=== PATIENT | female | born 1945 | race Caucasian/White ===

== ENCOUNTER → 2016-12-18 | Outpatient (CLI) | payer MEDICARE, BC ==
[2016-12-18 11:46] LABS: HEMATOCRIT 40.5 % (36.0-47.0); HEMOGLOBIN 13.6 g/dL (12.0-15.5); HGB HCT DIFFERENCE 0.3; MEAN CORPUSCULAR HEMOGLOBIN 30.1 pg (27.0-33.4); MEAN CORPUSCULAR HGB CONC 33.7 g/dL (32.0-36.0); MEAN CORPUSCULAR VOLUME 89 fl (80-97); RED BLOOD COUNT 4.53 10^6/uL (3.72-5.28); RED CELL DISTRIBUTION WIDTH 13.7 % (11.5-14.0); WHITE BLOOD COUNT 10.2 10^3/uL (4.0-10.5)
[2016-12-18 11:57] LABS: APPEARANCE,URINE CLEAR; BILIRUBIN,URINE NEGATIVE (NEGATIVE); GLUCOSE, URINE NEGATIVE (NEGATIVE); KETONES,URINE NEGATIVE (NEGATIVE); LEUKOCYTE ESTERASE,URINE TRACE (NEGATIVE); NITRITE,URINE NEGATIVE (NEGATIVE); PROTEIN,URINE NEGATIVE (NEGATIVE); UROBILINOGEN,URINE NEGATIVE mg/dL (<2.0)
[2016-12-18 12:20] LABS: ANION GAP 14 (5-19); BLOOD UREA NITROGEN 23 mg/dL (7-20); CALCIUM 10.2 mg/dL (8.4-10.2); CARBON DIOXIDE 27 mmol/L (22-30); CHLORIDE 98 mmol/L (98-107); GLUCOSE 91 mg/dL (75-110); POTASSIUM 4.4 mmol/L (3.6-5.0); SODIUM 139.2 mmol/L (137-145)
== END ==
LOC: OD 10:28
PROVIDERS: ATTEND Internal Medicine Nephrology
DX: I12.9 Hypertensive chronic kidney disease with stage 1 through stage 4 chronic kidney disease, or unspecified chronic kidney disease (principal); N18.3 Chronic kidney disease, stage 3 (moderate); R31.9 Hematuria, unspecified
CPT/HCPCS: 36415; 80048; 81001; 85027

== ENCOUNTER 2017-12-12 10:40 | Emergency (ER) | payer MEDICARE, BC ==
[2017-12-12] MEDS ORDERED: FENTANYL CITRATE INJ/PF 100 MCG/2 ML AMPUL IV ONE (11:15)
[2017-12-12] MEDS ORDERED: NORMAL SALINE 1000 ML 1,000 ML IV ONE (11:15)
[2017-12-12 12:15] LABS: ABSOLUTE BASOPHILS # (AUTO) 0.2 10^3/uL (0.0-0.2); ABSOLUTE EOSINOPHILS # (AUTO) 0.1 10^3/uL (0.0-0.6); ABSOLUTE LYMPHOCYTES (AUTO) 2.1 10^3/uL (0.5-4.7); ABSOLUTE MONOCYTES (AUTO) 0.5 10^3/uL (0.1-1.4); ABSOLUTE NEUT (AUTO) 7.5 10^3/uL (1.7-8.2); BASOPHILS % (AUTO) 1.9 % (0-2); EOSINOPHILS % (AUTO) 1.4 % (0-6); HEMATOCRIT 38.4 % (36.0-47.0); LYMPHOCYTES % (AUTO) 20.2 % (13-45); MEAN CORPUSCULAR HEMOGLOBIN 29.5 pg (27.0-33.4); MEAN CORPUSCULAR HGB CONC 33.8 g/dL (32.0-36.0); MEAN CORPUSCULAR VOLUME 87 fl (80-97); MONOCYTES % (AUTO) 5.2 % (3-13); PLATELET COUNT 304 10^3/uL (150-450); RED BLOOD COUNT 4.41 10^6/uL (3.72-5.28); RED CELL DISTRIBUTION WIDTH 13.9 % (11.5-14.0); SEGMENTED NEUTROPHILS % (AUTO) 71.3 % (42-78); TOTAL CELLS COUNTED % (AUTO) 100 %; WHITE BLOOD COUNT 10.5 10^3/uL (4.0-10.5)
[2017-12-12 12:25] LABS: ALANINE AMINOTRANSFERASE 16 U/L (9-52); ALKALINE PHOSPHATASE 63 U/L (38-126); ANION GAP 14 (5-19); ASPARTATE AMINO TRANSFERASE 12 U/L (14-36); BILIRUBIN,DIRECT 0.1 mg/dL (0.0-0.4); BILIRUBIN,TOTAL 0.4 mg/dL (0.2-1.3); BLOOD UREA NITROGEN 18 mg/dL (7-20); CALCIUM 10.4 mg/dL (8.4-10.2); CARBON DIOXIDE 25 mmol/L (22-30); CHLORIDE 99 mmol/L (98-107); GLUCOSE 110 mg/dL (75-110); LIPASE 87.7 U/L (23-300); POTASSIUM 3.7 mmol/L (3.6-5.0); TOTAL PROTEIN 6.6 g/dL (6.3-8.2)
[2017-12-12 12:57] LABS: APPEARANCE,URINE CLEAR; BILIRUBIN,URINE NEGATIVE (NEGATIVE); COLOR,URINE YELLOW; GLUCOSE, URINE NEGATIVE (NEGATIVE); KETONES,URINE NEGATIVE (NEGATIVE); LEUKOCYTE ESTERASE,URINE TRACE (NEGATIVE); NITRITE,URINE NEGATIVE (NEGATIVE); PROTEIN,URINE NEGATIVE (NEGATIVE); UROBILINOGEN,URINE NEGATIVE mg/dL (<2.0)
--- NOTE | 2017-12-12 15:05 | RADIOLOGY REPORT (SQ) ---
EXAM DESCRIPTION: CT ABD/PELVIS ORAL ONLY COMPLETED DATE/TIME: 12/12/2017 2:26 pm REASON FOR STUDY: abd pain, ocncern of obstruction COMPARISON: None. TECHNIQUE: CT scan of the abdomen and pelvis performed without intravenous or oral contrast. Images reviewed with lung, soft tissue, and bone windows. Reconstructed coronal and sagittal MPR images revi ewed. All images stored on PACS. All CT scanners at this facility use dose modulation, iterative reconstruction, and/or weight based d osing when appropriate to reduce radiation dose to as low as reasonably achievable (ALARA). [facility]: Dose Right [facility]: CareDose [facility]: Dose Right [facility]: Teradose 4D [facility]: [employer] RADIATION DOSE: CT Rad equipment meets quality standard of care and radiation dose reduction techniq ues were employed. CTDIvol: 26.8 mGy. DLP: 1468 mGy-cm.mGy. LIMITATIONS: None. FINDINGS: LOWER CHEST: Streaky atelectatic markings left base. Small hiatus hernia. NON-CONTRASTED LIVER, SPLEEN, ADRENALS: Nothing acute noncontrast liver or spleen. Slight low-densit y increased size left adrenal concerning for adenoma. PANCREAS: No masses. No peripancreatic inflammatory changes. GALLBLADDER: Surgical clips, post cholecystectomy RIGHT KIDNEY AND URETER: Likely small cyst. No significant calcifications. No hydronephrosis or h ydroureter. LEFT KIDNEY AND URETER: No suspicious masses. Assessment limited by lack of IV contrast. 3 mm nonob structing stone of the kidney. No hydronephrosis or hydroureter. AORTA AND RETROPERITONEUM: No aneurysm. No retroperitoneal masses or adenopathy. BOWEL AND PERITONEAL CAVITY: Fecal material distends the colon the cecum 12 cm in diameter. No dilat ation of the small bowel. APPENDIX: Normal. PELVIS, BLADDER, AND ABDOMINAL WALL:2.9 cm thickening of the wall upper lateral aspect of the urinary bladder concerning for mass. BONES: Right hip arthroplasty. OTHER: No other significant finding. IMPRESSION: Constipation. No small bowel dilatation. Focal wall thickening upper lateral aspect the urinary bladder concerning for mass. 3 mm nonobstructing stone left kidney. Post cholecystectomy. Hysterectomy, and right hip arthroplasty. COMMENT: Quality ID # [id number]: Final reports with documentation of one or more dose reduction techniques (e.g., Automated exposure control, adjustment of the mA and/or kV according to patient size, use of iterative reconstruction technique) TECHNICAL DOCUMENTATION: JOB ID: [id number] [employer]- All Rights Reserved Reading location - IP/workstation name: [email or web address]
--- NOTE | 2017-12-12 15:24 | ER Document Report ---
ED GI/ - General Chief Complaint: Abdominal Pain Stated Complaint: STOMACH PAIN Time Seen by Provider: 12/12/17 11:11 Mode of Arrival: Ambulatory Information source: Patient Notes: Patient is a 72-year-old female who presents to the ER today for abdominal pain "all over" that worsened today. Patient states that she has history of constipation over the past month that she has been taking different laxatives for but nothing has been helping. She states her last bowel movement was at least 5 days ago. She admits to some nausea but no vomiting. She denies any fever, chills. She does have a history of a perforated bowel due to hysterectomy. TRAVEL OUTSIDE OF THE [place] IN LAST 30 DAYS: No - Related Data Allergies/Adverse Reactions: No Known Allergies Allergy (Verified 12/12/17 10:58) Past Medical History - General Information source: Patient - Social History Smoking Status: Former Smoker Chew tobacco use (# tins/day): No Frequency of alcohol use: Rare Drug Abuse: None Family History: Reviewed & Not Pertinent Patient has suicidal ideation: No Patient has homicidal ideation: No Renal/ Medical History: Denies: Hx Peritoneal Dialysis Review of Systems - Review of Systems Constitutional: No symptoms reported EENT: No symptoms reported Cardiovascular: No symptoms reported Respiratory: No symptoms reported Gastrointestinal: See HPI Genitourinary: No symptoms reported Female Genitourinary: No symptoms reported Musculoskeletal: No symptoms reported Skin: No symptoms reported Hematologic/Lymphatic: No symptoms reported Neurological/Psychological: No symptoms reported Physical Exam - Vital signs Vitals: Temp Pulse Resp BP Pulse Ox 98.3 F 98 14 136/79 H 91 L 12/12/17 10:47 12/12/17 10:47 12/12/17 10:47 12/12/17 10:47 12/12/17 10:47 - Notes Notes: PHYSICAL EXAMINATION: GENERAL: Well-appearing and in no acute distress. HEAD: Atraumatic, normocephalic. EYES: Pupils equal round and reactive to light, extraocular movements intact, sclera anicteric, conjunctiva are normal. NECK: Normal range of motion, supple without lymphadenopathy LUNGS: CTAB and equal. No wheezes rales or rhonchi. HEART: Regular rate and rhythm without murmurs ABDOMEN: Distended, mild diffuse tenderness. No guarding, no rebound BACK: no vertebral tenderness, normal ROM GI/: no CVA tenderness EXTREMITIES: Normal range of motion, no pitting edema. No cyanosis. NEUROLOGICAL: Cranial nerves grossly intact. Normal sensory/motor exams. PSYCH: Normal mood, normal affect. SKIN: Warm, Dry, normal turgor, no rashes or lesions noted Course - Re-evaluation Re-evalutation: 12/12/17 15:19 Lab work is unremarkable today including a normal white blood cell count, normal urinalysis. CAT scan that was ordered in triage reports constipation throughout including distending the colon at the cecum to 12 cm in diameter. No evidence for bowel obstruction. I will place patient on bowel prep regimen for acute constipation - Vital Signs Vital signs: Temp Pulse Resp BP Pulse Ox 98.3 F 98 13 122/77 91 L 12/12/17 10:47 12/12/17 10:47 12/12/17 16:01 12/12/17 16:01 12/12/17 16:01 - Laboratory Result Diagrams: 12/12/17 11:36 12/12/17 11:36 Laboratory results interpreted by me: 12/12/17 12/12/17 11:36 11:36 Est GFR ( Amer) 56 L Est GFR (Non-Af Amer) 47 L Calcium 10.4 H AST 12 L Urine Blood MODERATE H Ur Leukocyte Esterase TRACE H Discharge - Discharge Clinical Impression: Abdominal pain Qualifiers: Abdominal location: generalized Qualified Code(s): R10.84 - Generalized abdominal pain Constipation Qualifiers: Constipation type: unspecified constipation type Qualified Code(s): K59.00 - Constipation, unspecified Condition: Stable Disposition: HOME, SELF-CARE Additional Instructions: Return immediately for any new or worsening symptoms. Follow up with primary care provider, call tomorrow to make followup appointment. Please take 1 bottle of bowel prep day 1, second bottle of bowel prep day 2, please continue stool softeners. Prescriptions: [id number]/Sod Sulf,Bicarb,Cl/KCl [[id number] And Electrolytes Soln] 4,000 ml PO DAILY #2 [email or web address] Referrals: ILYA FULLER MD [Primary Care Provider] - Follow up as needed
[2017-12-12 16:05] VITALS: BP 122/77
== END 2017-12-12 16:21 | disposition home or self-care (01) ==
LOC: ER 10:40
DX: R10.84 Generalized abdominal pain (principal); K59.00 Constipation, unspecified; F17.200 Nicotine dependence, unspecified, uncomplicated
CPT/HCPCS: 99284; 96361; 96374; 36415; 83690; 85025; 80053; 81001; 74176; J3010; J7030

== ENCOUNTER 2017-12-14 15:04 | Inpatient (IN) | payer MEDICARE, BC ==
[2017-12-14] MEDS ORDERED: NORMAL SALINE 1000 ML 1,000 ML IV ONE ×3 (15:38→16:53)
[2017-12-14 15:55] LABS: ABSOLUTE LYMPHOCYTES (AUTO) 1.1 10^3/uL (0.5-4.7); ABSOLUTE MONOCYTES (AUTO) 1.6 10^3/uL (0.1-1.4); ABSOLUTE NEUT (AUTO) 13.3 10^3/uL (1.7-8.2); BASOPHILS % (AUTO) 0.1 % (0-2); HEMATOCRIT 43.2 % (36.0-47.0); HEMOGLOBIN 14.5 g/dL (12.0-15.5); LYMPHOCYTES % (AUTO) 7.1 % (13-45); MEAN CORPUSCULAR HEMOGLOBIN 29.3 pg (27.0-33.4); MEAN CORPUSCULAR HGB CONC 33.5 g/dL (32.0-36.0); MEAN CORPUSCULAR VOLUME 88 fl (80-97); MONOCYTES % (AUTO) 10.1 % (3-13); PLATELET COUNT 479 10^3/uL (150-450); RED BLOOD COUNT 4.93 10^6/uL (3.72-5.28); RED CELL DISTRIBUTION WIDTH 13.7 % (11.5-14.0); SEGMENTED NEUTROPHILS % (AUTO) 82.7 % (42-78); TOTAL CELLS COUNTED % (AUTO) 100 %; WHITE BLOOD COUNT 16.1 10^3/uL (4.0-10.5)
[2017-12-14 16:11] LABS: VENOUS BLOOD BASE EXCESS 1.3 mmol/L; VENOUS BLOOD HCO3 25.7 mmol/L (20-32); VENOUS BLOOD PCO2 39.9 mmHg (35-63); VENOUS BLOOD PH 7.43 (7.30-7.42)
[2017-12-14 16:18] LABS: ALANINE AMINOTRANSFERASE 25 U/L (9-52); ALBUMIN 4.4 g/dL (3.5-5.0); ALKALINE PHOSPHATASE 64 U/L (38-126); ANION GAP 19 (5-19); ASPARTATE AMINO TRANSFERASE 41 U/L (14-36); BILIRUBIN,DIRECT 0.6 mg/dL (0.0-0.4); BILIRUBIN,TOTAL 0.7 mg/dL (0.2-1.3); BLOOD UREA NITROGEN 58 mg/dL (7-20); CALCIUM 11.6 mg/dL (8.4-10.2); CARBON DIOXIDE 27 mmol/L (22-30); CHLORIDE 91 mmol/L (98-107); GLUCOSE 153 mg/dL (75-110); LIPASE 50.6 U/L (23-300); POTASSIUM 3.4 mmol/L (3.6-5.0); SODIUM 137.2 mmol/L (137-145); TOTAL PROTEIN 7.8 g/dL (6.3-8.2)
[2017-12-14] MEDS ORDERED: VANCOMYCIN HCL INJ 1000 MG VIAL IV ONE (16:20)
[2017-12-14] MEDS ORDERED: PIPERACILLIN/TAZOBACTAM 3.375 GM VIAL IV ONE (16:21)
--- NOTE | 2017-12-14 16:28 | ER Document Report ---
ED GI/ - General Chief Complaint: Nausea/Vomiting/Diarrhea Stated Complaint: VOMITING Time Seen by Provider: 12/14/17 15:36 Information source: Patient Notes: 72-year-old female is today with the onset 2 days ago of some nausea with constipation. Patient was seen here with a CT scan of the abdomen and pelvis which showed some colonic dilation with no obvious obstructions or infections. Patient that evening started to have some persistent vomiting with diarrhea starting yesterday. Patient states some still persistent epigastric discomfort. She denies any fevers, aggravating or relieving factors, or radiation of the pain. Patient denies a history of bowel obstructions. Patient denies any chest pain, shortness of breath, or coughing. Initial blood pressure as recorded. Patient does not have a gallbladder. TRAVEL OUTSIDE OF THE [place] IN LAST 30 DAYS: No - HPI Patient complains to provider of: Abdominal pain, Diarrhea, Vomiting Onset: Other - See above Timing/Duration: Gradual Quality of pain: Achy Severity at maximum: Moderate Severity in ED: Moderate Pain Level: 1 Location: Other - See above Sexual history: Inactive Associated symptoms: Other - See above Exacerbated by: Denies Relieved by: Denies Similar symptoms previously: Yes Recently seen / treated by doctor: Yes - Related Data Allergies/Adverse Reactions: No Known Allergies Allergy (Verified 12/14/17 15:08) Past Medical History - General Information source: Patient - Social History Smoking Status: Unknown if Ever Smoked Cigarette use (# per day): No Chew tobacco use (# tins/day): No Smoking Education Provided: No Frequency of alcohol use: None Drug Abuse: None Lives with: Alone Family History: Reviewed & Not Pertinent Renal/ Medical History: Denies: Hx Peritoneal Dialysis Review of Systems - Review of Systems Constitutional: denies: Fever EENT: denies: Eye discharge, Nose discharge Cardiovascular: denies: Chest pain, Palpitations Respiratory: denies: Short of breath Gastrointestinal: Diarrhea, Vomiting Genitourinary: denies: Dysuria Musculoskeletal: denies: Leg swelling Skin: Other - no hives. denies: Rash Neurological/Psychological: Other - no slurred speech -: Yes All other systems reviewed and negative Physical Exam - Vital signs Vitals: BP Pulse Ox 74/51 L 88 L 12/14/17 15:27 12/14/17 15:27 Notes: Reviewed vital signs and nursing note as charted by RN. CONSTITUTIONAL: Alert and oriented and responds appropriately to questions. Well -appearing; well-nourished HEAD: Normocephalic; atraumatic EYES: Sclerae non-icteric ENT: Normal nose; no rhinorrhea; moist mucous membranes; pharynx without lesions noted NECK: Supple without meningismus; non-tender; no cervical lymphadenopathy, no masses CARD: Tachycardic and regular; no murmurs, no clicks, no rubs, no gallops; symmetric distal pulses RESP: Normal chest excursion without splinting or tachypnea; breath sounds clear and equal bilaterally; no wheezing or rhonchi present ABD/GI: Normal bowel sounds; mildly distended. Soft. Patient currently has no subjective or objective tenderness to palpation of all 4 quadrants of the abdomen. No abdominal bruits present BACK: The back appears normal and is non-tender to palpation, there is no CVA tenderness EXT: Normal ROM in all joints; non-tender to palpation; no cyanosis, no effusions, no edema SKIN: Normal color for age and race; warm; dry; good turgor; no acute lesions noted NEURO: Moves all extremities equally; Motor and sensory function intact PSYCH: The patient's mood and manner are appropriate. Grooming and personal hygiene are appropriate. Course - Re-evaluation Re-evalutation: Given the history, vital signs, and examination, we placed the patient immediately on the monitor and ordered a liter of fluid. Blood and lactic acid were ordered. I called personally to radiology to expedite a portable x-ray of the chest and abdomen. 12/14/17 16:25 Labs as recorded. I have ordered thank and Zosyn. No change in exam. Blood pressure improved. 12/14/17 16:27 X-ray of the chest shows no acute abnormality. X-ray of the abdomen show some dilated loops of large intestine. I have paged the surgeon. I have also ordered a CT scan of the abdomen and pelvis without contrast given the patient' s creatinine. I have ordered broad-spectrum antibiotics and have ordered another liter of fluid. 12/14/17 16:33 Second liter of fluid has been ordered. I have called and spoken directly to the surgeon about the patient. He states he will be down to see the patient. 12/14/17 16:42 EKG heart rate 101, sinus tachycardia, normal axis, no obvious ST elevation or depression. Flattening T waves in leads I, aVL, 3, aVF 12/14/17 17:35 CT scan as recorded. Vital signs are stable. Patient's pain is improved. I have already provided broad-spectrum antibiotics given the patient's lactic acid. Patient's potassium is actually low, not high. The surgeon has been consulted and was here in the emergency department. Patient has been admitted to the hospitalist service for further evaluation and fluid hydration. Patient' s oxygen saturation is 92-93%. X-ray is recorded. Patient does have a history of recently diagnosed COPD. She denies any chest pain or shortness of breath. - Vital Signs Vital signs: Temp Pulse Resp BP Pulse Ox 98.3 F 20 94/38 L 94 12/14/17 16:17 12/14/17 16:11 12/14/17 16:11 12/14/17 16:11 - Laboratory Result Diagrams: 12/14/17 15:39 12/14/17 15:39 Laboratory results interpreted by me: 12/14/17 12/14/17 12/14/17 15:39 15:39 15:39 WBC 16.1 H Plt Count 479 H Seg Neutrophils % 82.7 H Lymphocytes % 7.1 L Absolute Neutrophils 13.3 H Absolute Monocytes 1.6 H VBG pH Potassium 3.4 L Chloride 91 L BUN 58 H Creatinine 4.73 H Est GFR ( Amer) 11 L Est GFR (Non-Af Amer) 9 L Glucose 153 H Lactic Acid 5.9 H Calcium 11.6 H Direct Bilirubin 0.6 H AST 41 H 12/14/17 15:39 WBC Plt Count Seg Neutrophils % Lymphocytes % Absolute Neutrophils Absolute Monocytes VBG pH 7.43 H Potassium Chloride BUN Creatinine Est GFR ( Amer) Est GFR (Non-Af Amer) Glucose Lactic Acid Calcium Direct Bilirubin AST Critical Care Note - Critical Care Note Total time excluding time spent on procedures (mins): 45 Discharge - Discharge Clinical Impression: Vomiting and diarrhea, Lactic acidosis Acute renal failure Qualifiers: Acute renal failure type: unspecified Qualified Code(s): N17.9 - Acute kidney failure, unspecified Condition: Serious Disposition: ADMITTED INPATIENT Admitting Provider: Hospitalist Unit Admitted: IMCU Referrals: ILYA FULLER MD [Primary Care Provider] - Follow up as needed
--- NOTE | 2017-12-14 16:39 | RADIOLOGY REPORT (SQ) ---
EXAM DESCRIPTION: CHEST SINGLE VIEW COMPLETED DATE/TIME: 12/14/2017 4:27 pm REASON FOR STUDY: 1, sob COMPARISON: None. EXAM PARAMETERS: NUMBER OF VIEWS: One view. TECHNIQUE: Single frontal radiographic view of the chest acquired. RADIATION DOSE: NA LIMITATIONS: None. FINDINGS: LUNGS AND PLEURA: No opacities, masses or pneumothorax. Small left-sided pleural effusion . MEDIASTINUM AND HILAR STRUCTURES: No masses. Contour normal. HEART AND VASCULAR STRUCTURES: Heart normal in size. Normal vasculature. BONES: No acute findings. HARDWARE: None in the chest. OTHER: No other significant finding. IMPRESSION: Small left-sided pleural effusion. No focal consolidation. TECHNICAL DOCUMENTATION: JOB ID: [id number] [employer]- All Rights Reserved Reading location - IP/workstation name: [email or web address]
--- NOTE | 2017-12-14 16:41 | RADIOLOGY REPORT (SQ) ---
EXAM DESCRIPTION: KUB/ABDOMEN (SINGLE VIEW) COMPLETED DATE/TIME: 12/14/2017 4:27 pm REASON FOR STUDY: 1, portable COMPARISON: CT of the abdomen and pelvis 12/12/2017 NUMBER OF VIEWS: One view. TECHNIQUE: Supine radiographic image of the abdomen acquired. LIMITATIONS: None. FINDINGS: BOWEL GAS PATTERN: Gas is seen within multiple prominent loops of colon which were previou sly filled with stool. CALCIFICATIONS: No suspicious calcifications. SOFT TISSUES: No gross mass or suggestion of organomegaly. HARDWARE: Status post right total hip arthroplasty. Cholecystectomy clips. BONES: No acute fracture. No worrisome bone lesions. OTHER: No other significant finding. IMPRESSION: Previously stool filled loops of colon appear gas-filled on today's examination. TECHNICAL DOCUMENTATION: JOB ID: [id number]- All Rights Reserved Reading location - IP/workstation name: [email or web address]
[2017-12-14] MEDS ORDERED: ONDANSETRON HCL INJ/PF 4 MG/2 ML SDV IV ONE (16:48)
--- NOTE | 2017-12-14 17:30 | RADIOLOGY REPORT (SQ) ---
EXAM DESCRIPTION: CT ABD/PELVIS NO ORAL OR IV COMPLETED DATE/TIME: 12/14/2017 4:50 pm REASON FOR STUDY: 6, vomiting, diarrhea, lactic as recorded COMPARISON: 12/12/2017 TECHNIQUE: CT scan of the abdomen and pelvis performed without intravenous or oral contrast. Images reviewed with lung, soft tissue, and bone windows. Reconstructed coronal and sagittal MPR images revi ewed. All images stored on PACS. All CT scanners at this facility use dose modulation, iterative reconstruction, and/or weight based d osing when appropriate to reduce radiation dose to as low as reasonably achievable (ALARA). [facility]: Dose Right [facility]: CareDose [facility]: Dose Right [facility]: Teradose 4D [facility]: Smart [employer] RADIATION DOSE: CT Rad equipment meets quality standard of care and radiation dose reduction techniq ues were employed. CTDIvol: 27.5 mGy. DLP: 1630 mGy-cm.mGy. LIMITATIONS: None. FINDINGS: LOWER CHEST: Bibasilar scarring versus atelectasis. No acute findings. NON-CONTRASTED LIVER, SPLEEN, ADRENALS: Evaluation limited by lack of IV contrast. No acute findings . PANCREAS: No masses. No peripancreatic inflammatory changes. GALLBLADDER: Surgically absent. RIGHT KIDNEY AND URETER: No suspicious masses. Assessment limited by lack of IV contrast. No signif icant calcifications. No hydronephrosis or hydroureter. LEFT KIDNEY AND URETER: No suspicious masses. Assessment limited by lack of IV contrast. Re- demons tration of a nonobstructing nephrolith. No hydronephrosis or hydroureter. AORTA AND RETROPERITONEUM: No aneurysm. No retroperitoneal masses or adenopathy. BOWEL AND PERITONEAL CAVITY: Gas and fluid are seen throughout prominent loops of large and small bow el scattered sigmoid diverticula are present noting some subtle inflammatory changes in the region of the proximal sigmoid (axial images 78 through 81); by and large, the colon appears to be largely fea tureless. Additionally, on axial image 67, there appears to be a small bowel adhesion without obstru ction. Multiple air-fluid levels are seen throughout the bowel. APPENDIX: Normal. PELVIS, BLADDER, AND ABDOMINAL WALL:No abnormal masses. No free fluid. Bladder normal. BONES: No significant findings. OTHER: No other significant finding. IMPRESSION: Relative to CT imaging performed 12/29/2017 which demonstrated constipation, today's imag ing demonstrates fluid throughout prominent loops of large and small bowel. Some subtle pericolic me senteric fat stranding involving the proximal sigmoid colon may indicate an early uncomplicated diver ticulitis. Additionally, there appears to be a small bowel to small bowel adhesion without evidence of obstruction. 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 COMMENT: Quality ID # [id number]: Final reports with documentation of one or more dose reduction techniques (e.g., Automated exposure control, adjustment of the mA and/or kV according to patient size, use of iterative reconstruction technique) TECHNICAL DOCUMENTATION: JOB ID: [id number] [employer]- All Rights Reserved Reading location - IP/workstation name: [email or web address]
--- NOTE | 2017-12-14 18:00 | PDOC CONSULTATION ---
History of Present Illness Admission Date/PCP: ILYA FULLER MD Patient complains of: RUQ abdominal pains with Nausea History of Present Illness: MICHAEL IVEY is a 72 year old female with history of hypertension.Hysterectomy with post op obstruction who underwent lysis of adhesions. Also had lap luther. Has been c/o constipation and consulted PMD mid November who gave her some laxatives. 2 days ago was seen in the ED for N/V and mild abdominal pains. Ct scan then was normal and pt sent home. She has been nauseated with vomiting and now with abdominal pains and back to ED. Subsequent CT scan showed disteded small and large bowel with possibly starting sigmoid diverticulitis and evidence of chronic laxative use. Past Medical History Cardiac Medical History: Reports: Hypertension Past Surgical History Past Surgical History: Reports: Cholecystectomy, Hysterectomy, Other - Lysis of adhesions post hysterectomy Social History Lives with: Alone Smoking Status: Unknown if Ever Smoked Family History Family History: Reviewed & Not Pertinent Parental Family History Reviewed: No Children Family History Reviewed: No Sibling(s) Family History Reviewed.: No Medication/Allergy Home Medications: Allopurinol [Zyloprim 100 mg Tablet] 100 mg PO DAILY 12/12/17 Calcium Carbonate [Calcium] 600 mg PO BID 12/12/17 Hydrochlorothiazide 12.5 mg PO DAILY 12/12/17 Levothyroxine Sodium [Levoxyl] 150 mcg PO DAILY 12/12/17 Lisinopril [Lisinopril] 40 mg PO DAILY 12/12/17 Multivitamin [One-A-Day Essential] 1 tab PO DAILY 12/12/17 [id number]/Sod Sulf,Bicarb,Cl/KCl [[id number] And Electrolytes Soln] 4,000 ml PO DAILY #2 soln.recon 12/12/17 Umeclidinium Brm/Vilanterol Tr [Anoro Ellipta 62.5-25 Mcg INH] 1 inh IH DAILY Ondansetron [Zofran Odt 4 mg Tablet] 1 - 2 tab PO Q4H PRN #30 tab.rapdis Ondansetron [Zofran Odt 4 mg Tablet] 1 - 2 tab PO Q4H PRN #30 tab.rapdis Allergies/Adverse Reactions: No Known Allergies Allergy (Verified 12/14/17 15:08) Review of Systems Constitutional: PRESENT: weakness Eyes: PRESENT: other - no visual/hearing changes Cardiovascular: PRESENT: other - no chest pain/cough Gastrointestinal: PRESENT: nausea, vomiting, other - Had BM after CT scan Genitourinary: PRESENT: other - no dysuria Neurological: PRESENT: other - no seizures Psychiatric: PRESENT: anxiety Endocrine: PRESENT: other - no polyuria Hematologic/Lymphatic: PRESENT: other - no easy bruising Physical Exam Vital Signs: Temp Pulse Resp BP Pulse Ox 98.3 F 20 94/38 L 94 12/14/17 16:17 12/14/17 16:11 12/14/17 16:11 12/14/17 16:11 Intake & Output 12/13/17 12/14/17 12/15/17 06:59 06:59 06:59 Weight 115 kg General appearance: PRESENT: mild distress Head exam: PRESENT: atraumatic, normocephalic Eye exam: PRESENT: conjunctiva pink Mouth exam: PRESENT: dry mucosa Neck exam: PRESENT: full ROM Respiratory exam: PRESENT: clear to auscultation choco Cardiovascular exam: PRESENT: tachycardia Pulses: PRESENT: normal radial pulses Vascular exam: PRESENT: normal capillary refill GI/Abdominal exam: PRESENT: distended, firm, tenderness - mild tenderness RUQ Rectal exam: PRESENT: deferred Extremities exam: PRESENT: full ROM Musculoskeletal exam: PRESENT: ambulatory Neurological exam: PRESENT: alert, oriented to person, oriented to place, oriented to time, oriented to situation Psychiatric exam: PRESENT: anxious Skin exam: PRESENT: normal color, warm Results Laboratory Results: 12/14/17 15:39 12/14/17 15:39 12/14/17 12/14/17 12/14/17 15:39 15:39 15:39 WBC 16.1 H RBC 4.93 Hgb 14.5 Hct 43.2 MCV 88 MCH 29.3 MCHC 33.5 RDW 13.7 Plt Count 479 H Seg Neutrophils % 82.7 H Lymphocytes % 7.1 L Monocytes % 10.1 Eosinophils % 0.0 Basophils % 0.1 Absolute Neutrophils 13.3 H Absolute Lymphocytes 1.1 Absolute Monocytes 1.6 H Absolute Eosinophils 0.0 Absolute Basophils 0.0 VBG pH VBG pCO2 VBG HCO3 VBG Base Excess Sodium 137.2 Potassium 3.4 L Chloride 91 L Carbon Dioxide 27 Anion Gap 19 BUN 58 H Creatinine 4.73 H Est GFR ( Amer) 11 L Est GFR (Non-Af Amer) 9 L Glucose 153 H Lactic Acid 5.9 H Calcium 11.6 H Total Bilirubin 0.7 AST 41 H ALT 25 Alkaline Phosphatase 64 Total Protein 7.8 Albumin 4.4 Lipase 50.6 Stool Occult Blood 12/14/17 12/14/17 15:39 16:13 WBC RBC Hgb Hct MCV MCH MCHC RDW Plt Count Seg Neutrophils % Lymphocytes % Monocytes % Eosinophils % Basophils % Absolute Neutrophils Absolute Lymphocytes Absolute Monocytes Absolute Eosinophils Absolute Basophils VBG pH 7.43 H VBG pCO2 39.9 VBG HCO3 25.7 VBG Base Excess 1.3 Sodium Potassium Chloride Carbon Dioxide Anion Gap BUN Creatinine Est GFR ( Amer) Est GFR (Non-Af Amer) Glucose Lactic Acid Calcium Total Bilirubin AST ALT Alkaline Phosphatase Total Protein Albumin Lipase Stool Occult Blood NEGATIVE 12/14/17 15:39 Troponin I 0.062 Impressions: KUB X-Ray 12/14/17 15:36 IMPRESSION: Previously stool filled loops of colon appear gas-filled on today' s examination. Chest X-Ray 12/14/17 15:37 IMPRESSION: Small left-sided pleural effusion. No focal consolidation. Abdomen/Pelvis CT 12/14/17 16:27 IMPRESSION: Relative to CT imaging performed 12/29/2017 which demonstrated constipation, today's imaging demonstrates fluid throughout prominent loops of large and small bowel. Some subtle pericolic mesenteric fat stranding involving the proximal sigmoid colon may indicate an early uncomplicated diverticulitis. Additionally, there appears to be a small bowel to small bowel adhesion without evidence of obstruction. Given the rather featureless appearance of the colon, recommend correlation for chronic laxative use. Assessment & Plan - Diagnosis (1) Acute renal failure Qualifiers: Acute renal failure type: unspecified Qualified Code(s): N17.9 - Acute kidney failure, unspecified Is this a current diagnosis for this admission?: Yes (2) Lactic acidosis Is this a current diagnosis for this admission?: Yes (3) Vomiting and diarrhea Is this a current diagnosis for this admission?: Yes (4) Abdominal pain Qualifiers: Abdominal location: generalized Qualified Code(s): R10.84 - Generalized abdominal pain Is this a current diagnosis for this admission?: Yes (5) Constipation Qualifiers: Constipation type: unspecified constipation type Qualified Code(s): K59.00 - Constipation, unspecified Is this a current diagnosis for this admission?: Yes - Time Time Spent: 30 to 50 Minutes - Inpatient Certification Medical Necessity: Significant Comorbidiites Make Outpatient Treatment Too Risky , Need For IV Fluids, Risk of Complication if Not Cared For in Hospital - Plan Summary Plan Summary: At this time no surgical abdomen Can be admitted to medicine for severe dehydration with elevated bun,creatinine and lactic acid Will follow as needed
--- NOTE | 2017-12-14 18:01 | EKG REPORT ---
SEVERITY:- ABNORMAL ECG - SINUS TACHYCARDIA ATRIAL PREMATURE COMPLEX NONSPECIFIC T ABNORMALITIES, ANT-LAT LEADS : Confirmed by: Jesus Hassan MD 14-Dec-2017 18:00:56
[2017-12-14] MEDS ORDERED: RINGERS SOLUTION,LACTATED 1,000 ML IV PRN (19:10)
[2017-12-14] MEDS ORDERED: POTASSI CL 20 MEQ/NS 1L 1,000 ML IV PRN (19:11)
[2017-12-14] MEDS ORDERED: ONDANSETRON HCL INJ/PF 4 MG/2 ML SDV IV PRN (19:14)
[2017-12-14 20:11] LABS: ANION GAP 15 (5-19); BLOOD UREA NITROGEN 61 mg/dL (7-20); CALCIUM 11.1 mg/dL (8.4-10.2); CARBON DIOXIDE 28 mmol/L (22-30); CHLORIDE 94 mmol/L (98-107); GLUCOSE 128 mg/dL (75-110); POTASSIUM 3.6 mmol/L (3.6-5.0); SODIUM 137.4 mmol/L (137-145)
--- NOTE | 2017-12-14 21:24 | PDOC H&P ---
History of Present Illness Admission Date/PCP: 12/14/17 17:49 ILYA FULLER MD Patient complains of: Nausea vomiting diarrhea History of Present Illness: This is a 72-year-old woman who lives locally with her family. She does not have too many significant medical problems. She did however variance is severe constipation last week. Her PCP initially treated her as an outpatient with MiraLAX stool softener and milk of magnesia. She developed lower abdominal pain this past and went to the ER for that reason. In the ER she was still obstipated. She ended up being discharged on [place]. He worked on her [employer] for several days. And then 2 nights ago she started having a good amount of stool output. Discontinued until it became diarrhea. She did not notice any blood. Also 2 nights ago she began having nausea and vomiting. Her son-in-law went to see her today to see how she was doing and found that she was weak diaphoretic dizzy and unable to eat or drink anything. She was brought to the ER at that time. In the ER she has received some fluid hydration. She is being admitted to the hospitalist service with acute kidney injury, severe dehydration, lactic acidosis. Past Medical History Medical History: Other - Gout Cardiac Medical History: Reports: Hypertension Pulmonary Medical History: Reports: None Pulmonary History Note: Recent diagnosis of COPD. EENT Medical History: Reports: None Neurological Medical History: Reports: None Endocrine Medical History: Reports: Obesity Malignancy Medical History: Reports: None GI Medical History: Reports: Other - Per HPI Musculoskeltal Medical History: Reports: Gout Skin Medical History: Reports: None Psychiatric Medical History: Reports: None Traumatic Medical History: Reports: None Hematology: Reports: None Infectious Medical History: Reports: None Past Surgical History Past Surgical History: Reports: Cholecystectomy, Hysterectomy, Other - Lysis of adhesions post hysterectomy Social History Information Source: Patient Lives with: Alone Smoking Status: Former Smoker Number of Years Smokin Last Time Smoked: 1 year ago Frequency of Alcohol Use: None Hx Recreational Drug Use: No Drugs: None Past Social History Note: 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 She moved to this area from [place] to be closer to her family. Family History Family History: Other - Mother had a stroke, she does not know her father's medical history, sister had cancer of unknown type, 1 of her daughters has hypothyroidism and one of her sons has gout Parental Family History Reviewed: Yes Children Family History Reviewed: Yes Sibling(s) Family History Reviewed.: Yes Medication/Allergy Home Medications: Allopurinol [Zyloprim 100 mg Tablet] 100 mg PO DAILY 12/12/17 Calcium Carbonate [Calcium] 600 mg PO BID 12/12/17 Hydrochlorothiazide 12.5 mg PO DAILY 12/12/17 Levothyroxine Sodium [Levoxyl] 150 mcg PO DAILY 12/12/17 Lisinopril [Lisinopril] 40 mg PO DAILY 12/12/17 Multivitamin [One-A-Day Essential] 1 tab PO DAILY 12/12/17 [id number]/Sod Sulf,Bicarb,Cl/KCl [Peg-3350 And Electrolytes Soln] 4,000 ml PO DAILY #2 soln.recon 12/12/17 Umeclidinium Brm/Vilanterol Tr [Anoro Ellipta 62.5-25 Mcg INH] 1 inh IH DAILY Ondansetron [Zofran Odt 4 mg Tablet] 1 - 2 tab PO Q4H PRN #30 tab.rapdis Ondansetron [Zofran Odt 4 mg Tablet] 1 - 2 tab PO Q4H PRN #30 tab.rapdis Allergies/Adverse Reactions: No Known Allergies Allergy (Verified 12/14/17 15:08) Review of Systems Constitutional: PRESENT: weakness Eyes: ABSENT: visual disturbances Ears: ABSENT: hearing changes Nose, Mouth, and Throat: ABSENT: headache(s), mouth pain, sore throat Cardiovascular: ABSENT: chest pain, dyspnea on exertion, edema Gastrointestinal: PRESENT: abdominal pain, bloating, constipation, diarrhea, nausea, vomiting. ABSENT: coffee ground emesis, dysphagia, heartburn, hematemesis, hematochezia, melena Genitourinary: ABSENT: difficulty urinating, hematuria Musculoskeletal: ABSENT: joint swelling Integumentary: PRESENT: diaphoresis. ABSENT: erythema, wounds Neurological: PRESENT: dizziness, frequent falls, other - In general patient does not have falls but she has had a hard time standing up for the last day due to weakness. ABSENT: confusion, numbness, tingling Psychiatric: ABSENT: anxiety, depression Endocrine: ABSENT: cold intolerance, heat intolerance, polydipsia, polyphagia, polyuria Hematologic/Lymphatic: ABSENT: easy bleeding, easy bruising Allergic/Immunologic: ABSENT: seasonal rhinorrhea Physical Exam Vital Signs: Temp Pulse Resp BP Pulse Ox 98.3 F 25 H 101/62 90 L 12/14/17 16:17 12/14/17 20:01 12/14/17 20:01 12/14/17 20:01 General appearance: PRESENT: cooperative, mild distress, obese Head exam: PRESENT: atraumatic, normocephalic Eye exam: PRESENT: conjunctiva pink, EOMI. ABSENT: scleral icterus Ear exam: PRESENT: normal external ear exam. ABSENT: drainage Mouth exam: PRESENT: neck supple, tongue midline. ABSENT: dry mucosa Neck exam: ABSENT: lymphadenopathy Respiratory exam: PRESENT: clear to auscultation choco. ABSENT: rales, rhonchi, wheezes Cardiovascular exam: PRESENT: RRR, tachycardia. ABSENT: systolic murmur Pulses: PRESENT: normal radial pulses, normal dorsalis pedis pul GI/Abdominal exam: PRESENT: distended, hypoactive bowel sounds, soft, tenderness. ABSENT: rebound Rectal exam: PRESENT: deferred Musculoskeletal exam: PRESENT: normal inspection Neurological exam: PRESENT: awake, oriented to person, oriented to place, oriented to situation, CN II-XII grossly intact. ABSENT: alert Psychiatric exam: PRESENT: appropriate affect. ABSENT: anxious, depressed Skin exam: PRESENT: dry, intact, warm. ABSENT: erythema, jaundice Results Laboratory Results: 12/14/17 19:40 12/14/17 12/14/17 19:40 19:40 Sodium 137.4 Potassium 3.6 Chloride 94 L Carbon Dioxide 28 Anion Gap 15 BUN 61 H Creatinine 4.76 H Est GFR ( Amer) 11 L Est GFR (Non-Af Amer) 9 L Glucose 128 H Lactic Acid 1.8 Calcium 11.1 H Impressions: KUB X-Ray 12/14/17 15:36 IMPRESSION: Previously stool filled loops of colon appear gas-filled on today' s examination. Chest X-Ray 12/14/17 15:37 IMPRESSION: Small left-sided pleural effusion. No focal consolidation. Abdomen/Pelvis CT 12/14/17 16:27 IMPRESSION: Relative to CT imaging performed 12/29/2017 which demonstrated constipation, today's imaging demonstrates fluid throughout prominent loops of large and small bowel. Some subtle pericolic mesenteric fat stranding involving the proximal sigmoid colon may indicate an early uncomplicated diverticulitis. Additionally, there appears to be a small bowel to small bowel adhesion without evidence of obstruction. Given the rather featureless appearance of the colon, recommend correlation for chronic laxative use. Assessment & Plan - Diagnosis (1) Vomiting and diarrhea Is this a current diagnosis for this admission?: Yes Plan: Not entirely clear etiology at this point. If patient had recently been treated for constipation aggressively I would be thinking that she has a viral gastroenteritis but it is hard to separate these events from her recent treatment for constipation. Right now we have cultures pending of the stool. Her nausea and vomiting are improved with Phenergan. For the stool we will look for C. difficile and also bacterial culture along with fecal white blood cells and occult blood. (2) Acute renal failure Qualifiers: Acute renal failure type: unspecified Qualified Code(s): N17.9 - Acute kidney failure, unspecified Is this a current diagnosis for this admission?: Yes Plan: Patient has elevated BUN and creatinine which is abnormal for her. I believe she is very dehydrated and this is a prerenal picture. Nonetheless a renal ultrasound will be ordered. Grier catheter will be placed. Good hydration will continue. Will avoid nephrotoxins as we are able. (3) Hypertension Plan: Patient is on lisinopril and hydrochlorothiazide at baseline. These are on hold for now. Will monitor her blood pressure and treat with other agents if needed. In the ER she has mostly been a little bit hypotensive given her dehydration nausea and vomiting. (5) Lactic acidosis Is this a current diagnosis for this admission?: Yes Plan: After fluid hydration I recheck the lactic acid and it is now normal. (6) Abdominal pain Is this a current diagnosis for this admission?: Yes Plan: In the bilateral lower quadrants. Aching, not sharp. Surgeon has evaluated the patient and she does not have an acute abdomen. CT scan is not concerning for acute abdomen however she does have dilated loops of large and small bowel and also some mesenteric fat stranding possibly indicating diverticulitis. (7) Constipation Qualifiers: Constipation type: unspecified constipation type Qualified Code(s): K59.00 - Constipation, unspecified Is this a current diagnosis for this admission?: Yes Plan: Please see HPI for details related to recent constipation. Patient is not currently constipated. (8) Diverticulitis Is this a current diagnosis for this admission?: Yes Plan: Given the acuity of her illness and the mesenteric fat stranding in the diarrhea I am starting the patient on Zosyn. Will further discuss with surgeon. Evidence of bowel perforation. No bleeding per rectum at this time. - Time Time Spent: Greater than 70 Minutes - Inpatient Certification Medical Necessity: Failure to Improve With Outpatient Therapy, Significant Comorbidiites Make Outpatient Treatment Too Risky, Need Close Monitoring Due to Risk of Patient Decompensation, Need For IV Fluids, Risk of Complication if Not Cared For in Hospital
[2017-12-14] MEDS ORDERED: PIPERACILLIN/TAZOBACTAM 3.375 GM VIAL IV SCH (21:30)
[2017-12-14] MEDS ORDERED: PIPERACILLIN/TAZOBACTAM 3.375 GM VIAL IV PRN (21:36)
[2017-12-14] MEDS ORDERED: DILTIAZEM HCL/D5W 125 MG/125 ML RTUINJ IV PRN (22:13)
[2017-12-14] MEDS: NORMAL SALINE 1000 ML 1,000 ML IV PRN ×2 (22:30→23:57)
[2017-12-14 22:56] LABS: CREATINE KINASE MB 48.4 ng/mL (<4.55)
[2017-12-14 22:58] LABS: TROPONIN I 0.088 ng/mL
[2017-12-14] MEDS: PANTOPRAZOLE SODIUM 40 MG VIAL IV SCH (23:16)
[2017-12-14] MEDS: HEPARIN SOD (PORCINE) 5,000 UNIT/ML 1 ML SYRINGE SUBCUT SCH (23:17)
[2017-12-15] MEDS ORDERED: NORMAL SALINE 1000 ML 1,000 ML IV ONE ×2 (00:02→04:15)
[2017-12-15 00:41] LABS: AMORPHOUS SEDIMENT,URINE TRACE /HPF; APPEARANCE,URINE TURBID; BILIRUBIN,URINE SMALL (NEGATIVE); GLUCOSE, URINE NEGATIVE (NEGATIVE); KETONES,URINE NEGATIVE (NEGATIVE); LEUKOCYTE ESTERASE,URINE TRACE (NEGATIVE); NITRITE,URINE NEGATIVE (NEGATIVE); PROTEIN,URINE 100 mg/dL (NEGATIVE); URINE SPECIFIC GRAVITY 1.028
[2017-12-15 00:42] LABS: COLOR,URINE DARK YELLOW
[2017-12-15] MEDS ORDERED: PIPERACILLIN/TAZOBACTAM 3.375 GM VIAL IV ONE (04:04)
[2017-12-15] MEDS: PIPERACILLIN SODIUM/TAZOBACTAM 3.375 GM in NORMAL SALINE 100 ML IV SCH ×2 (04:24→10:30)
[2017-12-15 04:26] LABS: PHOSPHORUS 4.3 mg/dL (2.5-4.5)
[2017-12-15 04:27] LABS: ALANINE AMINOTRANSFERASE 41 U/L (9-52); ALKALINE PHOSPHATASE 44 U/L (38-126); ANION GAP 14 (5-19); ASPARTATE AMINO TRANSFERASE 65 U/L (14-36); BILIRUBIN,DIRECT 0.2 mg/dL (0.0-0.4); BILIRUBIN,TOTAL 0.3 mg/dL (0.2-1.3); BLOOD UREA NITROGEN 59 mg/dL (7-20); CALCIUM 9.7 mg/dL (8.4-10.2); CARBON DIOXIDE 24 mmol/L (22-30); CHLORIDE 101 mmol/L (98-107); CREATINE KINASE 781 U/L (30-135); GLUCOSE 122 mg/dL (75-110); POTASSIUM 3.4 mmol/L (3.6-5.0); SODIUM 138.9 mmol/L (137-145)
[2017-12-15 04:34] LABS: BASOPHILS % (AUTO) 0.1 % (0-2); HEMATOCRIT 36.5 % (36.0-47.0); LYMPHOCYTES % (AUTO) 10.1 % (13-45); MEAN CORPUSCULAR HEMOGLOBIN 29.3 pg (27.0-33.4); MEAN CORPUSCULAR HGB CONC 33.1 g/dL (32.0-36.0); MEAN CORPUSCULAR VOLUME 88 fl (80-97); MONOCYTES % (AUTO) 10.2 % (3-13); PLATELET COUNT 321 10^3/uL (150-450); RED BLOOD COUNT 4.12 10^6/uL (3.72-5.28); SEGMENTED NEUTROPHILS % (AUTO) 79.6 % (42-78); TOTAL CELLS COUNTED % (AUTO) 100 %; WHITE BLOOD COUNT 10.1 10^3/uL (4.0-10.5)
[2017-12-15 04:40] LABS: CREATINE KINASE MB 53.1 ng/mL (<4.55)
[2017-12-15 04:47] LABS: TROPONIN I 0.068 ng/mL
[2017-12-15 04:57] LABS: HEMOGLOBIN 12.1 g/dL (12.0-15.5)
[2017-12-15] MEDS ORDERED: NORMAL SALINE 1000 ML 1,000 ML IV PRN ×3 (05:01→14:56)
[2017-12-15] MEDS: HEPARIN SOD (PORCINE) 5,000 UNIT/ML 1 ML SYRINGE SUBCUT SCH ×2 (05:12→15:00)
--- NOTE | 2017-12-15 05:34 | RADIOLOGY REPORT (SQ) ---
EXAM DESCRIPTION: U/S RETROPERITON LTD CLINICAL HISTORY: 72 years, Female, acute kidney injury COMPARISON: None. TECHNIQUE: Transabdominal. LIMITATIONS: Severe bowel related artifact. FINDINGS: Kidneys are not seen due to bowel related obscuration artifact as correlated with CT from the same day. Both kidneys are present on CT from the same day. Bilateral ureteral jets flow present, nondistended urinary bladder. IMPRESSION: Nondiagnostic exam.
[2017-12-15] MEDS ORDERED: MIDODRINE HCL 5 MG TABLET PO ONE (06:00)
--- NOTE | 2017-12-15 07:51 | EKG REPORT ---
SEVERITY:- ABNORMAL ECG - ATRIAL FIBRILLATION, V-RATE 109-163 REPOLARIZATION ABNORMALITY, PROB RATE RELATED BORDERLINE PROLONGED QT INTERVAL : Confirmed by: Jesus Hassan MD 15-Dec-2017 07:50:51
--- NOTE | 2017-12-15 07:51 | EKG REPORT ---
SEVERITY:- ABNORMAL ECG - SINUS TACHYCARDIA NONSPECIFIC T ABNORMALITIES, LATERAL LEADS : Confirmed by: Jesus Hassan MD 15-Dec-2017 07:50:36
[2017-12-15] MEDS: IPRATROPIUM/ALBUTEROL 0.5-2.5 MG/3 ML AMPUL NEB PRN (10:32)
[2017-12-15] MEDS: LEVOTHYROXINE SODIUM 0.1 MG TABLET PO SCH (10:39)
[2017-12-15] MEDS: PANTOPRAZOLE SODIUM 40 MG VIAL IV SCH ×2 (10:39→22:03)
[2017-12-15 11:20] LABS: CREATINE KINASE MB 52.2 ng/mL (<4.55); TROPONIN I 0.06 ng/mL
[2017-12-15] MEDS: PIPERACILLIN SODIUM/TAZOBACTAM 2.25 GM in NORMAL SALINE 100 ML IV SCH ×2 (12:37→22:00)
[2017-12-15 13:20] LABS: VENOUS BLOOD BASE EXCESS -2.4 mmol/L; VENOUS BLOOD HCO3 23.3 mmol/L (20-32); VENOUS BLOOD PH 7.34 (7.30-7.42)
--- NOTE | 2017-12-15 14:12 | PDOC PROGRESS REPORT ---
Subjective Reason For Visit: ROSA,DEHYDRATION,INTRACTABLE NAUSEA,VOMITING Physical Exam Vital Signs: Temp Pulse Resp BP Pulse Ox 97.9 F 105 H 18 87/53 L 86 L 12/15/17 12:25 12/15/17 12:25 12/15/17 12:25 12/15/17 08:32 12/15/17 12:25 Intake & Output 12/14/17 12/15/17 12/16/17 00:59 00:59 00:59 Intake Total 1600 Output Total 150 Balance 1450 Weight 120 kg General appearance: PRESENT: cooperative, mild distress, obese Head exam: PRESENT: atraumatic, normocephalic Eye exam: PRESENT: conjunctiva pink, EOMI. ABSENT: scleral icterus Ear exam: PRESENT: normal external ear exam. ABSENT: drainage Mouth exam: PRESENT: neck supple, tongue midline. ABSENT: dry mucosa Neck exam: ABSENT: lymphadenopathy Respiratory exam: PRESENT: clear to auscultation choco. ABSENT: rales, rhonchi, wheezes Cardiovascular exam: PRESENT: RRR, tachycardia. ABSENT: systolic murmur Pulses: PRESENT: normal radial pulses, normal dorsalis pedis pul GI/Abdominal exam: PRESENT: distended, hypoactive bowel sounds, soft, tenderness. ABSENT: rebound Rectal exam: PRESENT: deferred Musculoskeletal exam: PRESENT: normal inspection Neurological exam: PRESENT: awake, oriented to person, oriented to place, oriented to situation, CN II-XII grossly intact. ABSENT: alert Psychiatric exam: PRESENT: appropriate affect. ABSENT: anxious, depressed Skin exam: PRESENT: dry, intact, warm. ABSENT: erythema, jaundice Results Laboratory Results: 12/15/17 03:48 12/15/17 03:48 12/14/17 12/14/17 12/14/17 19:40 19:40 23:47 WBC RBC Hgb Hct MCV MCH MCHC RDW Plt Count Seg Neutrophils % Lymphocytes % Monocytes % Eosinophils % Basophils % Absolute Neutrophils Absolute Lymphocytes Absolute Monocytes Absolute Eosinophils Absolute Basophils VBG pH VBG pCO2 VBG HCO3 VBG Base Excess Sodium 137.4 Potassium 3.6 Chloride 94 L Carbon Dioxide 28 Anion Gap 15 BUN 61 H Creatinine 4.76 H Est GFR ( Amer) 11 L Est GFR (Non-Af Amer) 9 L Glucose 128 H Lactic Acid 1.8 Calcium 11.1 H Phosphorus Magnesium Total Bilirubin AST ALT Alkaline Phosphatase Total Protein Albumin TSH Urine Color DARK YELLOW Urine Appearance TURBID Urine pH 5.0 Ur Specific Dequincy 1.028 Urine Protein 100 H Urine Glucose (UA) NEGATIVE Urine Ketones NEGATIVE Urine Blood SMALL H Urine Nitrite NEGATIVE Ur Leukocyte Esterase TRACE H Urine WBC (Auto) 40 Urine RBC (Auto) 25 12/15/17 12/15/17 12/15/17 03:48 03:48 03:48 WBC 10.1 RBC 4.12 Hgb 12.1 D Hct 36.5 MCV 88 MCH 29.3 MCHC 33.1 RDW 14.0 Plt Count 321 Seg Neutrophils % 79.6 H Lymphocytes % 10.1 L Monocytes % 10.2 Eosinophils % 0.0 Basophils % 0.1 Absolute Neutrophils 8.0 Absolute Lymphocytes 1.0 Absolute Monocytes 1.0 Absolute Eosinophils 0.0 Absolute Basophils 0.0 VBG pH VBG pCO2 VBG HCO3 VBG Base Excess Sodium 138.9 Potassium 3.4 L Chloride 101 Carbon Dioxide 24 Anion Gap 14 BUN 59 H Creatinine 4.21 H Est GFR ( Amer) 12 L Est GFR (Non-Af Amer) 10 L Glucose 122 H Lactic Acid Calcium 9.7 Phosphorus Magnesium Total Bilirubin 0.3 AST 65 H ALT 41 Alkaline Phosphatase 44 Total Protein 5.0 L Albumin 3.0 L TSH 0.36 L Urine Color Urine Appearance Urine pH Ur Specific Dequincy Urine Protein Urine Glucose (UA) Urine Ketones Urine Blood Urine Nitrite Ur Leukocyte Esterase Urine WBC (Auto) Urine RBC (Auto) 12/15/17 12/15/17 03:48 13:09 WBC RBC Hgb Hct MCV MCH MCHC RDW Plt Count Seg Neutrophils % Lymphocytes % Monocytes % Eosinophils % Basophils % Absolute Neutrophils Absolute Lymphocytes Absolute Monocytes Absolute Eosinophils Absolute Basophils VBG pH 7.34 VBG pCO2 44.0 VBG HCO3 23.3 VBG Base Excess -2.4 Sodium Cancelled Potassium Cancelled Chloride Cancelled Carbon Dioxide Cancelled Anion Gap Cancelled BUN Cancelled Creatinine Cancelled Est GFR ( Amer) Cancelled Est GFR (Non-Af Amer) Cancelled Glucose Cancelled Lactic Acid Calcium Cancelled Phosphorus 4.3 Magnesium 2.0 Total Bilirubin AST ALT Alkaline Phosphatase Total Protein Albumin TSH Urine Color Urine Appearance Urine pH Ur Specific Dequincy Urine Protein Urine Glucose (UA) Urine Ketones Urine Blood Urine Nitrite Ur Leukocyte Esterase Urine WBC (Auto) Urine RBC (Auto) 12/14/17 12/14/17 12/15/17 22:00 22:00 03:48 Creatine Kinase 709 H 781 H CK-MB (CK-2) 48.40 H Troponin I 0.088 12/15/17 12/15/17 12/15/17 03:48 10:11 10:11 Creatine Kinase 582 H CK-MB (CK-2) 53.10 H 52.20 H Troponin I 0.068 0.060 Impressions: Renal Ultrasound 12/14/17 00:00 IMPRESSION: Nondiagnostic exam. KUB X-Ray 12/14/17 15:36 IMPRESSION: Previously stool filled loops of colon appear gas-filled on today' s examination. Chest X-Ray 12/14/17 15:37 IMPRESSION: Small left-sided pleural effusion. No focal consolidation. Abdomen/Pelvis CT 12/14/17 16:27 IMPRESSION: Relative to CT imaging performed 12/29/2017 which demonstrated constipation, today's imaging demonstrates fluid throughout prominent loops of large and small bowel. Some subtle pericolic mesenteric fat stranding involving the proximal sigmoid colon may indicate an early uncomplicated diverticulitis. Additionally, there appears to be a small bowel to small bowel adhesion without evidence of obstruction. Given the rather featureless appearance of the colon, recommend correlation for chronic laxative use. Assessment & Plan - Time Time Spent with patient: (1) Vomiting and diarrhea Is this a current diagnosis for this admission?: Yes Plan: Not entirely clear etiology at this point. If patient had recently been treated for constipation aggressively I would be thinking that she has a viral gastroenteritis but it is hard to separate these events from her recent treatment for constipation. Right now we have cultures pending of the stool. Her nausea and vomiting are improved with Phenergan. For the stool we will look for C. difficile and also bacterial culture along with fecal white blood cells and occult blood. 3/4 Vomiting resolved improved Patient is tolerating liquid diet (2) Acute renal failure Qualifiers: Acute renal failure type: unspecified Qualified Code(s): N17.9 - Acute kidney failure, unspecified Is this a current diagnosis for this admission?: Yes Plan: Patient has elevated BUN and creatinine which is abnormal for her. I believe she is very dehydrated and this is a prerenal picture. Nonetheless a renal ultrasound will be ordered. Grier catheter will be placed. Good hydration will continue. Will avoid nephrotoxins as we are able. 3/4 creatinine is improving; baseline creatinine was 1 Continue hydration with normal saline (3) Hypertension Plan: Patient is on lisinopril and hydrochlorothiazide at baseline. These are on hold for now. Will monitor her blood pressure and treat with other agents if needed. In the ER she has mostly been a little bit hypotensive given her dehydration nausea and vomiting. Continue hydration with normal saline 3/4 Antihypertensive medications on hold (5) Lactic acidosis Is this a current diagnosis for this admission?: Yes Plan: After fluid hydration I recheck the lactic acid and it is now normal. (6) Abdominal pain Is this a current diagnosis for this admission?: Yes Plan: Likely secondary to acute diverticulitis continue Zosyn as initiated there is no evidence of an acute abdomen (7) Constipation Qualifiers: Constipation type: unspecified constipation type Qualified Code(s): K59.00 - Constipation, unspecified Is this a current diagnosis for this admission?: Yes Plan: Please see HPI for details related to recent constipation. Patient is not currently constipated. (8) Diverticulitis Is this a current diagnosis for this admission?: Yes Plan: Given the acuity of her illness and the mesenteric fat stranding in the diarrhea I am starting the patient on Zosyn. Will further discuss with surgeon. Evidence of bowel perforation. No bleeding per rectum at this time. (9) paroxysmal atrial fibrillation intermittent 100-120 Patient's fast vascular chads score is at least 3 ; we will order an echocardiogram Patient to be evaluated for chronic anticoagulation Patient is now in normal sinus rhythm We will just order Ecotrin at this time
[2017-12-15] MEDS ORDERED: ASPIRIN 325 MG TABLET, ENT COATED PO ONE (15:00)
[2017-12-15] MEDS ORDERED: HEPARIN SODIUM,PORCINE/D5W 25,000 UNIT/250 ML RTUINJ IV PRN (15:00)
[2017-12-15 15:53] LABS: ABSOLUTE LYMPHOCYTES (AUTO) 0.8 10^3/uL (0.5-4.7); ABSOLUTE MONOCYTES (AUTO) 0.6 10^3/uL (0.1-1.4); BASOPHILS % (AUTO) 0.2 % (0-2); HEMATOCRIT 31.9 % (36.0-47.0); HEMOGLOBIN 10.6 g/dL (12.0-15.5); LYMPHOCYTES % (AUTO) 9.3 % (13-45); MEAN CORPUSCULAR HEMOGLOBIN 29.5 pg (27.0-33.4); MEAN CORPUSCULAR HGB CONC 33.3 g/dL (32.0-36.0); MEAN CORPUSCULAR VOLUME 89 fl (80-97); MONOCYTES % (AUTO) 7.2 % (3-13); PLATELET COUNT 255 10^3/uL (150-450); RED CELL DISTRIBUTION WIDTH 13.7 % (11.5-14.0); SEGMENTED NEUTROPHILS % (AUTO) 83.3 % (42-78); TOTAL CELLS COUNTED % (AUTO) 100 %; WHITE BLOOD COUNT 8.5 10^3/uL (4.0-10.5)
[2017-12-15 15:57] LABS: PARTIAL THROMBOPLASTIN TIME 32.1 SEC (23.5-35.8)
[2017-12-15] MEDS ORDERED: FUROSEMIDE INJ/PF 20 MG/2 ML SDV IV ONE (16:00)
--- NOTE | 2017-12-15 16:14 | Progress Note ---
Provider Note Provider Note: Patient has guaiac positive stools At this time we will hold heparin hold aspirin
[2017-12-15 16:21] LABS: CREATINE KINASE MB 33.5 ng/mL (<4.55)
[2017-12-15 16:26] LABS: TROPONIN I 0.046 ng/mL
[2017-12-16] MEDS ORDERED: LORAZEPAM INJ 2 MG/1 ML VIAL IV ONE (02:00)
[2017-12-16] MEDS ORDERED: METOPROLOL TARTRATE PF/INJ 5 MG/5 ML SDV IV ONE (02:00)
[2017-12-16 05:14] LABS: MEAN CORPUSCULAR HEMOGLOBIN 29.6 pg (27.0-33.4); MEAN CORPUSCULAR HGB CONC 33.3 g/dL (32.0-36.0); MEAN CORPUSCULAR VOLUME 89 fl (80-97); PLATELET COUNT 245 10^3/uL (150-450); RED BLOOD COUNT 3.71 10^6/uL (3.72-5.28); WHITE BLOOD COUNT 6.8 10^3/uL (4.0-10.5)
[2017-12-16] MEDS: PIPERACILLIN SODIUM/TAZOBACTAM 2.25 GM in NORMAL SALINE 100 ML IV SCH ×3 (05:17→22:46)
[2017-12-16 05:45] LABS: APPEARANCE,URINE SLIGHTLY-CLOUDY; BILIRUBIN,URINE NEGATIVE (NEGATIVE); COLOR,URINE YELLOW; GLUCOSE, URINE NEGATIVE (NEGATIVE); KETONES,URINE NEGATIVE (NEGATIVE); LEUKOCYTE ESTERASE,URINE NEGATIVE (NEGATIVE); NITRITE,URINE NEGATIVE (NEGATIVE); PROTEIN,URINE 30 mg/dL (NEGATIVE); URINE SPECIFIC GRAVITY 1.025
--- NOTE | 2017-12-16 09:16 | EKG REPORT ---
SEVERITY:- ABNORMAL ECG - SINUS TACHYCARDIA WITH APCs NONSPECIFIC T ABNORMALITIES, LATERAL LEADS : Confirmed by: Juliano De Luna 16-Dec-2017 09:15:40
--- NOTE | 2017-12-16 09:16 | EKG REPORT ---
SEVERITY:- ABNORMAL ECG - SINUS RHYTHM SUPRAVENTRICULAR BIGEMINY BORDERLINE T WAVE ABNORMALITIES : Confirmed by: Juliano De Luna 16-Dec-2017 09:15:19
[2017-12-16 09:31] LABS: ANION GAP 9 (5-19); BLOOD UREA NITROGEN 53 mg/dL (7-20); CALCIUM 8.6 mg/dL (8.4-10.2); CARBON DIOXIDE 23 mmol/L (22-30); CHLORIDE 108 mmol/L (98-107); GLUCOSE 97 mg/dL (75-110); POTASSIUM 3.3 mmol/L (3.6-5.0); SODIUM 139.5 mmol/L (137-145)
[2017-12-16] MEDS: PANTOPRAZOLE SODIUM 40 MG VIAL IV SCH ×2 (10:25→22:46)
[2017-12-16] MEDS: ASPIRIN 325 MG TABLET, ENT COATED PO SCH (10:25)
[2017-12-16] MEDS: LEVOTHYROXINE SODIUM 0.1 MG TABLET PO SCH (10:26)
[2017-12-16] MEDS ORDERED: POTASSIUM CHLORIDE 20 MEQ/15 ML UDCUP PO ONE (12:08)
[2017-12-16 13:14] LABS: APPEARANCE,URINE SLIGHTLY-CLOUDY; BILIRUBIN,URINE NEGATIVE (NEGATIVE); CALCIUM OXALATE CRYSTALS,URINE RARE /HPF; COLOR,URINE YELLOW; GLUCOSE, URINE NEGATIVE (NEGATIVE); KETONES,URINE NEGATIVE (NEGATIVE); LEUKOCYTE ESTERASE,URINE NEGATIVE (NEGATIVE); NITRITE,URINE NEGATIVE (NEGATIVE); PROTEIN,URINE 30 mg/dL (NEGATIVE); URINE SPECIFIC GRAVITY 1.026; UROBILINOGEN,URINE NEGATIVE mg/dL (<2.0)
--- NOTE | 2017-12-16 13:38 | RADIOLOGY REPORT (SQ) ---
EXAM DESCRIPTION: CHEST SINGLE VIEW COMPLETED DATE/TIME: 12/16/2017 1:17 pm REASON FOR STUDY: SOB COMPARISON: 12/14/2017 EXAM PARAMETERS: NUMBER OF VIEWS: One view. TECHNIQUE: Single frontal radiographic view of the chest acquired. RADIATION DOSE: NA LIMITATIONS: None. FINDINGS: LUNGS AND PLEURA: The previously described small left pleural effusion appears improved wi th less blunting of the left costophrenic angle. There are some minimal linear densities in the left lung base most consistent with subsegmental atelectasis although I cannot exclude a minimal infiltra te. Remaining lung cintron are clear. MEDIASTINUM AND HILAR STRUCTURES: No masses. Contour normal. HEART AND VASCULAR STRUCTURES: The configuration of the heart and mediastinal structures is unchanged . BONES: No acute findings. HARDWARE: None in the chest. OTHER: No other significant finding. IMPRESSION: Minimal left basilar densities as noted above. Other findings as noted above TECHNICAL DOCUMENTATION: JOB ID: [id number] [employer]- All Rights Reserved Reading location - IP/workstation name: [email or web address]
[2017-12-16] MEDS ORDERED: MAG HYDROX/AL HYDROX/SIMETH SUSP 30 ML UDCUP PO ONE (14:45)
[2017-12-16] MEDS ORDERED: ONDANSETRON HCL INJ/PF 4 MG/2 ML SDV IV PRN (15:00)
[2017-12-16] MEDS: POTASSIUM CHLORIDE 20 MEQ/50 ML RTU IV SCH ×2 (16:35→18:31)
--- NOTE | 2017-12-16 18:29 | XCELERA REPORT ---
[address] [address] Transthoracic Echocardiogram Report Name: MICHAEL IVEY Age: 72 yrs Gender: Female : 1945 Patient Status: Inpatient Patient Location: [address] [place] [address] Study Date: 12/16/2017 01:36 PM Height: 70 in Weight: 264 lb BSA: 2.3 m2 Procedure: A complete two-dimensional transthoracic echocardiogram was performed (2D, M-mode, spectral and color flow Doppler). The study was technically difficult with many images being suboptimal in quality. Reason For Study: a fib Ordering Physician: RAEANN EDGE Performed By: Kori Larry Interpretation Summary The left ventricular ejection fraction is normal. There is mild concentric left ventricular hypertrophy. The left ventricle is grossly normal size. Doppler measurements suggest pseudonormalized left ventricular relaxation, which is associated with grade II/IV or mild to moderate diastolic dysfunction Wall motion cannot be accurately commented on, but no definite regional wall motion abnormalities noted. The right ventricular systolic function is normal. The left atrial size is normal. The right atrium is normal in size There is a trace amount of mitral regurgitation There is no mitral valve stenosis. No aortic regurgitation is present. There is no aortic valve stenosis There is no tricuspid stenosis. No tricuspid regurgitation. The aortic root is not well visualized but is probably normal size. The inferior vena cava appeared normal and decreased > 50% with respiration (RAP 5-10 mmHg) There is no pericardial effusion. MMode/2D Measurements & Calculations RVDd: 3.1 cm LVIDd: 4.0 cm FS: 37.8 % Ao root diam: 3.0 cm IVSd: 1.1 cm LVIDs: 2.5 cm EDV(Teich): 68.4 ml LVPWd: 1.1 cm ESV(Teich): 21.5 ml Ao root area: 7.1 cm2 EF(Teich): 68.6 % LA dimension: 3.4 cm Doppler Measurements & Calculations MV E max dana: MV P1/2t max dana: Ao V2 max: LV V1 max P.5 cm/sec 74.5 cm/sec 169.7 cm/sec 11.5 mmHg MV A max dana: MV P1/2t: 61.9 msec Ao max PG: LV V1 max: 121.9 cm/sec 11.5 mmHg 169.7 cm/sec MV E/A: 0.61 MVA(P1/2t): 3.6 cm2 MV dec slope: 352.9 cm/sec2 MV dec time: 0.20 sec PA V2 max: 120.9 cm/sec PA max P.8 mmHg Left Ventricle The left ventricle is grossly normal size. There is mild concentric left ventricular hypertrophy. The left ventricular ejection fraction is normal. Doppler measurements suggest pseudonormalized left ventricular relaxation, which is associated with grade II/IV or mild to moderate diastolic dysfunction. Wall motion cannot be accurately commented on, but no definite regional wall motion abnormalities noted. Right Ventricle The right ventricle is grossly normal size. There is normal right ventricular wall thickness. The right ventricular systolic function is normal. Atria The right atrium is normal in size. The left atrial size is normal. Interarterial septum not well visualized and not well dopplered. Cannot comment on ASD/PFO presence. Mitral Valve The mitral valve is grossly normal. There is no mitral valve stenosis. There is a trace amount of mitral regurgitation. Aortic Valve The aortic valve is not well visualized secondary to technical limitations. There is no aortic valve stenosis. No aortic regurgitation is present. Tricuspid Valve The tricuspid valve is not well visualized, but is grossly normal. There is no tricuspid stenosis. No tricuspid regurgitation. Pulmonic Valve The pulmonic valve is not well visualized. Great Vessels The aortic root is not well visualized but is probably normal size. The inferior vena cava appeared normal and decreased > 50% with respiration (RAP 5-10 mmHg). Effusions There is no pericardial effusion. : RAEANN EDGE > Juliano De Luna
--- NOTE | 2017-12-16 18:53 | PDOC PROGRESS REPORT ---
Subjective Subjective:: 72-year-old woman admitted with intractable nausea vomiting, hydration and acute kidney injury. This morning she reports feeling a bit better since admitted. No vomiting but feeling nauseous. Reason For Visit: ROSA,DEHYDRATION,INTRACTABLE NAUSEA,VOMITING Physical Exam Vital Signs: Temp Pulse Resp BP Pulse Ox 97.8 F 91 20 100/51 L 97 12/16/17 15:00 12/16/17 15:00 12/16/17 15:00 12/16/17 15:00 12/16/17 15:00 Intake & Output 12/15/17 12/16/17 12/17/17 06:59 06:59 06:59 Intake Total 1600 2900 250 Output Total 150 900 550 Balance 1450 2000 -300 Weight 120 kg 127.4 kg General appearance: PRESENT: mild distress, morbidly obese Head exam: PRESENT: atraumatic, normocephalic Mouth exam: PRESENT: moist, neck supple Neck exam: PRESENT: full ROM Respiratory exam: ABSENT: accessory muscle use, unlabored Cardiovascular exam: PRESENT: RRR GI/Abdominal exam: PRESENT: normal bowel sounds, soft Rectal exam: PRESENT: deferred Extremities exam: PRESENT: full ROM Neurological exam: PRESENT: alert, awake, oriented to person, oriented to time, oriented to situation Psychiatric exam: PRESENT: appropriate affect Skin exam: PRESENT: dry, warm Results Laboratory Results: 12/16/17 04:31 12/16/17 04:31 12/16/17 12/16/17 12/16/17 04:31 04:31 04:50 WBC 6.8 RBC 3.71 L Hgb 11.0 L Hct 33.0 L MCV 89 MCH 29.6 MCHC 33.3 RDW 14.0 Plt Count 245 Sodium 139.5 Potassium 3.3 L Chloride 108 H Carbon Dioxide 23 Anion Gap 9 BUN 53 H Creatinine 2.77 H Est GFR ( Amer) 20 L Est GFR (Non-Af Amer) 17 L Glucose 97 Calcium 8.6 Urine Color YELLOW Urine Appearance SLIGHTLY-CLOUDY Urine pH 5.0 Ur Specific Henley 1.025 Urine Protein 30 H Urine Glucose (UA) NEGATIVE Urine Ketones NEGATIVE Urine Blood MODERATE H Urine Nitrite NEGATIVE Ur Leukocyte Esterase NEGATIVE Urine WBC (Auto) 6 Urine RBC (Auto) 139 Stool Occult Blood 12/16/17 12/16/17 10:30 10:30 WBC RBC Hgb Hct MCV MCH MCHC RDW Plt Count Sodium Potassium Chloride Carbon Dioxide Anion Gap BUN Creatinine Est GFR ( Amer) Est GFR (Non-Af Amer) Glucose Calcium Urine Color YELLOW Urine Appearance SLIGHTLY-CLOUDY Urine pH 5.0 Ur Specific Henley 1.026 Urine Protein 30 H Urine Glucose (UA) NEGATIVE Urine Ketones NEGATIVE Urine Blood MODERATE H Urine Nitrite NEGATIVE Ur Leukocyte Esterase NEGATIVE Urine WBC (Auto) 6 Urine RBC (Auto) 43 Stool Occult Blood NEGATIVE 12/14/17 12/14/17 12/15/17 22:00 22:00 03:48 Creatine Kinase 709 H 781 H CK-MB (CK-2) 48.40 H Troponin I 0.088 12/15/17 12/15/17 12/15/17 03:48 10:11 10:11 Creatine Kinase 582 H CK-MB (CK-2) 53.10 H 52.20 H Troponin I 0.068 0.060 12/15/17 12/15/17 15:35 15:35 Creatine Kinase 431 H CK-MB (CK-2) 33.50 H Troponin I 0.046 Impressions: Renal Ultrasound 12/14/17 00:00 IMPRESSION: Nondiagnostic exam. KUB X-Ray 12/14/17 15:36 IMPRESSION: Previously stool filled loops of colon appear gas-filled on today' s examination. Abdomen/Pelvis CT 12/14/17 16:27 IMPRESSION: Relative to CT imaging performed 12/29/2017 which demonstrated constipation, today's imaging demonstrates fluid throughout prominent loops of large and small bowel. Some subtle pericolic mesenteric fat stranding involving the proximal sigmoid colon may indicate an early uncomplicated diverticulitis. Additionally, there appears to be a small bowel to small bowel adhesion without evidence of obstruction. Given the rather featureless appearance of the colon, recommend correlation for chronic laxative use. Chest X-Ray 12/16/17 00:00 IMPRESSION: Minimal left basilar densities as noted above. Other findings as noted above Assessment & Plan - Diagnosis (1) Acute kidney injury Is this a current diagnosis for this admission?: Yes Plan: Likely in the setting of dehydration. Renal functions continue to improve with fluid hydration. Strict intake and output. Renally dosed all medications. BMP in am. (2) Vomiting and diarrhea Is this a current diagnosis for this admission?: Yes Plan: Likely due to a viral gastroenteritis. Stools culture unrevealing thus far. Gentle IV fluid hydration and clear liquid diet as tolerated. Antiemetics as needed (3) Hypokalemia Plan: Supplementing and follow-up lab. Check mag level (5) Hypertension Is this a current diagnosis for this admission?: Yes Plan: Current management (6) LARRY (obstructive sleep apnea) Is this a current diagnosis for this admission?: Yes Plan: Nightly CPAP (7) DVT prophylaxis Is this a current diagnosis for this admission?: Yes
[2017-12-16] MEDS ORDERED: NORMAL SALINE 1000 ML 1,000 ML with POTASSIUM CHLORIDE 20 MEQ IV PRN ×2 (19:04)
[2017-12-16 21:38] LABS: ABSOLUTE LYMPHOCYTES (AUTO) 1.1 10^3/uL (0.5-4.7); ABSOLUTE MONOCYTES (AUTO) 0.6 10^3/uL (0.1-1.4); ABSOLUTE NEUT (AUTO) 4.2 10^3/uL (1.7-8.2); BASOPHILS % (AUTO) 0.1 % (0-2); EOSINOPHILS % (AUTO) 0.7 % (0-6); HEMATOCRIT 34.3 % (36.0-47.0); HEMOGLOBIN 11.3 g/dL (12.0-15.5); LYMPHOCYTES % (AUTO) 18.1 % (13-45); MEAN CORPUSCULAR HEMOGLOBIN 29.6 pg (27.0-33.4); MEAN CORPUSCULAR VOLUME 90 fl (80-97); MONOCYTES % (AUTO) 10.7 % (3-13); PLATELET COUNT 221 10^3/uL (150-450); RED BLOOD COUNT 3.82 10^6/uL (3.72-5.28); RED CELL DISTRIBUTION WIDTH 14.1 % (11.5-14.0); SEGMENTED NEUTROPHILS % (AUTO) 70.4 % (42-78); TOTAL CELLS COUNTED % (AUTO) 100 %
[2017-12-17] MEDS ORDERED: POTASSI CL 20 MEQ/NS 1L 0 ML IV ONE (02:45)
[2017-12-17] MEDS: POTASSI CL 20 MEQ/NS 1L 1000 ML IV PRN ×2 (04:02→23:53)
[2017-12-17 05:31] LABS: ANION GAP 8 (5-19); BLOOD UREA NITROGEN 42 mg/dL (7-20); CALCIUM 8.9 mg/dL (8.4-10.2); CARBON DIOXIDE 24 mmol/L (22-30); CHLORIDE 113 mmol/L (98-107); GLUCOSE 80 mg/dL (75-110); POTASSIUM 3.6 mmol/L (3.6-5.0); SODIUM 144.6 mmol/L (137-145)
[2017-12-17] MEDS: LEVOTHYROXINE SODIUM 0.15 MG TABLET PO SCH (06:10)
[2017-12-17] MEDS: PIPERACILLIN SODIUM/TAZOBACTAM 2.25 GM in NORMAL SALINE 100 ML IV SCH (06:11)
[2017-12-17] MEDS: IPRATROPIUM/ALBUTEROL 0.5-2.5 MG/3 ML AMPUL NEB PRN (09:01)
[2017-12-17] MEDS ORDERED: POTASSI CL 20 MEQ/50 ML RIDER 20 MEQ/50 ML RTUPB IV ONE (10:00)
[2017-12-17] MEDS: ASPIRIN 325 MG TABLET, ENT COATED PO SCH (10:02)
[2017-12-17] MEDS: PANTOPRAZOLE SODIUM 40 MG VIAL IV SCH ×2 (10:02→21:09)
[2017-12-17] MEDS: LACTOBACILLUS ACIDOPHILUS 250 MG TAB PO SCH ×2 (10:02→17:07)
[2017-12-17] MEDS ORDERED: DEXTROSE 40% GEL 15 GM TUBE PO PRN ×2 (11:50)
[2017-12-17] MEDS ORDERED: DEXTROSE 50%-WATER 25 GM/50 ML DISP.SYRIN IV PRN ×2 (11:50)
[2017-12-17] MEDS ORDERED: GLUCAGON,HUMAN RECOMB 1 MG INJ SUBCUT PRN (11:50)
--- NOTE | 2017-12-17 14:24 | PDOC CONSULTATION ---
Consultation Consult Date: 12/17/17 Attending physician:: BRIAN RODRIGES Consult reason:: Dysphagia History of Present Illness Admission Date/PCP: 12/14/17 17:49 ILYA FULLER MD History of Present Illness: patient admitted by the Hospitalist service she likely had gastroenteritis and admitted for both nausea/ vomiting and diarrhea the latter has been improving however since she has been here, she has been having dysphagia patient states prior to coming in, no problems noted patient states has some odynophagia ? possible pill induced esophagitis patient states no nausea and vomiting patient states no weight loss denies any abdominal pain GI consulted for possible EGD ? possible stricture, Past Medical History Cardiac Medical History: Reports: Hypertension Pulmonary Medical History: Reports: None EENT Medical History: Reports: None Neurological Medical History: Reports: None Endocrine Medical History: Reports: Obesity Malignancy Medical History: Reports: None GI Medical History: Reports: Other - Per HPI Musculoskeltal Medical History: Reports: Gout Skin Medical History: Reports: None Psychiatric Medical History: Reports: None Traumatic Medical History: Reports: None Hematology: Reports: None Infectious Medical History: Reports: None Past Surgical History Past Surgical History: Reports: Cholecystectomy, Hysterectomy, Other - Lysis of adhesions post hysterectomy Social History Lives with: Alone Smoking Status: Former Smoker Cigarettes Packs Per Day: 1 Number of Years Smokin Last Time Smoked: 1 year ago Frequency of Alcohol Use: None Hx Recreational Drug Use: No Drugs: None Family History Family History: Other - Mother had a stroke, she does not know her father's medical history, sister had cancer of unknown type, 1 of her daughters has hypothyroidism and one of her sons has gout Parental Family History Reviewed: Yes Children Family History Reviewed: Unknown Sibling(s) Family History Reviewed.: Unknown Medication/Allergy Home Medications: Allopurinol [Zyloprim 100 mg Tablet] 100 mg PO DAILY 12/15/17 Calcium Carbonate/Vitamin D3 [Calcium 600 + Vit D Tablet] 1 tab PO BID 12/15/17 Hydrochlorothiazide [Hydrodiuril 12.5 mg Capsule] 12.5 mg PO QAM 12/15/17 Levothyroxine Sodium 150 mcg PO QAM 12/15/17 Lisinopril [Zestril] 40 mg PO DAILY 12/15/17 Multivitamin [Multiple Vitamins] 1 ea PO DAILY 12/15/17 [place]-3 Acid Ethyl Esters [Lovaza 1 gm Capsule] 4 gm PO DAILY 12/15/17 Umeclidinium Brm/Vilanterol Tr [Anoro Ellipta 62.5-25 Mcg INH] 1 puff IH DAILY 12/15/17 Allergies/Adverse Reactions: No Known Allergies Allergy (Verified 12/14/17 15:08) Review of Systems Constitutional: ABSENT: fever(s), headache(s), night sweats, weakness Eyes: ABSENT: visual disturbances Nose, Mouth, and Throat: ABSENT: mouth pain, sore throat Cardiovascular: ABSENT: edema, orthropnea Respiratory: ABSENT: dyspnea, hemoptysis Gastrointestinal: PRESENT: dysphagia. ABSENT: hematemesis, hematochezia, melena Genitourinary: ABSENT: dysuria, hematuria Integumentary: ABSENT: lesions, pruritus Neurological: ABSENT: syncope, tingling, tremor(s), vertigo Endocrine: ABSENT: polydipsia, polyphagia, polyuria Hematologic/Lymphatic: ABSENT: easy bruising Physical Exam Vital Signs: Temp Pulse Resp BP Pulse Ox 97.9 F 99 16 105/84 97 12/17/17 11:45 12/17/17 11:45 12/17/17 11:45 12/17/17 11:45 12/17/17 11:45 Intake & Output 12/16/17 12/17/17 12/18/17 06:59 06:59 06:59 Intake Total 2900 2530 100 Output Total 900 1100 275 Balance 1999 1430 -175 Weight 127.4 kg 125.4 kg General appearance: PRESENT: mild distress, well-developed, well-nourished Head exam: PRESENT: atraumatic, normocephalic Eye exam: PRESENT: EOMI, PERRLA. ABSENT: nystagmus, periorbital swelling, scleral icterus Mouth exam: PRESENT: moist, neck supple Throat exam: ABSENT: tonsillar exudate, tonsillogmegaly Neck exam: ABSENT: meningismus, tenderness, thyromegaly Respiratory exam: PRESENT: symmetrical, unlabored. ABSENT: tachypnea, wheezes Cardiovascular exam: PRESENT: RRR, +S1, +S2 Pulses: PRESENT: normal carotid pulses GI/Abdominal exam: PRESENT: soft. ABSENT: rebound, rigid, tenderness Extremities exam: ABSENT: joint swelling Musculoskeletal exam: PRESENT: full ROM Neurological exam: PRESENT: oriented to time, oriented to situation, CN II-XII grossly intact Psychiatric exam: PRESENT: appropriate affect Focused psych exam: ABSENT: restlessness Skin exam: PRESENT: normal color. ABSENT: mottled, pallor, petechiae, urticaria , vesicles Results Laboratory Results: 12/16/17 21:08 12/17/17 04:41 12/16/17 12/16/17 12/17/17 21:08 21:08 04:41 WBC 6.0 RBC 3.82 Hgb 11.3 L Hct 34.3 L MCV 90 MCH 29.6 MCHC 33.0 RDW 14.1 H Plt Count 221 Seg Neutrophils % 70.4 Lymphocytes % 18.1 Monocytes % 10.7 Eosinophils % 0.7 Basophils % 0.1 Absolute Neutrophils 4.2 Absolute Lymphocytes 1.1 Absolute Monocytes 0.6 Absolute Eosinophils 0.0 Absolute Basophils 0.0 Sodium 144.6 Potassium 3.6 Chloride 113 H Carbon Dioxide 24 Anion Gap 8 BUN 42 H Creatinine 1.63 H Est GFR ( Amer) 37 L Est GFR (Non-Af Amer) 31 L Glucose 80 Calcium 8.9 Magnesium 1.9 12/15/17 14:03 Stool - Stool - Final 12/15/17 14:03 Stool - Stool Stool Culture - Final NO SALMONELLA, SHIGELLA, CAMPYLOBACTER, OR E.COLI 0157 RECOVERED. NEGATIVE FOR SHIGA TOXINS 1&2. 12/14/17 23:47 Catheterized Urine Urine Culture - Final NO GROWTH 2 DAYS 12/14/17 12/14/17 12/15/17 22:00 22:00 03:48 Creatine Kinase 709 H 781 H CK-MB (CK-2) 48.40 H Troponin I 0.088 12/15/17 12/15/17 12/15/17 03:48 10:11 10:11 Creatine Kinase 582 H CK-MB (CK-2) 53.10 H 52.20 H Troponin I 0.068 0.060 12/15/17 12/15/17 15:35 15:35 Creatine Kinase 431 H CK-MB (CK-2) 33.50 H Troponin I 0.046 Impressions: Renal Ultrasound 12/14/17 00:00 IMPRESSION: Nondiagnostic exam. KUB X-Ray 12/14/17 15:36 IMPRESSION: Previously stool filled loops of colon appear gas-filled on today' s examination. Abdomen/Pelvis CT 12/14/17 16:27 IMPRESSION: Relative to CT imaging performed 12/29/2017 which demonstrated constipation, today's imaging demonstrates fluid throughout prominent loops of large and small bowel. Some subtle pericolic mesenteric fat stranding involving the proximal sigmoid colon may indicate an early uncomplicated diverticulitis. Additionally, there appears to be a small bowel to small bowel adhesion without evidence of obstruction. Given the rather featureless appearance of the colon, recommend correlation for chronic laxative use. Chest X-Ray 12/16/17 00:00 IMPRESSION: Minimal left basilar densities as noted above. Other findings as noted above Assessment & Plan - Diagnosis (1) Dysphagia Plan: will need to have EGD done Risks, benefits and alternatives are discussed with the patient in detail further recommendations to follow Could have stricture, vs pill induced esophagitis will make further recommendations (2) Diverticulitis Is this a current diagnosis for this admission?: Yes Plan: noted on CT scan, does not appear to be complicated with abscess or perforation seems to have chronic laxative use currently cannot have colonoscopy done due to the finding of possible diverticulitis will need to schedule in 6 weeks following discharge - Time Time Spent: 50 to 70 Minutes
--- NOTE | 2017-12-17 17:40 | PDOC PROGRESS REPORT ---
Subjective Progress Note for:: 12/17/17 Subjective:: 72-year-old woman admitted on 12/14/2017 with intractable nausea vomiting, hydration and acute kidney injury. This morning she continues to report difficulty swallowing and nauseated at times. No vomiting. Diarrhea seems to be improving. Family at bedside. Reason For Visit: ROSA,DEHYDRATION,INTRACTABLE NAUSEA,VOMITING Physical Exam Vital Signs: Temp Pulse Resp BP Pulse Ox 97.9 F 98 18 131/70 H 93 12/17/17 15:13 12/17/17 15:13 12/17/17 15:13 12/17/17 15:13 12/17/17 15:13 Intake & Output 12/16/17 12/17/17 12/18/17 06:59 06:59 06:59 Intake Total 2900 2530 100 Output Total 900 1100 275 Balance 1999 1430 -175 Weight 127.4 kg 125.4 kg General appearance: PRESENT: morbidly obese, other - ill looking Head exam: PRESENT: atraumatic, normocephalic Eye exam: PRESENT: EOMI Neck exam: PRESENT: full ROM Respiratory exam: PRESENT: clear to auscultation choco, unlabored. ABSENT: accessory muscle use Cardiovascular exam: PRESENT: RRR GI/Abdominal exam: PRESENT: normal bowel sounds, soft, tenderness - epigastric Rectal exam: PRESENT: deferred Extremities exam: PRESENT: full ROM Musculoskeletal exam: PRESENT: full ROM Neurological exam: PRESENT: alert, oriented to person, oriented to time, oriented to situation Psychiatric exam: PRESENT: appropriate affect Skin exam: PRESENT: dry, warm Results Laboratory Results: 12/16/17 21:08 12/17/17 04:41 12/16/17 12/16/17 12/17/17 21:08 21:08 04:41 WBC 6.0 RBC 3.82 Hgb 11.3 L Hct 34.3 L MCV 90 MCH 29.6 MCHC 33.0 RDW 14.1 H Plt Count 221 Seg Neutrophils % 70.4 Lymphocytes % 18.1 Monocytes % 10.7 Eosinophils % 0.7 Basophils % 0.1 Absolute Neutrophils 4.2 Absolute Lymphocytes 1.1 Absolute Monocytes 0.6 Absolute Eosinophils 0.0 Absolute Basophils 0.0 Sodium 144.6 Potassium 3.6 Chloride 113 H Carbon Dioxide 24 Anion Gap 8 BUN 42 H Creatinine 1.63 H Est GFR ( Amer) 37 L Est GFR (Non-Af Amer) 31 L Glucose 80 Calcium 8.9 Magnesium 1.9 12/15/17 14:03 Stool - Stool - Final 12/15/17 14:03 Stool - Stool Stool Culture - Final NO SALMONELLA, SHIGELLA, CAMPYLOBACTER, OR E.COLI 0157 RECOVERED. NEGATIVE FOR SHIGA TOXINS 1&2. 12/14/17 23:47 Catheterized Urine Urine Culture - Final NO GROWTH 2 DAYS 12/14/17 12/14/17 12/15/17 22:00 22:00 03:48 Creatine Kinase 709 H 781 H CK-MB (CK-2) 48.40 H Troponin I 0.088 12/15/17 12/15/17 12/15/17 03:48 10:11 10:11 Creatine Kinase 582 H CK-MB (CK-2) 53.10 H 52.20 H Troponin I 0.068 0.060 12/15/17 12/15/17 15:35 15:35 Creatine Kinase 431 H CK-MB (CK-2) 33.50 H Troponin I 0.046 Impressions: Renal Ultrasound 12/14/17 00:00 IMPRESSION: Nondiagnostic exam. KUB X-Ray 12/14/17 15:36 IMPRESSION: Previously stool filled loops of colon appear gas-filled on today' s examination. Abdomen/Pelvis CT 12/14/17 16:27 IMPRESSION: Relative to CT imaging performed 12/29/2017 which demonstrated constipation, today's imaging demonstrates fluid throughout prominent loops of large and small bowel. Some subtle pericolic mesenteric fat stranding involving the proximal sigmoid colon may indicate an early uncomplicated diverticulitis. Additionally, there appears to be a small bowel to small bowel adhesion without evidence of obstruction. Given the rather featureless appearance of the colon, recommend correlation for chronic laxative use. Chest X-Ray 12/16/17 00:00 IMPRESSION: Minimal left basilar densities as noted above. Other findings as noted above Assessment & Plan - Diagnosis (1) Acute kidney injury Is this a current diagnosis for this admission?: Yes Plan: Likely in the setting of dehydration. Renal functions continues to improve with fluid hydration. Creatinine down to 1.6 and from 4.7 on admission Strict intake and output. Renally dosed all medications. (2) Vomiting and diarrhea Is this a current diagnosis for this admission?: Yes Plan: Likely due to a viral gastroenteritis.C.difficile negative. Gentle IV fluid hydration and clear liquid diet as tolerated. Anti-emetics as needed GI consulted for evaluation of dysphagia (3) Hypokalemia Plan: Supplemented and Mg level within range (4) Diverticulitis large intestine Is this a current diagnosis for this admission?: Yes Plan: CT with uncomplicated early diverticulitis Resolving leukocytosis and observe off antibiotics (5) Hypertension Is this a current diagnosis for this admission?: Yes Plan: Current management (6) LARRY (obstructive sleep apnea) Is this a current diagnosis for this admission?: Yes Plan: Nightly CPAP (7) DVT prophylaxis Plan: SCD's
[2017-12-18] MEDS: LEVOTHYROXINE SODIUM 0.15 MG TABLET PO SCH (05:34)
[2017-12-18 05:35] LABS: HEMATOCRIT 34.1 % (36.0-47.0); HEMOGLOBIN 11.4 g/dL (12.0-15.5); MEAN CORPUSCULAR HEMOGLOBIN 29.9 pg (27.0-33.4); MEAN CORPUSCULAR HGB CONC 33.5 g/dL (32.0-36.0); MEAN CORPUSCULAR VOLUME 89 fl (80-97); PLATELET COUNT 199 10^3/uL (150-450); RED BLOOD COUNT 3.82 10^6/uL (3.72-5.28); RED CELL DISTRIBUTION WIDTH 13.9 % (11.5-14.0); WHITE BLOOD COUNT 7.3 10^3/uL (4.0-10.5)
[2017-12-18 05:51] LABS: ANION GAP 8 (5-19); BLOOD UREA NITROGEN 28 mg/dL (7-20); CALCIUM 8.8 mg/dL (8.4-10.2); CARBON DIOXIDE 25 mmol/L (22-30); CHLORIDE 113 mmol/L (98-107); GLUCOSE 74 mg/dL (75-110); POTASSIUM 3.9 mmol/L (3.6-5.0); SODIUM 145.7 mmol/L (137-145)
[2017-12-18 05:59] LABS: ABSOLUTE LYMPHOCYTES# (MANUAL) 2.1 10^3/uL (0.5-4.7); ABSOLUTE MONOCYTES # (MANUAL) 0.4 10^3/uL (0.1-1.4); ABSOLUTE NEUTROPHILS# (MANUAL) 4.8 10^3/uL (1.7-8.2); BAND NEUTROPHILS % (MANUAL) 3 % (3-5); BASOPHILS % (MANUAL) 0 % (0-2); EOSINOPHILS % (MANUAL) 0 % (0-6); LYMPHOCYTES % (MANUAL) 28 % (13-45); MONOCYTES % (MANUAL) 5 % (3-13); OVALOCYTES SLIGHT; PLATELET COMMENT ADEQUATE; POIKILOCYTOSIS SLIGHT; SCHISTOCYTES SLIGHT; SEGMENTED NEUTROPHILS % (MAN) 63 % (42-78); TEAR DROP CELLS SLIGHT; TOTAL CELLS COUNTED 100; TOXIC GRANULATION 1+
[2017-12-18] MEDS: 1/2 NORMAL SALINE 1,000 ML IV PRN (08:00)
[2017-12-18] MEDS: PANTOPRAZOLE SODIUM 40 MG VIAL IV SCH ×2 (09:23→21:10)
[2017-12-18] MEDS: IPRATROPIUM/ALBUTEROL 0.5-2.5 MG/3 ML AMPUL NEB PRN (09:45)
[2017-12-18] MEDS ORDERED: MIDAZOLAM 2 MG/2 ML INJ ONE (11:41)
[2017-12-18] MEDS ORDERED: NALOXONE HCL INJ/PF 0.4 MG/1 ML SDV ONE (11:41)
[2017-12-18] MEDS ORDERED: DIPHENHYDRAMINE HCL 50 MG/ML VIAL ONE (11:41)
[2017-12-18] MEDS ORDERED: ONDANSETRON HCL INJ/PF 4 MG/2 ML SDV ONE (11:41)
[2017-12-18] MEDS ORDERED: FENTANYL CITRATE INJ/PF 100 MCG/2 ML AMPUL ONE (11:42)
[2017-12-18] MEDS ORDERED: GLUCAGON,HUMAN RECOMB 1 MG INJ ONE (11:42)
[2017-12-18] MEDS ORDERED: EPINEPHRINE INJ 1 MG/10 ML DISP.SYRIN ONE (11:42)
[2017-12-18] MEDS ORDERED: FLUMAZENIL INJ 0.5 MG/5 ML VIAL ONE (11:42)
--- NOTE | 2017-12-18 12:09 | Operative Report ---
Operative Report DATE OF SURGERY: 12/18/17 Operative Report: The risks benefits and alternatives of the procedure explained to the patient in detail and informed consent is obtained.A GIF Olympus video scope was inserted into the patient's mouth and hypopharynx, the esophagus is identified intubated and insufflated, the scope was then advanced through the esophagus stomach and duodenum ,retroflexion maneuver is done. the esophagus stomach and first and second portions of the duodenum examined PREOPERATIVE DIAGNOSIS: Dysphagia POSTOPERATIVE DIAGNOSIS: Esophageal ulcer with stricture formation status post dilation. Hiatal hernia. Gastritis status post biopsy rule out Helicobacter pylori. Bile reflux. Question possible pill induced esophagitis. Other etiology includes stricture formation due to significant GERD prior to admission. Possible nausea vomiting leading to stricture formation OPERATION: EGD with dilation. EGD with biopsy SURGEON: BRIAN RODRIGES ANESTHESIA: Other - No medications administered. TISSUE REMOVED OR ALTERED: Tissue specimen obtained in the gastric antrum rule out Helicobacter pylori COMPLICATIONS: None. ESTIMATED BLOOD LOSS: None. INTRAOPERATIVE FINDINGS: As noted above. PROCEDURE: Patient tolerated procedure well. No immediate postprocedure complications are noted. Patient patient was sent back to her room in good condition. I spoke with the daughter about the findings She will need to be on PPI Clear liquids if any do not advance Repeat upper endoscopy to document healing in 6-8 weeks We will need cardiology consult
[2017-12-18] MEDS ORDERED: DILTIAZEM HCL INJ 25 MG/5 ML VIAL IV ONE ×2 (12:43→14:45)
[2017-12-18] MEDS: LACTOBACILLUS ACIDOPHILUS 250 MG TAB PO SCH ×2 (12:44→17:05)
[2017-12-18] MEDS: ASPIRIN 325 MG TABLET, ENT COATED PO SCH (12:44)
[2017-12-18] MEDS ORDERED: DILTIAZEM HCL INJ 25 MG/5 ML VIAL ONE (13:25)
[2017-12-18 14:32] LABS: CREATINE KINASE MB 2.88 ng/mL (<4.55)
[2017-12-18 14:33] LABS: TROPONIN I < 0.012 ng/mL
[2017-12-18] MEDS ORDERED: DILTIAZEM HCL 30 MG TABLET PO ONE (16:45)
[2017-12-18] MEDS: DILTIAZEM HCL 30 MG TABLET PO SCH ×2 (17:05→23:08)
[2017-12-18] MEDS ORDERED: DILTIAZEM HCL 30 MG TABLET PO SCH (18:00)
--- NOTE | 2017-12-18 18:06 | PDOC PROGRESS REPORT ---
Subjective Progress Note for:: 12/18/17 Subjective:: 72-year-old woman admitted on 12/14/2017 with intractable nausea vomiting, hydration and acute kidney injury. She has been reporting difficulty swallowing and not able to tolerate her pills. GI was consulted for further evaluation and she had EGD with biopsy revealing- Esophageal ulcer with stricture formation status post dilation. Hiatal hernia. Gastritis status post biopsy rule out Helicobacter pylori. Bile reflux. Question possible pill induced esophagitis. Other etiology includes stricture formation due to significant GERD prior to admission. Possible nausea vomiting leading to stricture formation. EGD with dilation. After having the EGD upon return to the room she was noted to be tachycardic with heart rate in the 160's. 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 EKG was sinus tachycardia. She denies having any chest pain and no report of shortness of breath during my evaluation. Reason For Visit: ROSA,DEHYDRATION,INTRACTABLE NAUSEA,VOMITING Physical Exam Vital Signs: Temp Pulse Resp BP Pulse Ox 98.4 F 164 H 20 118/62 100 12/18/17 08:48 12/18/17 12:15 12/18/17 12:15 12/18/17 14:46 12/18/17 15:00 Intake & Output 12/17/17 12/18/17 12/19/17 06:59 06:59 06:59 Intake Total 2530 1897 250 Output Total 1100 275 Balance 1430 1622 250 Weight 125.4 kg 124.5 kg General appearance: PRESENT: cooperative, mild distress, obese Head exam: PRESENT: atraumatic, normocephalic Eye exam: PRESENT: EOMI Mouth exam: PRESENT: moist, neck supple Neck exam: PRESENT: full ROM Respiratory exam: PRESENT: clear to auscultation choco, unlabored. ABSENT: accessory muscle use GI/Abdominal exam: PRESENT: normal bowel sounds, soft, tenderness - epigastric Rectal exam: PRESENT: deferred, tenderness Extremities exam: PRESENT: full ROM Neurological exam: PRESENT: alert, oriented to person, oriented to time, oriented to situation Psychiatric exam: PRESENT: appropriate affect Skin exam: PRESENT: dry, warm Results Laboratory Results: 12/18/17 04:44 12/18/17 04:44 12/18/17 12/18/17 04:44 04:44 WBC 7.3 RBC 3.82 Hgb 11.4 L Hct 34.1 L MCV 89 MCH 29.9 MCHC 33.5 RDW 13.9 Plt Count 199 Seg Neutrophils % Not Reportable Lymphocytes % Not Reportable Monocytes % Not Reportable Eosinophils % Not Reportable Basophils % Not Reportable Absolute Neutrophils Not Reportable Absolute Lymphocytes Not Reportable Absolute Monocytes Not Reportable Absolute Eosinophils Not Reportable Absolute Basophils Not Reportable Sodium 145.7 H Potassium 3.9 Chloride 113 H Carbon Dioxide 25 Anion Gap 8 BUN 28 H Creatinine 1.02 Est GFR ( Amer) > 60 Est GFR (Non-Af Amer) 53 L Glucose 74 L Calcium 8.8 12/14/17 12/14/17 12/15/17 22:00 22:00 03:48 Creatine Kinase 709 H 781 H CK-MB (CK-2) 48.40 H Troponin I 0.088 12/15/17 12/15/17 12/15/17 03:48 10:11 10:11 Creatine Kinase 582 H CK-MB (CK-2) 53.10 H 52.20 H Troponin I 0.068 0.060 12/15/17 12/15/17 12/18/17 15:35 15:35 13:46 Creatine Kinase 431 H 37 CK-MB (CK-2) 33.50 H Troponin I 0.046 12/18/17 13:46 Creatine Kinase CK-MB (CK-2) 2.88 Troponin I < 0.012 Impressions: Renal Ultrasound 12/14/17 00:00 IMPRESSION: Nondiagnostic exam. KUB X-Ray 12/14/17 15:36 IMPRESSION: Previously stool filled loops of colon appear gas-filled on today' s examination. Abdomen/Pelvis CT 12/14/17 16:27 IMPRESSION: Relative to CT imaging performed 12/29/2017 which demonstrated constipation, today's imaging demonstrates fluid throughout prominent loops of large and small bowel. Some subtle pericolic mesenteric fat stranding involving the proximal sigmoid colon may indicate an early uncomplicated diverticulitis. Additionally, there appears to be a small bowel to small bowel adhesion without evidence of obstruction. Given the rather featureless appearance of the colon, recommend correlation for chronic laxative use. Chest X-Ray 12/16/17 00:00 IMPRESSION: Minimal left basilar densities as noted above. Other findings as noted above Assessment & Plan - Diagnosis (1) Acute kidney injury Is this a current diagnosis for this admission?: Yes Plan: Resolved (2) Vomiting and diarrhea Is this a current diagnosis for this admission?: Yes Plan: Anti-emetics as needed GI consulted for evaluation of dysphagia and had EGD as mentioned above Continue PPI (3) Hypokalemia Plan: Resolved (4) Diverticulitis large intestine Is this a current diagnosis for this admission?: Yes Plan: CT with uncomplicated early diverticulitis She will need colonoscopy in 6 weeks per GI (5) Hypertension Is this a current diagnosis for this admission?: Yes Plan: Current management (6) LARRY (obstructive sleep apnea) Is this a current diagnosis for this admission?: Yes Plan: Nightly CPAP (7) Esophageal ulcer Is this a current diagnosis for this admission?: Yes Plan: with stricture status post dilation Continue PPI (8) Tachycardia Is this a current diagnosis for this admission?: Yes Plan: Given IV Cardizem with response Start PO Cardizem and trend CE- first set of troponin negative Check echo (9) DVT prophylaxis Is this a current diagnosis for this admission?: Yes Plan: SCD's - Time Time Spent with patient: 35 or more minutes Within: within 48 hours
[2017-12-18] MEDS ORDERED: NORMAL SALINE 1000 ML 1,000 ML IV PRN (20:12)
[2017-12-18 20:54] LABS: FREE T3 1.38 pg/mL (2.77-5.27); FREE T4 (FREE THYROXINE) 1.65 ng/dL (0.78-2.19)
--- NOTE | 2017-12-18 22:15 | EKG REPORT ---
SEVERITY:- ABNORMAL ECG - SINUS TACHYCARDIA MULTIPLE ATRIAL PREMATURE COMPLEXES CONSIDER ANTERIOR INFARCT : Confirmed by: Juliano De Luna 18-Dec-2017 22:14:31
[2017-12-19] MEDS: 1/2 NORMAL SALINE 1,000 ML IV PRN (01:39)
[2017-12-19] MEDS: LEVOTHYROXINE SODIUM 0.15 MG TABLET PO SCH (05:22)
[2017-12-19] MEDS: DILTIAZEM HCL 30 MG TABLET PO SCH (05:23)
[2017-12-19] MEDS: IPRATROPIUM/ALBUTEROL 0.5-2.5 MG/3 ML AMPUL NEB PRN (08:06)
--- NOTE | 2017-12-19 08:33 | PDOC PROGRESS REPORT ---
Subjective Reason For Visit: ROSA,DEHYDRATION,INTRACTABLE NAUSEA,VOMITING Physical Exam Vital Signs: Temp Pulse Resp BP Pulse Ox 98.1 F 103 H 18 153/72 H 99 12/19/17 07:24 12/19/17 07:24 12/19/17 07:24 12/19/17 07:24 12/19/17 07:24 Intake & Output 12/18/17 12/19/17 12/20/17 06:59 06:59 06:59 Intake Total 1897 3660 Output Total 275 Balance 1622 3660 Weight 124.5 kg 125 kg Results Laboratory Results: 12/18/17 18:24 Free T4 1.65 Free T3 pg/mL 1.38 L 12/14/17 12/14/17 12/15/17 22:00 22:00 03:48 Creatine Kinase 709 H 781 H CK-MB (CK-2) 48.40 H Troponin I 0.088 NT-Pro-B Natriuret Pep 12/15/17 12/15/17 12/15/17 03:48 10:11 10:11 Creatine Kinase 582 H CK-MB (CK-2) 53.10 H 52.20 H Troponin I 0.068 0.060 NT-Pro-B Natriuret Pep 12/15/17 12/15/17 12/18/17 15:35 15:35 13:46 Creatine Kinase 431 H 37 CK-MB (CK-2) 33.50 H Troponin I 0.046 NT-Pro-B Natriuret Pep 12/18/17 12/18/17 12/18/17 13:46 18:24 18:26 Creatine Kinase CK-MB (CK-2) 2.88 Troponin I < 0.012 0.015 NT-Pro-B Natriuret Pep 2370 H Impressions: Renal Ultrasound 12/14/17 00:00 IMPRESSION: Nondiagnostic exam. KUB X-Ray 12/14/17 15:36 IMPRESSION: Previously stool filled loops of colon appear gas-filled on today' s examination. Abdomen/Pelvis CT 12/14/17 16:27 IMPRESSION: Relative to CT imaging performed 12/29/2017 which demonstrated constipation, today's imaging demonstrates fluid throughout prominent loops of large and small bowel. Some subtle pericolic mesenteric fat stranding involving the proximal sigmoid colon may indicate an early uncomplicated diverticulitis. Additionally, there appears to be a small bowel to small bowel adhesion without evidence of obstruction. Given the rather featureless appearance of the colon, recommend correlation for chronic laxative use. Chest X-Ray 12/16/17 00:00 IMPRESSION: Minimal left basilar densities as noted above. Other findings as noted above Assessment & Plan - Diagnosis (1) Acute kidney injury Is this a current diagnosis for this admission?: Yes (2) Vomiting and diarrhea Is this a current diagnosis for this admission?: Yes (4) Diverticulitis large intestine Is this a current diagnosis for this admission?: Yes (5) Hypertension Qualifiers: Hypertension type: essential hypertension Qualified Code(s): I10 - Essential (primary) hypertension Is this a current diagnosis for this admission?: Yes (6) LARRY (obstructive sleep apnea) Is this a current diagnosis for this admission?: Yes (7) Esophageal ulcer Is this a current diagnosis for this admission?: Yes (8) Tachycardia Is this a current diagnosis for this admission?: Yes (10) DVT prophylaxis Is this a current diagnosis for this admission?: Yes
[2017-12-19 08:34] LABS: HEMOGLOBIN 12.3 g/dL (12.0-15.5); MEAN CORPUSCULAR HEMOGLOBIN 29.6 pg (27.0-33.4); MEAN CORPUSCULAR HGB CONC 33.2 g/dL (32.0-36.0); MEAN CORPUSCULAR VOLUME 89 fl (80-97); PLATELET COUNT 204 10^3/uL (150-450); RED BLOOD COUNT 4.15 10^6/uL (3.72-5.28); RED CELL DISTRIBUTION WIDTH 14.4 % (11.5-14.0); WHITE BLOOD COUNT 10.4 10^3/uL (4.0-10.5)
[2017-12-19 08:56] LABS: ANION GAP 9 (5-19); BLOOD UREA NITROGEN 19 mg/dL (7-20); CALCIUM 8.7 mg/dL (8.4-10.2); CARBON DIOXIDE 25 mmol/L (22-30); CHLORIDE 112 mmol/L (98-107); GLUCOSE 75 mg/dL (75-110); POTASSIUM 3.8 mmol/L (3.6-5.0); SODIUM 146.2 mmol/L (137-145)
[2017-12-19] MEDS: LACTOBACILLUS ACIDOPHILUS 250 MG TAB PO SCH ×2 (09:40→17:51)
[2017-12-19] MEDS: PANTOPRAZOLE SODIUM 40 MG VIAL IV SCH (09:40)
[2017-12-19] MEDS: ASPIRIN 325 MG TABLET, ENT COATED PO SCH (09:41)
--- NOTE | 2017-12-19 10:34 | EKG REPORT ---
SEVERITY:- NORMAL ECG - SINUS RHYTHM : Confirmed by: Juliano De Luna 19-Dec-2017 10:33:51
[2017-12-19] MEDS ORDERED: FUROSEMIDE 40 MG TABLET PO SCH (11:00)
[2017-12-19] MEDS ORDERED: POTASSI CL 20 MEQ/D5-1/2NS 1L 1000 ML IV PRN (13:22)
[2017-12-19] MEDS: SUCRALFATE SUSP 1 GM/10 ML UDCUP PO SCH ×2 (13:28→17:50)
[2017-12-19] MEDS: DILTIAZEM HCL INJ 25 MG/5 ML VIAL IV SCH ×3 (13:29→21:06)
[2017-12-19] MEDS: PROMETHAZINE HCL INJ 25 MG/1 ML VIAL IV PRN (13:30)
--- NOTE | 2017-12-19 14:39 | PDOC PROGRESS REPORT ---
Subjective Progress Note for:: 12/19/17 Subjective:: Patient underwent upper endoscopy yesterday and she was noted to have an esophageal ulcer with stricture formation. Patient does not continue to feel well and still has nausea vomiting. I went ahead to order an esophagram to see if there is any other information that could be obtained. We will change her Zofran and Phenergan to schedule medications She will need to be n.p.o. Liquids if possible We will start a Protonix drip on her. Biopsies are still pending. Patient continues to have nausea and vomiting. Reason For Visit: ROSA,DEHYDRATION,INTRACTABLE NAUSEA,VOMITING Physical Exam Vital Signs: Temp Pulse Resp BP Pulse Ox 98.6 F 102 H 14 152/76 H 94 12/19/17 11:41 12/19/17 11:41 12/19/17 11:41 12/19/17 11:41 12/19/17 11:41 Intake & Output 12/18/17 12/19/17 12/20/17 06:59 06:59 06:59 Intake Total 1897 3660 0 Output Total 275 Balance 1622 3660 0 Weight 124.5 kg 125 kg General appearance: PRESENT: mild distress, well-developed, well-nourished Head exam: PRESENT: atraumatic, normocephalic Eye exam: PRESENT: EOMI, PERRLA. ABSENT: nystagmus, periorbital swelling, scleral icterus Mouth exam: PRESENT: moist, neck supple Throat exam: ABSENT: tonsillar exudate, tonsillogmegaly Neck exam: ABSENT: meningismus, tenderness, thyromegaly Respiratory exam: PRESENT: symmetrical, tachypnea. ABSENT: unlabored, wheezes Cardiovascular exam: PRESENT: irregular rhythm, +S1, +S2. ABSENT: RRR GI/Abdominal exam: PRESENT: soft. ABSENT: rebound, rigid, tenderness Neurological exam: PRESENT: oriented to time, oriented to situation, CN II-XII grossly intact Psychiatric exam: PRESENT: anxious Focused psych exam: ABSENT: restlessness Skin exam: PRESENT: normal color. ABSENT: mottled, pallor, urticaria, vesicles Results Laboratory Results: 12/19/17 08:26 12/19/17 08:26 12/18/17 12/19/17 12/19/17 18:24 08:26 08:26 WBC 10.4 RBC 4.15 Hgb 12.3 Hct 37.0 MCV 89 MCH 29.6 MCHC 33.2 RDW 14.4 H Plt Count 204 Sodium 146.2 H Potassium 3.8 Chloride 112 H Carbon Dioxide 25 Anion Gap 9 BUN 19 Creatinine 0.87 Est GFR ( Amer) > 60 Est GFR (Non-Af Amer) > 60 Glucose 75 Calcium 8.7 Magnesium 1.7 Free T4 1.65 Free T3 pg/mL 1.38 L 12/14/17 12/14/17 12/15/17 22:00 22:00 03:48 Creatine Kinase 709 H 781 H CK-MB (CK-2) 48.40 H Troponin I 0.088 NT-Pro-B Natriuret Pep 12/15/17 12/15/17 12/15/17 03:48 10:11 10:11 Creatine Kinase 582 H CK-MB (CK-2) 53.10 H 52.20 H Troponin I 0.068 0.060 NT-Pro-B Natriuret Pep 12/15/17 12/15/17 12/18/17 15:35 15:35 13:46 Creatine Kinase 431 H 37 CK-MB (CK-2) 33.50 H Troponin I 0.046 NT-Pro-B Natriuret Pep 12/18/17 12/18/17 12/18/17 13:46 18:24 18:26 Creatine Kinase CK-MB (CK-2) 2.88 Troponin I < 0.012 0.015 NT-Pro-B Natriuret Pep 2370 H Impressions: Renal Ultrasound 12/14/17 00:00 IMPRESSION: Nondiagnostic exam. KUB X-Ray 12/14/17 15:36 IMPRESSION: Previously stool filled loops of colon appear gas-filled on today' s examination. Abdomen/Pelvis CT 12/14/17 16:27 IMPRESSION: Relative to CT imaging performed 12/29/2017 which demonstrated constipation, today's imaging demonstrates fluid throughout prominent loops of large and small bowel. Some subtle pericolic mesenteric fat stranding involving the proximal sigmoid colon may indicate an early uncomplicated diverticulitis. Additionally, there appears to be a small bowel to small bowel adhesion without evidence of obstruction. Given the rather featureless appearance of the colon, recommend correlation for chronic laxative use. Chest X-Ray 12/16/17 00:00 IMPRESSION: Minimal left basilar densities as noted above. Other findings as noted above Assessment & Plan - Diagnosis (1) Dysphagia Plan: Esophageal ulcer with stricture formation. Given the fact that patient provides a history that it started while she was here it does appear to be pill induced esophagitis. I do suspect however that the problem may have been ongoing for a while before she did present. Awaiting biopsies to make sure is not a malignancy. PPI drip at this point in time, antinausea medication. We will get an esophagram. If she is still here next week we will repeat scope to see if she needs further dilatation. We will continue to follow (2) Diverticulitis Is this a current diagnosis for this admission?: Yes - Time Time Spent with patient: 25-34 minutes
[2017-12-19] MEDS: NORMAL SALINE 100 ML with PANTOPRAZOLE SODIUM 80 MG IV PRN ×2 (14:43)
[2017-12-19] MEDS ORDERED: DILTIAZEM HCL INJ 25 MG/5 ML VIAL IV ONE (15:05)
[2017-12-19] MEDS: ONDANSETRON HCL INJ/PF 4 MG/2 ML SDV IV SCH ×3 (15:25→21:06)
--- NOTE | 2017-12-19 19:45 | PDOC PROGRESS REPORT ---
Subjective Progress Note for:: 12/19/17 Subjective:: 72-year-old woman admitted on 12/14/2017 with intractable nausea vomiting, hydration and acute kidney injury. She has been reporting difficulty swallowing and not able to tolerate her pills. GI was consulted for further evaluation and she had EGD on 12/18/2017 with biopsy revealing- Esophageal ulcer with stricture formation status post dilation. Hiatal hernia. Gastritis status post biopsy rule out Helicobacter pylori. Bile reflux. Question possible pill induced esophagitis. Other etiology includes stricture formation due to significant GERD prior to admission. Possible nausea vomiting leading to stricture formation. EGD with dilation. Seen this am, she continues to be nauseated and vomited this am after having laith neel. Having difficulty swallowing. Daughter present at bedside. Reason For Visit: ROSA,DEHYDRATION,INTRACTABLE NAUSEA,VOMITING Physical Exam Vital Signs: Temp Pulse Resp BP Pulse Ox 98.8 F 96 16 149/81 H 92 12/19/17 15:44 12/19/17 15:46 12/19/17 15:46 12/19/17 15:44 12/19/17 15:46 Intake & Output 12/18/17 12/19/17 12/20/17 06:59 06:59 06:59 Intake Total 1897 3660 0 Output Total 275 0 Balance 1622 3660 0 Weight 124.5 kg 125 kg General appearance: PRESENT: mild distress, obese, other Head exam: PRESENT: atraumatic, normocephalic Eye exam: PRESENT: EOMI Mouth exam: PRESENT: moist, neck supple Neck exam: PRESENT: full ROM Respiratory exam: PRESENT: clear to auscultation choco Cardiovascular exam: PRESENT: tachycardia GI/Abdominal exam: PRESENT: normal bowel sounds, soft, tenderness - epigastric Rectal exam: PRESENT: deferred Extremities exam: PRESENT: full ROM, +1 edema Neurological exam: PRESENT: alert, awake, oriented to person, oriented to time Psychiatric exam: PRESENT: anxious Skin exam: PRESENT: dry, warm Results Laboratory Results: 12/19/17 08:26 12/19/17 08:26 12/18/17 12/19/17 12/19/17 18:24 08:26 08:26 WBC 10.4 RBC 4.15 Hgb 12.3 Hct 37.0 MCV 89 MCH 29.6 MCHC 33.2 RDW 14.4 H Plt Count 204 Sodium 146.2 H Potassium 3.8 Chloride 112 H Carbon Dioxide 25 Anion Gap 9 BUN 19 Creatinine 0.87 Est GFR ( Amer) > 60 Est GFR (Non-Af Amer) > 60 Glucose 75 Calcium 8.7 Magnesium 1.7 Free T4 1.65 Free T3 pg/mL 1.38 L 12/14/17 12/14/17 12/15/17 22:00 22:00 03:48 Creatine Kinase 709 H 781 H CK-MB (CK-2) 48.40 H Troponin I 0.088 NT-Pro-B Natriuret Pep 12/15/17 12/15/17 12/15/17 03:48 10:11 10:11 Creatine Kinase 582 H CK-MB (CK-2) 53.10 H 52.20 H Troponin I 0.068 0.060 NT-Pro-B Natriuret Pep 12/15/17 12/15/17 12/18/17 15:35 15:35 13:46 Creatine Kinase 431 H 37 CK-MB (CK-2) 33.50 H Troponin I 0.046 NT-Pro-B Natriuret Pep 12/18/17 12/18/17 12/18/17 13:46 18:24 18:26 Creatine Kinase CK-MB (CK-2) 2.88 Troponin I < 0.012 0.015 NT-Pro-B Natriuret Pep 2370 H Impressions: Renal Ultrasound 12/14/17 00:00 IMPRESSION: Nondiagnostic exam. KUB X-Ray 12/14/17 15:36 IMPRESSION: Previously stool filled loops of colon appear gas-filled on today' s examination. Abdomen/Pelvis CT 12/14/17 16:27 IMPRESSION: Relative to CT imaging performed 12/29/2017 which demonstrated constipation, today's imaging demonstrates fluid throughout prominent loops of large and small bowel. Some subtle pericolic mesenteric fat stranding involving the proximal sigmoid colon may indicate an early uncomplicated diverticulitis. Additionally, there appears to be a small bowel to small bowel adhesion without evidence of obstruction. Given the rather featureless appearance of the colon, recommend correlation for chronic laxative use. Chest X-Ray 12/16/17 00:00 IMPRESSION: Minimal left basilar densities as noted above. Other findings as noted above Assessment & Plan - Diagnosis (1) Tachycardia Is this a current diagnosis for this admission?: Yes Plan: Since she is not tolerating PO- PO Cardizem changed to IV EKG this am with SR Cards consulted Echo with diastolic dysfunction and no gross valvular abnormalities. (2) Dysphagia Is this a current diagnosis for this admission?: Yes Plan: Had EGD as mentioned above- with esophageal ulcer with stricture formation- Follow up biopsy GI re-consulted for persistent nausea and vomiting and having difficulty swallowing. She was started on PPI drips and plan for esophagram in am and kept NPO (3) Acute kidney injury Is this a current diagnosis for this admission?: Yes Plan: Resolved (4) Hypokalemia Plan: On IVF hydration with supplements (5) Vomiting and diarrhea Is this a current diagnosis for this admission?: Yes Plan: Anti-emetics as needed GI consulted for evaluation of dysphagia and had EGD as mentioned above Continue PPI (6) Diverticulitis large intestine Is this a current diagnosis for this admission?: Yes Plan: CT with uncomplicated early diverticulitis She will need colonoscopy in 6 weeks per GI (7) Hypertension Qualifiers: Hypertension type: essential hypertension Qualified Code(s): I10 - Essential (primary) hypertension Is this a current diagnosis for this admission?: Yes Plan: Current management (8) LARRY (obstructive sleep apnea) Is this a current diagnosis for this admission?: Yes Plan: Nightly CPAP (9) Esophageal ulcer Is this a current diagnosis for this admission?: Yes Plan: with stricture status post dilation Continue PPI (10) Morbid (severe) obesity due to excess calories Is this a current diagnosis for this admission?: Yes Plan: Will benefit from weight loss (11) DVT prophylaxis Is this a current diagnosis for this admission?: Yes Plan: SCD's - Time Time Spent with patient: 35 or more minutes - Inpatient Certification Medical Necessity: Need For IV Fluids, Risk of Complication if Not Cared For in Hospital, Other - Persistent nausea and vomiting, dysphagia
--- NOTE | 2017-12-19 20:04 | PDOC CONSULTATION ---
Consultation Consult Date: 12/18/17 Attending physician:: CAMILLA HERNDON Consult reason:: Cardiac arrhythmia History of Present Illness Admission Date/PCP: 12/14/17 17:49 ILYA FULLER MD Patient complains of: Shortness of breath History of Present Illness: 72-year-old woman admitted on 12/14/2017 with intractable nausea vomiting, hydration and acute kidney injury. She has been reporting difficulty swallowing and not able to tolerate her pills. GI was consulted for further evaluation and she had EGD with biopsy revealing- Esophageal ulcer with stricture formation status post dilation. Hiatal hernia. Gastritis status post biopsy rule out Helicobacter pylori. Bile reflux. Question possible pill induced esophagitis. Other etiology includes stricture formation due to significant GERD prior to admission. Possible nausea vomiting leading to stricture formation. EGD with dilation. After having the EGD upon return to the room she was noted to be tachycardic with heart rate in the 160's. On child monitor noted to be in sinus and at times in atrial fibrillation. EKG was sinus tachycardia. She denies having any chest pain and no report of shortness of breath during my evaluation. This history was reviewed and confirmed. Patient denies any prior history of heart problem but describes history of COPD. She has noted intermittent pedal edema. Patient on Synthroid replacement and her TSH level was noted to be low. Past Medical History Cardiac Medical History: Reports: Hypertension Pulmonary Medical History: Reports: None EENT Medical History: Reports: None Neurological Medical History: Reports: None Denies: Seizures Endocrine Medical History: Reports: Obesity Malignancy Medical History: Reports: None GI Medical History: Reports: Other - Per HPI Musculoskeltal Medical History: Reports: Gout Skin Medical History: Reports: None Psychiatric Medical History: Reports: None Traumatic Medical History: Reports: None Hematology: Reports: None Infectious Medical History: Reports: None Past Surgical History Past Surgical History: Reports: Cholecystectomy, Hysterectomy, Other - Lysis of adhesions post hysterectomy Social History Information Source: Patient Lives with: Alone Smoking Status: Former Smoker Cigarettes Packs Per Day: 1 Number of Years Smokin Last Time Smoked: 1 year ago Frequency of Alcohol Use: None Hx Recreational Drug Use: No Drugs: None - Advance Directive Resuscitation Status: Full Code Surrogate healthcare decision maker:: Patient's daughter is the surrogate decision-maker Family History Family History: Other - Mother had a stroke, she does not know her father's medical history, sister had cancer of unknown type, 1 of her daughters has hypothyroidism and one of her sons has gout Parental Family History Reviewed: Yes Children Family History Reviewed: Yes Sibling(s) Family History Reviewed.: Yes Medication/Allergy Home Medications: Allopurinol [Zyloprim 100 mg Tablet] 100 mg PO DAILY 12/15/17 Calcium Carbonate/Vitamin D3 [Calcium 600 + Vit D Tablet] 1 tab PO BID 12/15/17 Hydrochlorothiazide [Hydrodiuril 12.5 mg Capsule] 12.5 mg PO QAM 12/15/17 Levothyroxine Sodium 150 mcg PO QAM 12/15/17 Lisinopril [Zestril] 40 mg PO DAILY 12/15/17 Multivitamin [Multiple Vitamins] 1 ea PO DAILY 12/15/17 [place]-3 Acid Ethyl Esters [Lovaza 1 gm Capsule] 4 gm PO DAILY 12/15/17 Umeclidinium Brm/Vilanterol Tr [Anoro Ellipta 62.5-25 Mcg INH] 1 puff IH DAILY 12/15/17 Allergies/Adverse Reactions: No Known Allergies Allergy (Verified 12/14/17 15:08) Review of Systems Review of Systems: Please see history of present illness and past medical history as wall. Constitutional: No fever or chills reported. Head : No recent chronic headaches, recent head injury. Eyes: No recent eye pain, diplopia, redness, discharge, acute visual changes. Ears: No recent chronic ear pain, acute hearing loss, ear discharge. Oral cavity: No recent ulcerations, bleeding, oral cavity discomfort. Neck: No recent acute neck pain reported. Hematologic: No recent easy bruising or bleeding or hematologic malignancy reported. Lymphatic: No recent lymphatic malignancy, chronic lymphadenopathy reported yet Cardiovascular system review: See history of present illness. Respiratory system review: No recent chronic cough, hemoptysis, blood clots in the lungs reported. Mild Shortness of breath on exertion. Patient gives history of COPD Gastrointestinal system review: Noted some nausea vomiting and the swallowing difficulty but denies hematemesis, melena, recent change in bowel habits. Genitourinary system review: No recent acute or chronic hematuria, flank pain, UTI etc. reported. Skin system review: Negative for any recent abnormal bruising, no rash, no pruritus reported. Neurologic: No prior history of strokes, mini strokes, seizure disorder. Psychologic: No history of major psychosis or major depression reported. Musculoskeletal: Minor aches and pains reported. No acute joint swelling reported. Endocrine: No recent polyuria, polydipsia, recent heat or cold intolerance. Physical Exam Vital Signs: Temp Pulse Resp BP Pulse Ox 98.4 F 93 20 141/72 H 96 12/18/17 08:48 12/18/17 14:00 12/18/17 12:15 12/18/17 17:01 12/18/17 17:01 Intake & Output 12/17/17 12/18/17 12/19/17 06:59 06:59 06:59 Intake Total 2530 1897 1999 Output Total 1100 275 Balance 1430 1622 1999 Weight 125.4 kg 124.5 kg Exam: GENERAL: well-nourished and in no acute distress. Alert and oriented x2 HEAD: Atraumatic, normocephalic. EYES: Pupils equal round and reactive to light, extraocular movements intact, sclera anicteric, conjunctiva are normal. ENT: TMs normal, nares patent, oropharynx clear without exudates. Moist mucous membranes. No oral ulcerations or bleeding gums noted NECK: supple without lymphadenopathy. Trachea is central. No cervical or axillary lymphadenopathy noted. Carotids are 2+, JVD 8-10 cm LUNGS: Respiration seems nonlabored, no significant accessory muscle action noted. Bibasilar fine crackles and few scattered wheezing noted. CHEST: Palpation of the chest wall shows no significant chest wall tenderness. No other significant abnormalities noted. 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 ABDOMEN: Soft, distention noted. No significant tenderness appreciated, normoactive bowel sounds. No guarding, no rebound. No rigidity noted . No masses appreciated. EXTREMITIES: Pedal pulses are 1-2+, no calf tenderness noted. No clubbing or cyanosis. 1+ pedal edema noted NEUROLOGICAL: Focused neurological exam showed no significant neurologic deficit. Normal speech, no focal weakness appreciated. PSYCH: Normal mood, normal affect. Judgment and insight not checked. SKIN: No significant ecchymosis, skin is noted to be warm. MUSCULOSKELETAL EXAM: No significant acute joint swelling noted. Results Laboratory Results: 12/18/17 04:44 12/18/17 04:44 12/18/17 12/18/17 04:44 04:44 WBC 7.3 RBC 3.82 Hgb 11.4 L Hct 34.1 L MCV 89 MCH 29.9 MCHC 33.5 RDW 13.9 Plt Count 199 Seg Neutrophils % Not Reportable Lymphocytes % Not Reportable Monocytes % Not Reportable Eosinophils % Not Reportable Basophils % Not Reportable Absolute Neutrophils Not Reportable Absolute Lymphocytes Not Reportable Absolute Monocytes Not Reportable Absolute Eosinophils Not Reportable Absolute Basophils Not Reportable Sodium 145.7 H Potassium 3.9 Chloride 113 H Carbon Dioxide 25 Anion Gap 8 BUN 28 H Creatinine 1.02 Est GFR ( Amer) > 60 Est GFR (Non-Af Amer) 53 L Glucose 74 L Calcium 8.8 12/14/17 12/14/17 12/15/17 22:00 22:00 03:48 Creatine Kinase 709 H 781 H CK-MB (CK-2) 48.40 H Troponin I 0.088 12/15/17 12/15/17 12/15/17 03:48 10:11 10:11 Creatine Kinase 582 H CK-MB (CK-2) 53.10 H 52.20 H Troponin I 0.068 0.060 12/15/17 12/15/17 12/18/17 15:35 15:35 13:46 Creatine Kinase 431 H 37 CK-MB (CK-2) 33.50 H Troponin I 0.046 12/18/17 12/18/17 13:46 18:24 Creatine Kinase CK-MB (CK-2) 2.88 Troponin I < 0.012 0.015 EKG Comments: EKG shows sinus tachycardia with frequent APCs. Rhythm strips suggest possible multifocal atrial tachycardia. Impressions: Renal Ultrasound 12/14/17 00:00 IMPRESSION: Nondiagnostic exam. KUB X-Ray 12/14/17 15:36 IMPRESSION: Previously stool filled loops of colon appear gas-filled on today' s examination. Abdomen/Pelvis CT 12/14/17 16:27 IMPRESSION: Relative to CT imaging performed 12/29/2017 which demonstrated constipation, today's imaging demonstrates fluid throughout prominent loops of large and small bowel. Some subtle pericolic mesenteric fat stranding involving the proximal sigmoid colon may indicate an early uncomplicated diverticulitis. Additionally, there appears to be a small bowel to small bowel adhesion without evidence of obstruction. Given the rather featureless appearance of the colon, recommend correlation for chronic laxative use. Chest X-Ray 12/16/17 00:00 IMPRESSION: Minimal left basilar densities as noted above. Other findings as noted above Assessment & Plan - Diagnosis (1) Cardiac dysrhythmia, unspecified Qualifiers: Arrhythmia type: unspecified cardiac arrhythmia Qualified Code(s): I49.9 - Cardiac arrhythmia, unspecified Is this a current diagnosis for this admission?: Yes (2) Hypertension Qualifiers: Hypertension type: essential hypertension Qualified Code(s): I10 - Essential (primary) hypertension Is this a current diagnosis for this admission?: Yes (3) LARRY (obstructive sleep apnea) Is this a current diagnosis for this admission?: Yes (4) Tachycardia Is this a current diagnosis for this admission?: Yes (5) COPD (chronic obstructive pulmonary disease) Qualifiers: COPD type: unspecified COPD Qualified Code(s): J44.9 - Chronic obstructive pulmonary disease, unspecified Is this a current diagnosis for this admission?: Yes - Notes Notes: Patient seems to have multifocal atrial tachycardia. Recommend reducing Synthroid dose, electrolytes should be maintained within normal limits. Will check a BNP level. Previous 2D echocardiogram was reviewed. Hypertension: Continue with current therapy. Cardizem added for cardiac dysrhythmia. Obstructive sleep apnea syndrome: Recommend institution of home CPAP/BiPAP therapy. Tachycardia: Most likely multifocal atrial tachycardia. Calcium channel blockers are usually better especially Cardizem. COPD: Continue with bronchodilator therapy. CHF: On clinical exam patient seems to be having some element of CHF possibly from diastolic dysfunction or from right heart failure. Will review 2D echocardiogram. - Time Time Spent: 30 to 50 Minutes - CODE STATUS was discussed, patient remains full code. Surrogate decision-maker patient's daughter. Multiple medical problems were addressed. More than 50% of the time spent coordinating care, discussing management plans with involved caregivers. Management plans discussed with involved personnels. Medical decision making was of moderate to high complexity , patient's has multiple comorbidities. Medications reviewed and adjusted accordingly: Yes
--- NOTE | 2017-12-19 20:07 | PDOC PROGRESS REPORT ---
Subjective Progress Note for:: 12/19/17 Subjective:: Patient noted to be somewhat lethargic. Daughter at bedside and patient noted to be mildly confused. Patient has some nausea vomiting and could not get p.o. Cardizem. Patient predominantly in sinus rhythm with occasional rapid heartbeat but no strips saved in the chart. Reason For Visit: ROSA,DEHYDRATION,INTRACTABLE NAUSEA,VOMITING Physical Exam Vital Signs: Temp Pulse Resp BP Pulse Ox 98.8 F 96 16 149/81 H 92 12/19/17 15:44 12/19/17 15:46 12/19/17 15:46 12/19/17 15:44 12/19/17 15:46 Intake & Output 12/18/17 12/19/17 12/20/17 06:59 06:59 06:59 Intake Total 1897 3660 0 Output Total 275 0 Balance 1622 3660 0 Weight 124.5 kg 125 kg Exam: GENERAL: well-nourished and in no acute distress. Patient is alert but oriented to person and place. HEAD: Atraumatic, normocephalic. EYES: Pupils equal round and reactive to light, extraocular movements intact, sclera anicteric, conjunctiva are normal. ENT: TMs normal, nares patent, oropharynx clear without exudates. Moist mucous membranes. No oral ulcerations or bleeding gums noted NECK: supple without lymphadenopathy or JVD. Trachea is central. No cervical or axillary lymphadenopathy noted. Carotids are 2+ LUNGS: Breath sounds bibasilar fine crackles at bases. No significant dullness noted. CHEST: Palpation of chest wall shows no significant chest wall tenderness. 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 ABDOMEN: Soft, no significant tenderness appreciated, normoactive bowel sounds. No guarding, no rebound. No rigidity noted . No masses appreciated. EXTREMITIES: Pedal pulses are 1-2+, no calf tenderness noted, Trace + pedal edema noted. No clubbing or cyanosis. NEUROLOGICAL: Patient is alert but it neurological exam not performed because of patient's lethargy. PSYCH: Mood and judgment not assessed today because of patient's lethargy. SKIN: No significant ecchymosis, rash, ulcerations or signs of pruritus noted. MUSCULOSKELETAL EXAM: No significant joint swelling noted. Results Laboratory Results: 12/19/17 08:26 12/19/17 08:26 12/18/17 12/19/17 12/19/17 18:24 08:26 08:26 WBC 10.4 RBC 4.15 Hgb 12.3 Hct 37.0 MCV 89 MCH 29.6 MCHC 33.2 RDW 14.4 H Plt Count 204 Sodium 146.2 H Potassium 3.8 Chloride 112 H Carbon Dioxide 25 Anion Gap 9 BUN 19 Creatinine 0.87 Est GFR ( Amer) > 60 Est GFR (Non-Af Amer) > 60 Glucose 75 Calcium 8.7 Magnesium 1.7 Free T4 1.65 Free T3 pg/mL 1.38 L 12/14/17 12/14/17 12/15/17 22:00 22:00 03:48 Creatine Kinase 709 H 781 H CK-MB (CK-2) 48.40 H Troponin I 0.088 NT-Pro-B Natriuret Pep 12/15/17 12/15/17 12/15/17 03:48 10:11 10:11 Creatine Kinase 582 H CK-MB (CK-2) 53.10 H 52.20 H Troponin I 0.068 0.060 NT-Pro-B Natriuret Pep 12/15/17 12/15/17 12/18/17 15:35 15:35 13:46 Creatine Kinase 431 H 37 CK-MB (CK-2) 33.50 H Troponin I 0.046 NT-Pro-B Natriuret Pep 12/18/17 12/18/17 12/18/17 13:46 18:24 18:26 Creatine Kinase CK-MB (CK-2) 2.88 Troponin I < 0.012 0.015 NT-Pro-B Natriuret Pep 2370 H EKG Comments: Telemetry strips reviewed shows mainly sinus rhythm. Impressions: Renal Ultrasound 12/14/17 00:00 IMPRESSION: Nondiagnostic exam. KUB X-Ray 12/14/17 15:36 IMPRESSION: Previously stool filled loops of colon appear gas-filled on today' s examination. Abdomen/Pelvis CT 12/14/17 16:27 IMPRESSION: Relative to CT imaging performed 12/29/2017 which demonstrated constipation, today's imaging demonstrates fluid throughout prominent loops of large and small bowel. Some subtle pericolic mesenteric fat stranding involving the proximal sigmoid colon may indicate an early uncomplicated diverticulitis. Additionally, there appears to be a small bowel to small bowel adhesion without evidence of obstruction. Given the rather featureless appearance of the colon, recommend correlation for chronic laxative use. Chest X-Ray 12/16/17 00:00 IMPRESSION: Minimal left basilar densities as noted above. Other findings as noted above Assessment & Plan - Diagnosis (1) Cardiac dysrhythmia, unspecified Qualifiers: Arrhythmia type: unspecified cardiac arrhythmia Qualified Code(s): I49.9 - Cardiac arrhythmia, unspecified Is this a current diagnosis for this admission?: Yes (2) Hypertension Qualifiers: Hypertension type: essential hypertension Qualified Code(s): I10 - Essential (primary) hypertension Is this a current diagnosis for this admission?: Yes (3) LARRY (obstructive sleep apnea) Is this a current diagnosis for this admission?: Yes (4) Tachycardia Is this a current diagnosis for this admission?: Yes (5) COPD (chronic obstructive pulmonary disease) Qualifiers: COPD type: unspecified COPD Qualified Code(s): J44.9 - Chronic obstructive pulmonary disease, unspecified Is this a current diagnosis for this admission?: Yes (6) CHF (congestive heart failure) Qualifiers: Heart failure type: diastolic Heart failure chronicity: chronic Qualified Code(s): I50.32 - Chronic diastolic (congestive) heart failure Is this a current diagnosis for this admission?: Yes - Notes Notes: Patient seems to have multifocal atrial tachycardia. Recommend reducing Synthroid dose, electrolytes should be maintained within normal limits. BNP level came back mildly elevated. Will add a small dose of Lasix. Hypertension: Continue with current therapy. Cardizem added for cardiac dysrhythmia. Obstructive sleep apnea syndrome: Recommend institution of home CPAP/BiPAP therapy. Tachycardia: Most likely multifocal atrial tachycardia. Calcium channel blockers are usually better especially Cardizem. COPD: Continue with bronchodilator therapy. CHF: On clinical exam patient seems to be having some element of CHF possibly from diastolic dysfunction or from right heart failure. Will add Lasix to patient's regimen. - Time Time with patient: Greater than 35 minutes - CODE STATUS was discussed, patient remains full code. Surrogate decision-maker unchanged. Multiple medical problems were addressed. More than 50% of the time spent coordinating care, discussing management plans with involved caregivers. Management plans discussed with involved personnels. Medical decision making was of moderate to high complexity, patient's has multiple comorbidities. Medications reviewed and adjusted accordingly: Yes
[2017-12-19 23:03] LABS: HEMATOCRIT 37.5 % (36.0-47.0); HEMOGLOBIN 12.2 g/dL (12.0-15.5); MEAN CORPUSCULAR HEMOGLOBIN 29.2 pg (27.0-33.4); MEAN CORPUSCULAR HGB CONC 32.5 g/dL (32.0-36.0); MEAN CORPUSCULAR VOLUME 90 fl (80-97); RED BLOOD COUNT 4.16 10^6/uL (3.72-5.28); RED CELL DISTRIBUTION WIDTH 14.3 % (11.5-14.0); WHITE BLOOD COUNT 11.6 10^3/uL (4.0-10.5)
[2017-12-19 23:20] LABS: ABSOLUTE LYMPHOCYTES# (MANUAL) 1.7 10^3/uL (0.5-4.7); ABSOLUTE NEUTROPHILS# (MANUAL) 8.7 10^3/uL (1.7-8.2); ANISOCYTOSIS SLIGHT; BAND NEUTROPHILS % (MANUAL) 3 % (3-5); BASOPHILS % (MANUAL) 0 % (0-2); EOSINOPHILS % (MANUAL) 1 % (0-6); LYMPHOCYTES % (MANUAL) 15 % (13-45); MONOCYTES % (MANUAL) 9 % (3-13); PLATELET COMMENT ADEQUATE; SEGMENTED NEUTROPHILS % (MAN) 72 % (42-78); TOTAL CELLS COUNTED 100; TOXIC GRANULATION SLIGHT
[2017-12-19 23:21] LABS: PLATELET COUNT 198 10^3/uL (150-450)
[2017-12-20] MEDS: PROMETHAZINE HCL INJ 25 MG/1 ML VIAL IV PRN ×2 (00:26→07:46)
[2017-12-20] MEDS: SUCRALFATE SUSP 1 GM/10 ML UDCUP PO SCH ×4 (00:26→18:35)
[2017-12-20] MEDS: NORMAL SALINE 100 ML with PANTOPRAZOLE SODIUM 80 MG IV PRN ×6 (00:27→21:44)
[2017-12-20] MEDS: ONDANSETRON HCL INJ/PF 4 MG/2 ML SDV IV SCH ×6 (02:26→21:39)
[2017-12-20] MEDS: DILTIAZEM HCL INJ 25 MG/5 ML VIAL IV SCH ×4 (02:26→20:50)
[2017-12-20 05:12] LABS: HEMATOCRIT 37.9 % (36.0-47.0); HEMOGLOBIN 12.4 g/dL (12.0-15.5); MEAN CORPUSCULAR HEMOGLOBIN 29.4 pg (27.0-33.4); MEAN CORPUSCULAR HGB CONC 32.6 g/dL (32.0-36.0); MEAN CORPUSCULAR VOLUME 90 fl (80-97); PLATELET COUNT 198 10^3/uL (150-450); RED CELL DISTRIBUTION WIDTH 14.5 % (11.5-14.0); WHITE BLOOD COUNT 10.3 10^3/uL (4.0-10.5)
[2017-12-20] MEDS: LEVOTHYROXINE SODIUM 0.15 MG TABLET PO SCH (05:19)
[2017-12-20 05:29] LABS: ANION GAP 7 (5-19); BLOOD UREA NITROGEN 16 mg/dL (7-20); CALCIUM 8.8 mg/dL (8.4-10.2); CARBON DIOXIDE 26 mmol/L (22-30); CHLORIDE 114 mmol/L (98-107); GLUCOSE 114 mg/dL (75-110); POTASSIUM 3.9 mmol/L (3.6-5.0); SODIUM 147.1 mmol/L (137-145)
[2017-12-20] MEDS: DEXTROSE 5%-WATER 1000 ML 1,000 ML IV PRN (07:54)
[2017-12-20] MEDS: LACTOBACILLUS ACIDOPHILUS 250 MG TAB PO SCH ×2 (09:16→14:32)
[2017-12-20] MEDS: ASPIRIN 325 MG TABLET, ENT COATED PO SCH (09:16)
--- NOTE | 2017-12-20 11:05 | PDOC PROGRESS REPORT ---
Subjective Progress Note for:: 12/20/17 Subjective:: The patient is a 72-year-old female who was admitted on 12/14/2017 secondary to intractable nausea and vomiting which led to dehydration and acute kidney injury. GI and cardiology are following this patient. The patient underwent an EGD on 12/18/2017 which demonstrated an esophageal ulcer with a stricture. The stricture was dilated. Biopsy results are pending. She was also noted to have gastritis and a hiatal hernia. She continues to have dysphagia. An esophagram was performed this morning. The results are pending. She continues to have nausea and vomiting. She is burping but she is not passing any flatus. Her last bowel movement was Saturday. Reason For Visit: ROSA,DEHYDRATION,INTRACTABLE NAUSEA,VOMITING Physical Exam Vital Signs: Temp Pulse Resp BP Pulse Ox 98.4 F 97 20 149/80 H 98 12/20/17 08:01 12/20/17 08:01 12/20/17 08:01 12/20/17 08:01 12/20/17 09:10 Intake & Output 12/19/17 12/20/17 12/21/17 06:59 06:59 06:59 Intake Total 3660 180 Output Total 0 Balance 3660 180 Weight 125 kg 128.1 kg Additional comments: The patient appears to be her stated age, however, she appears to be in poor general health. She is morbidly obese. Her skin demonstrates slight pallor. Her cognition and mentation are appropriate. Her facial appearance is unremarkable. Her lungs are noted to be clear to auscultation both anteriorly and posteriorly. Her cardiac exam demonstrates a regular rate and rhythm without murmurs, gallops or rubs. The abdomen is quite distended and tympanitic. Bowel sounds are present and they are high-pitched infrequent. She does not have guarding or rebound noted and there are no hernias or masses present. The lower extremities are obese but there is no pitting edema. The skin is clean, warm, dry and intact. Pallor is noted. Otherwise, there are no acute skin lesions or rashes. Results Laboratory Results: 12/20/17 04:33 12/20/17 04:33 12/19/17 12/20/17 12/20/17 22:46 04:33 04:33 WBC 11.6 H 10.3 RBC 4.16 4.20 Hgb 12.2 12.4 Hct 37.5 37.9 MCV 90 90 MCH 29.2 29.4 MCHC 32.5 32.6 RDW 14.3 H 14.5 H Plt Count 198 198 Seg Neutrophils % Not Reportable Lymphocytes % Not Reportable Monocytes % Not Reportable Eosinophils % Not Reportable Basophils % Not Reportable Absolute Neutrophils Not Reportable Absolute Lymphocytes Not Reportable Absolute Monocytes Not Reportable Absolute Eosinophils Not Reportable Absolute Basophils Not Reportable Sodium 147.1 H Potassium 3.9 Chloride 114 H Carbon Dioxide 26 Anion Gap 7 BUN 16 Creatinine 0.85 Est GFR ( Amer) > 60 Est GFR (Non-Af Amer) > 60 Glucose 114 H Calcium 8.8 12/14/17 22:00 Blood Blood Culture - Final NO GROWTH IN 5 DAYS 12/14/17 12/14/17 12/15/17 22:00 22:00 03:48 Creatine Kinase 709 H 781 H CK-MB (CK-2) 48.40 H Troponin I 0.088 NT-Pro-B Natriuret Pep 12/15/17 12/15/17 12/15/17 03:48 10:11 10:11 Creatine Kinase 582 H CK-MB (CK-2) 53.10 H 52.20 H Troponin I 0.068 0.060 NT-Pro-B Natriuret Pep 12/15/17 12/15/17 12/18/17 15:35 15:35 13:46 Creatine Kinase 431 H 37 CK-MB (CK-2) 33.50 H Troponin I 0.046 NT-Pro-B Natriuret Pep 12/18/17 12/18/17 12/18/17 13:46 18:24 18:26 Creatine Kinase CK-MB (CK-2) 2.88 Troponin I < 0.012 0.015 NT-Pro-B Natriuret Pep 2370 H Impressions: Renal Ultrasound 12/14/17 00:00 IMPRESSION: Nondiagnostic exam. KUB X-Ray 12/14/17 15:36 IMPRESSION: Previously stool filled loops of colon appear gas-filled on today' s examination. Abdomen/Pelvis CT 12/14/17 16:27 IMPRESSION: Relative to CT imaging performed 12/29/2017 which demonstrated constipation, today's imaging demonstrates fluid throughout prominent loops of large and small bowel. Some subtle pericolic mesenteric fat stranding involving the proximal sigmoid colon may indicate an early uncomplicated diverticulitis. Additionally, there appears to be a small bowel to small bowel adhesion without evidence of obstruction. Given the rather featureless appearance of the colon, recommend correlation for chronic laxative use. Chest X-Ray 12/16/17 00:00 IMPRESSION: Minimal left basilar densities as noted above. Other findings as noted above Assessment & Plan - Diagnosis (1) Hypernatremia Is this a current diagnosis for this admission?: Yes Plan: IV fluids were switched to D5W. (2) Acute kidney injury Is this a current diagnosis for this admission?: Yes Plan: Resolved (3) DVT prophylaxis Is this a current diagnosis for this admission?: Yes Plan: SCD (4) Diverticulitis Is this a current diagnosis for this admission?: Yes Plan: CT scan demonstrated uncomplicated early diverticulitis. The patient will require a colonoscopy in approximately 6 weeks. (5) Dysphagia Is this a current diagnosis for this admission?: Yes Plan: Follow-up on esophagram. Continue PPI. Patient may need additional dilation of stricture. GI is following. (6) Esophageal ulcer Is this a current diagnosis for this admission?: Yes Plan: Continue PPI therapy. Await results of biopsy from EGD. (7) Hypertension Qualifiers: Hypertension type: essential hypertension Qualified Code(s): I10 - Essential (primary) hypertension Is this a current diagnosis for this admission?: Yes Plan: Continue medical management (8) Hypokalemia Is this a current diagnosis for this admission?: Yes (9) Morbid (severe) obesity due to excess calories Is this a current diagnosis for this admission?: Yes (10) LARRY (obstructive sleep apnea) Is this a current diagnosis for this admission?: Yes Plan: Continue nightly CPAP (11) Tachycardia Is this a current diagnosis for this admission?: Yes Plan: Continue Cardizem. I appreciate input from cardiology. (12) Vomiting and diarrhea Is this a current diagnosis for this admission?: Yes Plan: Continue antiemetics. Diarrhea is resolved. - Time Time Spent with patient: 25-34 minutes - Inpatient Certification Medical Necessity: Need For IV Fluids, Need For Continuous Telemetry Monitoring , Risk of Complication if Not Cared For in Hospital, Risk of Diagnosis Which Will Require Inpatient Eval/Care/Monitoring
--- NOTE | 2017-12-20 12:08 | PDOC PROGRESS REPORT ---
Subjective Progress Note for:: 12/20/17 Subjective:: Patient noted to be somewhat more responsive. Daughter at bedside and patient noted to be mildly confused, but improved. Patient has some nausea vomiting and could not get p.o. Cardizem. Patient predominantly in sinus rhythm with occasional rapid heartbeat but no strips saved in the chart. Patient still has GI related symptoms and distended stomach. Patient has difficulty swallowing pills Reason For Visit: ROSA,DEHYDRATION,INTRACTABLE NAUSEA,VOMITING Physical Exam Vital Signs: Temp Pulse Resp BP Pulse Ox 98.4 F 97 20 149/80 H 98 12/20/17 08:01 12/20/17 08:01 12/20/17 08:01 12/20/17 08:01 12/20/17 09:10 Intake & Output 12/19/17 12/20/17 12/21/17 06:59 06:59 06:59 Intake Total 3660 180 Output Total 0 Balance 3660 180 Weight 125 kg 128.1 kg Exam: GENERAL: well-nourished and in no acute distress. Patient is alert, oriented 2. HEAD: Atraumatic, normocephalic. EYES: Pupils equal round and reactive to light, extraocular movements intact, sclera anicteric, conjunctiva are normal. ENT: TMs normal, nares patent, oropharynx clear without exudates. Moist mucous membranes. No oral ulcerations or bleeding gums noted NECK: supple without lymphadenopathy or JVD. Trachea is central. No cervical or axillary lymphadenopathy noted. Carotids are 2+ LUNGS: Breath sounds bibasilar fine crackles at bases. No significant dullness noted. CHEST: Palpation of chest wall shows no significant chest wall tenderness. 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 ABDOMEN: Soft,, abdominal distention noted, no significant tenderness appreciated, normoactive bowel sounds. No guarding, no rebound. No rigidity noted . No masses appreciated. EXTREMITIES: Pedal pulses are 1-2+, no calf tenderness noted, Trace + pedal edema noted. No clubbing or cyanosis. NEUROLOGICAL: Patient is alert, cannot fully participate in neurological exam but on quick exam no significant deficit noted. PSYCH: Seems to have a stable mood. Judgment not checked. SKIN: No significant ecchymosis, rash, ulcerations or signs of pruritus noted. MUSCULOSKELETAL EXAM: No significant joint swelling noted. Results Laboratory Results: 12/20/17 04:33 12/20/17 04:33 12/19/17 12/20/17 12/20/17 22:46 04:33 04:33 WBC 11.6 H 10.3 RBC 4.16 4.20 Hgb 12.2 12.4 Hct 37.5 37.9 MCV 90 90 MCH 29.2 29.4 MCHC 32.5 32.6 RDW 14.3 H 14.5 H Plt Count 198 198 Seg Neutrophils % Not Reportable Lymphocytes % Not Reportable Monocytes % Not Reportable Eosinophils % Not Reportable Basophils % Not Reportable Absolute Neutrophils Not Reportable Absolute Lymphocytes Not Reportable Absolute Monocytes Not Reportable Absolute Eosinophils Not Reportable Absolute Basophils Not Reportable Sodium 147.1 H Potassium 3.9 Chloride 114 H Carbon Dioxide 26 Anion Gap 7 BUN 16 Creatinine 0.85 Est GFR ( Amer) > 60 Est GFR (Non-Af Amer) > 60 Glucose 114 H Calcium 8.8 12/14/17 22:00 Blood Blood Culture - Final NO GROWTH IN 5 DAYS 12/14/17 12/14/17 12/15/17 22:00 22:00 03:48 Creatine Kinase 709 H 781 H CK-MB (CK-2) 48.40 H Troponin I 0.088 NT-Pro-B Natriuret Pep 12/15/17 12/15/17 12/15/17 03:48 10:11 10:11 Creatine Kinase 582 H CK-MB (CK-2) 53.10 H 52.20 H Troponin I 0.068 0.060 NT-Pro-B Natriuret Pep 12/15/17 12/15/17 12/18/17 15:35 15:35 13:46 Creatine Kinase 431 H 37 CK-MB (CK-2) 33.50 H Troponin I 0.046 NT-Pro-B Natriuret Pep 12/18/17 12/18/17 12/18/17 13:46 18:24 18:26 Creatine Kinase CK-MB (CK-2) 2.88 Troponin I < 0.012 0.015 NT-Pro-B Natriuret Pep 2370 H EKG Comments: Telemetry shows sinus rhythm, with occasional APCs and VPCs. Impressions: Renal Ultrasound 12/14/17 00:00 IMPRESSION: Nondiagnostic exam. KUB X-Ray 12/14/17 15:36 IMPRESSION: Previously stool filled loops of colon appear gas-filled on today' s examination. Abdomen/Pelvis CT 12/14/17 16:27 IMPRESSION: Relative to CT imaging performed 12/29/2017 which demonstrated constipation, today's imaging demonstrates fluid throughout prominent loops of large and small bowel. Some subtle pericolic mesenteric fat stranding involving the proximal sigmoid colon may indicate an early uncomplicated diverticulitis. Additionally, there appears to be a small bowel to small bowel adhesion without evidence of obstruction. Given the rather featureless appearance of the colon, recommend correlation for chronic laxative use. Chest X-Ray 12/16/17 00:00 IMPRESSION: Minimal left basilar densities as noted above. Other findings as noted above Assessment & Plan - Diagnosis (1) Cardiac dysrhythmia, unspecified Qualifiers: Arrhythmia type: unspecified cardiac arrhythmia Qualified Code(s): I49.9 - Cardiac arrhythmia, unspecified Is this a current diagnosis for this admission?: Yes (2) Hypertension Qualifiers: Hypertension type: essential hypertension Qualified Code(s): I10 - Essential (primary) hypertension Is this a current diagnosis for this admission?: Yes (3) LARRY (obstructive sleep apnea) Is this a current diagnosis for this admission?: Yes (4) Tachycardia Is this a current diagnosis for this admission?: Yes (5) COPD (chronic obstructive pulmonary disease) Qualifiers: COPD type: unspecified COPD Qualified Code(s): J44.9 - Chronic obstructive pulmonary disease, unspecified Is this a current diagnosis for this admission?: Yes (6) CHF (congestive heart failure) Qualifiers: Heart failure type: diastolic Heart failure chronicity: chronic Qualified Code(s): I50.32 - Chronic diastolic (congestive) heart failure Is this a current diagnosis for this admission?: Yes - Notes Notes: Cardiac dysrhythmia: Patient seems to have multifocal atrial tachycardia. Cardizem most effective in this situation if multifocal atrial tachycardia is related to COPD which this patient has. Patient currently getting IV Cardizem on a as needed basis. When able to swallow, recommend long-acting preparation, Cardizem CD at 120 mg p.o. daily. Hypertension: Continue with current therapy. Cardizem added for cardiac dysrhythmia. Obstructive sleep apnea syndrome: Recommend institution of home CPAP/BiPAP therapy. Tachycardia: Most likely multifocal atrial tachycardia. Calcium channel blockers are usually better especially Cardizem. COPD: Continue with bronchodilator therapy. CHF: On clinical exam patient seems to be having some element of CHF possibly from diastolic dysfunction or from right heart failure. Continue Lasix at 20 mg p.o. daily. - Time Time with patient: Greater than 35 minutes - CODE STATUS was discussed, patient remains full code. Surrogate decision-maker unchanged. Multiple medical problems were addressed. More than 50% of the time spent coordinating care, discussing management plans with involved caregivers. Management plans discussed with involved personnels. Medical decision making was of moderate to high complexity, patient's has multiple comorbidities. Medications reviewed and adjusted accordingly: Yes
--- NOTE | 2017-12-20 12:37 | RADIOLOGY REPORT (SQ) ---
EXAM DESCRIPTION: BARIUM SWALLOW ESOPHAGUS COMPLETED DATE/TIME: 12/20/2017 8:59 am REASON FOR STUDY: n/v trouble swallowing COMPARISON: CT abdomen pelvis 12/14/2017, upper endoscopy report 12/18/17 TECHNIQUE: Under fluoroscopic guidance, patient ingested thin barium. Fluoroscopic spot images and r outine radiographic images acquired and stored on PACS. 12 MM BARIUM TABLET GIVEN: Yes. There is a significant delay in the passage of barium tablet in the distal esophagus at the location of a known distal esophageal stricture. LIMITATIONS: None. FLUOROSCOPY TIME: 27 seconds 13 fluoroscopy images saved to PACS. FINDINGS: NEUROMUSCULAR COORDINATION OF SWALLOW: Normal. No aspiration. ESOPHAGEAL MOTILITY: Normal primary peristalsis. No esophageal spasm. ESOPHAGEAL MUCOSA: There is a short segment distal esophageal stricture with irregular mucosa identif ied in the distal esophagus near the GE junction. There is no significant delay in the passage of co ntrast however there is significant delay in the passage of a barium tablet. This study cannot rule- out malignancy however, recent endoscopy findings suggest this is ulcerative in nature. Remaining mu cosa appears normal without masses or ulceration. GASTRO-ESOPHAGEAL JUNCTION: Small sliding hiatal hernia. No reflux seen during the procedure. NON-GI TRACT STRUCTURES: No significant finding. OTHER: No other significant finding. IMPRESSION: 1. SHORT SEGMENT DISTAL ESOPHAGEAL STRICTURE WITH IRREGULAR MUCOSA CAUSING SIGNIFICANT DELAY IN THE PASSAGE OF A BARIUM TABLET. NO SIGNIFICANT DELAY IN THE PASSAGE OF CONTRAST. 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 2. SMALL SLIDING HIATAL HERNIA. COMMENT: Quality ID [id number]: Final reports for procedures using fluoroscopy that document radiation exp osure indices, or exposure time and number of fluorographic images (if radiation exposure indices are not available) TECHNICAL DOCUMENTATION: JOB ID: [id number] [employer]- All Rights Reserved Reading location - IP/workstation name: [email or web address]
[2017-12-20] MEDS: DILTIAZEM HCL INJ 25 MG/5 ML VIAL IV PRN (16:31)
--- NOTE | 2017-12-20 16:42 | PDOC PROGRESS REPORT ---
Subjective Progress Note for:: 12/20/17 Subjective:: results of esophagram are noted patient on EGD noted to have ulceration with stricture formation if she is going to be in house next week, I will be able to schedule a repeat EGD will evaluate to see if healing, repeat biopsies are needed and dilation can be done again patient continues to have problems will need PPI, ? some carafate would not advance diet area needs to heal prior to next EGD to reduce the risk of perforation Reason For Visit: ROSA,DEHYDRATION,INTRACTABLE NAUSEA,VOMITING Physical Exam Vital Signs: Temp Pulse Resp BP Pulse Ox 97.7 F 85 14 129/71 H 95 12/20/17 15:31 12/20/17 15:31 12/20/17 15:31 12/20/17 15:31 12/20/17 15:31 Intake & Output 12/19/17 12/20/17 12/21/17 06:59 06:59 06:59 Intake Total 3660 180 Output Total 0 0 Balance 3660 180 0 Weight 125 kg 128.1 kg General appearance: PRESENT: mild distress, well-developed, well-nourished Head exam: PRESENT: atraumatic, normocephalic Eye exam: PRESENT: EOMI, PERRLA. ABSENT: nystagmus, scleral icterus Mouth exam: PRESENT: moist, neck supple Throat exam: ABSENT: tonsillar exudate, tonsillogmegaly Neck exam: ABSENT: meningismus, tenderness, thyromegaly Respiratory exam: PRESENT: symmetrical, unlabored. ABSENT: tachypnea, wheezes Cardiovascular exam: PRESENT: irregular rhythm, +S1, +S2 GI/Abdominal exam: PRESENT: soft. ABSENT: rebound, rigid, tenderness Extremities exam: ABSENT: joint swelling Musculoskeletal exam: PRESENT: full ROM Neurological exam: PRESENT: alert, awake, oriented to time, oriented to situation, CN II-XII grossly intact Psychiatric exam: PRESENT: flat affect Focused psych exam: ABSENT: restlessness Skin exam: PRESENT: normal color. ABSENT: mottled, pallor, petechiae, urticaria , vesicles Results Laboratory Results: 12/20/17 04:33 12/20/17 04:33 12/19/17 12/20/17 12/20/17 22:46 04:33 04:33 WBC 11.6 H 10.3 RBC 4.16 4.20 Hgb 12.2 12.4 Hct 37.5 37.9 MCV 90 90 MCH 29.2 29.4 MCHC 32.5 32.6 RDW 14.3 H 14.5 H Plt Count 198 198 Seg Neutrophils % Not Reportable Lymphocytes % Not Reportable Monocytes % Not Reportable Eosinophils % Not Reportable Basophils % Not Reportable Absolute Neutrophils Not Reportable Absolute Lymphocytes Not Reportable Absolute Monocytes Not Reportable Absolute Eosinophils Not Reportable Absolute Basophils Not Reportable Sodium 147.1 H Potassium 3.9 Chloride 114 H Carbon Dioxide 26 Anion Gap 7 BUN 16 Creatinine 0.85 Est GFR ( Amer) > 60 Est GFR (Non-Af Amer) > 60 Glucose 114 H Calcium 8.8 12/14/17 22:00 Blood Blood Culture - Final NO GROWTH IN 5 DAYS 12/14/17 12/14/17 12/15/17 22:00 22:00 03:48 Creatine Kinase 709 H 781 H CK-MB (CK-2) 48.40 H Troponin I 0.088 NT-Pro-B Natriuret Pep 12/15/17 12/15/17 12/15/17 03:48 10:11 10:11 Creatine Kinase 582 H CK-MB (CK-2) 53.10 H 52.20 H Troponin I 0.068 0.060 NT-Pro-B Natriuret Pep 12/15/17 12/15/17 12/18/17 15:35 15:35 13:46 Creatine Kinase 431 H 37 CK-MB (CK-2) 33.50 H Troponin I 0.046 NT-Pro-B Natriuret Pep 12/18/17 12/18/17 12/18/17 13:46 18:24 18:26 Creatine Kinase CK-MB (CK-2) 2.88 Troponin I < 0.012 0.015 NT-Pro-B Natriuret Pep 2370 H Impressions: Renal Ultrasound 12/14/17 00:00 IMPRESSION: Nondiagnostic exam. KUB X-Ray 12/14/17 15:36 IMPRESSION: Previously stool filled loops of colon appear gas-filled on today' s examination. Abdomen/Pelvis CT 12/14/17 16:27 IMPRESSION: Relative to CT imaging performed 12/29/2017 which demonstrated constipation, today's imaging demonstrates fluid throughout prominent loops of large and small bowel. Some subtle pericolic mesenteric fat stranding involving the proximal sigmoid colon may indicate an early uncomplicated diverticulitis. Additionally, there appears to be a small bowel to small bowel adhesion without evidence of obstruction. Given the rather featureless appearance of the colon, recommend correlation for chronic laxative use. Chest X-Ray 12/16/17 00:00 IMPRESSION: Minimal left basilar densities as noted above. Other findings as noted above Esophagus X-Ray 12/20/17 00:00 IMPRESSION: 1. SHORT SEGMENT DISTAL ESOPHAGEAL STRICTURE WITH IRREGULAR MUCOSA CAUSING SIGNIFICANT DELAY IN THE PASSAGE OF A BARIUM TABLET. NO SIGNIFICANT DELAY IN THE PASSAGE OF CONTRAST. MALIGNANCY CANNOT BE EXCLUDED FROM THE STUDY HOWEVER, RECENT UPPER ENDOSCOPY SUGGEST THIS IS ULCERATIVE IN NATURE. 2. SMALL SLIDING HIATAL HERNIA. Assessment & Plan - Diagnosis (1) Dysphagia Is this a current diagnosis for this admission?: Yes Plan: esophageal stricutre in the presence of ulceration keep on clear esophagram is reviewed she will need repeat EGD if she is still her next week to evaluate and perhaps have repeat biopsies along with dilation cardiac issues needs to be stabalized prior to that (2) Diverticulitis Is this a current diagnosis for this admission?: Yes
[2017-12-21] MEDS: SUCRALFATE SUSP 1 GM/10 ML UDCUP PO SCH ×5 (00:54→23:14)
[2017-12-21] MEDS: DEXTROSE 5%-WATER 1000 ML 1,000 ML IV PRN ×2 (00:59→17:43)
[2017-12-21] MEDS: ONDANSETRON HCL INJ/PF 4 MG/2 ML SDV IV SCH ×6 (03:45→23:13)
[2017-12-21] MEDS: DILTIAZEM HCL INJ 25 MG/5 ML VIAL IV SCH ×3 (03:46→14:43)
[2017-12-21] MEDS: LEVOTHYROXINE SODIUM 0.15 MG TABLET PO SCH (06:39)
[2017-12-21] MEDS: NORMAL SALINE 100 ML with PANTOPRAZOLE SODIUM 80 MG IV PRN ×4 (07:57→17:44)
[2017-12-21 08:27] LABS: ANION GAP 8 (5-19); BLOOD UREA NITROGEN 14 mg/dL (7-20); CALCIUM 9.1 mg/dL (8.4-10.2); CARBON DIOXIDE 28 mmol/L (22-30); CHLORIDE 108 mmol/L (98-107); GLUCOSE 117 mg/dL (75-110); POTASSIUM 3.8 mmol/L (3.6-5.0); SODIUM 143.7 mmol/L (137-145)
[2017-12-21] MEDS ORDERED: FUROSEMIDE 20 MG TABLET PO SCH (10:00)
--- NOTE | 2017-12-21 10:18 | EKG REPORT ---
SEVERITY:- ABNORMAL ECG - SINUS TACHYCARDIA MULTIPLE ATRIAL PREMATURE COMPLEXES BORDERLINE LEFT AXIS DEVIATION ABNRM R PROG, CONSIDER ASMI OR LEAD PLACEMENT BORDERLINE T WAVE ABNORMALITIES : Confirmed by: Juliano De Luna 21-Dec-2017 10:17:17
--- NOTE | 2017-12-21 12:16 | PDOC PROGRESS REPORT ---
Subjective Progress Note for:: 12/21/17 Subjective:: The patient is a 72-year-old female who was admitted on 12/14/2017 secondary to intractable nausea and vomiting which led to dehydration and acute kidney injury. GI and cardiology are following this patient. The patient underwent an EGD on 12/18/2017 which demonstrated an esophageal ulcer with a stricture. The stricture was dilated. Biopsy results are pending. She was also noted to have gastritis and a hiatal hernia. She continues to have dysphagia. An esophagram was performed yesterday. A stricture is apparent. The patient may require additional dilation next week. The patient is passing flatus. She is also belching a lot. In general, she feels better since the dilation but she is complaining of a significant amount of water brash. Reason For Visit: ROSA,DEHYDRATION,INTRACTABLE NAUSEA,VOMITING Physical Exam Vital Signs: Temp Pulse Resp BP Pulse Ox 97.6 F 99 20 140/80 H 94 12/21/17 08:31 12/21/17 08:31 12/21/17 08:31 12/21/17 08:31 12/21/17 08:31 Intake & Output 12/20/17 12/21/17 12/22/17 06:59 06:59 07:59 Intake Total 180 1590 Output Total 0 0 Balance 180 1590 Weight 128.1 kg 132.2 kg Additional comments: The patient appears to be an elderly white female. She is morbidly obese. She appears to be in poor health in general. However, she is not in any distress at the present time and she does not appear to be septic. Her cognition is normal. Her facial appearance is unremarkable. Her lungs are noted to be clear to auscultation bilaterally. Her cardiac exam is regular without murmurs , gallops or rubs. The abdomen is nondistended and nontender. Yesterday, the patient had very high pitched frequent bowel sounds. Today, she has low pitched hypoactive bowel sounds. She does not have guarding or rebound noted and there are no hernias or masses present. The lower extremities demonstrate trace to 1+ edema. The skin is otherwise clean, warm, dry and intact without lesions or rashes. Results Laboratory Results: 12/20/17 04:33 12/21/17 04:59 12/21/17 12/21/17 04:59 04:59 Sodium 143.7 Potassium 3.8 Chloride 108 H Carbon Dioxide 28 Anion Gap 8 BUN 14 Creatinine 0.80 Est GFR ( Amer) > 60 Est GFR (Non-Af Amer) > 60 Glucose 117 H Calcium 9.1 TSH 1.57 12/14/17 12/14/17 12/15/17 22:00 22:00 03:48 Creatine Kinase 709 H 781 H CK-MB (CK-2) 48.40 H Troponin I 0.088 NT-Pro-B Natriuret Pep 12/15/17 12/15/17 12/15/17 03:48 10:11 10:11 Creatine Kinase 582 H CK-MB (CK-2) 53.10 H 52.20 H Troponin I 0.068 0.060 NT-Pro-B Natriuret Pep 12/15/17 12/15/17 12/18/17 15:35 15:35 13:46 Creatine Kinase 431 H 37 CK-MB (CK-2) 33.50 H Troponin I 0.046 NT-Pro-B Natriuret Pep 12/18/17 12/18/17 12/18/17 13:46 18:24 18:26 Creatine Kinase CK-MB (CK-2) 2.88 Troponin I < 0.012 0.015 NT-Pro-B Natriuret Pep 2370 H Impressions: Renal Ultrasound 12/14/17 00:00 IMPRESSION: Nondiagnostic exam. KUB X-Ray 12/14/17 15:36 IMPRESSION: Previously stool filled loops of colon appear gas-filled on today' s examination. Abdomen/Pelvis CT 12/14/17 16:27 IMPRESSION: Relative to CT imaging performed 12/29/2017 which demonstrated constipation, today's imaging demonstrates fluid throughout prominent loops of large and small bowel. Some subtle pericolic mesenteric fat stranding involving the proximal sigmoid colon may indicate an early uncomplicated diverticulitis. Additionally, there appears to be a small bowel to small bowel adhesion without evidence of obstruction. Given the rather featureless appearance of the colon, recommend correlation for chronic laxative use. Chest X-Ray 12/16/17 00:00 IMPRESSION: Minimal left basilar densities as noted above. Other findings as noted above Esophagus X-Ray 12/20/17 00:00 IMPRESSION: 1. SHORT SEGMENT DISTAL ESOPHAGEAL STRICTURE WITH IRREGULAR MUCOSA CAUSING SIGNIFICANT DELAY IN THE PASSAGE OF A BARIUM TABLET. NO SIGNIFICANT DELAY IN THE PASSAGE OF CONTRAST. MALIGNANCY CANNOT BE EXCLUDED FROM THE STUDY HOWEVER, RECENT UPPER ENDOSCOPY SUGGEST THIS IS ULCERATIVE IN NATURE. 2. SMALL SLIDING HIATAL HERNIA. Assessment & Plan - Diagnosis (1) Hypernatremia Is this a current diagnosis for this admission?: Yes Plan: IV fluids were switched to D5W. (2) Acute kidney injury Is this a current diagnosis for this admission?: Yes Plan: Resolved (3) DVT prophylaxis Is this a current diagnosis for this admission?: Yes Plan: SCD (4) Diverticulitis Is this a current diagnosis for this admission?: Yes Plan: CT scan demonstrated uncomplicated early diverticulitis. The patient will require a colonoscopy in approximately 6 weeks. (5) Dysphagia Is this a current diagnosis for this admission?: Yes Plan: Follow-up on esophagram. Continue PPI. Patient may need additional dilation of stricture. GI is following. (6) Esophageal ulcer Is this a current diagnosis for this admission?: Yes Plan: Continue PPI therapy. Await results of biopsy from EGD. (7) Hypertension Qualifiers: Hypertension type: essential hypertension Qualified Code(s): I10 - Essential (primary) hypertension Is this a current diagnosis for this admission?: Yes Plan: Continue medical management (8) Hypokalemia Is this a current diagnosis for this admission?: Yes Plan: Resolved. (9) Morbid (severe) obesity due to excess calories Is this a current diagnosis for this admission?: Yes Plan: Calorie restriction is not appropriate in the acute setting. (10) LARRY (obstructive sleep apnea) Is this a current diagnosis for this admission?: Yes Plan: Continue nightly CPAP (11) Tachycardia Is this a current diagnosis for this admission?: Yes Plan: Continue Cardizem. I appreciate input from cardiology. TSH and T4 are normal. Therefore, I am not going to decrease the dose of Synthroid. (12) Vomiting and diarrhea Is this a current diagnosis for this admission?: Yes Plan: Continue antiemetics. Diarrhea is resolved. - Time Time Spent with patient: 25-34 minutes - Inpatient Certification Medical Necessity: Significant Comorbidiites Make Outpatient Treatment Too Risky , Need Close Monitoring Due to Risk of Patient Decompensation, Need For IV Fluids, Risk of Diagnosis Which Will Require Inpatient Eval/Care/Monitoring
[2017-12-21] MEDS ORDERED: FUROSEMIDE INJ/PF 20 MG/2 ML SDV IV ONE (12:30)
[2017-12-21] MEDS: ASPIRIN 325 MG TABLET, ENT COATED PO SCH (12:46)
[2017-12-21] MEDS: LACTOBACILLUS ACIDOPHILUS 250 MG TAB PO SCH ×2 (12:46→17:54)
[2017-12-21] MEDS: PROMETHAZINE HCL INJ 25 MG/1 ML VIAL IV PRN ×2 (12:52→20:46)
[2017-12-21] MEDS ORDERED: ENOXAPARIN SODIUM INJ 40 MG/0.4 ML DISP.SYRIN SUBCUT ONE (13:00)
--- NOTE | 2017-12-21 13:01 | PDOC PROGRESS REPORT ---
Subjective Progress Note for:: 12/21/17 Subjective:: Patient noted to be somewhat more responsive. Continues to have nausea and decreased p.o. intake. Patient has some nausea vomiting and could not get p.o. Cardizem. Patient predominantly in sinus rhythm with occasional rapid heartbeat. Currently on IV Cardizem. Patient still has GI related symptoms and distended stomach. Patient has difficulty swallowing pills. Patient has also been noted to be somewhat short of breath and has some pedal edema. IV Lasix ordered. Reason For Visit: ROSA,DEHYDRATION,INTRACTABLE NAUSEA,VOMITING Physical Exam Vital Signs: Temp Pulse Resp BP Pulse Ox 98.4 F 65 18 135/82 H 96 12/21/17 11:44 12/21/17 11:44 12/21/17 11:44 12/21/17 11:44 12/21/17 11:44 Intake & Output 12/20/17 12/21/17 12/22/17 06:59 06:59 07:59 Intake Total 180 1590 Output Total 0 0 Balance 180 1590 Weight 128.1 kg 132.2 kg Exam: GENERAL: well-nourished and in no acute distress. Patient is alert 2, patient remained somewhat lethargic. HEAD: Atraumatic, normocephalic. EYES: Pupils equal round and reactive to light, extraocular movements intact, sclera anicteric, conjunctiva are normal. ENT: TMs normal, nares patent, oropharynx clear without exudates. Moist mucous membranes. No oral ulcerations or bleeding gums noted NECK: supple without lymphadenopathy or JVD. Trachea is central. No cervical or axillary lymphadenopathy noted. Carotids are 2+ LUNGS: Breath sounds bibasilar fine crackles at bases. No significant dullness noted. CHEST: Palpation of chest wall shows no significant chest wall tenderness. 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 ABDOMEN: Soft, abdomen is distended, no significant tenderness appreciated, normoactive bowel sounds. No guarding, no rebound. No rigidity noted . No masses appreciated. EXTREMITIES: Pedal pulses are 1-2+, no calf tenderness noted, Trace + pedal edema noted. No clubbing or cyanosis. NEUROLOGICAL: Patient is alert, no significant focal neurologic deficit noted on quick exam. PSYCH: No abnormal behaviors noted. SKIN: No significant ecchymosis, rash, ulcerations or signs of pruritus noted. MUSCULOSKELETAL EXAM: No significant joint swelling noted. Results Laboratory Results: 12/20/17 04:33 12/21/17 04:59 12/21/17 12/21/17 04:59 04:59 Sodium 143.7 Potassium 3.8 Chloride 108 H Carbon Dioxide 28 Anion Gap 8 BUN 14 Creatinine 0.80 Est GFR ( Amer) > 60 Est GFR (Non-Af Amer) > 60 Glucose 117 H Calcium 9.1 TSH 1.57 12/14/17 12/14/17 12/15/17 22:00 22:00 03:48 Creatine Kinase 709 H 781 H CK-MB (CK-2) 48.40 H Troponin I 0.088 NT-Pro-B Natriuret Pep 12/15/17 12/15/17 12/15/17 03:48 10:11 10:11 Creatine Kinase 582 H CK-MB (CK-2) 53.10 H 52.20 H Troponin I 0.068 0.060 NT-Pro-B Natriuret Pep 12/15/17 12/15/17 12/18/17 15:35 15:35 13:46 Creatine Kinase 431 H 37 CK-MB (CK-2) 33.50 H Troponin I 0.046 NT-Pro-B Natriuret Pep 12/18/17 12/18/17 12/18/17 13:46 18:24 18:26 Creatine Kinase CK-MB (CK-2) 2.88 Troponin I < 0.012 0.015 NT-Pro-B Natriuret Pep 2370 H EKG Comments: Shows predominantly sinus rhythm. Twelve-lead EKG obtained this morning shows sinus rhythm with frequent APCs and sinus tachycardia Impressions: Renal Ultrasound 12/14/17 00:00 IMPRESSION: Nondiagnostic exam. KUB X-Ray 12/14/17 15:36 IMPRESSION: Previously stool filled loops of colon appear gas-filled on today' s examination. Abdomen/Pelvis CT 12/14/17 16:27 IMPRESSION: Relative to CT imaging performed 12/29/2017 which demonstrated constipation, today's imaging demonstrates fluid throughout prominent loops of large and small bowel. Some subtle pericolic mesenteric fat stranding involving the proximal sigmoid colon may indicate an early uncomplicated diverticulitis. Additionally, there appears to be a small bowel to small bowel adhesion without evidence of obstruction. Given the rather featureless appearance of the colon, recommend correlation for chronic laxative use. Chest X-Ray 12/16/17 00:00 IMPRESSION: Minimal left basilar densities as noted above. Other findings as noted above Esophagus X-Ray 12/20/17 00:00 IMPRESSION: 1. SHORT SEGMENT DISTAL ESOPHAGEAL STRICTURE WITH IRREGULAR MUCOSA CAUSING SIGNIFICANT DELAY IN THE PASSAGE OF A BARIUM TABLET. NO SIGNIFICANT DELAY IN THE PASSAGE OF CONTRAST. MALIGNANCY CANNOT BE EXCLUDED FROM THE STUDY HOWEVER, RECENT UPPER ENDOSCOPY SUGGEST THIS IS ULCERATIVE IN NATURE. 2. SMALL SLIDING HIATAL HERNIA. Assessment & Plan - Diagnosis (1) Cardiac dysrhythmia, unspecified Qualifiers: Arrhythmia type: unspecified cardiac arrhythmia Qualified Code(s): I49.9 - Cardiac arrhythmia, unspecified Is this a current diagnosis for this admission?: Yes (2) Hypertension Qualifiers: Hypertension type: essential hypertension Qualified Code(s): I10 - Essential (primary) hypertension Is this a current diagnosis for this admission?: Yes (3) LARRY (obstructive sleep apnea) Is this a current diagnosis for this admission?: Yes (4) Tachycardia Is this a current diagnosis for this admission?: Yes (5) COPD (chronic obstructive pulmonary disease) Qualifiers: COPD type: unspecified COPD Qualified Code(s): J44.9 - Chronic obstructive pulmonary disease, unspecified Is this a current diagnosis for this admission?: Yes (6) CHF (congestive heart failure) Qualifiers: Heart failure type: diastolic Heart failure chronicity: chronic Qualified Code(s): I50.32 - Chronic diastolic (congestive) heart failure Is this a current diagnosis for this admission?: Yes - Notes Notes: Multifocal atrial tachycardia: Electrolytes should be maintained within normal limits. BNP level came back mildly elevated. Patient also noted to have pedal edema and some crackles in her lungs. IV Lasix 20 mg ordered. Hypertension: Continue with current therapy. Cardizem added for cardiac dysrhythmia. Obstructive sleep apnea syndrome: Recommend institution of home CPAP/BiPAP therapy. Currently not using this because of aspiration risk. Tachycardia: Most likely multifocal atrial tachycardia. Calcium channel blockers are usually better especially Cardizem. Continue IV Cardizem currently on as-needed basis and some regular IV dose. Nurse did not want to start on infusion because of IV access problem. COPD: Continue with bronchodilator therapy. CHF: On clinical exam patient seems to be having some element of CHF possibly from diastolic dysfunction or from right heart failure. Add Lasix to patient's regimen. IV Lasix ordered. - Time Time with patient: 15-25 minutes - CODE STATUS was discussed, patient remains full code. Surrogate decision-maker unchanged. Multiple medical problems were addressed. More than 50% of the time spent coordinating care, discussing management plans with involved caregivers. Management plans discussed with involved personnels. Medical decision making was of moderate to high complexity , patient's has multiple comorbidities. Medications reviewed and adjusted accordingly: Yes
[2017-12-21] MEDS ORDERED: HALOPERIDOL LACTATE INJ 5 MG/1 ML VIAL IV ONE (15:30)
[2017-12-21] MEDS: DILTIAZEM HCL INJ 25 MG/5 ML VIAL IV PRN (16:00)
[2017-12-21] MEDS ORDERED: DILTIAZEM HCL/D5W 125 MG/125 ML RTUINJ IV ONE (17:27)
[2017-12-21] MEDS ORDERED: DILTIAZEM HCL/D5W 125 MG/125 ML RTUINJ IV PRN (17:31)
[2017-12-21] MEDS: METOPROLOL TARTRATE PF/INJ 5 MG/5 ML SDV IV PRN (20:46)
[2017-12-21] MEDS ORDERED: PROCHLORPERAZINE MALEATE 25 MG SUPP.RECT PR ONE (21:00)
[2017-12-21] MEDS: PROCHLORPERAZINE MALEATE 25 MG SUPP.RECT PR PRN (21:13)
[2017-12-22] MEDS: PROMETHAZINE HCL INJ 25 MG/1 ML VIAL IV PRN (01:23)
[2017-12-22] MEDS ORDERED: METOPROLOL TARTRATE PF/INJ 5 MG/5 ML SDV IV ONE (02:00)
[2017-12-22] MEDS: NORMAL SALINE 100 ML with PANTOPRAZOLE SODIUM 80 MG IV PRN ×2 (05:09)
[2017-12-22 06:13] LABS: ANION GAP 8 (5-19); BLOOD UREA NITROGEN 24 mg/dL (7-20); CALCIUM 9.2 mg/dL (8.4-10.2); CARBON DIOXIDE 27 mmol/L (22-30); CHLORIDE 107 mmol/L (98-107); GLUCOSE 112 mg/dL (75-110); POTASSIUM 3.8 mmol/L (3.6-5.0); SODIUM 142.2 mmol/L (137-145)
[2017-12-22] MEDS: LEVOTHYROXINE SODIUM 0.15 MG TABLET PO SCH (06:25)
[2017-12-22] MEDS: SUCRALFATE SUSP 1 GM/10 ML UDCUP PO SCH ×4 (06:25→23:43)
[2017-12-22] MEDS ORDERED: PROCHLORPERAZINE MALEATE 25 MG SUPP.RECT PR ONE (06:55)
[2017-12-22] MEDS: PROCHLORPERAZINE MALEATE 25 MG SUPP.RECT PR PRN (07:08)
[2017-12-22] MEDS: METOPROLOL TARTRATE PF/INJ 5 MG/5 ML SDV IV PRN ×2 (07:09→14:27)
[2017-12-22] MEDS: ONDANSETRON HCL INJ/PF 4 MG/2 ML SDV IV SCH ×3 (07:17→14:27)
[2017-12-22] MEDS: MAGNESIUM SULFATE/D5W 1 GM/100 ML RTUPB IV SCH ×3 (08:48→12:22)
[2017-12-22] MEDS: POTASSI CL 20 MEQ/1/2NS 1L 20 MEQ/1,000 ML RTUINJ IV PRN ×2 (08:48→22:13)
[2017-12-22] MEDS ORDERED: FUROSEMIDE INJ/PF 20 MG/2 ML SDV IV SCH (10:00)
--- NOTE | 2017-12-22 10:48 | EKG REPORT ---
SEVERITY:- ABNORMAL ECG - SINUS TACHYCARDIA FREQUENT PAIRED VENTRICULAR PREMATURE COMPLEXES ABNRM R PROG, CONSIDER ASMI OR LEAD PLACEMENT : Confirmed by: Juliano De Luna 22-Dec-2017 10:47:19
[2017-12-22] MEDS: ENOXAPARIN SODIUM INJ 40 MG/0.4 ML DISP.SYRIN SUBCUT SCH (11:12)
[2017-12-22] MEDS: ASPIRIN 325 MG TABLET, ENT COATED PO SCH (11:13)
[2017-12-22] MEDS: LACTOBACILLUS ACIDOPHILUS 250 MG TAB PO SCH ×2 (11:13→17:34)
--- NOTE | 2017-12-22 12:39 | PDOC PROGRESS REPORT ---
Subjective Progress Note for:: 12/22/17 Subjective:: The patient is a 72-year-old female who was admitted on 12/14/2017 secondary to intractable nausea and vomiting which led to dehydration and acute kidney injury. GI and cardiology are following this patient. The patient underwent an EGD on 12/18/2017 which demonstrated an esophageal ulcer with a stricture. The stricture was dilated. Biopsy results are pending. She was also noted to have gastritis and a hiatal hernia. She continues to have dysphagia. An esophagram was performed on December 20. A stricture is apparent. The patient may require additional dilation next week. On Saturday, the patient was complaining of constipation. Currently, the nurse reports diarrhea. Overnight, the patient was switched from a Cardizem drip to IV Lopressor. This appears to be holding her tachycardia under better control. Secondary to increasing creatinine I did stop the patient's IV Lasix. Today, the patient stating that she is starting to feel much better, but, she is still reluctant to take anything p.o. except for ice chips. Reason For Visit: ROSA,DEHYDRATION,INTRACTABLE NAUSEA,VOMITING Physical Exam Vital Signs: Temp Pulse Resp BP Pulse Ox 98.2 F 103 H 18 121/57 L 95 12/21/17 16:19 12/22/17 03:00 12/21/17 16:19 12/22/17 05:01 12/22/17 08:00 Intake & Output 12/21/17 12/22/17 12/23/17 05:59 06:59 06:59 Intake Total Output Total Balance Weight Additional comments: The patient does not appear as pale as she did yesterday. She is awake today. She is much more interactive. Her facial appearance is unremarkable. Her lungs are clear to auscultation bilaterally but diminished in the bases. Her cardiac exam demonstrates a regular rate and rhythm without murmurs, gallops or rubs. The abdomen is very distended today. It is firm and tympanitic. Bowel sounds are hyperactive. However, the patient does not have any pain with palpation. There is no guarding or rebound noted. There are no hernias or masses present. The patient has 1+ pedal edema which is symmetrical. The skin is otherwise warm, dry and intact without lesions or rashes. Results Laboratory Results: 12/20/17 04:33 12/22/17 04:57 12/22/17 04:57 Sodium 142.2 Potassium 3.8 Chloride 107 Carbon Dioxide 27 Anion Gap 8 BUN 24 H Creatinine 1.42 H Est GFR ( Amer) 44 L Est GFR (Non-Af Amer) 36 L Glucose 112 H Calcium 9.2 Magnesium 1.5 L 12/14/17 12/14/17 12/15/17 22:00 22:00 03:48 Creatine Kinase 709 H 781 H CK-MB (CK-2) 48.40 H Troponin I 0.088 NT-Pro-B Natriuret Pep 12/15/17 12/15/17 12/15/17 03:48 10:11 10:11 Creatine Kinase 582 H CK-MB (CK-2) 53.10 H 52.20 H Troponin I 0.068 0.060 NT-Pro-B Natriuret Pep 12/15/17 12/15/17 12/18/17 15:35 15:35 13:46 Creatine Kinase 431 H 37 CK-MB (CK-2) 33.50 H Troponin I 0.046 NT-Pro-B Natriuret Pep 12/18/17 12/18/17 12/18/17 13:46 18:24 18:26 Creatine Kinase CK-MB (CK-2) 2.88 Troponin I < 0.012 0.015 NT-Pro-B Natriuret Pep 2370 H Impressions: Renal Ultrasound 12/14/17 00:00 IMPRESSION: Nondiagnostic exam. KUB X-Ray 12/14/17 15:36 IMPRESSION: Previously stool filled loops of colon appear gas-filled on today' s examination. Abdomen/Pelvis CT 12/14/17 16:27 IMPRESSION: Relative to CT imaging performed 12/29/2017 which demonstrated constipation, today's imaging demonstrates fluid throughout prominent loops of large and small bowel. Some subtle pericolic mesenteric fat stranding involving the proximal sigmoid colon may indicate an early uncomplicated diverticulitis. Additionally, there appears to be a small bowel to small bowel adhesion without evidence of obstruction. Given the rather featureless appearance of the colon, recommend correlation for chronic laxative use. Chest X-Ray 12/16/17 00:00 IMPRESSION: Minimal left basilar densities as noted above. Other findings as noted above Esophagus X-Ray 12/20/17 00:00 IMPRESSION: 1. SHORT SEGMENT DISTAL ESOPHAGEAL STRICTURE WITH IRREGULAR MUCOSA CAUSING SIGNIFICANT DELAY IN THE PASSAGE OF A BARIUM TABLET. NO SIGNIFICANT DELAY IN THE PASSAGE OF CONTRAST. MALIGNANCY CANNOT BE EXCLUDED FROM THE STUDY HOWEVER, RECENT UPPER ENDOSCOPY SUGGEST THIS IS ULCERATIVE IN NATURE. 2. SMALL SLIDING HIATAL HERNIA. Assessment & Plan - Diagnosis (1) Hypernatremia Is this a current diagnosis for this admission?: Yes Plan: This has improved. IV fluids have been switched to half-normal saline with potassium secondary to the increased creatinine. (2) Acute kidney injury Is this a current diagnosis for this admission?: Yes Plan: See above (3) DVT prophylaxis Is this a current diagnosis for this admission?: Yes Plan: SCD (4) Diverticulitis Is this a current diagnosis for this admission?: Yes Plan: CT scan demonstrated uncomplicated early diverticulitis. The patient will require a colonoscopy in approximately 6 weeks. (5) Dysphagia Is this a current diagnosis for this admission?: Yes Plan: Continue PPI. Patient may need additional dilation of stricture. GI is following. (6) Esophageal ulcer Is this a current diagnosis for this admission?: Yes Plan: Continue PPI therapy. Await results of biopsy from EGD. (7) Hypertension Qualifiers: Hypertension type: essential hypertension Qualified Code(s): I10 - Essential (primary) hypertension Is this a current diagnosis for this admission?: Yes Plan: Continue medical management (8) Hypokalemia Is this a current diagnosis for this admission?: Yes Plan: We will replace in IV fluids today. (9) Morbid (severe) obesity due to excess calories Is this a current diagnosis for this admission?: Yes Plan: Calorie restriction is not appropriate in the acute setting. (10) LARRY (obstructive sleep apnea) Is this a current diagnosis for this admission?: Yes Plan: If aerophagia is noted to aggravate her symptoms we will need to hold her CPAP. (11) Tachycardia Is this a current diagnosis for this admission?: Yes Plan: Reason has been discontinued. Patient is now on Lopressor. (12) Vomiting and diarrhea Is this a current diagnosis for this admission?: Yes Plan: Vomiting is resolved. Diarrhea is now worse. I have sent stool studies. - Time Time Spent with patient: 25-34 minutes - Inpatient Certification Medical Necessity: Significant Comorbidiites Make Outpatient Treatment Too Risky , Need Close Monitoring Due to Risk of Patient Decompensation, Need For IV Fluids, Need For Continuous Telemetry Monitoring, Risk of Complication if Not Cared For in Hospital, Risk of Diagnosis Which Will Require Inpatient Eval/Care/ Monitoring
--- NOTE | 2017-12-22 14:09 | PDOC PROGRESS REPORT ---
Subjective Progress Note for:: 12/22/17 Subjective:: Patient noted to be much more alert and is actually oriented today. Patient claims no nausea or vomiting and is taking some p.o. Patient predominantly in sinus rhythm with occasional rapid heartbeat. Currently on IV Cardizem. Patient has intermittent multifocal atrial tachycardia. Patient was given IV Lopressor which seems to do a better job in controlling patient's heart rate. Patient has difficulty swallowing pills. Patient has also been noted to be somewhat short of breath and has some pedal edema. Still has pedal edema therefore IV Lasix to be continued. Reason For Visit: ROSA,DEHYDRATION,INTRACTABLE NAUSEA,VOMITING Physical Exam Vital Signs: Temp Pulse Resp BP Pulse Ox 97.4 F 76 16 119/66 96 12/22/17 11:15 12/22/17 11:15 12/22/17 11:15 12/22/17 11:15 12/22/17 11:15 Intake & Output 12/21/17 12/22/17 12/23/17 05:59 06:59 06:59 Intake Total Output Total Balance Weight Exam: GENERAL: well-nourished and in no acute distress. Alert and oriented x3 HEAD: Atraumatic, normocephalic. EYES: Pupils equal round and reactive to light, extraocular movements intact, sclera anicteric, conjunctiva are normal. ENT: TMs normal, nares patent, oropharynx clear without exudates. Moist mucous membranes. No oral ulcerations or bleeding gums noted NECK: supple without lymphadenopathy. Trachea is central. No cervical or axillary lymphadenopathy noted. Carotids are 2+, JVD WNL LUNGS: Respiration seems nonlabored, no significant accessory muscle action noted. Few bibasilar crackles noted. No wheezes rales or rhonchi noted. No significant dullness noted on percussion. CHEST: Palpation of the chest wall shows no significant chest wall tenderness. No other significant abnormalities noted. HEART: [employer], No PSH, 1/6 HUONG aortic area, 1/6 morales systolic murmur mitral area, no rubs, no gallops. ABDOMEN: Soft, no significant tenderness appreciated, normoactive bowel sounds. No guarding, no rebound. No rigidity noted . No masses appreciated. EXTREMITIES: Pedal pulses are 1-2+, no calf tenderness noted. No clubbing or cyanosis. 1-2 + pedal edema noted NEUROLOGICAL: Focused neurological exam showed no significant neurologic deficit. Normal speech, no focal weakness appreciated. PSYCH: Normal mood, normal affect. Judgment and insight within normal limits. SKIN: No significant ecchymosis, skin is noted to be warm. MUSCULOSKELETAL EXAM: No significant acute joint swelling noted. Results Laboratory Results: 12/20/17 04:33 12/22/17 04:57 12/22/17 04:57 Sodium 142.2 Potassium 3.8 Chloride 107 Carbon Dioxide 27 Anion Gap 8 BUN 24 H Creatinine 1.42 H Est GFR ( Amer) 44 L Est GFR (Non-Af Amer) 36 L Glucose 112 H Calcium 9.2 Magnesium 1.5 L 12/14/17 12/14/17 12/15/17 22:00 22:00 03:48 Creatine Kinase 709 H 781 H CK-MB (CK-2) 48.40 H Troponin I 0.088 NT-Pro-B Natriuret Pep 12/15/17 12/15/17 12/15/17 03:48 10:11 10:11 Creatine Kinase 582 H CK-MB (CK-2) 53.10 H 52.20 H Troponin I 0.068 0.060 NT-Pro-B Natriuret Pep 12/15/17 12/15/17 12/18/17 15:35 15:35 13:46 Creatine Kinase 431 H 37 CK-MB (CK-2) 33.50 H Troponin I 0.046 NT-Pro-B Natriuret Pep 12/18/17 12/18/17 12/18/17 13:46 18:24 18:26 Creatine Kinase CK-MB (CK-2) 2.88 Troponin I < 0.012 0.015 NT-Pro-B Natriuret Pep 2370 H EKG Comments: Telemetry strips shows predominantly sinus rhythm with occasional multifocal atrial tachycardia and frequent APCs. No atrial fibrillation noted. Impressions: Renal Ultrasound 12/14/17 00:00 IMPRESSION: Nondiagnostic exam. KUB X-Ray 12/14/17 15:36 IMPRESSION: Previously stool filled loops of colon appear gas-filled on today' s examination. Abdomen/Pelvis CT 12/14/17 16:27 IMPRESSION: Relative to CT imaging performed 12/29/2017 which demonstrated constipation, today's imaging demonstrates fluid throughout prominent loops of large and small bowel. Some subtle pericolic mesenteric fat stranding involving the proximal sigmoid colon may indicate an early uncomplicated diverticulitis. Additionally, there appears to be a small bowel to small bowel adhesion without evidence of obstruction. Given the rather featureless appearance of the colon, recommend correlation for chronic laxative use. Chest X-Ray 12/16/17 00:00 IMPRESSION: Minimal left basilar densities as noted above. Other findings as noted above Esophagus X-Ray 12/20/17 00:00 IMPRESSION: 1. SHORT SEGMENT DISTAL ESOPHAGEAL STRICTURE WITH IRREGULAR MUCOSA CAUSING SIGNIFICANT DELAY IN THE PASSAGE OF A BARIUM TABLET. NO SIGNIFICANT DELAY IN THE PASSAGE OF CONTRAST. MALIGNANCY CANNOT BE EXCLUDED FROM THE STUDY HOWEVER, RECENT UPPER ENDOSCOPY SUGGEST THIS IS ULCERATIVE IN NATURE. 2. SMALL SLIDING HIATAL HERNIA. Assessment & Plan - Diagnosis (1) Cardiac dysrhythmia, unspecified Qualifiers: Arrhythmia type: unspecified cardiac arrhythmia Qualified Code(s): I49.9 - Cardiac arrhythmia, unspecified Is this a current diagnosis for this admission?: Yes (2) Hypertension Qualifiers: Hypertension type: essential hypertension Qualified Code(s): I10 - Essential (primary) hypertension Is this a current diagnosis for this admission?: Yes (3) LARRY (obstructive sleep apnea) Is this a current diagnosis for this admission?: Yes (4) Tachycardia Is this a current diagnosis for this admission?: Yes (5) COPD (chronic obstructive pulmonary disease) Qualifiers: COPD type: unspecified COPD Qualified Code(s): J44.9 - Chronic obstructive pulmonary disease, unspecified Is this a current diagnosis for this admission?: Yes (6) CHF (congestive heart failure) Qualifiers: Heart failure type: diastolic Heart failure chronicity: chronic Qualified Code(s): I50.32 - Chronic diastolic (congestive) heart failure Is this a current diagnosis for this admission?: Yes - Notes Notes: Multifocal atrial tachycardia: Electrolytes should be maintained within normal limits. BNP level came back mildly elevated. Patient also noted to have pedal edema and some crackles in her lungs. Patient seems to respond better to IV beta-alejandra. May consider us starting patient on metoprolol succinate 25 mg p.o. twice daily once patient able to take p.o. Continue IV Cardizem also on as needed basis. I am told patient currently on some IV continuous drip of Cardizem. Hypertension: Continue with current therapy. Blood pressure under reasonable control. Obstructive sleep apnea syndrome: Recommend institution of home CPAP/BiPAP therapy. Currently not using this because of aspiration risk. Tachycardia: Most likely multifocal atrial tachycardia. Please see plan under multifocal atrial tachycardia. COPD: Continue with bronchodilator therapy. CHF: On clinical exam patient seems to be having some element of CHF possibly from diastolic dysfunction or from right heart failure. Add Lasix to patient's regimen. Continue IV Lasix at low-dose. - Time Time with patient: 15-25 minutes - CODE STATUS was discussed, patient remains full code. Surrogate decision-maker unchanged. Multiple medical problems were addressed. More than 50% of the time spent coordinating care, discussing management plans with involved caregivers. Management plans discussed with involved personnels. Medical decision making was of moderate to high complexity , patient's has multiple comorbidities. Medications reviewed and adjusted accordingly: Yes
[2017-12-23 05:27] LABS: HEMATOCRIT 38.3 % (36.0-47.0); HEMOGLOBIN 12.7 g/dL (12.0-15.5); MEAN CORPUSCULAR HEMOGLOBIN 29.6 pg (27.0-33.4); MEAN CORPUSCULAR HGB CONC 33.2 g/dL (32.0-36.0); MEAN CORPUSCULAR VOLUME 89 fl (80-97); PLATELET COUNT 139 10^3/uL (150-450); RED CELL DISTRIBUTION WIDTH 14.9 % (11.5-14.0); WHITE BLOOD COUNT 10.8 10^3/uL (4.0-10.5)
[2017-12-23] MEDS: SUCRALFATE SUSP 1 GM/10 ML UDCUP PO SCH ×4 (05:37→23:13)
[2017-12-23] MEDS: PANTOPRAZOLE SODIUM 40 MG VIAL IV SCH ×2 (05:37→17:17)
[2017-12-23] MEDS: LEVOTHYROXINE SODIUM 0.15 MG TABLET PO SCH (05:37)
[2017-12-23 05:59] LABS: ANION GAP 7 (5-19); BLOOD UREA NITROGEN 25 mg/dL (7-20); CALCIUM 8.4 mg/dL (8.4-10.2); CARBON DIOXIDE 25 mmol/L (22-30); CHLORIDE 110 mmol/L (98-107); GLUCOSE 71 mg/dL (75-110); POTASSIUM 4.1 mmol/L (3.6-5.0); SODIUM 141.6 mmol/L (137-145)
[2017-12-23] MEDS: METOPROLOL TARTRATE PF/INJ 5 MG/5 ML SDV IV PRN ×2 (06:45→21:17)
[2017-12-23] MEDS: ASPIRIN 325 MG TABLET, ENT COATED PO SCH (09:52)
[2017-12-23] MEDS: ENOXAPARIN SODIUM INJ 40 MG/0.4 ML DISP.SYRIN SUBCUT SCH (09:52)
[2017-12-23] MEDS: LACTOBACILLUS ACIDOPHILUS 250 MG TAB PO SCH ×2 (09:55→17:14)
[2017-12-23] MEDS ORDERED: METOPROLOL TARTRATE 25 MG TABLET PO ONE (12:00)
[2017-12-23] MEDS: POTASSI CL 20 MEQ/1/2NS 1L 20 MEQ/1,000 ML RTUINJ IV PRN (12:48)
--- NOTE | 2017-12-23 13:02 | PDOC PROGRESS REPORT ---
Subjective Progress Note for:: 12/23/17 Subjective:: The patient is a 72-year-old female who was admitted on 12/14/2017 secondary to intractable nausea and vomiting which led to dehydration and acute kidney injury. GI and cardiology are following this patient. The patient underwent an EGD on 12/18/2017 which demonstrated an esophageal ulcer with a stricture. The stricture was dilated. Biopsy results are pending. She was also noted to have gastritis and a hiatal hernia. She continues to have dysphagia. An esophagram was performed on December 20. A stricture is apparent. The patient may require additional dilation next week. On Saturday, the patient was complaining of constipation. On Saturday, the patient was having diarrhea. Her stool work-up thus far is negative. Today, her diarrhea is subsiding. Due to the esophageal stricture the patient has been unable to take oral medications. For tachycardia she was initially being managed with IV Cardizem. On Saturday she was placed on a Cardizem drip but her tachycardia was still uncontrolled. Therefore, the Cardizem was discontinued and the patient was started on Lopressor. Dr. De Luna is assisting with the patient's tachycardia. Dr. Mabry is following from GI. Of note, CT scan demonstrated changes consistent with early diverticulitis. It is recommended that patient have colonoscopy in 6 weeks. Reason For Visit: ROSA,DEHYDRATION,INTRACTABLE NAUSEA,VOMITING Physical Exam Vital Signs: Temp Pulse Resp BP Pulse Ox 97.9 F 80 16 107/60 97 12/23/17 08:42 12/23/17 08:42 12/23/17 08:42 12/23/17 08:42 12/23/17 08:42 Intake & Output 12/22/17 12/23/17 12/24/17 06:59 06:59 06:59 Intake Total 2440 Balance 2440 Weight 128.5 kg Additional comments: Patient has appear to be improving over the last 48 hours. She appears to be stronger. Today, she is asking to get bed. Her cognition and mentation have remained normal. Her facial appearance is unremarkable. Her lungs are clear but somewhat diminished in the bases posteriorly. Her cardiac exam remains regular without murmurs, gallops or rubs. The abdomen is obese but soft. The abdomen is softer than yesterday. Yesterday, the patient had high pitched hyperactive bowel sounds. Today, they are normal active. She does not have guarding or rebound noted and there are no hernias or masses present. The lower extremities are cool today. She does have 1+ pitting edema. Otherwise, the skin is clean, dry and intact without lesions or rashes. Results Laboratory Results: 12/23/17 04:39 12/23/17 04:39 12/22/17 12/22/17 12/23/17 17:15 17:15 04:39 WBC 10.8 H RBC 4.30 Hgb 12.7 Hct 38.3 MCV 89 MCH 29.6 MCHC 33.2 RDW 14.9 H Plt Count 139 L Sodium Potassium Chloride Carbon Dioxide Anion Gap BUN Creatinine Est GFR ( Amer) Est GFR (Non-Af Amer) Glucose Calcium Magnesium Stool Occult Blood POSITIVE Stool for White Cells NO WBCs SEEN 12/23/17 04:39 WBC RBC Hgb Hct MCV MCH MCHC RDW Plt Count Sodium 141.6 Potassium 4.1 Chloride 110 H Carbon Dioxide 25 Anion Gap 7 BUN 25 H Creatinine 0.85 Est GFR ( Amer) > 60 Est GFR (Non-Af Amer) > 60 Glucose 71 L Calcium 8.4 Magnesium 1.9 Stool Occult Blood Stool for White Cells 12/14/17 12/14/17 12/15/17 22:00 22:00 03:48 Creatine Kinase 709 H 781 H CK-MB (CK-2) 48.40 H Troponin I 0.088 NT-Pro-B Natriuret Pep 12/15/17 12/15/17 12/15/17 03:48 10:11 10:11 Creatine Kinase 582 H CK-MB (CK-2) 53.10 H 52.20 H Troponin I 0.068 0.060 NT-Pro-B Natriuret Pep 12/15/17 12/15/17 12/18/17 15:35 15:35 13:46 Creatine Kinase 431 H 37 CK-MB (CK-2) 33.50 H Troponin I 0.046 NT-Pro-B Natriuret Pep 12/18/17 12/18/17 12/18/17 13:46 18:24 18:26 Creatine Kinase CK-MB (CK-2) 2.88 Troponin I < 0.012 0.015 NT-Pro-B Natriuret Pep 2370 H Impressions: Renal Ultrasound 12/14/17 00:00 IMPRESSION: Nondiagnostic exam. KUB X-Ray 12/14/17 15:36 IMPRESSION: Previously stool filled loops of colon appear gas-filled on today' s examination. Abdomen/Pelvis CT 12/14/17 16:27 IMPRESSION: Relative to CT imaging performed 12/29/2017 which demonstrated constipation, today's imaging demonstrates fluid throughout prominent loops of large and small bowel. Some subtle pericolic mesenteric fat stranding involving the proximal sigmoid colon may indicate an early uncomplicated diverticulitis. Additionally, there appears to be a small bowel to small bowel adhesion without evidence of obstruction. Given the rather featureless appearance of the colon, recommend correlation for chronic laxative use. Chest X-Ray 12/16/17 00:00 IMPRESSION: Minimal left basilar densities as noted above. Other findings as noted above Esophagus X-Ray 12/20/17 00:00 IMPRESSION: 1. SHORT SEGMENT DISTAL ESOPHAGEAL STRICTURE WITH IRREGULAR MUCOSA CAUSING SIGNIFICANT DELAY IN THE PASSAGE OF A BARIUM TABLET. NO SIGNIFICANT DELAY IN THE PASSAGE OF CONTRAST. MALIGNANCY CANNOT BE EXCLUDED FROM THE STUDY HOWEVER, RECENT UPPER ENDOSCOPY SUGGEST THIS IS ULCERATIVE IN NATURE. 2. SMALL SLIDING HIATAL HERNIA. Assessment & Plan - Diagnosis (1) Hypernatremia Is this a current diagnosis for this admission?: Yes Plan: This has improved. IV fluids have been switched to half-normal saline with potassium secondary to the increased creatinine. (2) Acute kidney injury Is this a current diagnosis for this admission?: Yes Plan: See above. Essentially, patient had mild acute injury that resolved with hydration. (3) DVT prophylaxis Is this a current diagnosis for this admission?: Yes Plan: SCD (4) Diverticulitis Is this a current diagnosis for this admission?: Yes Plan: CT scan demonstrated uncomplicated early diverticulitis. The patient will require a colonoscopy in approximately 6 weeks. (5) Dysphagia Is this a current diagnosis for this admission?: Yes Plan: Continue PPI. Patient may need additional dilation of stricture. GI is following. (6) Esophageal ulcer Is this a current diagnosis for this admission?: Yes Plan: Continue PPI therapy. Await results of biopsy from EGD. (7) Hypertension Qualifiers: Hypertension type: essential hypertension Qualified Code(s): I10 - Essential (primary) hypertension Is this a current diagnosis for this admission?: Yes Plan: Continue medical management (8) Hypokalemia Is this a current diagnosis for this admission?: Yes Plan: Repleted. Will change fluids to half-normal saline. (9) Morbid (severe) obesity due to excess calories Is this a current diagnosis for this admission?: Yes Plan: Calorie restriction is not appropriate in the acute setting. (10) LARRY (obstructive sleep apnea) Is this a current diagnosis for this admission?: Yes Plan: If aerophagia is noted to aggravate her symptoms we will need to hold her CPAP. (11) Tachycardia Is this a current diagnosis for this admission?: Yes Plan: Cardizem has been discontinued. Patient is now on Lopressor. (12) Vomiting and diarrhea Is this a current diagnosis for this admission?: Yes Plan: Vomiting is resolved. Diarrhea seems to be improving. Repeat stool studies were sent which are thus far negative. - Time Time Spent with patient: 25-34 minutes - Inpatient Certification Medical Necessity: Significant Comorbidiites Make Outpatient Treatment Too Risky , Need Close Monitoring Due to Risk of Patient Decompensation, Need for Surgery , Risk of Complication if Not Cared For in Hospital
[2017-12-23] MEDS: 1/2 NORMAL SALINE 1,000 ML IV PRN (13:34)
--- NOTE | 2017-12-23 14:07 | PDOC PROGRESS REPORT ---
Subjective Progress Note for:: 12/23/17 Subjective:: patient still having dysphagia previous EGD last week showed an ulcerated esophagus with possible stricture at that point, patient unable to be well sedated will need repeat EGD repeat biopsies need to be taken as well will schedule for tomorrow oral medications remain a problem Reason For Visit: ROSA,DEHYDRATION,INTRACTABLE NAUSEA,VOMITING Physical Exam Vital Signs: Temp Pulse Resp BP Pulse Ox 97.6 F 53 L 16 141/97 H 96 12/23/17 12:45 12/23/17 12:45 12/23/17 12:45 12/23/17 12:45 12/23/17 12:45 Intake & Output 12/22/17 12/23/17 12/24/17 06:59 06:59 06:59 Intake Total 2440 Balance 2440 Weight 128.5 kg General appearance: PRESENT: no acute distress, well-developed, well-nourished Head exam: PRESENT: atraumatic, normocephalic Eye exam: PRESENT: EOMI, PERRLA. ABSENT: nystagmus, periorbital swelling, scleral icterus Mouth exam: PRESENT: moist, neck supple Throat exam: ABSENT: tonsillar exudate, tonsillogmegaly Neck exam: ABSENT: meningismus, tenderness, thyromegaly Respiratory exam: PRESENT: symmetrical, unlabored. ABSENT: tachypnea, wheezes Cardiovascular exam: PRESENT: irregular rhythm, +S1, +S2. ABSENT: RRR GI/Abdominal exam: PRESENT: soft. ABSENT: rebound, rigid, tenderness Extremities exam: ABSENT: joint swelling Musculoskeletal exam: PRESENT: full ROM Neurological exam: PRESENT: alert, awake, oriented to time, CN II-XII grossly intact Psychiatric exam: PRESENT: appropriate affect Skin exam: PRESENT: normal color. ABSENT: mottled, pallor, urticaria, vesicles Results Laboratory Results: 12/23/17 04:39 12/23/17 04:39 12/22/17 12/22/17 12/23/17 17:15 17:15 04:39 WBC 10.8 H RBC 4.30 Hgb 12.7 Hct 38.3 MCV 89 MCH 29.6 MCHC 33.2 RDW 14.9 H Plt Count 139 L Sodium Potassium Chloride Carbon Dioxide Anion Gap BUN Creatinine Est GFR ( Amer) Est GFR (Non-Af Amer) Glucose Calcium Magnesium Stool Occult Blood POSITIVE Stool for White Cells NO WBCs SEEN 12/23/17 04:39 WBC RBC Hgb Hct MCV MCH MCHC RDW Plt Count Sodium 141.6 Potassium 4.1 Chloride 110 H Carbon Dioxide 25 Anion Gap 7 BUN 25 H Creatinine 0.85 Est GFR ( Amer) > 60 Est GFR (Non-Af Amer) > 60 Glucose 71 L Calcium 8.4 Magnesium 1.9 Stool Occult Blood Stool for White Cells 12/14/17 12/14/17 12/15/17 22:00 22:00 03:48 Creatine Kinase 709 H 781 H CK-MB (CK-2) 48.40 H Troponin I 0.088 NT-Pro-B Natriuret Pep 12/15/17 12/15/17 12/15/17 03:48 10:11 10:11 Creatine Kinase 582 H CK-MB (CK-2) 53.10 H 52.20 H Troponin I 0.068 0.060 NT-Pro-B Natriuret Pep 12/15/17 12/15/17 12/18/17 15:35 15:35 13:46 Creatine Kinase 431 H 37 CK-MB (CK-2) 33.50 H Troponin I 0.046 NT-Pro-B Natriuret Pep 12/18/17 12/18/17 12/18/17 13:46 18:24 18:26 Creatine Kinase CK-MB (CK-2) 2.88 Troponin I < 0.012 0.015 NT-Pro-B Natriuret Pep 2370 H Impressions: Renal Ultrasound 12/14/17 00:00 IMPRESSION: Nondiagnostic exam. KUB X-Ray 12/14/17 15:36 IMPRESSION: Previously stool filled loops of colon appear gas-filled on today' s examination. Abdomen/Pelvis CT 12/14/17 16:27 IMPRESSION: Relative to CT imaging performed 12/29/2017 which demonstrated constipation, today's imaging demonstrates fluid throughout prominent loops of large and small bowel. Some subtle pericolic mesenteric fat stranding involving the proximal sigmoid colon may indicate an early uncomplicated diverticulitis. Additionally, there appears to be a small bowel to small bowel adhesion without evidence of obstruction. Given the rather featureless appearance of the colon, recommend correlation for chronic laxative use. Chest X-Ray 12/16/17 00:00 IMPRESSION: Minimal left basilar densities as noted above. Other findings as noted above Esophagus X-Ray 12/20/17 00:00 IMPRESSION: 1. SHORT SEGMENT DISTAL ESOPHAGEAL STRICTURE WITH IRREGULAR MUCOSA CAUSING SIGNIFICANT DELAY IN THE PASSAGE OF A BARIUM TABLET. NO SIGNIFICANT DELAY IN THE PASSAGE OF CONTRAST. MALIGNANCY CANNOT BE EXCLUDED FROM THE STUDY HOWEVER, RECENT UPPER ENDOSCOPY SUGGEST THIS IS ULCERATIVE IN NATURE. 2. SMALL SLIDING HIATAL HERNIA. Assessment & Plan - Diagnosis (1) Dysphagia Is this a current diagnosis for this admission?: Yes Plan: previous esophageal stricture is noted will need repeat EGD with possible dilation Risks, benefits and alternatives are discussed with the patient in detail further recommendations to follow (2) Diverticulitis Is this a current diagnosis for this admission?: Yes - Time Time Spent with patient: 15-24 minutes
[2017-12-23] MEDS: PROMETHAZINE HCL INJ 25 MG/1 ML VIAL IV PRN (17:14)
--- NOTE | 2017-12-23 19:44 | PDOC PROGRESS REPORT ---
Subjective Progress Note for:: 12/23/17 Subjective:: Patient appears to be gradually improving and becoming more and more alert. She is now able to take some p.o. I am told she is allowed to take p.o. pills. Patient claims no nausea or vomiting and is taking some p.o. Patient predominantly in sinus rhythm with occasional rapid heartbeat. Currently on IV Cardizem. Patient has intermittent multifocal atrial tachycardia. Patient was given IV Lopressor which seems to do a better job in controlling patient's heart rate. Patient continues with some shortness of breath and has some pedal edema. Still has pedal edema therefore IV Lasix to be continued. Today patient was placed on metoprolol tartrate 25 mg p.o. 3 times daily. This was written as a order in the order sheet. Reason For Visit: ROSA,DEHYDRATION,INTRACTABLE NAUSEA,VOMITING Physical Exam Vital Signs: Temp Pulse Resp BP Pulse Ox 98.3 F 82 16 114/71 97 12/23/17 16:47 12/23/17 16:47 12/23/17 16:47 12/23/17 16:47 12/23/17 16:47 Intake & Output 12/22/17 12/23/17 12/24/17 06:59 06:59 06:59 Intake Total 2440 635 Balance 2440 635 Weight 128.5 kg Exam: GENERAL: well-nourished and in no acute distress. Alert and oriented x3 HEAD: Atraumatic, normocephalic. EYES: Pupils equal round and reactive to light, extraocular movements intact, sclera anicteric, conjunctiva are normal. ENT: TMs normal, nares patent, oropharynx clear without exudates. Moist mucous membranes. No oral ulcerations or bleeding gums noted NECK: supple without lymphadenopathy. Trachea is central. No cervical or axillary lymphadenopathy noted. Carotids are 2+, JVD WNL LUNGS: Respiration seems nonlabored, no significant accessory muscle action noted. Few bibasilar crackles are noted. No wheezes rales or rhonchi noted. No significant dullness noted on percussion. CHEST: Palpation of the chest wall shows no significant chest wall tenderness. No other significant abnormalities noted. HEART: [place] [employer], No PSH, 1/6 HUONG aortic area, 1/6 morales systolic murmur mitral area, no rubs, no gallops. ABDOMEN: Soft, mildly distended, no significant tenderness appreciated, normoactive bowel sounds. No guarding, no rebound. No rigidity noted . No masses appreciated. EXTREMITIES: Pedal pulses are 1-2+, no calf tenderness noted. No clubbing or cyanosis. 1-2 + pedal edema noted NEUROLOGICAL: Focused neurological exam showed no significant neurologic deficit. Normal speech, no focal weakness appreciated. PSYCH: Normal mood, normal affect. Judgment and insight within normal limits. SKIN: No significant ecchymosis, skin is noted to be warm. MUSCULOSKELETAL EXAM: No significant acute joint swelling noted. Results Laboratory Results: 12/23/17 04:39 12/23/17 04:39 12/23/17 12/23/17 04:39 04:39 WBC 10.8 H RBC 4.30 Hgb 12.7 Hct 38.3 MCV 89 MCH 29.6 MCHC 33.2 RDW 14.9 H Plt Count 139 L Sodium 141.6 Potassium 4.1 Chloride 110 H Carbon Dioxide 25 Anion Gap 7 BUN 25 H Creatinine 0.85 Est GFR ( Amer) > 60 Est GFR (Non-Af Amer) > 60 Glucose 71 L Calcium 8.4 Magnesium 1.9 12/14/17 12/14/17 12/15/17 22:00 22:00 03:48 Creatine Kinase 709 H 781 H CK-MB (CK-2) 48.40 H Troponin I 0.088 NT-Pro-B Natriuret Pep 12/15/17 12/15/17 12/15/17 03:48 10:11 10:11 Creatine Kinase 582 H CK-MB (CK-2) 53.10 H 52.20 H Troponin I 0.068 0.060 NT-Pro-B Natriuret Pep 12/15/17 12/15/17 12/18/17 15:35 15:35 13:46 Creatine Kinase 431 H 37 CK-MB (CK-2) 33.50 H Troponin I 0.046 NT-Pro-B Natriuret Pep 12/18/17 12/18/17 12/18/17 13:46 18:24 18:26 Creatine Kinase CK-MB (CK-2) 2.88 Troponin I < 0.012 0.015 NT-Pro-B Natriuret Pep 2370 H EKG Comments: Telemetry shows predominantly sinus rhythm with occasional sinus tachycardia and multifocal atrial tachycardia. Impressions: Renal Ultrasound 12/14/17 00:00 IMPRESSION: Nondiagnostic exam. KUB X-Ray 12/14/17 15:36 IMPRESSION: Previously stool filled loops of colon appear gas-filled on today' s examination. Abdomen/Pelvis CT 12/14/17 16:27 IMPRESSION: Relative to CT imaging performed 12/29/2017 which demonstrated constipation, today's imaging demonstrates fluid throughout prominent loops of large and small bowel. Some subtle pericolic mesenteric fat stranding involving the proximal sigmoid colon may indicate an early uncomplicated diverticulitis. Additionally, there appears to be a small bowel to small bowel adhesion without evidence of obstruction. Given the rather featureless appearance of the colon, recommend correlation for chronic laxative use. Chest X-Ray 12/16/17 00:00 IMPRESSION: Minimal left basilar densities as noted above. Other findings as noted above Esophagus X-Ray 12/20/17 00:00 IMPRESSION: 1. SHORT SEGMENT DISTAL ESOPHAGEAL STRICTURE WITH IRREGULAR MUCOSA CAUSING SIGNIFICANT DELAY IN THE PASSAGE OF A BARIUM TABLET. NO SIGNIFICANT DELAY IN THE PASSAGE OF CONTRAST. MALIGNANCY CANNOT BE EXCLUDED FROM THE STUDY HOWEVER, RECENT UPPER ENDOSCOPY SUGGEST THIS IS ULCERATIVE IN NATURE. 2. SMALL SLIDING HIATAL HERNIA. Assessment & Plan - Diagnosis (1) Cardiac dysrhythmia, unspecified Qualifiers: Arrhythmia type: unspecified cardiac arrhythmia Qualified Code(s): I49.9 - Cardiac arrhythmia, unspecified Is this a current diagnosis for this admission?: Yes (2) Hypertension Qualifiers: Hypertension type: essential hypertension Qualified Code(s): I10 - Essential (primary) hypertension Is this a current diagnosis for this admission?: Yes (3) LARRY (obstructive sleep apnea) Is this a current diagnosis for this admission?: Yes (4) Tachycardia Is this a current diagnosis for this admission?: Yes (5) COPD (chronic obstructive pulmonary disease) Qualifiers: COPD type: unspecified COPD Qualified Code(s): J44.9 - Chronic obstructive pulmonary disease, unspecified Is this a current diagnosis for this admission?: Yes (6) CHF (congestive heart failure) Qualifiers: Heart failure type: diastolic Heart failure chronicity: chronic Qualified Code(s): I50.32 - Chronic diastolic (congestive) heart failure Is this a current diagnosis for this admission?: Yes - Notes Notes: Sinus tachycardia and intermittent multifocal atrial tachycardia: Electrolytes should be maintained within normal limits. Patient seems to respond better to IV beta-alejandra. Patient placed on metoprolol tartrate 25 mg p.o. every 8 as patient able to take p.o. Continue IV Cardizem also on as needed basis. Hypertension: Continue with current therapy. Blood pressure under reasonable control. Obstructive sleep apnea syndrome: Recommend institution of home CPAP/BiPAP therapy. Currently not using this because of aspiration risk. Tachycardia: Most likely multifocal atrial tachycardia. Please see plan under multifocal atrial tachycardia. COPD: Continue with bronchodilator therapy. CHF: On clinical exam patient seems to be having some element of CHF possibly from diastolic dysfunction or from right heart failure. Add Lasix to patient's regimen. Continue IV Lasix at low-dose. - Time Time with patient: 15-25 minutes - CODE STATUS was discussed, patient remains full code. Surrogate decision-maker unchanged. Multiple medical problems were addressed. More than 50% of the time spent coordinating care, discussing management plans with involved caregivers. Management plans discussed with involved personnels. Medical decision making was of moderate to high complexity , patient's has multiple comorbidities. Medications reviewed and adjusted accordingly: Yes
[2017-12-23] MEDS: METOPROLOL TARTRATE 25 MG TABLET PO SCH (21:04)
[2017-12-24] MEDS: 1/2 NORMAL SALINE 1,000 ML IV PRN (04:58)
[2017-12-24] MEDS: SUCRALFATE SUSP 1 GM/10 ML UDCUP PO SCH ×3 (05:02→18:05)
[2017-12-24] MEDS: LEVOTHYROXINE SODIUM 0.15 MG TABLET PO SCH (05:03)
[2017-12-24] MEDS: PANTOPRAZOLE SODIUM 40 MG VIAL IV SCH ×2 (05:03→18:05)
[2017-12-24] MEDS: METOPROLOL TARTRATE 25 MG TABLET PO SCH ×3 (05:05→21:23)
[2017-12-24 05:28] LABS: BLOOD UREA NITROGEN 23 mg/dL (7-20); CALCIUM 8.7 mg/dL (8.4-10.2); CARBON DIOXIDE 28 mmol/L (22-30); CHLORIDE 108 mmol/L (98-107); GLUCOSE 75 mg/dL (75-110)
[2017-12-24 05:55] LABS: ANION GAP 5 (5-19); SODIUM 141.2 mmol/L (137-145)
[2017-12-24 07:37] LABS: ARTERIAL BLOOD H2CO3 1.51 mmol/L (1.05-1.35); ARTERIAL BLOOD HCO3 28.2 mmol/L (20-26); ARTERIAL BLOOD O2 SATURATION 94.2 % (94-98); ARTERIAL BLOOD PCO2 50.3 mmHg (35-45); ARTERIAL BLOOD PH 7.37 (7.35-7.45); ARTERIAL BLOOD PO2 73.8 mmHg (80-100); ARTERIAL BLOOD TOTAL CO2 29.7 mmol/L (21-25)
[2017-12-24 07:45] LABS: ARTERIAL BLOOD FIO2 32%
[2017-12-24] MEDS: LACTOBACILLUS ACIDOPHILUS 250 MG TAB PO SCH ×2 (09:54→18:18)
[2017-12-24] MEDS: ENOXAPARIN SODIUM INJ 40 MG/0.4 ML DISP.SYRIN SUBCUT SCH (09:54)
[2017-12-24] MEDS: ASPIRIN 325 MG TABLET, ENT COATED PO SCH (09:54)
[2017-12-24] MEDS ORDERED: DIPHENHYDRAMINE HCL 50 MG/ML VIAL ONE (10:51)
[2017-12-24] MEDS ORDERED: NALOXONE HCL INJ/PF 0.4 MG/1 ML SDV ONE (10:51)
[2017-12-24] MEDS ORDERED: ONDANSETRON HCL INJ/PF 4 MG/2 ML SDV ONE (10:51)
[2017-12-24] MEDS ORDERED: FENTANYL CITRATE INJ/PF 100 MCG/2 ML AMPUL ONE (10:51)
[2017-12-24] MEDS ORDERED: MIDAZOLAM 2 MG/2 ML INJ ONE (10:51)
[2017-12-24] MEDS ORDERED: FLUMAZENIL INJ 0.5 MG/5 ML VIAL ONE (10:52)
[2017-12-24] MEDS ORDERED: EPINEPHRINE INJ 1 MG/10 ML DISP.SYRIN ONE (10:52)
[2017-12-24] MEDS ORDERED: GLUCAGON,HUMAN RECOMB 1 MG INJ ONE (10:52)
--- NOTE | 2017-12-24 11:57 | PDOC PROGRESS REPORT ---
Subjective Progress Note for:: 12/24/17 Subjective:: patient was scheduled for EGD today she had previous EGD done, about 6 days ago at that time had esophageal ulcer and stricture patient has been having continued problems with dysphagia, and difficulty with oral intake this am, patient was sent for stat CTA for the concern of pneumomediastinum ? possible that ulcer could have perforated if so, she will need immediate transfer for stat CT surgery will wait on results Reason For Visit: ROSA,DEHYDRATION,INTRACTABLE NAUSEA,VOMITING Physical Exam Vital Signs: Temp Pulse Resp BP Pulse Ox 97.9 F 79 17 125/59 L 97 12/24/17 09:47 12/24/17 09:47 12/24/17 09:47 12/24/17 09:47 12/24/17 09:47 Intake & Output 12/23/17 12/24/17 12/25/17 06:59 06:59 06:59 Intake Total 2440 1251 Balance 2440 1251 Weight 128.5 kg General appearance: PRESENT: mild distress, well-developed, well-nourished Head exam: PRESENT: atraumatic, normocephalic Eye exam: PRESENT: EOMI, PERRLA. ABSENT: nystagmus, scleral icterus Mouth exam: PRESENT: moist Throat exam: ABSENT: tonsillar exudate, tonsillogmegaly Neck exam: ABSENT: meningismus, tenderness, thyromegaly Respiratory exam: PRESENT: symmetrical, tachypnea. ABSENT: wheezes Cardiovascular exam: PRESENT: irregular rhythm, +S1, +S2. ABSENT: RRR GI/Abdominal exam: PRESENT: soft. ABSENT: rebound, rigid, tenderness Extremities exam: ABSENT: joint swelling Neurological exam: PRESENT: alert, awake, oriented to time, CN II-XII grossly intact Focused psych exam: PRESENT: restlessness Skin exam: PRESENT: normal color. ABSENT: mottled, pallor, urticaria, vesicles Results Laboratory Results: 12/23/17 04:39 12/24/17 04:44 12/24/17 12/24/17 04:44 07:18 Carbonic Acid 1.51 H HCO3/H2CO3 Ratio 18:1 ABG pH 7.37 ABG pCO2 50.3 H ABG pO2 73.8 L ABG HCO3 28.2 H ABG O2 Saturation 94.2 ABG Base Excess 2.0 FiO2 32% Sodium 141.2 Potassium 4.0 Chloride 108 H Carbon Dioxide 28 Anion Gap 5 BUN 23 H Creatinine 0.76 Est GFR ( Amer) > 60 Est GFR (Non-Af Amer) > 60 Glucose 75 Calcium 8.7 Magnesium 1.7 12/22/17 17:15 Stool - Stool - Final 12/14/17 12/14/17 12/15/17 22:00 22:00 03:48 Creatine Kinase 709 H 781 H CK-MB (CK-2) 48.40 H Troponin I 0.088 NT-Pro-B Natriuret Pep 12/15/17 12/15/17 12/15/17 03:48 10:11 10:11 Creatine Kinase 582 H CK-MB (CK-2) 53.10 H 52.20 H Troponin I 0.068 0.060 NT-Pro-B Natriuret Pep 12/15/17 12/15/17 12/18/17 15:35 15:35 13:46 Creatine Kinase 431 H 37 CK-MB (CK-2) 33.50 H Troponin I 0.046 NT-Pro-B Natriuret Pep 12/18/17 12/18/17 12/18/17 13:46 18:24 18:26 Creatine Kinase CK-MB (CK-2) 2.88 Troponin I < 0.012 0.015 NT-Pro-B Natriuret Pep 2370 H Impressions: Renal Ultrasound 12/14/17 00:00 IMPRESSION: Nondiagnostic exam. KUB X-Ray 12/14/17 15:36 IMPRESSION: Previously stool filled loops of colon appear gas-filled on today' s examination. Abdomen/Pelvis CT 12/14/17 16:27 IMPRESSION: Relative to CT imaging performed 12/29/2017 which demonstrated constipation, today's imaging demonstrates fluid throughout prominent loops of large and small bowel. Some subtle pericolic mesenteric fat stranding involving the proximal sigmoid colon may indicate an early uncomplicated diverticulitis. Additionally, there appears to be a small bowel to small bowel adhesion without evidence of obstruction. Given the rather featureless appearance of the colon, recommend correlation for chronic laxative use. Chest X-Ray 12/16/17 00:00 IMPRESSION: Minimal left basilar densities as noted above. Other findings as noted above Esophagus X-Ray 12/20/17 00:00 IMPRESSION: 1. SHORT SEGMENT DISTAL ESOPHAGEAL STRICTURE WITH IRREGULAR MUCOSA CAUSING SIGNIFICANT DELAY IN THE PASSAGE OF A BARIUM TABLET. NO SIGNIFICANT DELAY IN THE PASSAGE OF CONTRAST. MALIGNANCY CANNOT BE EXCLUDED FROM THE STUDY HOWEVER, RECENT UPPER ENDOSCOPY SUGGEST THIS IS ULCERATIVE IN NATURE. 2. SMALL SLIDING HIATAL HERNIA. Assessment & Plan - Diagnosis (1) Dysphagia Is this a current diagnosis for this admission?: Yes Plan: patient states her problems started following admission there was no NG tube placed she had EGD that showed severe ulceration and stricture, she has continue to have difficulties and the plan was to keep her on a PPI and rescope after 1 week she was tentatively scheduled for today however now there is a concern for pneumomediastinum awaiting results will cancel procedure for today patient will need stat transfer if results are positive high risk for repeat EGD will need transfer to tertiary center for further follow up she did have a barium swallow following the initial EGD that did not show any leak at that time (2) Diverticulitis Is this a current diagnosis for this admission?: Yes - Time Time Spent with patient: 25-34 minutes
--- NOTE | 2017-12-24 13:04 | RADIOLOGY REPORT (SQ) ---
EXAM DESCRIPTION: CTA CHEST COMPLETED DATE/TIME: 12/24/2017 11:59 am REASON FOR STUDY: eval for pneumomediastinum COMPARISON: Chest x-ray dated 12/16/2017. TECHNIQUE: CT scan of the chest performed using helical scanning technique with dynamic intravenous contrast injection. Images reviewed with lung, soft tissue and bone windows. Reconstructed coronal and sagittal MPR images reviewed. Additional 3 dimensional post-processing performed to develop Maximal Intensity Projection images ([place] P). All images stored on PACS. All CT scanners at this facility use dose modulation, iterative reconstruction, and/or weight based d osing when appropriate to reduce radiation dose to as low as reasonably achievable (ALARA). [facility]: Dose Right [facility]: CareDose [facility]: Dose Right [facility]: Teradose 4D [facility]: [email or web address] CONTRAST TYPE AND DOSE: contrast/concentration: Isovue 370.00 mg/ml; Total Contrast Delivered: 86.0 ml; Total Saline Delivered: 107.8 ml Contrast bolus adequate for pulmonary arteries and aorta. RENAL FUNCTION: BUN 23 creatinine 0.76. RADIATION DOSE: CT Rad equipment meets quality standard of care and radiation dose reduction techniq ues were employed. CTDIvol: 16.5 - 29.0 mGy. DLP: 982 mGy-cm. . LIMITATIONS: None. FINDINGS: LUNGS AND PLEURA: Bilateral pleural effusions. Patchy basilar densities. No pneumothorax . AORTA AND GREAT VESSELS: No aneurysm. No dissection. HEART: No pericardial effusion. No significant coronary artery calcifications. PULMONARY ARTERIES: No emboli visualized in the main pulmonary arteries or the segmental branches. HILAR AND MEDIASTINAL STRUCTURES: No identified masses or abnormal nodes. No pneumomediastinum. HARDWARE: None in the chest. UPPER ABDOMEN: Small amount of free fluid in the upper abdomen. Limited exam. THYROID AND OTHER SOFT TISSUES: No masses. No adenopathy. BONES: No acute or significant finding. 3D MIPS: Confirm above findings. OTHER: No other significant finding. IMPRESSION: 1. NORMAL CTA OF THE CHEST. NO PULMONARY EMBOLI. 2. NO PNEUMOMEDIASTINUM OR PNEUMOTHORAX. 3. SMALL BILATERAL PLEURAL EFFUSIONS WITH BASILAR DENSITIES, PROBABLY ATELECTASIS. 4. SMALL AMOUNT OF FREE FLUID IN THE UPPER ABDOMEN. COMMENT: Quality ID # [id number]: Final reports with documentation of one or more dose reduction techniques (e.g., Automated exposure control, adjustment of the mA and/or kV according to patient size, use of iterative reconstruction technique) TECHNICAL DOCUMENTATION: JOB ID: [id number] [place] [employer]- All Rights Reserved Reading location - IP/workstation name: [email or web address]
--- NOTE | 2017-12-24 16:18 | PDOC PROGRESS REPORT ---
Subjective Progress Note for:: 12/24/17 Subjective:: Patient refers that feels better. Daughter is at bedside and states that patient on the overall is looking better when compared to the weekend. Review of systems All organ systems evaluated and negative except as in subjective All significant laboratories and diagnostics have been reviewed Reason For Visit: ROSA,DEHYDRATION,INTRACTABLE NAUSEA,VOMITING Physical Exam Vital Signs: Temp Pulse Resp BP Pulse Ox 98.0 F 86 16 116/71 94 12/24/17 04:09 12/24/17 06:55 12/24/17 04:09 12/24/17 04:09 12/24/17 04:09 Intake & Output 12/23/17 12/24/17 12/25/17 06:59 06:59 06:59 Intake Total 2440 1251 Balance 2440 1251 Weight 128.5 kg General appearance: PRESENT: cooperative, morbidly obese Head exam: PRESENT: atraumatic, normocephalic Eye exam: PRESENT: conjunctiva pink, EOMI, PERRLA Ear exam: PRESENT: normal external ear exam Mouth exam: PRESENT: moist Neck exam: PRESENT: full ROM. ABSENT: JVD, tenderness Respiratory exam: PRESENT: clear to auscultation choco Cardiovascular exam: PRESENT: RRR. ABSENT: diastolic murmur, systolic murmur Vascular exam: PRESENT: normal capillary refill GI/Abdominal exam: PRESENT: normal bowel sounds, soft. ABSENT: tenderness Extremities exam: PRESENT: full ROM, +2 edema Musculoskeletal exam: PRESENT: ambulatory Neurological exam: PRESENT: alert, awake, oriented to person, oriented to place , oriented to time, oriented to situation, CN II-XII grossly intact Psychiatric exam: PRESENT: appropriate affect, normal mood Skin exam: PRESENT: dry, normal color Results Laboratory Results: 12/23/17 04:39 12/24/17 04:44 12/24/17 04:44 Sodium 141.2 Potassium 4.0 Chloride 108 H Carbon Dioxide 28 Anion Gap 5 BUN 23 H Creatinine 0.76 Est GFR ( Amer) > 60 Est GFR (Non-Af Amer) > 60 Glucose 75 Calcium 8.7 Magnesium 1.7 12/14/17 12/14/17 12/15/17 22:00 22:00 03:48 Creatine Kinase 709 H 781 H CK-MB (CK-2) 48.40 H Troponin I 0.088 NT-Pro-B Natriuret Pep 12/15/17 12/15/17 12/15/17 03:48 10:11 10:11 Creatine Kinase 582 H CK-MB (CK-2) 53.10 H 52.20 H Troponin I 0.068 0.060 NT-Pro-B Natriuret Pep 12/15/17 12/15/17 12/18/17 15:35 15:35 13:46 Creatine Kinase 431 H 37 CK-MB (CK-2) 33.50 H Troponin I 0.046 NT-Pro-B Natriuret Pep 12/18/17 12/18/17 12/18/17 13:46 18:24 18:26 Creatine Kinase CK-MB (CK-2) 2.88 Troponin I < 0.012 0.015 NT-Pro-B Natriuret Pep 2370 H Impressions: Renal Ultrasound 12/14/17 00:00 IMPRESSION: Nondiagnostic exam. KUB X-Ray 12/14/17 15:36 IMPRESSION: Previously stool filled loops of colon appear gas-filled on today' s examination. Abdomen/Pelvis CT 12/14/17 16:27 IMPRESSION: Relative to CT imaging performed 12/29/2017 which demonstrated constipation, today's imaging demonstrates fluid throughout prominent loops of large and small bowel. Some subtle pericolic mesenteric fat stranding involving the proximal sigmoid colon may indicate an early uncomplicated diverticulitis. Additionally, there appears to be a small bowel to small bowel adhesion without evidence of obstruction. Given the rather featureless appearance of the colon, recommend correlation for chronic laxative use. Chest X-Ray 12/16/17 00:00 IMPRESSION: Minimal left basilar densities as noted above. Other findings as noted above Esophagus X-Ray 12/20/17 00:00 IMPRESSION: 1. SHORT SEGMENT DISTAL ESOPHAGEAL STRICTURE WITH IRREGULAR MUCOSA CAUSING SIGNIFICANT DELAY IN THE PASSAGE OF A BARIUM TABLET. NO SIGNIFICANT DELAY IN THE PASSAGE OF CONTRAST. MALIGNANCY CANNOT BE EXCLUDED FROM THE STUDY HOWEVER, RECENT UPPER ENDOSCOPY SUGGEST THIS IS ULCERATIVE IN NATURE. 2. SMALL SLIDING HIATAL HERNIA. Assessment & Plan - Diagnosis (1) Acute kidney injury Is this a current diagnosis for this admission?: Yes Plan: Resolved (2) CHF (congestive heart failure) Qualifiers: Heart failure type: diastolic Heart failure chronicity: chronic Qualified Code(s): I50.32 - Chronic diastolic (congestive) heart failure Is this a current diagnosis for this admission?: Yes Plan: Diastolic. To place on demadex (3) COPD (chronic obstructive pulmonary disease) Qualifiers: COPD type: unspecified COPD Qualified Code(s): J44.9 - Chronic obstructive pulmonary disease, unspecified Is this a current diagnosis for this admission?: Yes Plan: Stable (4) Cardiac dysrhythmia, unspecified Qualifiers: Arrhythmia type: unspecified cardiac arrhythmia Qualified Code(s): I49.9 - Cardiac arrhythmia, unspecified Is this a current diagnosis for this admission?: Yes Plan: As per cardiology. Order CT of the chest to evaluate for pneumomediastinum (5) Dysphagia Is this a current diagnosis for this admission?: Yes Plan: Had esophageal dilatation and may require another one (6) Esophageal ulcer Is this a current diagnosis for this admission?: Yes Plan: Anticipate to transition Protonix to oral PPI in a.m. (7) Hypernatremia Is this a current diagnosis for this admission?: Yes Plan: Resolved (8) Hypokalemia Is this a current diagnosis for this admission?: Yes (9) Morbid (severe) obesity due to excess calories Is this a current diagnosis for this admission?: Yes Plan: Contributing to worsening of sleep apnea (10) LARRY (obstructive sleep apnea) Is this a current diagnosis for this admission?: Yes Plan: Continue CPAP - Time Time Spent with patient: 15-24 minutes Anticipated discharge: Acute Rehab Within: within 48 hours - Inpatient Certification Based on my medical assessment, after consideration of the patient's comorbidities, presenting symptoms, or acuity I expect that the services needed warrant INPATIENT care.: Yes I certify that my determination is in accordance with my understanding of Medicare's requirements for reasonable and necessary INPATIENT services [42 CFR 412.3e].: Yes Medical Necessity: Need Close Monitoring Due to Risk of Patient Decompensation
[2017-12-24] MEDS ORDERED: (PENDING PHARMACY ID) (Calcium Carbonate/Vitamin D3 [Calcium 600 + Vit D Tablet] 1 TAB) PO SCH (18:00)
[2017-12-24] MEDS: CALCIUM CARBONATE 250 MG/VITAMIN D3 125 UNIT TABLET PO SCH (18:18)
--- NOTE | 2017-12-24 18:38 | PDOC PROGRESS REPORT ---
Subjective Progress Note for:: 12/24/17 Subjective:: Patient seen on morning rounds. She seems to be improving gradually and is much more alert. Patient claims no nausea or vomiting and is taking some p.o. Patient predominantly in sinus rhythm with occasional rapid heartbeat. Patient was started on metoprolol tartrate every 8 hours 25 mg which she seems to be tolerating well. This seems to be controlling her arrhythmias better. May use Cardizem IV as needed or IV Lopressor as needed in case of tachycardia. Reason For Visit: ROSA,DEHYDRATION,INTRACTABLE NAUSEA,VOMITING Physical Exam Vital Signs: Temp Pulse Resp BP Pulse Ox 97.9 F 79 17 125/59 L 97 12/24/17 09:47 12/24/17 09:47 12/24/17 09:47 12/24/17 09:47 12/24/17 09:47 Intake & Output 12/23/17 12/24/17 12/25/17 06:59 06:59 06:59 Intake Total 2440 1251 Balance 2440 1251 Weight 128.5 kg Exam: GENERAL: well-nourished and in no acute distress. Alert and oriented x3 HEAD: Atraumatic, normocephalic. EYES: Pupils equal round and reactive to light, extraocular movements intact, sclera anicteric, conjunctiva are normal. ENT: TMs normal, nares patent, oropharynx clear without exudates. Moist mucous membranes. No oral ulcerations or bleeding gums noted NECK: supple without lymphadenopathy. Trachea is central. No cervical or axillary lymphadenopathy noted. Carotids are 2+, JVD WNL LUNGS: Respiration seems nonlabored, no significant accessory muscle action noted. Breath sounds clear to auscultation bilaterally and equal noted. No wheezes rales or rhonchi noted. No significant dullness noted on percussion. CHEST: Palpation of the chest wall shows no significant chest wall tenderness. No other significant abnormalities noted. 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 ABDOMEN: Soft, mildly distended, no significant tenderness appreciated, normoactive bowel sounds. No guarding, no rebound. No rigidity noted . No masses appreciated. EXTREMITIES: Pedal pulses are 1-2+, no calf tenderness noted. No clubbing or cyanosis.1+ pedal edema noted NEUROLOGICAL: Focused neurological exam showed no significant neurologic deficit. Normal speech, no focal weakness appreciated. PSYCH: Normal mood, normal affect. Judgment and insight within normal limits. SKIN: No significant ecchymosis, skin is noted to be warm. MUSCULOSKELETAL EXAM: No significant acute joint swelling noted. Results Laboratory Results: 12/23/17 04:39 12/24/17 04:44 12/24/17 12/24/17 04:44 07:18 Carbonic Acid 1.51 H HCO3/H2CO3 Ratio 18:1 ABG pH 7.37 ABG pCO2 50.3 H ABG pO2 73.8 L ABG HCO3 28.2 H ABG O2 Saturation 94.2 ABG Base Excess 2.0 FiO2 32% Sodium 141.2 Potassium 4.0 Chloride 108 H Carbon Dioxide 28 Anion Gap 5 BUN 23 H Creatinine 0.76 Est GFR ( Amer) > 60 Est GFR (Non-Af Amer) > 60 Glucose 75 Calcium 8.7 Magnesium 1.7 12/22/17 17:15 Stool - Stool - Final 12/14/17 12/14/17 12/15/17 22:00 22:00 03:48 Creatine Kinase 709 H 781 H CK-MB (CK-2) 48.40 H Troponin I 0.088 NT-Pro-B Natriuret Pep 12/15/17 12/15/17 12/15/17 03:48 10:11 10:11 Creatine Kinase 582 H CK-MB (CK-2) 53.10 H 52.20 H Troponin I 0.068 0.060 NT-Pro-B Natriuret Pep 12/15/17 12/15/17 12/18/17 15:35 15:35 13:46 Creatine Kinase 431 H 37 CK-MB (CK-2) 33.50 H Troponin I 0.046 NT-Pro-B Natriuret Pep 12/18/17 12/18/17 12/18/17 13:46 18:24 18:26 Creatine Kinase CK-MB (CK-2) 2.88 Troponin I < 0.012 0.015 NT-Pro-B Natriuret Pep 2370 H Impressions: Renal Ultrasound 12/14/17 00:00 IMPRESSION: Nondiagnostic exam. KUB X-Ray 12/14/17 15:36 IMPRESSION: Previously stool filled loops of colon appear gas-filled on today' s examination. Abdomen/Pelvis CT 12/14/17 16:27 IMPRESSION: Relative to CT imaging performed 12/29/2017 which demonstrated constipation, today's imaging demonstrates fluid throughout prominent loops of large and small bowel. Some subtle pericolic mesenteric fat stranding involving the proximal sigmoid colon may indicate an early uncomplicated diverticulitis. Additionally, there appears to be a small bowel to small bowel adhesion without evidence of obstruction. Given the rather featureless appearance of the colon, recommend correlation for chronic laxative use. Chest X-Ray 12/16/17 00:00 IMPRESSION: Minimal left basilar densities as noted above. Other findings as noted above Esophagus X-Ray 12/20/17 00:00 IMPRESSION: 1. SHORT SEGMENT DISTAL ESOPHAGEAL STRICTURE WITH IRREGULAR MUCOSA CAUSING SIGNIFICANT DELAY IN THE PASSAGE OF A BARIUM TABLET. NO SIGNIFICANT DELAY IN THE PASSAGE OF CONTRAST. MALIGNANCY CANNOT BE EXCLUDED FROM THE STUDY HOWEVER, RECENT UPPER ENDOSCOPY SUGGEST THIS IS ULCERATIVE IN NATURE. 2. SMALL SLIDING HIATAL HERNIA. Assessment & Plan - Diagnosis (1) Cardiac dysrhythmia, unspecified Qualifiers: Arrhythmia type: unspecified cardiac arrhythmia Qualified Code(s): I49.9 - Cardiac arrhythmia, unspecified Is this a current diagnosis for this admission?: Yes (2) Hypertension Qualifiers: Hypertension type: essential hypertension Qualified Code(s): I10 - Essential (primary) hypertension Is this a current diagnosis for this admission?: Yes (3) LARRY (obstructive sleep apnea) Is this a current diagnosis for this admission?: Yes (4) Tachycardia Is this a current diagnosis for this admission?: Yes (5) COPD (chronic obstructive pulmonary disease) Qualifiers: COPD type: unspecified COPD Qualified Code(s): J44.9 - Chronic obstructive pulmonary disease, unspecified Is this a current diagnosis for this admission?: Yes (6) CHF (congestive heart failure) Qualifiers: Heart failure type: diastolic Heart failure chronicity: chronic Qualified Code(s): I50.32 - Chronic diastolic (congestive) heart failure Is this a current diagnosis for this admission?: Yes - Notes Notes: Sinus tachycardia and intermittent multifocal atrial tachycardia: Electrolytes should be maintained within normal limits. Patient seems to respond better to IV beta-alejandra. Patient to continue on metoprolol tartrate 25 mg p.o. every 8 as patient able to take p.o. Continue IV Cardizem and or IV Lopressor also on as needed basis. Hypertension: Continue with current therapy. Blood pressure under reasonable control. Obstructive sleep apnea syndrome: Recommend institution of home CPAP/BiPAP therapy. Tachycardia: Most likely multifocal atrial tachycardia. Please see plan under multifocal atrial tachycardia. COPD: Continue with bronchodilator therapy. CHF: On clinical exam patient seems to be having some element of CHF possibly from diastolic dysfunction or from right heart failure. Patient switched to torsemide at 10 mg p.o. daily. There was concern about pneumomediastinum which resulted in a stat CT chest. It showed bilateral pleural effusion and small free fluid in the abdomen. Most likely related to CHF from diastolic dysfunction. Continue diuretic therapy. We will continue to follow. Will repeat a BNP level in the morning. - Time Time with patient: 15-25 minutes - CODE STATUS was discussed, patient remains full code. Surrogate decision-maker unchanged. Multiple medical problems were addressed. More than 50% of the time spent coordinating care, discussing management plans with involved caregivers. Management plans discussed with involved personnels. Medical decision making was of moderate to high complexity , patient's has multiple comorbidities. Medications reviewed and adjusted accordingly: Yes
[2017-12-25] MEDS: SUCRALFATE SUSP 1 GM/10 ML UDCUP PO SCH ×5 (00:02→23:21)
[2017-12-25 05:30] LABS: HEMATOCRIT 35.3 % (36.0-47.0); HEMOGLOBIN 11.7 g/dL (12.0-15.5); MEAN CORPUSCULAR HEMOGLOBIN 29.7 pg (27.0-33.4); MEAN CORPUSCULAR HGB CONC 33.2 g/dL (32.0-36.0); MEAN CORPUSCULAR VOLUME 89 fl (80-97); PLATELET COUNT 139 10^3/uL (150-450); RED BLOOD COUNT 3.95 10^6/uL (3.72-5.28); RED CELL DISTRIBUTION WIDTH 14.6 % (11.5-14.0); WHITE BLOOD COUNT 9.9 10^3/uL (4.0-10.5)
[2017-12-25] MEDS: PANTOPRAZOLE SODIUM 40 MG VIAL IV SCH ×2 (05:45→17:53)
[2017-12-25] MEDS: LEVOTHYROXINE SODIUM 0.15 MG TABLET PO SCH (05:45)
[2017-12-25] MEDS: METOPROLOL TARTRATE 25 MG TABLET PO SCH ×2 (05:47→13:31)
[2017-12-25 05:59] LABS: ANION GAP 8 (5-19); BLOOD UREA NITROGEN 19 mg/dL (7-20); CALCIUM 8.4 mg/dL (8.4-10.2); CARBON DIOXIDE 27 mmol/L (22-30); CHLORIDE 107 mmol/L (98-107); GLUCOSE 72 mg/dL (75-110); POTASSIUM 3.8 mmol/L (3.6-5.0)
[2017-12-25] MEDS: MULTIVITAMIN TABLET PO SCH (09:15)
[2017-12-25] MEDS: ASPIRIN 325 MG TABLET, ENT COATED PO SCH (09:15)
[2017-12-25] MEDS: ALLOPURINOL 100 MG TABLET PO SCH (09:15)
[2017-12-25] MEDS: CALCIUM CARBONATE 250 MG/VITAMIN D3 125 UNIT TABLET PO SCH ×2 (09:15→17:50)
[2017-12-25] MEDS: LACTOBACILLUS ACIDOPHILUS 250 MG TAB PO SCH ×2 (09:15→17:50)
[2017-12-25] MEDS ORDERED: TORSEMIDE 20 MG TABLET PO SCH (10:00)
[2017-12-25] MEDS ORDERED: (PENDING PHARMACY ID) (Umeclidinium Brm/Vilanterol Tr [Anoro Ellipta 62.5-25 Mcg Inh] 1 PU IH SCH (10:00)
[2017-12-25] MEDS: ENOXAPARIN SODIUM INJ 40 MG/0.4 ML DISP.SYRIN SUBCUT SCH (10:33)
[2017-12-25] MEDS ORDERED: MIDAZOLAM 2 MG/2 ML INJ ONE (11:22)
[2017-12-25] MEDS ORDERED: PROPOFOL INJ 200 MG/20 ML VIAL IV ONE (11:23)
--- NOTE | 2017-12-25 11:59 | Operative Report ---
Operative Report DATE OF SURGERY: 12/25/17 Operative Report: The risks benefits and alternatives of the procedure explained to the patient in detail and informed consent is obtained.A GIF Olympus video scope was inserted into the patient's mouth and hypopharynx, the esophagus is identified intubated and insufflated, the scope was then advanced through the esophagus stomach and duodenum ,retroflexion maneuver is done ,the esophagus stomach and first and second portions of the duodenum examined PREOPERATIVE DIAGNOSIS: Dysphagia POSTOPERATIVE DIAGNOSIS: Esophageal ulcer ulceration, diffuse but superficial. Stricture has resolved no dilation needed to be done. Hiatal hernia. Gastritis OPERATION: EGD with biopsy SURGEON: BRIAN RODRIGES ANESTHESIA: LMAC TISSUE REMOVED OR ALTERED: Tissue specimen obtained in the esophagus. COMPLICATIONS: None. ESTIMATED BLOOD LOSS: None. INTRAOPERATIVE FINDINGS: As noted above. PROCEDURE: Patient tolerated procedure well. No immediate postprocedure comp occasions are noted. Patient sent back to her room in good condition. Can advance diet PPI, Can try some Carafate as well. We will continue to follow Should be able to be discharged in couple days, outpatient follow-up EGD
--- NOTE | 2017-12-25 12:18 | PDOC PROGRESS REPORT ---
Subjective Progress Note for:: 12/25/17 Subjective:: Patient for endoscopy later on today. I have made some medication changes. Patient placed on spironolactone 25 mg p.o. daily. Continue torsemide at 10 mg p.o. daily. I have also reduced aspirin to baby aspirin. Plavix may be preferred in case of gastritis. Family is concerned about continuing need of oxygen at home and this may need to be evaluated prior to discharge. BNP level was noted to be elevated. CT scan of the chest from yesterday reviewed and is consistent with CHF. Patient seen on morning rounds. She seems to be improving gradually and is much more alert. Patient claims no nausea or vomiting and is taking some p.o. Patient predominantly in sinus rhythm with occasional rapid heartbeat. Patient was started previously on metoprolol tartrate every 8 hours 25 mg which she seems to be tolerating well. This seems to be controlling her arrhythmias better. May use Cardizem IV as needed or IV Lopressor as needed in case of tachycardia. Reason For Visit: ROSA,DEHYDRATION,INTRACTABLE NAUSEA,VOMITING Physical Exam Vital Signs: Temp Pulse Resp BP Pulse Ox 98 F 72 17 112/61 94 12/25/17 10:57 12/25/17 10:57 12/25/17 10:57 12/25/17 10:57 12/25/17 10:57 Intake & Output 12/24/17 12/25/17 12/26/17 06:59 06:59 06:59 Intake Total 1251 616 Output Total 0 Balance 1251 616 Weight 128.4 kg Exam: GENERAL: well-nourished and in no acute distress. Alert and oriented x3 HEAD: Atraumatic, normocephalic. EYES: Pupils equal round and reactive to light, extraocular movements intact, sclera anicteric, conjunctiva are normal. ENT: TMs normal, nares patent, oropharynx clear without exudates. Moist mucous membranes. No oral ulcerations or bleeding gums noted NECK: supple without lymphadenopathy. Trachea is central. No cervical or axillary lymphadenopathy noted. Carotids are 2+, JVD WNL LUNGS: Respiration seems nonlabored, no significant accessory muscle action noted. Few bibasilar crackles and minimum bilateral basal dullness noted on percussion. CHEST: Palpation of the chest wall shows no significant chest wall tenderness. No other significant abnormalities noted. 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 ABDOMEN: Soft, no significant tenderness appreciated, normoactive bowel sounds. No guarding, no rebound. No rigidity noted . No masses appreciated. EXTREMITIES: Pedal pulses are 1-2+, no calf tenderness noted. No clubbing or cyanosis. 1+ pedal edema noted NEUROLOGICAL: Focused neurological exam showed no significant neurologic deficit. Normal speech, no focal weakness appreciated. PSYCH: Normal mood, normal affect. Judgment and insight within normal limits. SKIN: No significant ecchymosis, skin is noted to be warm. MUSCULOSKELETAL EXAM: No significant acute joint swelling noted. Results Laboratory Results: 12/25/17 04:46 12/25/17 04:46 12/25/17 12/25/17 04:46 04:46 WBC 9.9 RBC 3.95 Hgb 11.7 L Hct 35.3 L MCV 89 MCH 29.7 MCHC 33.2 RDW 14.6 H Plt Count 139 L Sodium 142.0 Potassium 3.8 Chloride 107 Carbon Dioxide 27 Anion Gap 8 BUN 19 Creatinine 0.76 Est GFR ( Amer) > 60 Est GFR (Non-Af Amer) > 60 Glucose 72 L Calcium 8.4 12/22/17 17:15 Stool - Stool - Final 12/22/17 17:15 Stool - Stool Stool Culture - Final NO SALMONELLA, SHIGELLA, CAMPYLOBACTER, OR E.COLI 0157 RECOVERED. NEGATIVE FOR SHIGA TOXINS 1&2. 12/14/17 12/14/17 12/15/17 22:00 22:00 03:48 Creatine Kinase 709 H 781 H CK-MB (CK-2) 48.40 H Troponin I 0.088 NT-Pro-B Natriuret Pep 12/15/17 12/15/17 12/15/17 03:48 10:11 10:11 Creatine Kinase 582 H CK-MB (CK-2) 53.10 H 52.20 H Troponin I 0.068 0.060 NT-Pro-B Natriuret Pep 12/15/17 12/15/17 12/18/17 15:35 15:35 13:46 Creatine Kinase 431 H 37 CK-MB (CK-2) 33.50 H Troponin I 0.046 NT-Pro-B Natriuret Pep 12/18/17 12/18/17 12/18/17 13:46 18:24 18:26 Creatine Kinase CK-MB (CK-2) 2.88 Troponin I < 0.012 0.015 NT-Pro-B Natriuret Pep 2370 H 12/25/17 04:46 Creatine Kinase CK-MB (CK-2) Troponin I NT-Pro-B Natriuret Pep 1570 H EKG Comments: Telemetry shows predominantly sinus rhythm. No sustained tachycardia or bradycardia noted. Impressions: Renal Ultrasound 12/14/17 00:00 IMPRESSION: Nondiagnostic exam. KUB X-Ray 12/14/17 15:36 IMPRESSION: Previously stool filled loops of colon appear gas-filled on today' s examination. Abdomen/Pelvis CT 12/14/17 16:27 IMPRESSION: Relative to CT imaging performed 12/29/2017 which demonstrated constipation, today's imaging demonstrates fluid throughout prominent loops of large and small bowel. Some subtle pericolic mesenteric fat stranding involving the proximal sigmoid colon may indicate an early uncomplicated diverticulitis. Additionally, there appears to be a small bowel to small bowel adhesion without evidence of obstruction. Given the rather featureless appearance of the colon, recommend correlation for chronic laxative use. Chest X-Ray 12/16/17 00:00 IMPRESSION: Minimal left basilar densities as noted above. Other findings as noted above Esophagus X-Ray 12/20/17 00:00 IMPRESSION: 1. SHORT SEGMENT DISTAL ESOPHAGEAL STRICTURE WITH IRREGULAR MUCOSA CAUSING SIGNIFICANT DELAY IN THE PASSAGE OF A BARIUM TABLET. NO SIGNIFICANT DELAY IN THE PASSAGE OF CONTRAST. MALIGNANCY CANNOT BE EXCLUDED FROM THE STUDY HOWEVER, RECENT UPPER ENDOSCOPY SUGGEST THIS IS ULCERATIVE IN NATURE. 2. SMALL SLIDING HIATAL HERNIA. Chest/Abdomen CTA 12/24/17 00:00 IMPRESSION: 1. NORMAL CTA OF THE CHEST. NO PULMONARY EMBOLI. 2. NO PNEUMOMEDIASTINUM OR PNEUMOTHORAX. 3. SMALL BILATERAL PLEURAL EFFUSIONS WITH BASILAR DENSITIES, PROBABLY ATELECTASIS. 4. SMALL AMOUNT OF FREE FLUID IN THE UPPER ABDOMEN. Assessment & Plan - Diagnosis (1) Cardiac dysrhythmia, unspecified Qualifiers: Arrhythmia type: unspecified cardiac arrhythmia Qualified Code(s): I49.9 - Cardiac arrhythmia, unspecified Is this a current diagnosis for this admission?: Yes (2) Hypertension Qualifiers: Hypertension type: essential hypertension Qualified Code(s): I10 - Essential (primary) hypertension Is this a current diagnosis for this admission?: Yes (3) LARRY (obstructive sleep apnea) Is this a current diagnosis for this admission?: Yes (4) Tachycardia Is this a current diagnosis for this admission?: Yes (5) COPD (chronic obstructive pulmonary disease) Qualifiers: COPD type: unspecified COPD Qualified Code(s): J44.9 - Chronic obstructive pulmonary disease, unspecified Is this a current diagnosis for this admission?: Yes (6) CHF (congestive heart failure) Qualifiers: Heart failure type: diastolic Heart failure chronicity: chronic Qualified Code(s): I50.32 - Chronic diastolic (congestive) heart failure Is this a current diagnosis for this admission?: Yes - Notes Notes: Sinus tachycardia and intermittent multifocal atrial tachycardia: This has been stable on metoprolol tartrate 25 mg p.o. every 8. Continue with this dose. Hypertension: Continue with current therapy. Blood pressure under reasonable control. Obstructive sleep apnea syndrome: Recommend institution of home CPAP/BiPAP therapy. COPD: Continue with bronchodilator therapy. Patient's daughter expresses concern about need for oxygen at home. This may need to be evaluated prior to discharge. CHF: On clinical exam patient seems to be having some element of CHF possibly from diastolic dysfunction or from right heart failure. Patient switched to torsemide at 10 mg p.o. daily. Added spironolactone 25 mg p.o. daily. Patient will benefit from salt and fluid restriction. CT chest reviewed.. It showed bilateral pleural effusion and small free fluid in the abdomen. Most likely related to CHF from diastolic dysfunction. Continue diuretic therapy. BNP level came back elevated but better than before. Most likely related to CHF. Patient can follow-up with me on discharge for management of CHF and sleep apnea syndrome if family prefers. - Time Time with patient: 15-25 minutes - CODE STATUS was discussed, patient remains full code. Surrogate decision-maker patient's daughter. Multiple medical problems were addressed. More than 50% of the time spent coordinating care, discussing management plans with involved caregivers. Management plans discussed with involved personnels. Medical decision making was of moderate to high complexity, patient's has multiple comorbidities. Medications reviewed and adjusted accordingly: Yes
[2017-12-25] MEDS: SPIRONOLACTONE 25 MG TABLET PO SCH (13:32)
--- NOTE | 2017-12-25 18:27 | PDOC PROGRESS REPORT ---
Subjective Progress Note for:: 12/25/17 Subjective:: Patient refers that feels better. For EGD today Review of systems All organ systems evaluated and negative except as in subjective All significant laboratories and diagnostics have been reviewed Reason For Visit: ROSA,DEHYDRATION,INTRACTABLE NAUSEA,VOMITING Physical Exam Vital Signs: Temp Pulse Resp BP Pulse Ox 97.5 F 82 20 111/48 L 96 12/25/17 04:23 12/25/17 04:23 12/25/17 04:23 12/25/17 04:23 12/25/17 04:23 Intake & Output 12/23/17 12/24/17 12/25/17 06:59 06:59 06:59 Intake Total 2440 1251 616 Output Total 0 Balance 2440 1251 616 Weight 128.5 kg General appearance: PRESENT: cooperative, morbidly obese Head exam: PRESENT: atraumatic, normocephalic Eye exam: PRESENT: conjunctiva pink, EOMI, PERRLA Ear exam: PRESENT: normal external ear exam Mouth exam: PRESENT: moist Neck exam: PRESENT: full ROM. ABSENT: JVD, lymphadenopathy, tenderness Respiratory exam: PRESENT: clear to auscultation choco Cardiovascular exam: PRESENT: RRR. ABSENT: diastolic murmur, systolic murmur Vascular exam: PRESENT: normal capillary refill GI/Abdominal exam: PRESENT: normal bowel sounds, soft. ABSENT: tenderness Extremities exam: PRESENT: full ROM, +2 edema Musculoskeletal exam: PRESENT: ambulatory Neurological exam: PRESENT: alert, awake, oriented to person, oriented to place , oriented to time, oriented to situation, CN II-XII grossly intact Psychiatric exam: PRESENT: appropriate affect, normal mood Skin exam: PRESENT: intact, normal color Results Laboratory Results: 12/25/17 04:46 12/25/17 04:46 12/24/17 12/25/17 12/25/17 07:18 04:46 04:46 WBC 9.9 RBC 3.95 Hgb 11.7 L Hct 35.3 L MCV 89 MCH 29.7 MCHC 33.2 RDW 14.6 H Plt Count 139 L Carbonic Acid 1.51 H HCO3/H2CO3 Ratio 18:1 ABG pH 7.37 ABG pCO2 50.3 H ABG pO2 73.8 L ABG HCO3 28.2 H ABG O2 Saturation 94.2 ABG Base Excess 2.0 FiO2 32% Sodium 142.0 Potassium 3.8 Chloride 107 Carbon Dioxide 27 Anion Gap 8 BUN 19 Creatinine 0.76 Est GFR ( Amer) > 60 Est GFR (Non-Af Amer) > 60 Glucose 72 L Calcium 8.4 12/22/17 17:15 Stool - Stool - Final 12/22/17 17:15 Stool - Stool Stool Culture - Final NO SALMONELLA, SHIGELLA, CAMPYLOBACTER, OR E.COLI 0157 RECOVERED. NEGATIVE FOR SHIGA TOXINS 1&2. 12/14/17 12/14/17 12/15/17 22:00 22:00 03:48 Creatine Kinase 709 H 781 H CK-MB (CK-2) 48.40 H Troponin I 0.088 NT-Pro-B Natriuret Pep 12/15/17 12/15/17 12/15/17 03:48 10:11 10:11 Creatine Kinase 582 H CK-MB (CK-2) 53.10 H 52.20 H Troponin I 0.068 0.060 NT-Pro-B Natriuret Pep 12/15/17 12/15/17 12/18/17 15:35 15:35 13:46 Creatine Kinase 431 H 37 CK-MB (CK-2) 33.50 H Troponin I 0.046 NT-Pro-B Natriuret Pep 12/18/17 12/18/17 12/18/17 13:46 18:24 18:26 Creatine Kinase CK-MB (CK-2) 2.88 Troponin I < 0.012 0.015 NT-Pro-B Natriuret Pep 2370 H 12/25/17 04:46 Creatine Kinase CK-MB (CK-2) Troponin I NT-Pro-B Natriuret Pep 1570 H Impressions: Renal Ultrasound 12/14/17 00:00 IMPRESSION: Nondiagnostic exam. KUB X-Ray 12/14/17 15:36 IMPRESSION: Previously stool filled loops of colon appear gas-filled on today' s examination. Abdomen/Pelvis CT 12/14/17 16:27 IMPRESSION: Relative to CT imaging performed 12/29/2017 which demonstrated constipation, today's imaging demonstrates fluid throughout prominent loops of large and small bowel. Some subtle pericolic mesenteric fat stranding involving the proximal sigmoid colon may indicate an early uncomplicated diverticulitis. Additionally, there appears to be a small bowel to small bowel adhesion without evidence of obstruction. Given the rather featureless appearance of the colon, recommend correlation for chronic laxative use. Chest X-Ray 12/16/17 00:00 IMPRESSION: Minimal left basilar densities as noted above. Other findings as noted above Esophagus X-Ray 12/20/17 00:00 IMPRESSION: 1. SHORT SEGMENT DISTAL ESOPHAGEAL STRICTURE WITH IRREGULAR MUCOSA CAUSING SIGNIFICANT DELAY IN THE PASSAGE OF A BARIUM TABLET. NO SIGNIFICANT DELAY IN THE PASSAGE OF CONTRAST. MALIGNANCY CANNOT BE EXCLUDED FROM THE STUDY HOWEVER, RECENT UPPER ENDOSCOPY SUGGEST THIS IS ULCERATIVE IN NATURE. 2. SMALL SLIDING HIATAL HERNIA. Chest/Abdomen CTA 12/24/17 00:00 IMPRESSION: 1. NORMAL CTA OF THE CHEST. NO PULMONARY EMBOLI. 2. NO PNEUMOMEDIASTINUM OR PNEUMOTHORAX. 3. SMALL BILATERAL PLEURAL EFFUSIONS WITH BASILAR DENSITIES, PROBABLY ATELECTASIS. 4. SMALL AMOUNT OF FREE FLUID IN THE UPPER ABDOMEN. Assessment & Plan - Diagnosis (1) Acute kidney injury Is this a current diagnosis for this admission?: Yes Plan: Resolved (2) CHF (congestive heart failure) Qualifiers: Heart failure type: diastolic Heart failure chronicity: chronic Qualified Code(s): I50.32 - Chronic diastolic (congestive) heart failure Is this a current diagnosis for this admission?: Yes Plan: Diastolic. To restart Demadex at a higher dose (3) COPD (chronic obstructive pulmonary disease) Qualifiers: COPD type: unspecified COPD Qualified Code(s): J44.9 - Chronic obstructive pulmonary disease, unspecified Is this a current diagnosis for this admission?: Yes Plan: Stable (4) Cardiac dysrhythmia, unspecified Qualifiers: Arrhythmia type: unspecified cardiac arrhythmia Qualified Code(s): I49.9 - Cardiac arrhythmia, unspecified Is this a current diagnosis for this admission?: Yes Plan: As per cardiology. No pneumomediastinum. To place patient on Toprol-XL (5) Dysphagia Qualifiers: Dysphagia type: unspecified Qualified Code(s): R13.10 - Dysphagia, unspecified Is this a current diagnosis for this admission?: Yes Plan: Improved. For EGD today (6) Esophageal ulcer Qualifiers: Esophageal ulcer bleeding: without bleeding Qualified Code(s): K22.10 - Ulcer of esophagus without bleeding Is this a current diagnosis for this admission?: Yes Plan: To transition to oral PPI. (7) Hypernatremia Is this a current diagnosis for this admission?: Yes Plan: Resolved (8) Hypokalemia Is this a current diagnosis for this admission?: Yes Plan: Resolved (9) Morbid (severe) obesity due to excess calories Is this a current diagnosis for this admission?: Yes Plan: Contributing to worsening of sleep apnea (10) LARRY (obstructive sleep apnea) Is this a current diagnosis for this admission?: Yes Plan: Continue CPAP (11) Esophageal stricture Is this a current diagnosis for this admission?: Yes Plan: For follow-up EGD today - Time Time Spent with patient: 15-24 minutes Medications reviewed and adjusted accordingly: Yes Anticipated discharge: Acute Rehab Within: when bed available - Inpatient Certification Based on my medical assessment, after consideration of the patient's comorbidities, presenting symptoms, or acuity I expect that the services needed warrant INPATIENT care.: Yes I certify that my determination is in accordance with my understanding of Medicare's requirements for reasonable and necessary INPATIENT services [42 CFR 412.3e].: Yes Medical Necessity: Need Close Monitoring Due to Risk of Patient Decompensation
[2017-12-25] MEDS ORDERED: TORSEMIDE 20 MG TABLET PO ONE (19:00)
[2017-12-26] MEDS: LANSOPRAZOLE 30 MG TAB.RAP.DR PO SCH ×2 (05:38→17:24)
[2017-12-26] MEDS: SUCRALFATE SUSP 1 GM/10 ML UDCUP PO SCH ×4 (05:39→23:30)
[2017-12-26] MEDS: LEVOTHYROXINE SODIUM 0.15 MG TABLET PO SCH (05:39)
[2017-12-26 05:45] LABS: ANION GAP 10 (5-19); BLOOD UREA NITROGEN 15 mg/dL (7-20); CALCIUM 8.6 mg/dL (8.4-10.2); CARBON DIOXIDE 30 mmol/L (22-30); CHLORIDE 103 mmol/L (98-107); GLUCOSE 80 mg/dL (75-110); POTASSIUM 3.3 mmol/L (3.6-5.0)
--- NOTE | 2017-12-26 07:55 | PDOC PROGRESS REPORT ---
Subjective Progress Note for:: 12/26/17 Subjective:: patient underwent EGD yesterday and tolerated well her stricture has resolved, no dilation needed however has diffuse superficial ulcers in the distal third of the esophagus she can try to resume a normal diet, initially soft and advance as tolerated she should be on a PPI and will likely need short term Carafate on discharge biopsies are pending in the esophagus to exclude Escobar's and potential malignancy patient is feeling much better denies any melena no post procedure complications following EGD are noted she has had a barium swallow during this admission as well as CT that did not show any pneumomediastinum Reason For Visit: ROSA,DEHYDRATION,INTRACTABLE NAUSEA,VOMITING Physical Exam Vital Signs: Temp Pulse Resp BP Pulse Ox 97.9 F 75 18 117/62 94 12/26/17 04:06 12/26/17 07:00 12/26/17 04:06 12/26/17 04:06 12/26/17 04:06 Intake & Output 12/25/17 12/26/17 12/27/17 06:59 06:59 06:59 Intake Total 616 876 Output Total 0 78 Balance 616 798 Weight 128.4 kg 124.2 kg General appearance: PRESENT: no acute distress, well-developed, well-nourished Head exam: PRESENT: atraumatic, normocephalic Eye exam: PRESENT: EOMI, PERRLA. ABSENT: nystagmus, periorbital swelling, scleral icterus Mouth exam: PRESENT: moist Throat exam: ABSENT: tonsillar exudate Neck exam: ABSENT: meningismus, tenderness, thyromegaly Respiratory exam: PRESENT: symmetrical, unlabored. ABSENT: tachypnea, wheezes Cardiovascular exam: PRESENT: +S1, +S2 GI/Abdominal exam: PRESENT: soft. ABSENT: rebound, rigid, tenderness Extremities exam: ABSENT: joint swelling Neurological exam: PRESENT: oriented to time, oriented to situation, CN II-XII grossly intact Focused psych exam: ABSENT: restlessness Skin exam: PRESENT: normal color. ABSENT: mottled, urticaria, vesicles Results Laboratory Results: 12/25/17 04:46 12/26/17 04:30 12/26/17 04:30 Sodium 143.0 Potassium 3.3 L Chloride 103 Carbon Dioxide 30 Anion Gap 10 BUN 15 Creatinine 0.76 Est GFR ( Amer) > 60 Est GFR (Non-Af Amer) > 60 Glucose 80 Calcium 8.6 12/14/17 12/14/17 12/15/17 22:00 22:00 03:48 Creatine Kinase 709 H 781 H CK-MB (CK-2) 48.40 H Troponin I 0.088 NT-Pro-B Natriuret Pep 12/15/17 12/15/17 12/15/17 03:48 10:11 10:11 Creatine Kinase 582 H CK-MB (CK-2) 53.10 H 52.20 H Troponin I 0.068 0.060 NT-Pro-B Natriuret Pep 12/15/17 12/15/17 12/18/17 15:35 15:35 13:46 Creatine Kinase 431 H 37 CK-MB (CK-2) 33.50 H Troponin I 0.046 NT-Pro-B Natriuret Pep 12/18/17 12/18/17 12/18/17 13:46 18:24 18:26 Creatine Kinase CK-MB (CK-2) 2.88 Troponin I < 0.012 0.015 NT-Pro-B Natriuret Pep 2370 H 12/25/17 04:46 Creatine Kinase CK-MB (CK-2) Troponin I NT-Pro-B Natriuret Pep 1570 H Impressions: Renal Ultrasound 12/14/17 00:00 IMPRESSION: Nondiagnostic exam. KUB X-Ray 12/14/17 15:36 IMPRESSION: Previously stool filled loops of colon appear gas-filled on today' s examination. Abdomen/Pelvis CT 12/14/17 16:27 IMPRESSION: Relative to CT imaging performed 12/29/2017 which demonstrated constipation, today's imaging demonstrates fluid throughout prominent loops of large and small bowel. Some subtle pericolic mesenteric fat stranding involving the proximal sigmoid colon may indicate an early uncomplicated diverticulitis. Additionally, there appears to be a small bowel to small bowel adhesion without evidence of obstruction. Given the rather featureless appearance of the colon, recommend correlation for chronic laxative use. Chest X-Ray 12/16/17 00:00 IMPRESSION: Minimal left basilar densities as noted above. Other findings as noted above Esophagus X-Ray 12/20/17 00:00 IMPRESSION: 1. SHORT SEGMENT DISTAL ESOPHAGEAL STRICTURE WITH IRREGULAR MUCOSA CAUSING SIGNIFICANT DELAY IN THE PASSAGE OF A BARIUM TABLET. NO SIGNIFICANT DELAY IN THE PASSAGE OF CONTRAST. MALIGNANCY CANNOT BE EXCLUDED FROM THE STUDY HOWEVER, RECENT UPPER ENDOSCOPY SUGGEST THIS IS ULCERATIVE IN NATURE. 2. SMALL SLIDING HIATAL HERNIA. Chest/Abdomen CTA 12/24/17 00:00 IMPRESSION: 1. NORMAL CTA OF THE CHEST. NO PULMONARY EMBOLI. 2. NO PNEUMOMEDIASTINUM OR PNEUMOTHORAX. 3. SMALL BILATERAL PLEURAL EFFUSIONS WITH BASILAR DENSITIES, PROBABLY ATELECTASIS. 4. SMALL AMOUNT OF FREE FLUID IN THE UPPER ABDOMEN. Assessment & Plan - Diagnosis (1) Dysphagia Is this a current diagnosis for this admission?: Yes Plan: stricture has resolved deep ulcers are healing outpatient PPI 1 week of carafate follow up as outpatient will wait on biopsies (2) Diverticulitis Is this a current diagnosis for this admission?: Yes - Time Time Spent with patient: 15-24 minutes
[2017-12-26] MEDS ORDERED: LANSOPRAZOLE 30 MG TAB.RAP.DR PO SCH (10:00)
[2017-12-26] MEDS: ASPIRIN 81 MG TABLET, ENT COATED PO SCH (11:17)
[2017-12-26] MEDS: CALCIUM CARBONATE 250 MG/VITAMIN D3 125 UNIT TABLET PO SCH ×2 (11:17→17:25)
[2017-12-26] MEDS: TORSEMIDE 20 MG TABLET PO SCH (11:18)
[2017-12-26] MEDS: LACTOBACILLUS ACIDOPHILUS 250 MG TAB PO SCH ×2 (11:19→17:25)
[2017-12-26] MEDS: MULTIVITAMIN TABLET PO SCH (11:19)
[2017-12-26] MEDS: ALLOPURINOL 100 MG TABLET PO SCH (11:19)
[2017-12-26] MEDS: METOPROLOL SUCCINATE 50 MG TAB.SR.24H PO SCH (11:20)
[2017-12-26] MEDS: ENOXAPARIN SODIUM INJ 40 MG/0.4 ML DISP.SYRIN SUBCUT SCH (11:30)
[2017-12-26] MEDS: SPIRONOLACTONE 25 MG TABLET PO SCH (14:16)
--- NOTE | 2017-12-26 17:59 | PDOC PROGRESS REPORT ---
Subjective Progress Note for:: 12/26/17 Subjective:: Patient refers that feels better. However still getting quite short of breath when trying to move from the bed to the chair which is just beside her bed Review of systems All organ systems evaluated and negative except as in subjective All significant laboratories and diagnostics have been reviewed Reason For Visit: ROSA,DEHYDRATION,INTRACTABLE NAUSEA,VOMITING Physical Exam Vital Signs: Temp Pulse Resp BP Pulse Ox 97.9 F 86 18 117/62 94 12/26/17 04:06 12/26/17 04:06 12/26/17 04:06 12/26/17 04:06 12/26/17 04:06 Intake & Output 12/24/17 12/25/17 12/26/17 06:59 06:59 06:59 Intake Total 1251 616 576 Output Total 0 78 Balance 1251 616 498 Weight 128.4 kg 128.4 kg General appearance: PRESENT: cooperative, morbidly obese Head exam: PRESENT: atraumatic, normocephalic Eye exam: PRESENT: conjunctiva pink, EOMI, PERRLA Ear exam: PRESENT: normal external ear exam Mouth exam: PRESENT: moist Neck exam: PRESENT: full ROM. ABSENT: JVD, lymphadenopathy, tenderness Respiratory exam: PRESENT: clear to auscultation choco Cardiovascular exam: PRESENT: irregular rhythm. ABSENT: diastolic murmur, systolic murmur Vascular exam: PRESENT: normal capillary refill GI/Abdominal exam: PRESENT: normal bowel sounds, soft. ABSENT: tenderness Extremities exam: PRESENT: full ROM, +2 edema Musculoskeletal exam: PRESENT: ambulatory Neurological exam: PRESENT: alert, awake, oriented to person, oriented to place , oriented to time, oriented to situation, CN II-XII grossly intact Psychiatric exam: PRESENT: depressed Skin exam: PRESENT: intact, normal color Results Laboratory Results: 12/25/17 04:46 12/26/17 04:30 12/26/17 04:30 Sodium 143.0 Potassium 3.3 L Chloride 103 Carbon Dioxide 30 Anion Gap 10 BUN 15 Creatinine 0.76 Est GFR ( Amer) > 60 Est GFR (Non-Af Amer) > 60 Glucose 80 Calcium 8.6 12/14/17 12/14/17 12/15/17 22:00 22:00 03:48 Creatine Kinase 709 H 781 H CK-MB (CK-2) 48.40 H Troponin I 0.088 NT-Pro-B Natriuret Pep 12/15/17 12/15/17 12/15/17 03:48 10:11 10:11 Creatine Kinase 582 H CK-MB (CK-2) 53.10 H 52.20 H Troponin I 0.068 0.060 NT-Pro-B Natriuret Pep 12/15/17 12/15/17 12/18/17 15:35 15:35 13:46 Creatine Kinase 431 H 37 CK-MB (CK-2) 33.50 H Troponin I 0.046 NT-Pro-B Natriuret Pep 12/18/17 12/18/17 12/18/17 13:46 18:24 18:26 Creatine Kinase CK-MB (CK-2) 2.88 Troponin I < 0.012 0.015 NT-Pro-B Natriuret Pep 2370 H 12/25/17 04:46 Creatine Kinase CK-MB (CK-2) Troponin I NT-Pro-B Natriuret Pep 1570 H Impressions: Renal Ultrasound 12/14/17 00:00 IMPRESSION: Nondiagnostic exam. KUB X-Ray 12/14/17 15:36 IMPRESSION: Previously stool filled loops of colon appear gas-filled on today' s examination. Abdomen/Pelvis CT 12/14/17 16:27 IMPRESSION: Relative to CT imaging performed 12/29/2017 which demonstrated constipation, today's imaging demonstrates fluid throughout prominent loops of large and small bowel. Some subtle pericolic mesenteric fat stranding involving the proximal sigmoid colon may indicate an early uncomplicated diverticulitis. Additionally, there appears to be a small bowel to small bowel adhesion without evidence of obstruction. Given the rather featureless appearance of the colon, recommend correlation for chronic laxative use. Chest X-Ray 12/16/17 00:00 IMPRESSION: Minimal left basilar densities as noted above. Other findings as noted above Esophagus X-Ray 12/20/17 00:00 IMPRESSION: 1. SHORT SEGMENT DISTAL ESOPHAGEAL STRICTURE WITH IRREGULAR MUCOSA CAUSING SIGNIFICANT DELAY IN THE PASSAGE OF A BARIUM TABLET. NO SIGNIFICANT DELAY IN THE PASSAGE OF CONTRAST. MALIGNANCY CANNOT BE EXCLUDED FROM THE STUDY HOWEVER, RECENT UPPER ENDOSCOPY SUGGEST THIS IS ULCERATIVE IN NATURE. 2. SMALL SLIDING HIATAL HERNIA. Chest/Abdomen CTA 12/24/17 00:00 IMPRESSION: 1. NORMAL CTA OF THE CHEST. NO PULMONARY EMBOLI. 2. NO PNEUMOMEDIASTINUM OR PNEUMOTHORAX. 3. SMALL BILATERAL PLEURAL EFFUSIONS WITH BASILAR DENSITIES, PROBABLY ATELECTASIS. 4. SMALL AMOUNT OF FREE FLUID IN THE UPPER ABDOMEN. Assessment & Plan - Diagnosis (1) Acute kidney injury Is this a current diagnosis for this admission?: Yes Plan: Resolved (2) CHF (congestive heart failure) Qualifiers: Heart failure type: diastolic Heart failure chronicity: chronic Qualified Code(s): I50.32 - Chronic diastolic (congestive) heart failure Is this a current diagnosis for this admission?: Yes Plan: Diastolic. Continue Demadex at a higher dose. Encouraged to use CPAP not only at night but whenever napping (3) COPD (chronic obstructive pulmonary disease) Qualifiers: COPD type: unspecified COPD Qualified Code(s): J44.9 - Chronic obstructive pulmonary disease, unspecified Is this a current diagnosis for this admission?: Yes Plan: Stable (4) Cardiac dysrhythmia, unspecified Qualifiers: Arrhythmia type: unspecified cardiac arrhythmia Qualified Code(s): I49.9 - Cardiac arrhythmia, unspecified Is this a current diagnosis for this admission?: Yes Plan: As per cardiology. No pneumomediastinum. Continue Toprol-XL (5) Dysphagia Qualifiers: Dysphagia type: unspecified Qualified Code(s): R13.10 - Dysphagia, unspecified Is this a current diagnosis for this admission?: Yes Plan: Improved. Results of EGD noted (6) Esophageal ulcer Qualifiers: Esophageal ulcer bleeding: without bleeding Qualified Code(s): K22.10 - Ulcer of esophagus without bleeding Is this a current diagnosis for this admission?: Yes Plan: Continue oral PPI (7) Hypernatremia Is this a current diagnosis for this admission?: Yes Plan: Resolved (8) Hypokalemia Is this a current diagnosis for this admission?: Yes Plan: Resolved (9) Morbid (severe) obesity due to excess calories Is this a current diagnosis for this admission?: Yes Plan: Contributing to worsening of sleep apnea and worsening right-sided failure (10) LARRY (obstructive sleep apnea) Is this a current diagnosis for this admission?: Yes Plan: Continue CPAP. Had lengthy discussion with daughter regarding patient's pulmonary condition and need to use CPAP whenever napping and at bedtime (11) Esophageal stricture Is this a current diagnosis for this admission?: Yes Plan: Improved - Time Time Spent with patient: 15-24 minutes Medications reviewed and adjusted accordingly: Yes Anticipated discharge: Acute Rehab Within: when bed available - Inpatient Certification Based on my medical assessment, after consideration of the patient's comorbidities, presenting symptoms, or acuity I expect that the services needed warrant INPATIENT care.: Yes I certify that my determination is in accordance with my understanding of Medicare's requirements for reasonable and necessary INPATIENT services [42 CFR 412.3e].: Yes Medical Necessity: Need Close Monitoring Due to Risk of Patient Decompensation
[2017-12-27 05:22] LABS: HEMOGLOBIN 12.1 g/dL (12.0-15.5); MEAN CORPUSCULAR HEMOGLOBIN 29.6 pg (27.0-33.4); MEAN CORPUSCULAR HGB CONC 33.6 g/dL (32.0-36.0); MEAN CORPUSCULAR VOLUME 88 fl (80-97); PLATELET COUNT 154 10^3/uL (150-450); RED BLOOD COUNT 4.09 10^6/uL (3.72-5.28); RED CELL DISTRIBUTION WIDTH 14.5 % (11.5-14.0); WHITE BLOOD COUNT 7.4 10^3/uL (4.0-10.5)
[2017-12-27] MEDS: LANSOPRAZOLE 30 MG TAB.RAP.DR PO SCH ×2 (05:26→17:06)
[2017-12-27] MEDS: LEVOTHYROXINE SODIUM 0.15 MG TABLET PO SCH (05:26)
[2017-12-27] MEDS: SUCRALFATE SUSP 1 GM/10 ML UDCUP PO SCH ×3 (05:27→17:06)
[2017-12-27] MEDS: ENOXAPARIN SODIUM INJ 40 MG/0.4 ML DISP.SYRIN SUBCUT SCH (09:11)
[2017-12-27] MEDS: METOPROLOL SUCCINATE 50 MG TAB.SR.24H PO SCH (09:11)
[2017-12-27] MEDS: ALLOPURINOL 100 MG TABLET PO SCH (09:11)
[2017-12-27] MEDS: TORSEMIDE 20 MG TABLET PO SCH (09:12)
[2017-12-27] MEDS: ASPIRIN 81 MG TABLET, ENT COATED PO SCH (09:12)
[2017-12-27] MEDS: CALCIUM CARBONATE 250 MG/VITAMIN D3 125 UNIT TABLET PO SCH ×2 (09:12→17:06)
[2017-12-27] MEDS: LACTOBACILLUS ACIDOPHILUS 250 MG TAB PO SCH ×2 (09:12→17:06)
[2017-12-27] MEDS: MULTIVITAMIN TABLET PO SCH (09:12)
[2017-12-27] MEDS: SPIRONOLACTONE 25 MG TABLET PO SCH (12:36)
--- NOTE | 2017-12-27 18:17 | PDOC PROGRESS REPORT ---
Subjective Progress Note for:: 12/27/17 Subjective:: Patient appears to be somnolent. Still not using the BiPAP when napping. Review of systems All organ systems evaluated and negative except as in subjective All significant laboratories and diagnostics have been reviewed Reason For Visit: ROSA,DEHYDRATION,INTRACTABLE NAUSEA,VOMITING Physical Exam Vital Signs: Temp Pulse Resp BP Pulse Ox 97.5 F 79 20 132/67 H 91 L 12/27/17 11:18 12/27/17 11:18 12/27/17 11:18 12/27/17 11:18 12/27/17 11:18 Intake & Output 12/26/17 12/27/17 12/28/17 06:59 06:59 06:59 Intake Total 876 870 0 Output Total 78 Balance 798 870 0 Weight 124.2 kg 122.3 kg General appearance: PRESENT: cooperative, morbidly obese Head exam: PRESENT: atraumatic, normocephalic Eye exam: PRESENT: conjunctiva pink, EOMI, PERRLA Ear exam: PRESENT: normal external ear exam Mouth exam: PRESENT: moist Neck exam: PRESENT: full ROM. ABSENT: JVD, lymphadenopathy, tenderness Respiratory exam: PRESENT: clear to auscultation choco Cardiovascular exam: PRESENT: RRR. ABSENT: diastolic murmur, systolic murmur Vascular exam: PRESENT: normal capillary refill GI/Abdominal exam: PRESENT: normal bowel sounds, soft. ABSENT: tenderness Extremities exam: PRESENT: full ROM, +2 edema Musculoskeletal exam: PRESENT: ambulatory Neurological exam: PRESENT: alert, oriented to person, oriented to place, oriented to time, other - Appears somnolent Psychiatric exam: PRESENT: depressed Skin exam: PRESENT: pallor Results Laboratory Results: 12/27/17 04:58 12/26/17 04:30 12/27/17 04:58 WBC 7.4 RBC 4.09 Hgb 12.1 Hct 36.0 MCV 88 MCH 29.6 MCHC 33.6 RDW 14.5 H Plt Count 154 12/14/17 12/14/17 12/15/17 22:00 22:00 03:48 Creatine Kinase 709 H 781 H CK-MB (CK-2) 48.40 H Troponin I 0.088 NT-Pro-B Natriuret Pep 12/15/17 12/15/17 12/15/17 03:48 10:11 10:11 Creatine Kinase 582 H CK-MB (CK-2) 53.10 H 52.20 H Troponin I 0.068 0.060 NT-Pro-B Natriuret Pep 12/15/17 12/15/17 12/18/17 15:35 15:35 13:46 Creatine Kinase 431 H 37 CK-MB (CK-2) 33.50 H Troponin I 0.046 NT-Pro-B Natriuret Pep 12/18/17 12/18/17 12/18/17 13:46 18:24 18:26 Creatine Kinase CK-MB (CK-2) 2.88 Troponin I < 0.012 0.015 NT-Pro-B Natriuret Pep 2370 H 12/25/17 04:46 Creatine Kinase CK-MB (CK-2) Troponin I NT-Pro-B Natriuret Pep 1570 H Impressions: Renal Ultrasound 12/14/17 00:00 IMPRESSION: Nondiagnostic exam. KUB X-Ray 12/14/17 15:36 IMPRESSION: Previously stool filled loops of colon appear gas-filled on today' s examination. Abdomen/Pelvis CT 12/14/17 16:27 IMPRESSION: Relative to CT imaging performed 12/29/2017 which demonstrated constipation, today's imaging demonstrates fluid throughout prominent loops of large and small bowel. Some subtle pericolic mesenteric fat stranding involving the proximal sigmoid colon may indicate an early uncomplicated diverticulitis. Additionally, there appears to be a small bowel to small bowel adhesion without evidence of obstruction. Given the rather featureless appearance of the colon, recommend correlation for chronic laxative use. Chest X-Ray 12/16/17 00:00 IMPRESSION: Minimal left basilar densities as noted above. Other findings as noted above Esophagus X-Ray 12/20/17 00:00 IMPRESSION: 1. SHORT SEGMENT DISTAL ESOPHAGEAL STRICTURE WITH IRREGULAR MUCOSA CAUSING SIGNIFICANT DELAY IN THE PASSAGE OF A BARIUM TABLET. NO SIGNIFICANT DELAY IN THE PASSAGE OF CONTRAST. MALIGNANCY CANNOT BE EXCLUDED FROM THE STUDY HOWEVER, RECENT UPPER ENDOSCOPY SUGGEST THIS IS ULCERATIVE IN NATURE. 2. SMALL SLIDING HIATAL HERNIA. Chest/Abdomen CTA 12/24/17 00:00 IMPRESSION: 1. NORMAL CTA OF THE CHEST. NO PULMONARY EMBOLI. 2. NO PNEUMOMEDIASTINUM OR PNEUMOTHORAX. 3. SMALL BILATERAL PLEURAL EFFUSIONS WITH BASILAR DENSITIES, PROBABLY ATELECTASIS. 4. SMALL AMOUNT OF FREE FLUID IN THE UPPER ABDOMEN. Assessment & Plan - Diagnosis (1) Acute kidney injury Is this a current diagnosis for this admission?: Yes Plan: Resolved (2) CHF (congestive heart failure) Qualifiers: Heart failure type: diastolic Heart failure chronicity: chronic Qualified Code(s): I50.32 - Chronic diastolic (congestive) heart failure Is this a current diagnosis for this admission?: Yes Plan: Diastolic. Increase Demadex dose. Encouraged to use CPAP not only at night but whenever napping (3) COPD (chronic obstructive pulmonary disease) Qualifiers: COPD type: unspecified COPD Qualified Code(s): J44.9 - Chronic obstructive pulmonary disease, unspecified Is this a current diagnosis for this admission?: Yes Plan: Stable (4) Cardiac dysrhythmia, unspecified Qualifiers: Arrhythmia type: unspecified cardiac arrhythmia Qualified Code(s): I49.9 - Cardiac arrhythmia, unspecified Is this a current diagnosis for this admission?: Yes Plan: As per cardiology. No pneumomediastinum. Continue Toprol-XL (5) Dysphagia Qualifiers: Dysphagia type: unspecified Qualified Code(s): R13.10 - Dysphagia, unspecified Is this a current diagnosis for this admission?: Yes Plan: Improved. Results of EGD noted (6) Esophageal ulcer Qualifiers: Esophageal ulcer bleeding: without bleeding Qualified Code(s): K22.10 - Ulcer of esophagus without bleeding Is this a current diagnosis for this admission?: Yes Plan: Continue oral PPI (7) Hypernatremia Is this a current diagnosis for this admission?: Yes Plan: Resolved (8) Hypokalemia Is this a current diagnosis for this admission?: Yes Plan: Resolved (9) Morbid (severe) obesity due to excess calories Is this a current diagnosis for this admission?: Yes Plan: Contributing to worsening of sleep apnea and worsening right-sided failure (10) LARRY (obstructive sleep apnea) Is this a current diagnosis for this admission?: Yes Plan: Continue CPAP. Had lengthy discussion with daughter regarding patient's pulmonary condition and need to use CPAP whenever napping and at bedtime. Order ABG in a.m. since concern patient might be retaining and contributing to somnolence (11) Esophageal stricture Is this a current diagnosis for this admission?: Yes Plan: Improved - Time Time Spent with patient: Less than 15 minutes Anticipated discharge: Acute Rehab Within: within 48 hours - Inpatient Certification Based on my medical assessment, after consideration of the patient's comorbidities, presenting symptoms, or acuity I expect that the services needed warrant INPATIENT care.: Yes I certify that my determination is in accordance with my understanding of Medicare's requirements for reasonable and necessary INPATIENT services [42 CFR 412.3e].: Yes Medical Necessity: Need Close Monitoring Due to Risk of Patient Decompensation
[2017-12-28] MEDS: SUCRALFATE SUSP 1 GM/10 ML UDCUP PO SCH ×5 (00:58→23:18)
[2017-12-28 05:22] LABS: ABSOLUTE EOSINOPHILS # (AUTO) 0.1 10^3/uL (0.0-0.6); ABSOLUTE LYMPHOCYTES (AUTO) 1.6 10^3/uL (0.5-4.7); ABSOLUTE MONOCYTES (AUTO) 0.8 10^3/uL (0.1-1.4); ABSOLUTE NEUT (AUTO) 5.4 10^3/uL (1.7-8.2); BASOPHILS % (AUTO) 0.6 % (0-2); EOSINOPHILS % (AUTO) 1.1 % (0-6); HEMATOCRIT 37.3 % (36.0-47.0); HEMOGLOBIN 12.5 g/dL (12.0-15.5); MEAN CORPUSCULAR HEMOGLOBIN 29.4 pg (27.0-33.4); MEAN CORPUSCULAR HGB CONC 33.4 g/dL (32.0-36.0); MEAN CORPUSCULAR VOLUME 88 fl (80-97); PLATELET COUNT 180 10^3/uL (150-450); RED BLOOD COUNT 4.24 10^6/uL (3.72-5.28); RED CELL DISTRIBUTION WIDTH 14.5 % (11.5-14.0); SEGMENTED NEUTROPHILS % (AUTO) 68.3 % (42-78); TOTAL CELLS COUNTED % (AUTO) 100 %; WHITE BLOOD COUNT 7.9 10^3/uL (4.0-10.5)
[2017-12-28 05:23] LABS: ARTERIAL BLOOD BASE EXCESS 12.4 mmol/L; ARTERIAL BLOOD H2CO3 1.54 mmol/L (1.05-1.35); ARTERIAL BLOOD HCO3 37.9 mmol/L (20-26); ARTERIAL BLOOD O2 SATURATION 82.8 % (94-98); ARTERIAL BLOOD PCO2 51.1 mmHg (35-45); ARTERIAL BLOOD PH 7.49 (7.35-7.45); ARTERIAL BLOOD PO2 44.1 mmHg (80-100); ARTERIAL BLOOD TOTAL CO2 39.5 mmol/L (21-25)
[2017-12-28 05:24] LABS: ARTERIAL BLOOD FIO2 21%
[2017-12-28 05:47] LABS: ANION GAP 7 (5-19); BLOOD UREA NITROGEN 17 mg/dL (7-20); CALCIUM 8.3 mg/dL (8.4-10.2); CARBON DIOXIDE 37 mmol/L (22-30); CHLORIDE 96 mmol/L (98-107); GLUCOSE 86 mg/dL (75-110); SODIUM 139.5 mmol/L (137-145)
[2017-12-28] MEDS: LEVOTHYROXINE SODIUM 0.15 MG TABLET PO SCH (06:23)
[2017-12-28] MEDS: LANSOPRAZOLE 30 MG TAB.RAP.DR PO SCH ×2 (06:23→17:49)
[2017-12-28 06:26] LABS: POTASSIUM 2.6 mmol/L (3.6-5.0)
[2017-12-28] MEDS: MAGNESIUM SULFATE/D5W 1 GM/100 ML RTUPB IV SCH ×3 (06:54→09:42)
[2017-12-28] MEDS ORDERED: POTASSIUM CHLORIDE 10 MEQ TABLET.SA PO ONE (07:00)
[2017-12-28] MEDS: POTASSIUM CHLORIDE 20 MEQ/50 ML RTU IV SCH ×2 (08:21→10:31)
[2017-12-28] MEDS ORDERED: TORSEMIDE 20 MG TABLET PO SCH (10:00)
[2017-12-28] MEDS: CALCIUM CARBONATE 250 MG/VITAMIN D3 125 UNIT TABLET PO SCH ×2 (10:30→17:50)
[2017-12-28] MEDS: ASPIRIN 81 MG TABLET, ENT COATED PO SCH (10:31)
[2017-12-28] MEDS: MULTIVITAMIN TABLET PO SCH (10:31)
[2017-12-28] MEDS: METOPROLOL SUCCINATE 50 MG TAB.SR.24H PO SCH (10:31)
[2017-12-28] MEDS: LACTOBACILLUS ACIDOPHILUS 250 MG TAB PO SCH ×2 (10:31→17:50)
[2017-12-28] MEDS: ALLOPURINOL 100 MG TABLET PO SCH (10:31)
[2017-12-28] MEDS: ENOXAPARIN SODIUM INJ 40 MG/0.4 ML DISP.SYRIN SUBCUT SCH (10:40)
[2017-12-28 12:15] LABS: ALANINE AMINOTRANSFERASE 32 U/L (9-52); ALBUMIN 2.4 g/dL (3.5-5.0); ALKALINE PHOSPHATASE 47 U/L (38-126); ASPARTATE AMINO TRANSFERASE 21 U/L (14-36); BILIRUBIN,DIRECT 0.3 mg/dL (0.0-0.4); BILIRUBIN,TOTAL 0.3 mg/dL (0.2-1.3); BLOOD UREA NITROGEN 16 mg/dL (7-20); CALCIUM 8.1 mg/dL (8.4-10.2); GLUCOSE 102 mg/dL (75-110); TOTAL PROTEIN 4.6 g/dL (6.3-8.2)
[2017-12-28 12:20] LABS: CARBON DIOXIDE 37 mmol/L (22-30); CHLORIDE 98 mmol/L (98-107); SODIUM 139.3 mmol/L (137-145)
[2017-12-28 13:00] LABS: ANION GAP 5 (5-19)
--- NOTE | 2017-12-28 13:02 | PDOC PROGRESS REPORT ---
Subjective Progress Note for:: 12/28/17 Subjective:: The patient is a 72-year-old female who was admitted on 12/14/2017 secondary to intractable nausea and vomiting which led to dehydration and acute kidney injury. GI and cardiology are following this patient. The patient underwent an EGD on 12/18/2017 which demonstrated an esophageal ulcer with a stricture. The stricture was dilated. She was also noted to have gastritis and a hiatal hernia. She continues to have dysphagia. An esophagram was performed on SaturdayDecember 20. A stricture is apparent. The patient underwent a repeat EGD on December 26. The stricture is now resolved. Biopsies were taken. Dr. De Luna is assisting with the patient's tachycardia. Of note, CT scan demonstrated changes consistent with early diverticulitis. It is recommended that patient have colonoscopy in 6 weeks. Patient is feeling significantly improved. She has started taking orals. She is on a mechanical soft diet. She is passing gas but has not had a bowel movement 2 days. Reason For Visit: ROSA,DEHYDRATION,INTRACTABLE NAUSEA,VOMITING Physical Exam Vital Signs: Temp Pulse Resp BP Pulse Ox 97.7 F 81 16 108/52 L 95 12/28/17 11:43 12/28/17 11:43 12/28/17 11:43 12/28/17 11:43 12/28/17 11:43 Intake & Output 12/27/17 12/28/17 12/29/17 06:59 06:59 06:59 Intake Total 870 626 Balance 870 626 Weight 122.3 kg 120.8 kg Additional comments: The patient appears dramatically improved when compared to earlier this week. Her cognition and mentation are appropriate. She does appear to have some pallor noted but this is stable to improved. Her cognition and mentation are normal. Her lungs demonstrate clear breath sounds both anteriorly and posteriorly. Her cardiac exam is regular without murmurs, gallops or rubs. The abdomen is obese but soft. Her abdomen is much less distended than earlier in the week. Bowel sounds are now normal active. She does not have guarding or rebound noted and there are no hernias or masses present. The lower extremities demonstrate trace edema. In general, the edema is much improved. The skin is warm, dry and intact without lesions or rashes. Results Laboratory Results: 12/28/17 04:50 12/28/17 11:31 12/28/17 12/28/17 12/28/17 04:50 04:50 05:11 WBC 7.9 RBC 4.24 Hgb 12.5 Hct 37.3 MCV 88 MCH 29.4 MCHC 33.4 RDW 14.5 H Plt Count 180 Seg Neutrophils % 68.3 Lymphocytes % 20.0 Monocytes % 10.0 Eosinophils % 1.1 Basophils % 0.6 Absolute Neutrophils 5.4 Absolute Lymphocytes 1.6 Absolute Monocytes 0.8 Absolute Eosinophils 0.1 Absolute Basophils 0.0 Carbonic Acid 1.54 H HCO3/H2CO3 Ratio 24:1 ABG pH 7.49 H ABG pCO2 51.1 H ABG pO2 44.1 L ABG HCO3 37.9 H ABG O2 Saturation 82.8 L ABG Base Excess 12.4 FiO2 21% Sodium 139.5 Potassium 2.6 L* Chloride 96 L Carbon Dioxide 37 H Anion Gap 7 BUN 17 Creatinine 0.78 Est GFR ( Amer) > 60 Est GFR (Non-Af Amer) > 60 Glucose 86 Calcium 8.3 L Magnesium 1.2 L* Total Bilirubin AST ALT Alkaline Phosphatase Total Protein Albumin 12/28/17 11:31 WBC RBC Hgb Hct MCV MCH MCHC RDW Plt Count Seg Neutrophils % Lymphocytes % Monocytes % Eosinophils % Basophils % Absolute Neutrophils Absolute Lymphocytes Absolute Monocytes Absolute Eosinophils Absolute Basophils Carbonic Acid HCO3/H2CO3 Ratio ABG pH ABG pCO2 ABG pO2 ABG HCO3 ABG O2 Saturation ABG Base Excess FiO2 Sodium 139.3 Potassium 3.0 L* Chloride 98 Carbon Dioxide 37 H Anion Gap BUN 16 Creatinine 0.74 Est GFR ( Amer) > 60 Est GFR (Non-Af Amer) > 60 Glucose 102 Calcium 8.1 L Magnesium 2.0 Total Bilirubin 0.3 AST 21 ALT 32 Alkaline Phosphatase 47 Total Protein 4.6 L Albumin 2.4 L 12/14/17 12/14/17 12/15/17 22:00 22:00 03:48 Creatine Kinase 709 H 781 H CK-MB (CK-2) 48.40 H Troponin I 0.088 NT-Pro-B Natriuret Pep 12/15/17 12/15/17 12/15/17 03:48 10:11 10:11 Creatine Kinase 582 H CK-MB (CK-2) 53.10 H 52.20 H Troponin I 0.068 0.060 NT-Pro-B Natriuret Pep 12/15/17 12/15/17 12/18/17 15:35 15:35 13:46 Creatine Kinase 431 H 37 CK-MB (CK-2) 33.50 H Troponin I 0.046 NT-Pro-B Natriuret Pep 12/18/17 12/18/17 12/18/17 13:46 18:24 18:26 Creatine Kinase CK-MB (CK-2) 2.88 Troponin I < 0.012 0.015 NT-Pro-B Natriuret Pep 2370 H 12/25/17 04:46 Creatine Kinase CK-MB (CK-2) Troponin I NT-Pro-B Natriuret Pep 1570 H Impressions: Renal Ultrasound 12/14/17 00:00 IMPRESSION: Nondiagnostic exam. KUB X-Ray 12/14/17 15:36 IMPRESSION: Previously stool filled loops of colon appear gas-filled on today' s examination. Abdomen/Pelvis CT 12/14/17 16:27 IMPRESSION: Relative to CT imaging performed 12/29/2017 which demonstrated constipation, today's imaging demonstrates fluid throughout prominent loops of large and small bowel. Some subtle pericolic mesenteric fat stranding involving the proximal sigmoid colon may indicate an early uncomplicated diverticulitis. Additionally, there appears to be a small bowel to small bowel adhesion without evidence of obstruction. Given the rather featureless appearance of the colon, recommend correlation for chronic laxative use. Chest X-Ray 12/16/17 00:00 IMPRESSION: Minimal left basilar densities as noted above. Other findings as noted above Esophagus X-Ray 12/20/17 00:00 IMPRESSION: 1. SHORT SEGMENT DISTAL ESOPHAGEAL STRICTURE WITH IRREGULAR MUCOSA CAUSING SIGNIFICANT DELAY IN THE PASSAGE OF A BARIUM TABLET. NO SIGNIFICANT DELAY IN THE PASSAGE OF CONTRAST. MALIGNANCY CANNOT BE EXCLUDED FROM THE STUDY HOWEVER, RECENT UPPER ENDOSCOPY SUGGEST THIS IS ULCERATIVE IN NATURE. 2. SMALL SLIDING HIATAL HERNIA. Chest/Abdomen CTA 12/24/17 00:00 IMPRESSION: 1. NORMAL CTA OF THE CHEST. NO PULMONARY EMBOLI. 2. NO PNEUMOMEDIASTINUM OR PNEUMOTHORAX. 3. SMALL BILATERAL PLEURAL EFFUSIONS WITH BASILAR DENSITIES, PROBABLY ATELECTASIS. 4. SMALL AMOUNT OF FREE FLUID IN THE UPPER ABDOMEN. Assessment & Plan - Diagnosis (1) Hypernatremia Is this a current diagnosis for this admission?: Yes Plan: Resolved. (2) Acute kidney injury Is this a current diagnosis for this admission?: Yes Plan: Resolved. (3) DVT prophylaxis Is this a current diagnosis for this admission?: Yes Plan: SCD (4) Diverticulitis Is this a current diagnosis for this admission?: Yes Plan: CT scan demonstrated uncomplicated early diverticulitis. The patient will require a colonoscopy in approximately 6 weeks. (5) Dysphagia Is this a current diagnosis for this admission?: Yes Plan: Diet has been advanced after second EGD. (6) Esophageal ulcer Qualifiers: Esophageal ulcer bleeding: without bleeding Qualified Code(s): K22.10 - Ulcer of esophagus without bleeding Is this a current diagnosis for this admission?: Yes Plan: Continue PPI therapy. Await results of biopsy from EGD. As per Dr. Mabry's note the patient may need temporary treatment with sucralfate (7) Hypertension Qualifiers: Hypertension type: essential hypertension Qualified Code(s): I10 - Essential (primary) hypertension Is this a current diagnosis for this admission?: Yes Plan: Continue medical management. BP is on the low end today. Will follow closely. (8) Hypokalemia Is this a current diagnosis for this admission?: Yes Plan: Repleting orally and IV today. (9) Morbid (severe) obesity due to excess calories Is this a current diagnosis for this admission?: Yes Plan: Calorie restriction is not appropriate in the acute setting. (10) LARRY (obstructive sleep apnea) Is this a current diagnosis for this admission?: Yes Plan: If aerophagia is noted to aggravate her symptoms we will need to hold her CPAP. Agree that CPAP as needed for excessive sleepiness, however, primarily patient has developed a metabolic alkalosis at present. Mild increase in CO2 is secondary to the metabolic alkalosis. (11) Tachycardia Is this a current diagnosis for this admission?: Yes Plan: Continue oral metoprolol. (12) Vomiting and diarrhea Is this a current diagnosis for this admission?: Yes Plan: Resolved. (13) Alkalosis, metabolic Is this a current diagnosis for this admission?: Yes Plan: I have cut back significantly on the patient's dose of diuretic. (14) Hypomagnesemia Is this a current diagnosis for this admission?: Yes Plan: Hypomagnesemia is affecting the patient's hypokalemia. This has been corrected intravenously today. I have also added oral magnesium. - Time Time Spent with patient: 25-34 minutes - Inpatient Certification Medical Necessity: Significant Comorbidiites Make Outpatient Treatment Too Risky , Need Close Monitoring Due to Risk of Patient Decompensation, Need For Continuous Telemetry Monitoring, Risk of Complication if Not Cared For in Hospital
[2017-12-28] MEDS: SPIRONOLACTONE 25 MG TABLET PO SCH (13:37)
[2017-12-28] MEDS ORDERED: POTASSIUM CHLORIDE 20 MEQ/15 ML UDCUP PO ONE (14:45)
[2017-12-28] MEDS: MAGNESIUM OXIDE 400 MG TABLET PO SCH (17:49)
--- NOTE | 2017-12-28 23:54 | EKG REPORT ---
SEVERITY:- ABNORMAL ECG - SINUS TACHYCARDIA LATERAL NONSPECIFIC ST-T CHANGES . : Confirmed by: Jesus Hassan MD 28-Dec-2017 23:53:13
[2017-12-29] MEDS: SUCRALFATE SUSP 1 GM/10 ML UDCUP PO SCH ×4 (05:25→23:11)
[2017-12-29] MEDS: LEVOTHYROXINE SODIUM 0.15 MG TABLET PO SCH (05:26)
[2017-12-29] MEDS: LANSOPRAZOLE 30 MG TAB.RAP.DR PO SCH ×2 (05:26→17:55)
[2017-12-29 05:57] LABS: ABSOLUTE EOSINOPHILS # (AUTO) 0.1 10^3/uL (0.0-0.6); ABSOLUTE LYMPHOCYTES (AUTO) 1.6 10^3/uL (0.5-4.7); ABSOLUTE MONOCYTES (AUTO) 0.7 10^3/uL (0.1-1.4); ABSOLUTE NEUT (AUTO) 3.9 10^3/uL (1.7-8.2); BASOPHILS % (AUTO) 0.6 % (0-2); EOSINOPHILS % (AUTO) 1.4 % (0-6); HEMATOCRIT 36.1 % (36.0-47.0); LYMPHOCYTES % (AUTO) 25.1 % (13-45); MEAN CORPUSCULAR HEMOGLOBIN 29.2 pg (27.0-33.4); MEAN CORPUSCULAR HGB CONC 33.3 g/dL (32.0-36.0); MEAN CORPUSCULAR VOLUME 88 fl (80-97); MONOCYTES % (AUTO) 11.7 % (3-13); PLATELET COUNT 190 10^3/uL (150-450); RED BLOOD COUNT 4.11 10^6/uL (3.72-5.28); RED CELL DISTRIBUTION WIDTH 14.4 % (11.5-14.0); SEGMENTED NEUTROPHILS % (AUTO) 61.2 % (42-78); TOTAL CELLS COUNTED % (AUTO) 100 %; WHITE BLOOD COUNT 6.4 10^3/uL (4.0-10.5)
[2017-12-29 06:28] LABS: ANION GAP 7 (5-19); BLOOD UREA NITROGEN 16 mg/dL (7-20); CALCIUM 8.3 mg/dL (8.4-10.2); CARBON DIOXIDE 38 mmol/L (22-30); CHLORIDE 96 mmol/L (98-107); GLUCOSE 90 mg/dL (75-110)
[2017-12-29 06:42] LABS: POTASSIUM 2.9 mmol/L (3.6-5.0)
[2017-12-29] MEDS: POTASSI CL 20 MEQ/50 ML RIDER 20 MEQ/50 ML RTUPB IV SCH ×2 (08:42→10:47)
[2017-12-29] MEDS: MAGNESIUM SULFATE/D5W 1 GM/100 ML RTUPB IV SCH ×2 (08:42→10:07)
[2017-12-29] MEDS ORDERED: POTASSIUM CHLORIDE 20 MEQ/15 ML UDCUP PO ONE (08:45)
--- NOTE | 2017-12-29 08:49 | EKG REPORT ---
SEVERITY:- ABNORMAL ECG - SINUS RHYTHM MULTIPLE ATRIAL PREMATURE COMPLEXES BORDERLINE T WAVE ABNORMALITIES : Confirmed by: Jesus Hassan MD 29-Dec-2017 08:48:51
[2017-12-29] MEDS ORDERED: TORSEMIDE 20 MG TABLET PO SCH (10:00)
[2017-12-29] MEDS: CALCIUM CARBONATE 250 MG/VITAMIN D3 125 UNIT TABLET PO SCH ×2 (10:05→17:56)
[2017-12-29] MEDS: MULTIVITAMIN TABLET PO SCH (10:05)
[2017-12-29] MEDS: ALLOPURINOL 100 MG TABLET PO SCH (10:06)
[2017-12-29] MEDS: METOPROLOL SUCCINATE 50 MG TAB.SR.24H PO SCH (10:06)
[2017-12-29] MEDS: LACTOBACILLUS ACIDOPHILUS 250 MG TAB PO SCH ×2 (10:06→17:56)
[2017-12-29] MEDS: MAGNESIUM OXIDE 400 MG TABLET PO SCH ×2 (10:06→17:56)
[2017-12-29] MEDS: ASPIRIN 81 MG TABLET, ENT COATED PO SCH (10:06)
[2017-12-29] MEDS: ENOXAPARIN SODIUM INJ 40 MG/0.4 ML DISP.SYRIN SUBCUT SCH (10:07)
--- NOTE | 2017-12-29 14:02 | PDOC PROGRESS REPORT ---
Subjective Progress Note for:: 12/29/17 Subjective:: The patient is a 72-year-old female who was admitted on 12/14/2017 secondary to intractable nausea and vomiting which led to dehydration and acute kidney injury. GI and cardiology are following this patient. The patient underwent an EGD on 12/18/2017 which demonstrated an esophageal ulcer with a stricture. The stricture was dilated. She was also noted to have gastritis and a hiatal hernia. She continues to have dysphagia. An esophagram was performed on SaturdayDecember 20. A stricture is apparent. The patient underwent a repeat EGD on December 26. The stricture is now resolved. Biopsies were taken. Dr. De Luna is assisting with the patient's tachycardia. Of note, CT scan demonstrated changes consistent with early diverticulitis. It is recommended that patient have colonoscopy in 6 weeks. Patient is feeling significantly improved. She has started taking orals. She is on a mechanical soft diet. She is passing gas but has not had a bowel movement 3 days. Reason For Visit: ROSA,DEHYDRATION,INTRACTABLE NAUSEA,VOMITING Physical Exam Vital Signs: Temp Pulse Resp BP Pulse Ox 97.6 F 69 18 117/54 L 95 12/29/17 12:21 12/29/17 12:21 12/29/17 12:21 12/29/17 12:21 12/29/17 12:21 Intake & Output 12/28/17 12/29/17 12/30/17 06:59 06:59 06:59 Intake Total 626 955 237 Balance 626 955 237 Weight 120.8 kg 119.6 kg Additional comments: Patient is sitting up in bed. She was actually eating her breakfast this morning without any difficulty. She is still has a pallor to her skin but overall looks markedly improved. Her facial appearance is unremarkable. Her lungs are clear to auscultation bilaterally. Her cardiac exam is regular. I do not appreciate any murmurs, gallops or rubs. The abdomen is obese but soft. Bowel sounds are present. She does not have guarding or rebound there are no hernias or masses. Lower extremities demonstrate 1+ edema. The skin is warm dry and intact without lesions or rashes. Results Laboratory Results: 12/29/17 05:14 12/29/17 05:14 12/29/17 12/29/17 05:14 05:14 WBC 6.4 RBC 4.11 Hgb 12.0 Hct 36.1 MCV 88 MCH 29.2 MCHC 33.3 RDW 14.4 H Plt Count 190 Seg Neutrophils % 61.2 Lymphocytes % 25.1 Monocytes % 11.7 Eosinophils % 1.4 Basophils % 0.6 Absolute Neutrophils 3.9 Absolute Lymphocytes 1.6 Absolute Monocytes 0.7 Absolute Eosinophils 0.1 Absolute Basophils 0.0 Sodium 141.0 Potassium 2.9 L* Chloride 96 L Carbon Dioxide 38 H Anion Gap 7 BUN 16 Creatinine 0.84 Est GFR ( Amer) > 60 Est GFR (Non-Af Amer) > 60 Glucose 90 Calcium 8.3 L Magnesium 1.6 12/14/17 12/14/17 12/15/17 22:00 22:00 03:48 Creatine Kinase 709 H 781 H CK-MB (CK-2) 48.40 H Troponin I 0.088 NT-Pro-B Natriuret Pep 12/15/17 12/15/17 12/15/17 03:48 10:11 10:11 Creatine Kinase 582 H CK-MB (CK-2) 53.10 H 52.20 H Troponin I 0.068 0.060 NT-Pro-B Natriuret Pep 12/15/17 12/15/17 12/18/17 15:35 15:35 13:46 Creatine Kinase 431 H 37 CK-MB (CK-2) 33.50 H Troponin I 0.046 NT-Pro-B Natriuret Pep 12/18/17 12/18/17 12/18/17 13:46 18:24 18:26 Creatine Kinase CK-MB (CK-2) 2.88 Troponin I < 0.012 0.015 NT-Pro-B Natriuret Pep 2370 H 12/25/17 04:46 Creatine Kinase CK-MB (CK-2) Troponin I NT-Pro-B Natriuret Pep 1570 H Impressions: Renal Ultrasound 12/14/17 00:00 IMPRESSION: Nondiagnostic exam. KUB X-Ray 12/14/17 15:36 IMPRESSION: Previously stool filled loops of colon appear gas-filled on today' s examination. Abdomen/Pelvis CT 12/14/17 16:27 IMPRESSION: Relative to CT imaging performed 12/29/2017 which demonstrated constipation, today's imaging demonstrates fluid throughout prominent loops of large and small bowel. Some subtle pericolic mesenteric fat stranding involving the proximal sigmoid colon may indicate an early uncomplicated diverticulitis. Additionally, there appears to be a small bowel to small bowel adhesion without evidence of obstruction. Given the rather featureless appearance of the colon, recommend correlation for chronic laxative use. Chest X-Ray 12/16/17 00:00 IMPRESSION: Minimal left basilar densities as noted above. Other findings as noted above Esophagus X-Ray 12/20/17 00:00 IMPRESSION: 1. SHORT SEGMENT DISTAL ESOPHAGEAL STRICTURE WITH IRREGULAR MUCOSA CAUSING SIGNIFICANT DELAY IN THE PASSAGE OF A BARIUM TABLET. NO SIGNIFICANT DELAY IN THE PASSAGE OF CONTRAST. MALIGNANCY CANNOT BE EXCLUDED FROM THE STUDY HOWEVER, RECENT UPPER ENDOSCOPY SUGGEST THIS IS ULCERATIVE IN NATURE. 2. SMALL SLIDING HIATAL HERNIA. Chest/Abdomen CTA 12/24/17 00:00 IMPRESSION: 1. NORMAL CTA OF THE CHEST. NO PULMONARY EMBOLI. 2. NO PNEUMOMEDIASTINUM OR PNEUMOTHORAX. 3. SMALL BILATERAL PLEURAL EFFUSIONS WITH BASILAR DENSITIES, PROBABLY ATELECTASIS. 4. SMALL AMOUNT OF FREE FLUID IN THE UPPER ABDOMEN. Assessment & Plan - Diagnosis (1) Hypernatremia Is this a current diagnosis for this admission?: Yes Plan: Resolved. (2) Acute kidney injury Is this a current diagnosis for this admission?: Yes Plan: Resolved. (3) DVT prophylaxis Is this a current diagnosis for this admission?: Yes Plan: SCD (4) Diverticulitis Is this a current diagnosis for this admission?: Yes Plan: CT scan demonstrated uncomplicated early diverticulitis. The patient will require a colonoscopy in approximately 6 weeks. (5) Dysphagia Is this a current diagnosis for this admission?: Yes Plan: Diet has been advanced after second EGD. (6) Esophageal ulcer Qualifiers: Esophageal ulcer bleeding: without bleeding Qualified Code(s): K22.10 - Ulcer of esophagus without bleeding Is this a current diagnosis for this admission?: Yes Plan: Continue PPI therapy. Await results of biopsy from EGD. As per Dr. Mabry's note the patient may need temporary treatment with sucralfate (7) Hypertension Qualifiers: Hypertension type: essential hypertension Qualified Code(s): I10 - Essential (primary) hypertension Is this a current diagnosis for this admission?: Yes Plan: Continue medical management. BP is on the low end today. Will follow closely. (8) Hypokalemia Is this a current diagnosis for this admission?: Yes Plan: Repleting orally and IV today. (9) Morbid (severe) obesity due to excess calories Is this a current diagnosis for this admission?: Yes Plan: Calorie restriction is not appropriate in the acute setting. (10) LARRY (obstructive sleep apnea) Is this a current diagnosis for this admission?: Yes Plan: If aerophagia is noted to aggravate her symptoms we will need to hold her CPAP. Agree that CPAP as needed for excessive sleepiness, however, primarily patient has developed a metabolic alkalosis at present. Mild increase in CO2 is secondary to the metabolic alkalosis. (11) Tachycardia Is this a current diagnosis for this admission?: Yes Plan: Continue oral metoprolol. (12) Vomiting and diarrhea Is this a current diagnosis for this admission?: Yes Plan: Resolved. (13) Alkalosis, metabolic Is this a current diagnosis for this admission?: Yes Plan: I have discontinued diuretics. (14) Hypomagnesemia Is this a current diagnosis for this admission?: Yes Plan: Hypomagnesemia is affecting the patient's hypokalemia. This has been corrected intravenously. I have also added oral magnesium. - Time Time Spent with patient: 15-24 minutes - Inpatient Certification Medical Necessity: Risk of Complication if Not Cared For in Hospital
[2017-12-29] MEDS ORDERED: BISACODYL 5 MG TABEC PO PRN (18:07)
[2017-12-29] MEDS ORDERED: BISACODYL 5 MG TABEC PO ONE (18:15)
[2017-12-30] MEDS: SUCRALFATE SUSP 1 GM/10 ML UDCUP PO SCH ×4 (05:16→23:07)
[2017-12-30] MEDS: LANSOPRAZOLE 30 MG TAB.RAP.DR PO SCH ×2 (05:17→17:41)
[2017-12-30] MEDS: LEVOTHYROXINE SODIUM 0.15 MG TABLET PO SCH (05:17)
[2017-12-30 05:32] LABS: HEMATOCRIT 33.9 % (36.0-47.0); HEMOGLOBIN 11.3 g/dL (12.0-15.5); MEAN CORPUSCULAR HEMOGLOBIN 29.7 pg (27.0-33.4); MEAN CORPUSCULAR HGB CONC 33.4 g/dL (32.0-36.0); MEAN CORPUSCULAR VOLUME 89 fl (80-97); PLATELET COUNT 180 10^3/uL (150-450); RED BLOOD COUNT 3.81 10^6/uL (3.72-5.28); RED CELL DISTRIBUTION WIDTH 14.7 % (11.5-14.0); WHITE BLOOD COUNT 5.9 10^3/uL (4.0-10.5)
[2017-12-30 05:52] LABS: ANION GAP 5 (5-19); BLOOD UREA NITROGEN 16 mg/dL (7-20); CALCIUM 8.2 mg/dL (8.4-10.2); CARBON DIOXIDE 38 mmol/L (22-30); CHLORIDE 97 mmol/L (98-107); GLUCOSE 83 mg/dL (75-110); POTASSIUM 3.2 mmol/L (3.6-5.0); SODIUM 139.6 mmol/L (137-145)
[2017-12-30] MEDS ORDERED: POTASSIUM CHLORIDE 20 MEQ/15 ML UDCUP PO ONE (07:15)
[2017-12-30] MEDS ORDERED: PROMETHAZINE HCL INJ 25 MG/1 ML VIAL IV PRN (07:30)
[2017-12-30] MEDS: LACTOBACILLUS ACIDOPHILUS 250 MG TAB PO SCH ×2 (10:48→17:42)
[2017-12-30] MEDS: ASPIRIN 81 MG TABLET, ENT COATED PO SCH (10:48)
[2017-12-30] MEDS: MULTIVITAMIN TABLET PO SCH (10:49)
[2017-12-30] MEDS: ALLOPURINOL 100 MG TABLET PO SCH (10:49)
[2017-12-30] MEDS: MAGNESIUM OXIDE 400 MG TABLET PO SCH ×2 (10:49→17:41)
[2017-12-30] MEDS: METOPROLOL SUCCINATE 50 MG TAB.SR.24H PO SCH (10:49)
[2017-12-30] MEDS: CALCIUM CARBONATE 250 MG/VITAMIN D3 125 UNIT TABLET PO SCH ×2 (10:49→17:42)
[2017-12-30] MEDS: ENOXAPARIN SODIUM INJ 40 MG/0.4 ML DISP.SYRIN SUBCUT SCH (10:50)
[2017-12-30] MEDS ORDERED: BISACODYL 10 MG SUPP.RECT PR PRN (11:26)
[2017-12-30] MEDS ORDERED: BISACODYL 10 MG SUPP.RECT PR ONE (12:00)
[2017-12-31] MEDS: LANSOPRAZOLE 30 MG TAB.RAP.DR PO SCH ×2 (05:18→16:56)
[2017-12-31] MEDS: LEVOTHYROXINE SODIUM 0.15 MG TABLET PO SCH (05:18)
[2017-12-31] MEDS: SUCRALFATE SUSP 1 GM/10 ML UDCUP PO SCH ×4 (05:19→23:25)
[2017-12-31 05:34] LABS: ABSOLUTE EOSINOPHILS # (AUTO) 0.1 10^3/uL (0.0-0.6); ABSOLUTE LYMPHOCYTES (AUTO) 1.8 10^3/uL (0.5-4.7); ABSOLUTE MONOCYTES (AUTO) 0.5 10^3/uL (0.1-1.4); ABSOLUTE NEUT (AUTO) 3.5 10^3/uL (1.7-8.2); BASOPHILS % (AUTO) 0.6 % (0-2); EOSINOPHILS % (AUTO) 1.6 % (0-6); HEMATOCRIT 32.5 % (36.0-47.0); HEMOGLOBIN 10.8 g/dL (12.0-15.5); LYMPHOCYTES % (AUTO) 30.4 % (13-45); MEAN CORPUSCULAR HEMOGLOBIN 29.4 pg (27.0-33.4); MEAN CORPUSCULAR HGB CONC 33.2 g/dL (32.0-36.0); MEAN CORPUSCULAR VOLUME 89 fl (80-97); MONOCYTES % (AUTO) 8.2 % (3-13); PLATELET COUNT 194 10^3/uL (150-450); RED BLOOD COUNT 3.67 10^6/uL (3.72-5.28); RED CELL DISTRIBUTION WIDTH 15.2 % (11.5-14.0); SEGMENTED NEUTROPHILS % (AUTO) 59.2 % (42-78); TOTAL CELLS COUNTED % (AUTO) 100 %; WHITE BLOOD COUNT 5.9 10^3/uL (4.0-10.5)
[2017-12-31 05:54] LABS: BLOOD UREA NITROGEN 19 mg/dL (7-20); CALCIUM 8.2 mg/dL (8.4-10.2); GLUCOSE 74 mg/dL (75-110); PHOSPHORUS 2.6 mg/dL (2.5-4.5); POTASSIUM 3.4 mmol/L (3.6-5.0)
[2017-12-31 05:59] LABS: CARBON DIOXIDE 37 mmol/L (22-30); CHLORIDE 100 mmol/L (98-107); SODIUM 140.2 mmol/L (137-145)
[2017-12-31 06:48] LABS: ANION GAP 4 (5-19)
[2017-12-31] MEDS ORDERED: POTASSIUM CHLORIDE 20 MEQ/15 ML UDCUP PO ONE (09:08)
[2017-12-31] MEDS: ASPIRIN 81 MG TABLET, ENT COATED PO SCH (09:33)
[2017-12-31] MEDS: CALCIUM CARBONATE 250 MG/VITAMIN D3 125 UNIT TABLET PO SCH ×2 (09:33→17:08)
[2017-12-31] MEDS: ENOXAPARIN SODIUM INJ 40 MG/0.4 ML DISP.SYRIN SUBCUT SCH (09:33)
[2017-12-31] MEDS: LACTOBACILLUS ACIDOPHILUS 250 MG TAB PO SCH ×2 (09:33→17:08)
[2017-12-31] MEDS: MAGNESIUM OXIDE 400 MG TABLET PO SCH ×2 (09:33→17:08)
[2017-12-31] MEDS: METOPROLOL SUCCINATE 50 MG TAB.SR.24H PO SCH (09:34)
[2017-12-31] MEDS: MULTIVITAMIN TABLET PO SCH (09:34)
[2017-12-31] MEDS: ALLOPURINOL 100 MG TABLET PO SCH (09:34)
--- NOTE | 2017-12-31 10:03 | PDOC PROGRESS REPORT ---
Subjective Progress Note for:: 12/31/17 Subjective:: No new issues this visit. Pt states that her swallowing is much improved. Reason For Visit: ROSA,DEHYDRATION,INTRACTABLE NAUSEA,VOMITING Physical Exam Vital Signs: Temp Pulse Resp BP Pulse Ox 97.7 F 64 16 101/43 L 98 12/31/17 09:19 12/31/17 09:19 12/31/17 09:19 12/31/17 09:19 12/31/17 09:19 Intake & Output 12/30/17 12/31/17 01/01/18 06:59 06:59 06:59 Intake Total 1057 723 Balance 1057 723 Weight 120.5 kg 120.9 kg General appearance: PRESENT: no acute distress, morbidly obese, well-developed, well-nourished Head exam: PRESENT: atraumatic, normocephalic Eye exam: PRESENT: conjunctiva pink, EOMI. ABSENT: scleral icterus Ear exam: PRESENT: normal external ear exam Mouth exam: PRESENT: moist, tongue midline Neck exam: ABSENT: carotid bruit, JVD, lymphadenopathy, thyromegaly Respiratory exam: PRESENT: clear to auscultation choco. ABSENT: rales, rhonchi, wheezes Cardiovascular exam: PRESENT: RRR. ABSENT: diastolic murmur, rubs, systolic murmur Pulses: PRESENT: normal dorsalis pedis pul Vascular exam: PRESENT: normal capillary refill GI/Abdominal exam: PRESENT: normal bowel sounds, soft. ABSENT: distended, guarding, mass, organolmegaly, rebound, tenderness Rectal exam: PRESENT: deferred Extremities exam: ABSENT: calf tenderness, clubbing, pedal edema Neurological exam: PRESENT: alert, awake, oriented to person, oriented to place , oriented to time, oriented to situation, CN II-XII grossly intact. ABSENT: motor sensory deficit Psychiatric exam: PRESENT: appropriate affect, normal mood. ABSENT: homicidal ideation, suicidal ideation Skin exam: PRESENT: dry, intact, warm. ABSENT: cyanosis, rash Results Laboratory Results: 12/31/17 04:38 12/31/17 04:38 12/30/17 12/31/17 12/31/17 14:25 04:38 04:38 WBC 5.9 RBC 3.67 L Hgb 10.8 L Hct 32.5 L MCV 89 MCH 29.4 MCHC 33.2 RDW 15.2 H Plt Count 194 Seg Neutrophils % 59.2 Lymphocytes % 30.4 Monocytes % 8.2 Eosinophils % 1.6 Basophils % 0.6 Absolute Neutrophils 3.5 Absolute Lymphocytes 1.8 Absolute Monocytes 0.5 Absolute Eosinophils 0.1 Absolute Basophils 0.0 Sodium 140.2 Potassium 3.4 L Chloride 100 Carbon Dioxide 37 H Anion Gap 4 L BUN 19 Creatinine 0.85 Est GFR ( Amer) > 60 Est GFR (Non-Af Amer) > 60 Glucose 74 L Calcium 8.2 L Phosphorus 2.6 Magnesium 1.9 Stool Occult Blood NEGATIVE 12/14/17 12/14/17 12/15/17 22:00 22:00 03:48 Creatine Kinase 709 H 781 H CK-MB (CK-2) 48.40 H Troponin I 0.088 NT-Pro-B Natriuret Pep 12/15/17 12/15/17 12/15/17 03:48 10:11 10:11 Creatine Kinase 582 H CK-MB (CK-2) 53.10 H 52.20 H Troponin I 0.068 0.060 NT-Pro-B Natriuret Pep 12/15/17 12/15/17 12/18/17 15:35 15:35 13:46 Creatine Kinase 431 H 37 CK-MB (CK-2) 33.50 H Troponin I 0.046 NT-Pro-B Natriuret Pep 12/18/17 12/18/17 12/18/17 13:46 18:24 18:26 Creatine Kinase CK-MB (CK-2) 2.88 Troponin I < 0.012 0.015 NT-Pro-B Natriuret Pep 2370 H 12/25/17 04:46 Creatine Kinase CK-MB (CK-2) Troponin I NT-Pro-B Natriuret Pep 1570 H Impressions: Renal Ultrasound 12/14/17 00:00 IMPRESSION: Nondiagnostic exam. KUB X-Ray 12/14/17 15:36 IMPRESSION: Previously stool filled loops of colon appear gas-filled on today' s examination. Abdomen/Pelvis CT 12/14/17 16:27 IMPRESSION: Relative to CT imaging performed 12/29/2017 which demonstrated constipation, today's imaging demonstrates fluid throughout prominent loops of large and small bowel. Some subtle pericolic mesenteric fat stranding involving the proximal sigmoid colon may indicate an early uncomplicated diverticulitis. Additionally, there appears to be a small bowel to small bowel adhesion without evidence of obstruction. Given the rather featureless appearance of the colon, recommend correlation for chronic laxative use. Chest X-Ray 12/16/17 00:00 IMPRESSION: Minimal left basilar densities as noted above. Other findings as noted above Esophagus X-Ray 12/20/17 00:00 IMPRESSION: 1. SHORT SEGMENT DISTAL ESOPHAGEAL STRICTURE WITH IRREGULAR MUCOSA CAUSING SIGNIFICANT DELAY IN THE PASSAGE OF A BARIUM TABLET. NO SIGNIFICANT DELAY IN THE PASSAGE OF CONTRAST. MALIGNANCY CANNOT BE EXCLUDED FROM THE STUDY HOWEVER, RECENT UPPER ENDOSCOPY SUGGEST THIS IS ULCERATIVE IN NATURE. 2. SMALL SLIDING HIATAL HERNIA. Chest/Abdomen CTA 12/24/17 00:00 IMPRESSION: 1. NORMAL CTA OF THE CHEST. NO PULMONARY EMBOLI. 2. NO PNEUMOMEDIASTINUM OR PNEUMOTHORAX. 3. SMALL BILATERAL PLEURAL EFFUSIONS WITH BASILAR DENSITIES, PROBABLY ATELECTASIS. 4. SMALL AMOUNT OF FREE FLUID IN THE UPPER ABDOMEN. Assessment & Plan - Diagnosis (1) Acute kidney injury Is this a current diagnosis for this admission?: Yes Plan: Resolved. (2) Alkalosis, metabolic Is this a current diagnosis for this admission?: Yes Plan: Secondary to respiratory: Will continue to monitor. (3) Diverticulitis Is this a current diagnosis for this admission?: Yes Plan: Pt will follow up with GI as outpatient for C-scopy. (4) Dysphagia Is this a current diagnosis for this admission?: Yes Plan: S/P EGD with dilation: Pt doing well. No issues. (5) Esophageal stricture Is this a current diagnosis for this admission?: Yes Plan: S/P EGD with dilation: Pt doing well. (6) Esophageal ulcer Qualifiers: Esophageal ulcer bleeding: without bleeding Qualified Code(s): K22.10 - Ulcer of esophagus without bleeding Is this a current diagnosis for this admission?: Yes Plan: Will continue PPI. (7) Hypokalemia Is this a current diagnosis for this admission?: Yes Plan: Will give Potassium replacement. Will give BMP and Mg in am (8) Hypomagnesemia Is this a current diagnosis for this admission?: Yes Plan: Will check Mg level in am. (9) Morbid (severe) obesity due to excess calories Is this a current diagnosis for this admission?: Yes Plan: Encourage dietary changes. (10) LARRY (obstructive sleep apnea) Is this a current diagnosis for this admission?: Yes Plan: Will consult Pulmonary for recommendations for CPAP vs BIPAP. (11) Vomiting and diarrhea Is this a current diagnosis for this admission?: Yes Plan: Resolved. (12) DVT prophylaxis Is this a current diagnosis for this admission?: Yes Plan: Lovenox. - Time Time Spent with patient: 15-24 minutes
[2018-01-01 05:35] LABS: HEMATOCRIT 33.7 % (36.0-47.0); HEMOGLOBIN 11.1 g/dL (12.0-15.5); MEAN CORPUSCULAR HEMOGLOBIN 29.4 pg (27.0-33.4); MEAN CORPUSCULAR HGB CONC 32.8 g/dL (32.0-36.0); MEAN CORPUSCULAR VOLUME 90 fl (80-97); PLATELET COUNT 177 10^3/uL (150-450); RED BLOOD COUNT 3.76 10^6/uL (3.72-5.28); RED CELL DISTRIBUTION WIDTH 15.1 % (11.5-14.0); WHITE BLOOD COUNT 4.9 10^3/uL (4.0-10.5)
[2018-01-01] MEDS: SUCRALFATE SUSP 1 GM/10 ML UDCUP PO SCH ×3 (05:55→17:59)
[2018-01-01] MEDS: LANSOPRAZOLE 30 MG TAB.RAP.DR PO SCH ×2 (05:55→17:59)
[2018-01-01] MEDS: LEVOTHYROXINE SODIUM 0.15 MG TABLET PO SCH (05:55)
[2018-01-01 06:05] LABS: ARTERIAL BLOOD BASE EXCESS 7.4 mmol/L; ARTERIAL BLOOD HCO3 33.3 mmol/L (20-26); ARTERIAL BLOOD O2 SATURATION 95.8 % (94-98); ARTERIAL BLOOD PCO2 53.2 mmHg (35-45); ARTERIAL BLOOD PH 7.42 (7.35-7.45); ARTERIAL BLOOD PO2 79.9 mmHg (80-100)
[2018-01-01 06:06] LABS: ANION GAP 5 (5-19); BLOOD UREA NITROGEN 19 mg/dL (7-20); CALCIUM 8.5 mg/dL (8.4-10.2); CARBON DIOXIDE 34 mmol/L (22-30); CHLORIDE 100 mmol/L (98-107); GLUCOSE 75 mg/dL (75-110); POTASSIUM 3.8 mmol/L (3.6-5.0); SODIUM 138.8 mmol/L (137-145)
[2018-01-01 06:08] LABS: ARTERIAL BLOOD FIO2 3L
[2018-01-01] MEDS: ENOXAPARIN SODIUM INJ 40 MG/0.4 ML DISP.SYRIN SUBCUT SCH (09:21)
[2018-01-01] MEDS: LACTOBACILLUS ACIDOPHILUS 250 MG TAB PO SCH ×2 (09:22→17:59)
[2018-01-01] MEDS: CALCIUM CARBONATE 250 MG/VITAMIN D3 125 UNIT TABLET PO SCH ×2 (09:22→17:59)
[2018-01-01] MEDS: METOPROLOL SUCCINATE 50 MG TAB.SR.24H PO SCH (09:22)
[2018-01-01] MEDS: MAGNESIUM OXIDE 400 MG TABLET PO SCH ×2 (09:31→17:59)
[2018-01-01] MEDS: ASPIRIN 81 MG TABLET, ENT COATED PO SCH (09:31)
[2018-01-01] MEDS: MULTIVITAMIN TABLET PO SCH (09:31)
[2018-01-01] MEDS: ALLOPURINOL 100 MG TABLET PO SCH (09:31)
--- NOTE | 2018-01-01 09:53 | RADIOLOGY REPORT (SQ) ---
EXAM DESCRIPTION: CHEST SINGLE VIEW COMPLETED DATE/TIME: 01/01/2018 8:58 am REASON FOR STUDY: resp failure COMPARISON: CT angio chest 12/24/2017 AP chest 12/16/2017 EXAM PARAMETERS: NUMBER OF VIEWS: One view. TECHNIQUE: Single frontal radiographic view of the chest acquired. RADIATION DOSE: NA LIMITATIONS: None. FINDINGS: LUNGS AND PLEURA: Dense consolidation left lower lobe worrisome for pneumonia. This is in creased compared to previous studies. Right lung well inflated and grossly clear. No pneumothorax MEDIASTINUM AND HILAR STRUCTURES: No masses. Contour normal. HEART AND VASCULAR STRUCTURES: Heart normal in size. Normal vasculature. BONES: No acute findings. HARDWARE: None in the chest. OTHER: Densely calcified 1 cm thyroid nodule unchanged, benign IMPRESSION: Dense consolidation left lower lobe, worrisome for pneumonia. This is increased compare d to previous studies TECHNICAL DOCUMENTATION: JOB ID: [id number] [employer]- All Rights Reserved Reading location - IP/workstation name: [email or web address]
[2018-01-01] MEDS: IPRATROPIUM/ALBUTEROL 0.5-2.5 MG/3 ML AMPUL NEB PRN (10:24)
--- NOTE | 2018-01-01 10:49 | PDOC PROGRESS REPORT ---
Subjective Progress Note for:: 01/01/18 Subjective:: No new issues. Pt has been using BIPAP at night. Daughter is at bedside. Reason For Visit: ROSA,DEHYDRATION,INTRACTABLE NAUSEA,VOMITING Physical Exam Vital Signs: Temp Pulse Resp BP Pulse Ox 97.2 F 73 16 121/65 96 01/01/18 08:13 01/01/18 08:13 01/01/18 08:13 01/01/18 08:13 01/01/18 08:13 Pulse Oximeter Nocturnal Start: 12/31/17 17: 21 Freq: RTQ4 Status: Complete Document 01/01/18 06:09 EAL (Rec: 01/01/18 06:09 EAL [email or web address]) Nocturnal Pulse Oximetry Equipment Usage Equipment Discontinued Oxygen Delivery Method (includes room Nasal Cannula air) O2 Sat by Pulse Oximetry (92-100) 96 Continuous Pulse Oximeter Set Up No Continuous SpO2 Discontinued Yes Continuous SpO2 Machine # 7 Intake & Output 12/31/17 01/01/18 01/02/18 06:59 06:59 06:59 Intake Total 723 196 Balance 723 196 Weight 120.9 kg 120.8 kg General appearance: PRESENT: no acute distress, morbidly obese, well-developed, well-nourished Head exam: PRESENT: atraumatic, normocephalic Eye exam: PRESENT: conjunctiva pink, EOMI. ABSENT: scleral icterus Ear exam: PRESENT: normal external ear exam Mouth exam: PRESENT: moist, tongue midline Neck exam: ABSENT: carotid bruit, JVD, lymphadenopathy, thyromegaly Respiratory exam: PRESENT: other - diminished at bases, Fair airmovement in upper lobes. Cardiovascular exam: PRESENT: RRR. ABSENT: diastolic murmur, rubs, systolic murmur Pulses: PRESENT: normal dorsalis pedis pul Vascular exam: PRESENT: normal capillary refill GI/Abdominal exam: PRESENT: normal bowel sounds, soft. ABSENT: distended, guarding, mass, organolmegaly, rebound, tenderness Rectal exam: PRESENT: deferred Extremities exam: ABSENT: calf tenderness, clubbing, pedal edema Neurological exam: PRESENT: alert, awake, oriented to person, oriented to place , oriented to time, oriented to situation, CN II-XII grossly intact. ABSENT: motor sensory deficit Psychiatric exam: PRESENT: appropriate affect, normal mood. ABSENT: homicidal ideation, suicidal ideation Skin exam: PRESENT: dry, intact, warm. ABSENT: cyanosis, rash Results Laboratory Results: 01/01/18 04:48 01/01/18 04:48 01/01/18 01/01/18 01/01/18 04:48 04:48 05:46 WBC 4.9 RBC 3.76 Hgb 11.1 L Hct 33.7 L MCV 90 MCH 29.4 MCHC 32.8 RDW 15.1 H Plt Count 177 Carbonic Acid 1.60 H HCO3/H2CO3 Ratio 20:1 ABG pH 7.42 ABG pCO2 53.2 H ABG pO2 79.9 L ABG HCO3 33.3 H ABG O2 Saturation 95.8 ABG Base Excess 7.4 FiO2 3L Sodium 138.8 Potassium 3.8 Chloride 100 Carbon Dioxide 34 H Anion Gap 5 BUN 19 Creatinine 0.77 Est GFR ( Amer) > 60 Est GFR (Non-Af Amer) > 60 Glucose 75 Calcium 8.5 Magnesium 1.7 12/14/17 12/14/17 12/15/17 22:00 22:00 03:48 Creatine Kinase 709 H 781 H CK-MB (CK-2) 48.40 H Troponin I 0.088 NT-Pro-B Natriuret Pep 12/15/17 12/15/17 12/15/17 03:48 10:11 10:11 Creatine Kinase 582 H CK-MB (CK-2) 53.10 H 52.20 H Troponin I 0.068 0.060 NT-Pro-B Natriuret Pep 12/15/17 12/15/17 12/18/17 15:35 15:35 13:46 Creatine Kinase 431 H 37 CK-MB (CK-2) 33.50 H Troponin I 0.046 NT-Pro-B Natriuret Pep 12/18/17 12/18/17 12/18/17 13:46 18:24 18:26 Creatine Kinase CK-MB (CK-2) 2.88 Troponin I < 0.012 0.015 NT-Pro-B Natriuret Pep 2370 H 12/25/17 04:46 Creatine Kinase CK-MB (CK-2) Troponin I NT-Pro-B Natriuret Pep 1570 H Impressions: Renal Ultrasound 12/14/17 00:00 IMPRESSION: Nondiagnostic exam. KUB X-Ray 12/14/17 15:36 IMPRESSION: Previously stool filled loops of colon appear gas-filled on today' s examination. Abdomen/Pelvis CT 12/14/17 16:27 IMPRESSION: Relative to CT imaging performed 12/29/2017 which demonstrated constipation, today's imaging demonstrates fluid throughout prominent loops of large and small bowel. Some subtle pericolic mesenteric fat stranding involving the proximal sigmoid colon may indicate an early uncomplicated diverticulitis. Additionally, there appears to be a small bowel to small bowel adhesion without evidence of obstruction. Given the rather featureless appearance of the colon, recommend correlation for chronic laxative use. Esophagus X-Ray 12/20/17 00:00 IMPRESSION: 1. SHORT SEGMENT DISTAL ESOPHAGEAL STRICTURE WITH IRREGULAR MUCOSA CAUSING SIGNIFICANT DELAY IN THE PASSAGE OF A BARIUM TABLET. NO SIGNIFICANT DELAY IN THE PASSAGE OF CONTRAST. MALIGNANCY CANNOT BE EXCLUDED FROM THE STUDY HOWEVER, RECENT UPPER ENDOSCOPY SUGGEST THIS IS ULCERATIVE IN NATURE. 2. SMALL SLIDING HIATAL HERNIA. Chest/Abdomen CTA 12/24/17 00:00 IMPRESSION: 1. NORMAL CTA OF THE CHEST. NO PULMONARY EMBOLI. 2. NO PNEUMOMEDIASTINUM OR PNEUMOTHORAX. 3. SMALL BILATERAL PLEURAL EFFUSIONS WITH BASILAR DENSITIES, PROBABLY ATELECTASIS. 4. SMALL AMOUNT OF FREE FLUID IN THE UPPER ABDOMEN. Chest X-Ray 01/01/18 06:00 IMPRESSION: Dense consolidation left lower lobe, worrisome for pneumonia. This is increased compared to previous studies Assessment & Plan - Diagnosis (1) Acute kidney injury Is this a current diagnosis for this admission?: Yes Plan: Resolved. (2) Alkalosis, metabolic Is this a current diagnosis for this admission?: Yes Plan: Secondary to respiratory: Will continue to monitor. (3) Diverticulitis Is this a current diagnosis for this admission?: Yes Plan: Pt will follow up with GI as outpatient for C-scopy. (4) Dysphagia Is this a current diagnosis for this admission?: Yes Plan: S/P EGD with dilation: Pt doing well. No issues. (5) Esophageal stricture Is this a current diagnosis for this admission?: Yes Plan: S/P EGD with dilation: Pt doing well. (6) Esophageal ulcer Qualifiers: Esophageal ulcer bleeding: without bleeding Qualified Code(s): K22.10 - Ulcer of esophagus without bleeding Is this a current diagnosis for this admission?: Yes Plan: Will continue PPI. (7) Hypokalemia Is this a current diagnosis for this admission?: Yes Plan: resolved. (8) Hypomagnesemia Is this a current diagnosis for this admission?: Yes Plan: Will give magnesium replacement. Will check magnesium in am. (9) Morbid (severe) obesity due to excess calories Is this a current diagnosis for this admission?: Yes Plan: Encourage dietary changes. (10) LARRY (obstructive sleep apnea) Is this a current diagnosis for this admission?: Yes Plan: Will consult Pulmonary for recommendations for CPAP vs BIPAP. (11) Vomiting and diarrhea Is this a current diagnosis for this admission?: Yes Plan: Resolved. (12) DVT prophylaxis Is this a current diagnosis for this admission?: Yes Plan: Lovenox. - Time Time Spent with patient: 15-24 minutes
[2018-01-01] MEDS: MAGNESIUM SULFATE/D5W 1 GM/100 ML RTUPB IV SCH ×2 (12:23→13:50)
[2018-01-02] MEDS: SUCRALFATE SUSP 1 GM/10 ML UDCUP PO SCH ×5 (00:22→23:14)
[2018-01-02] MEDS: LANSOPRAZOLE 30 MG TAB.RAP.DR PO SCH ×2 (05:04→17:28)
[2018-01-02] MEDS: LEVOTHYROXINE SODIUM 0.15 MG TABLET PO SCH (05:05)
[2018-01-02 05:45] LABS: ABSOLUTE EOSINOPHILS # (AUTO) 0.1 10^3/uL (0.0-0.6); ABSOLUTE LYMPHOCYTES (AUTO) 1.7 10^3/uL (0.5-4.7); ABSOLUTE MONOCYTES (AUTO) 0.5 10^3/uL (0.1-1.4); ABSOLUTE NEUT (AUTO) 5.6 10^3/uL (1.7-8.2); BASOPHILS % (AUTO) 0.4 % (0-2); EOSINOPHILS % (AUTO) 0.8 % (0-6); HEMATOCRIT 34.5 % (36.0-47.0); HEMOGLOBIN 11.4 g/dL (12.0-15.5); LYMPHOCYTES % (AUTO) 20.9 % (13-45); MEAN CORPUSCULAR HEMOGLOBIN 29.5 pg (27.0-33.4); MEAN CORPUSCULAR VOLUME 90 fl (80-97); MONOCYTES % (AUTO) 6.9 % (3-13); PLATELET COUNT 187 10^3/uL (150-450); RED BLOOD COUNT 3.86 10^6/uL (3.72-5.28); RED CELL DISTRIBUTION WIDTH 15.6 % (11.5-14.0); TOTAL CELLS COUNTED % (AUTO) 100 %; WHITE BLOOD COUNT 7.9 10^3/uL (4.0-10.5)
[2018-01-02 06:30] LABS: ALANINE AMINOTRANSFERASE 28 U/L (9-52); ALBUMIN 2.2 g/dL (3.5-5.0); ALKALINE PHOSPHATASE 57 U/L (38-126); ASPARTATE AMINO TRANSFERASE 15 U/L (14-36); BILIRUBIN,DIRECT 0.2 mg/dL (0.0-0.4); BILIRUBIN,TOTAL 0.2 mg/dL (0.2-1.3); BLOOD UREA NITROGEN 18 mg/dL (7-20); CALCIUM 8.3 mg/dL (8.4-10.2); CHLORIDE 100 mmol/L (98-107); GLUCOSE 74 mg/dL (75-110); POTASSIUM 3.5 mmol/L (3.6-5.0); TOTAL PROTEIN 4.6 g/dL (6.3-8.2)
[2018-01-02 06:35] LABS: CARBON DIOXIDE 36 mmol/L (22-30)
[2018-01-02 06:42] LABS: ANION GAP 1 (5-19)
[2018-01-02] MEDS: ALLOPURINOL 100 MG TABLET PO SCH (09:22)
[2018-01-02] MEDS: MAGNESIUM OXIDE 400 MG TABLET PO SCH ×2 (09:22→17:27)
[2018-01-02] MEDS: CALCIUM CARBONATE 250 MG/VITAMIN D3 125 UNIT TABLET PO SCH ×2 (09:22→17:26)
[2018-01-02] MEDS: LACTOBACILLUS ACIDOPHILUS 250 MG TAB PO SCH ×2 (09:22→17:27)
[2018-01-02] MEDS: ASPIRIN 81 MG TABLET, ENT COATED PO SCH (09:22)
[2018-01-02] MEDS: METOPROLOL SUCCINATE 50 MG TAB.SR.24H PO SCH (09:22)
[2018-01-02] MEDS: ENOXAPARIN SODIUM INJ 40 MG/0.4 ML DISP.SYRIN SUBCUT SCH (09:22)
[2018-01-02] MEDS: MULTIVITAMIN TABLET PO SCH (09:22)
[2018-01-02] MEDS: AMOXICILLIN TR/POT CLAVULANATE 500-125 MG TAB PO SCH ×2 (13:29→21:05)
--- NOTE | 2018-01-02 13:50 | Pulmonary Function Test ---
Pulmonary Function Test Date of Procedure:: 01/01/18 INDICATION:: Dyspnea Referring Provider: Dr Taye Cochran - Report Spirometry: FVC 1.24 L 43% postbronchodilator 1.41 L 49% FEV1 0.71 L 33% postbronchodilator 0.8 138% FEV1/FVC 57 predicted 75 postbronchodilator 57 FEF 25-75% 0.5-29% postbronchodilator therapy 0.96 53% Impression: Severe obstructive ventilatory defect with some response to bronchodilator therapy. Severe restrictive defect is also suggested but cannot be based on spirometry alone if clinically indicated complete pulmonary function tests would be warranted
--- NOTE | 2018-01-02 19:24 | PDOC PROGRESS REPORT ---
Subjective Progress Note for:: 01/02/18 Subjective:: Pt states that her throat is sore. Reason For Visit: ROSA,DEHYDRATION,INTRACTABLE NAUSEA,VOMITING Physical Exam Vital Signs: Temp Pulse Resp BP Pulse Ox 99.4 F 73 18 133/63 H 94 01/02/18 15:17 01/02/18 18:43 01/02/18 15:17 01/02/18 15:17 01/02/18 15:17 Pulse Oximeter Nocturnal Start: 12/31/17 17: 21 Freq: RTQ4 Status: Complete Document 01/01/18 06:09 EAL (Rec: 01/01/18 06:09 EAL [email or web address]) Nocturnal Pulse Oximetry Equipment Usage Equipment Discontinued Oxygen Delivery Method (includes room Nasal Cannula air) O2 Sat by Pulse Oximetry (92-100) 96 Continuous Pulse Oximeter Set Up No Continuous SpO2 Discontinued Yes Continuous SpO2 Machine # 7 Intake & Output 01/01/18 01/02/18 01/03/18 06:59 06:59 06:59 Intake Total 196 632 780 Balance 196 632 780 Weight 120.8 kg 122.6 kg General appearance: PRESENT: no acute distress Head exam: PRESENT: atraumatic, normocephalic Eye exam: PRESENT: conjunctiva pink, EOMI. ABSENT: scleral icterus Ear exam: PRESENT: normal external ear exam Mouth exam: PRESENT: moist, tongue midline Neck exam: ABSENT: carotid bruit, JVD, lymphadenopathy, thyromegaly Respiratory exam: PRESENT: decreased breath sounds, prolonged expiratory phas. ABSENT: rales, rhonchi, wheezes Cardiovascular exam: PRESENT: RRR. ABSENT: diastolic murmur, rubs, systolic murmur Pulses: PRESENT: normal dorsalis pedis pul Vascular exam: PRESENT: normal capillary refill GI/Abdominal exam: PRESENT: normal bowel sounds, soft. ABSENT: distended, guarding, mass, organolmegaly, rebound, tenderness Rectal exam: PRESENT: deferred Extremities exam: PRESENT: full ROM. ABSENT: calf tenderness, clubbing, pedal edema Neurological exam: PRESENT: alert, awake, oriented to person, oriented to place , oriented to time, oriented to situation, CN II-XII grossly intact. ABSENT: motor sensory deficit Psychiatric exam: PRESENT: appropriate affect, normal mood. ABSENT: homicidal ideation, suicidal ideation Skin exam: PRESENT: dry, intact, warm. ABSENT: cyanosis, rash Results Laboratory Results: 01/02/18 04:46 01/02/18 04:46 01/02/18 01/02/18 01/02/18 04:46 04:46 04:46 WBC 7.9 RBC 3.86 Hgb 11.4 L Hct 34.5 L MCV 90 MCH 29.5 MCHC 33.0 RDW 15.6 H Plt Count 187 Seg Neutrophils % 71.0 Lymphocytes % 20.9 Monocytes % 6.9 Eosinophils % 0.8 Basophils % 0.4 Absolute Neutrophils 5.6 Absolute Lymphocytes 1.7 Absolute Monocytes 0.5 Absolute Eosinophils 0.1 Absolute Basophils 0.0 Sodium Cancelled 137.0 Potassium Cancelled 3.5 L Chloride Cancelled 100 Carbon Dioxide Cancelled 36 H Anion Gap Cancelled 1 L BUN Cancelled 18 Creatinine Cancelled 0.76 Est GFR ( Amer) Cancelled > 60 Est GFR (Non-Af Amer) Cancelled > 60 Glucose Cancelled 74 L Calcium Cancelled 8.3 L Magnesium 1.9 Total Bilirubin 0.2 AST 15 ALT 28 Alkaline Phosphatase 57 Total Protein 4.6 L Albumin 2.2 L 12/14/17 12/14/17 12/15/17 22:00 22:00 03:48 Creatine Kinase 709 H 781 H CK-MB (CK-2) 48.40 H Troponin I 0.088 NT-Pro-B Natriuret Pep 12/15/17 12/15/17 12/15/17 03:48 10:11 10:11 Creatine Kinase 582 H CK-MB (CK-2) 53.10 H 52.20 H Troponin I 0.068 0.060 NT-Pro-B Natriuret Pep 12/15/17 12/15/17 12/18/17 15:35 15:35 13:46 Creatine Kinase 431 H 37 CK-MB (CK-2) 33.50 H Troponin I 0.046 NT-Pro-B Natriuret Pep 12/18/17 12/18/17 12/18/17 13:46 18:24 18:26 Creatine Kinase CK-MB (CK-2) 2.88 Troponin I < 0.012 0.015 NT-Pro-B Natriuret Pep 2370 H 12/25/17 04:46 Creatine Kinase CK-MB (CK-2) Troponin I NT-Pro-B Natriuret Pep 1570 H Impressions: Renal Ultrasound 12/14/17 00:00 IMPRESSION: Nondiagnostic exam. KUB X-Ray 12/14/17 15:36 IMPRESSION: Previously stool filled loops of colon appear gas-filled on today' s examination. Abdomen/Pelvis CT 12/14/17 16:27 IMPRESSION: Relative to CT imaging performed 12/29/2017 which demonstrated constipation, today's imaging demonstrates fluid throughout prominent loops of large and small bowel. Some subtle pericolic mesenteric fat stranding involving the proximal sigmoid colon may indicate an early uncomplicated diverticulitis. Additionally, there appears to be a small bowel to small bowel adhesion without evidence of obstruction. Given the rather featureless appearance of the colon, recommend correlation for chronic laxative use. Esophagus X-Ray 12/20/17 00:00 IMPRESSION: 1. SHORT SEGMENT DISTAL ESOPHAGEAL STRICTURE WITH IRREGULAR MUCOSA CAUSING SIGNIFICANT DELAY IN THE PASSAGE OF A BARIUM TABLET. NO SIGNIFICANT DELAY IN THE PASSAGE OF CONTRAST. MALIGNANCY CANNOT BE EXCLUDED FROM THE STUDY HOWEVER, RECENT UPPER ENDOSCOPY SUGGEST THIS IS ULCERATIVE IN NATURE. 2. SMALL SLIDING HIATAL HERNIA. Chest/Abdomen CTA 12/24/17 00:00 IMPRESSION: 1. NORMAL CTA OF THE CHEST. NO PULMONARY EMBOLI. 2. NO PNEUMOMEDIASTINUM OR PNEUMOTHORAX. 3. SMALL BILATERAL PLEURAL EFFUSIONS WITH BASILAR DENSITIES, PROBABLY ATELECTASIS. 4. SMALL AMOUNT OF FREE FLUID IN THE UPPER ABDOMEN. Chest X-Ray 01/01/18 06:00 IMPRESSION: Dense consolidation left lower lobe, worrisome for pneumonia. This is increased compared to previous studies Assessment & Plan - Diagnosis (1) Acute kidney injury Is this a current diagnosis for this admission?: Yes Plan: Resolved. (2) Alkalosis, metabolic Is this a current diagnosis for this admission?: Yes Plan: Secondary to respiratory: Will continue to monitor. (3) Diverticulitis Is this a current diagnosis for this admission?: Yes Plan: Pt will follow up with GI as outpatient for C-scopy. (4) Dysphagia Is this a current diagnosis for this admission?: Yes Plan: S/P EGD with dilation: Pt doing well. No issues. (5) Esophageal stricture Is this a current diagnosis for this admission?: Yes Plan: S/P EGD with dilation: Pt doing well. (6) Esophageal ulcer Qualifiers: Esophageal ulcer bleeding: without bleeding Qualified Code(s): K22.10 - Ulcer of esophagus without bleeding Is this a current diagnosis for this admission?: Yes Plan: Will continue PPI. (7) Hypokalemia Is this a current diagnosis for this admission?: Yes Plan: Will give Potassium replacement. (8) Hypomagnesemia Is this a current diagnosis for this admission?: Yes Plan: Will give magnesium replacement. Will check magnesium in am. (9) Morbid (severe) obesity due to excess calories Is this a current diagnosis for this admission?: Yes Plan: Encourage dietary changes. (10) LARRY (obstructive sleep apnea) Is this a current diagnosis for this admission?: Yes Plan: Will consult Pulmonary for recommendations for CPAP vs BIPAP. (11) Vomiting and diarrhea Is this a current diagnosis for this admission?: Yes Plan: Resolved. (12) Concern for Pneumonia Is this a current diagnosis for this admission?: Yes Plan: Augmentin PO (13) DVT prophylaxis Is this a current diagnosis for this admission?: Yes Plan: Lovenox. - Time Time Spent with patient: 15-24 minutes
[2018-01-02] MEDS ORDERED: POTASSIUM CHLORIDE 10 MEQ TABLET.SA PO ONE (21:00)
[2018-01-03] MEDS: SUCRALFATE SUSP 1 GM/10 ML UDCUP PO SCH ×3 (05:30→17:07)
[2018-01-03] MEDS: LANSOPRAZOLE 30 MG TAB.RAP.DR PO SCH ×2 (05:31→17:07)
[2018-01-03] MEDS: LEVOTHYROXINE SODIUM 0.15 MG TABLET PO SCH (05:31)
[2018-01-03] MEDS: AMOXICILLIN TR/POT CLAVULANATE 500-125 MG TAB PO SCH ×2 (05:31→13:16)
[2018-01-03 06:26] LABS: HEMATOCRIT 34.5 % (36.0-47.0); HEMOGLOBIN 11.4 g/dL (12.0-15.5); MEAN CORPUSCULAR HEMOGLOBIN 29.4 pg (27.0-33.4); MEAN CORPUSCULAR HGB CONC 32.9 g/dL (32.0-36.0); MEAN CORPUSCULAR VOLUME 90 fl (80-97); PLATELET COUNT 207 10^3/uL (150-450); RED BLOOD COUNT 3.86 10^6/uL (3.72-5.28); RED CELL DISTRIBUTION WIDTH 15.4 % (11.5-14.0); WHITE BLOOD COUNT 5.6 10^3/uL (4.0-10.5)
[2018-01-03 06:50] LABS: BLOOD UREA NITROGEN 16 mg/dL (7-20); CALCIUM 8.5 mg/dL (8.4-10.2); CHLORIDE 97 mmol/L (98-107); GLUCOSE 77 mg/dL (75-110)
[2018-01-03 06:56] LABS: CARBON DIOXIDE 39 mmol/L (22-30)
[2018-01-03 06:58] LABS: ANION GAP 1 (5-19)
[2018-01-03] MEDS: ENOXAPARIN SODIUM INJ 40 MG/0.4 ML DISP.SYRIN SUBCUT SCH (09:09)
[2018-01-03] MEDS: METOPROLOL SUCCINATE 50 MG TAB.SR.24H PO SCH (09:10)
[2018-01-03] MEDS: MAGNESIUM OXIDE 400 MG TABLET PO SCH ×2 (09:11→17:07)
[2018-01-03] MEDS: MULTIVITAMIN TABLET PO SCH (09:11)
[2018-01-03] MEDS: LACTOBACILLUS ACIDOPHILUS 250 MG TAB PO SCH ×2 (09:11→17:07)
[2018-01-03] MEDS: ASPIRIN 81 MG TABLET, ENT COATED PO SCH (09:12)
[2018-01-03] MEDS: ALLOPURINOL 100 MG TABLET PO SCH (09:12)
[2018-01-03] MEDS: CALCIUM CARBONATE 250 MG/VITAMIN D3 125 UNIT TABLET PO SCH ×2 (09:13→17:06)
--- NOTE | 2018-01-03 10:53 | PDOC DISCHARGE SUMMARY ---
General - Admit/Disc Date/PCP Admission Date/Primary Care Provider: 12/14/17 17:49 ILYA FULLER MD Discharge Date: 01/03/18 - Discharge Diagnosis (1) Acute kidney injury Is this a current diagnosis for this admission?: Yes Summary: Resolved. (2) Alkalosis, metabolic Is this a current diagnosis for this admission?: Yes Summary: Secondary to LARRY: Patient to use CPAP per pulmonary. CPAP setting of 8. Patient will need to follow-up with pulmonary in 1 week after discharge. (3) Diverticulitis Is this a current diagnosis for this admission?: Yes Summary: Patient will need to follow-up with GI in 4-6 weeks. (4) Esophageal stricture Is this a current diagnosis for this admission?: Yes (5) Dysphagia Is this a current diagnosis for this admission?: Yes Summary: Patient was found to have esophageal ulcer with stricture which required dilation. Patient's been on some Carafate and PPI. Patient will need a follow- up with GI. (6) Esophageal ulcer Is this a current diagnosis for this admission?: Yes Summary: Continue PPI and Sucralfate (7) Hypokalemia Is this a current diagnosis for this admission?: Yes Summary: Resolved (8) Hypomagnesemia Is this a current diagnosis for this admission?: Yes Summary: Continue replacement. (9) Morbid (severe) obesity due to excess calories Is this a current diagnosis for this admission?: Yes Summary: Encourage dietary changes. (10) LARRY (obstructive sleep apnea) Is this a current diagnosis for this admission?: Yes Summary: CPAP setting of 8. (11) Vomiting and diarrhea Is this a current diagnosis for this admission?: Yes Summary: Resolved. (12) Concern for Pneumonia Is this a current diagnosis for this admission?: Yes Summary: Pt will complete total of 7 days of Augmentin. - Additional Information Resuscitation Status: Full Code Discharge Diet: Cardiac Discharge Activity: Other - up with assistance. Prescriptions: Amox Tr/Potassium Clavulanate [Augmentin "500" Tablet] 1 tab PO Q8 5 Days #15 tablet Bisacodyl [Dulcolax 10 mg Supp.rect] 10 mg [place] DAILYP PRN #1 supp.rect PRN Reason: Home Medications: Allopurinol [Zyloprim 100 mg Tablet] 100 mg PO DAILY 12/15/17 Calcium Carbonate/Vitamin D3 [Calcium 600 + Vit D Tablet] 1 tab PO BID 12/15/17 Levothyroxine Sodium 150 mcg PO QAM 12/15/17 Multivitamin [Multiple Vitamins] 1 ea PO DAILY 12/15/17 Tad-3 Acid Ethyl Esters [Lovaza 1 gm Capsule] 4 gm PO DAILY 12/15/17 Umeclidinium Brm/Vilanterol Tr [Anoro Ellipta 62.5-25 Mcg INH] 1 puff IH DAILY 12/15/17 Amox Tr/Potassium Clavulanate [Augmentin "500" Tablet] 1 tab PO Q8 5 Days #15 tablet 01/03/18 Aspirin [Ecotrin 81 mg EC Tablet] 81 mg PO DAILY tabec 01/03/18 Bisacodyl [Dulcolax 10 mg Supp.rect] 10 mg [place] DAILYP PRN #1 supp.rect 01/03/18 Bisacodyl [Dulcolax 5 mg Tablet] 10 mg PO DAILYP PRN tabec 01/03/18 Ipratropium/Albuterol Sulfate [Duoneb 3 ml Ampul] 3 ml NEB RTQ4HP PRN vial.neb 01/03/18 Lansoprazole [Prevacid 30 mg Odt Tablet] 30 mg PO BID@0600,1700 tab.rap.dr Levothyroxine Sodium [Synthroid 0.15 mg Tablet] 0.15 mg PO Q6AM tablet Magnesium Oxide [Mag-Ox 400 mg Tablet] 400 mg PO BID tablet 01/03/18 Metoprolol Succinate [Toprol Xl 50 mg Tab.sr] 100 mg PO DAILY tab.sr.24h Promethazine HCl [Phenergan Inj 25 mg/1 ml Vial] 12.5 mg IV Q4HP PRN vial 01/03 Sucralfate [Carafate Susp 1 gm/10 ml Udcup] 1 gm PO Q6 udc 01/03/18 History of Present Illness Patient complains of: Vomiting and diarrhea History of Present Illness: MICHAEL IVEY is a 72 year old female presented to hospital with complaint of vomiting and diarrhea. Hospital Course Hospital Course: Patient is a 72-year-old female that was admitted to facility for vomiting and diarrhea. She has had a very extended stay however the following did occur. Patient was seen by GI where she underwent EGD which demonstrated evidence of esophageal ulcer as well as esophageal stricture. Patient underwent dilation of esophageal stricture. Patient was also placed on PPI and sucralfate. Patient reported that she used a CPAP machine at home that was 20 years old. Pulmonary was asked to evaluate patient and patient was placed on new setting of CPAP of 8. Patient will need a follow-up with pulmonary as outpatient. Patient was noted to have electrolyte abnormalities which were corrected. Patient was also noted to have acute renal injury during hospital stay which has resolved. Patient was noted to have a tachyarrhythmia and therefore was placed on Toprol. Patient's heart rate has been under good control. Due to patient being on high-dose metoprolol patient's blood pressure has been on the lower side and therefore not able to tolerate ROBERT. This may need to be reevaluated as outpatient. Patient noted to suffer from debility and not able to go home due to weakness and therefore patient is being transferred to rehab facility. Patient was found on CT to have evidence of possible diverticulitis. GI recommended that patient be arranged for outpatient follow-up in 4-6 weeks for colonoscopy. Patient's daughter has been at bedside almost every day and has been very active in her mother's care. Physical Exam Vital Signs: Temp Pulse Resp BP Pulse Ox 97.5 F 66 18 94/52 L 96 01/03/18 08:08 01/03/18 08:08 01/03/18 08:08 01/03/18 08:08 01/03/18 08:08 Pulse Oximeter Nocturnal Start: 12/31/17 17: 21 Freq: RTQ4 Status: Complete Document 01/01/18 06:09 [facility] (Rec: 01/01/18 06:09 EA [email or web address]) Nocturnal Pulse Oximetry Equipment Usage Equipment Discontinued Oxygen Delivery Method (includes room Nasal Cannula air) O2 Sat by Pulse Oximetry (92-100) 96 Continuous Pulse Oximeter Set Up No Continuous SpO2 Discontinued Yes Continuous SpO2 Machine # 7 Intake & Output 01/02/18 01/03/18 01/04/18 06:59 06:59 06:59 Intake Total 632 786 Balance 632 786 Weight 122.6 kg 121.3 kg General appearance: PRESENT: no acute distress, morbidly obese, well-developed, well-nourished Head exam: PRESENT: atraumatic, normocephalic Eye exam: PRESENT: conjunctiva pink, EOMI. ABSENT: scleral icterus Ear exam: PRESENT: normal external ear exam Mouth exam: PRESENT: moist, tongue midline Neck exam: ABSENT: carotid bruit, JVD, lymphadenopathy, thyromegaly Respiratory exam: PRESENT: decreased breath sounds, other - No wheezes, rhonchi , or prolonged expiratory phase present Cardiovascular exam: PRESENT: RRR. ABSENT: diastolic murmur, rubs, systolic murmur Pulses: PRESENT: normal dorsalis pedis pul Vascular exam: PRESENT: normal capillary refill GI/Abdominal exam: PRESENT: normal bowel sounds, soft. ABSENT: distended, guarding, mass, organolmegaly, rebound, tenderness Rectal exam: PRESENT: deferred Extremities exam: PRESENT: full ROM. ABSENT: calf tenderness, clubbing, pedal edema Musculoskeletal exam: PRESENT: full ROM Neurological exam: PRESENT: alert, awake, oriented to person, oriented to place , oriented to time, oriented to situation, CN II-XII grossly intact. ABSENT: motor sensory deficit Psychiatric exam: PRESENT: appropriate affect, normal mood. ABSENT: homicidal ideation, suicidal ideation Skin exam: PRESENT: dry, intact, warm. ABSENT: cyanosis, rash Results Laboratory Results: 01/03/18 05:18 01/03/18 05:18 01/03/18 01/03/18 05:18 05:18 WBC 5.6 RBC 3.86 Hgb 11.4 L Hct 34.5 L MCV 90 MCH 29.4 MCHC 32.9 RDW 15.4 H Plt Count 207 Sodium 137.0 Potassium 4.0 Chloride 97 L Carbon Dioxide 39 H Anion Gap 1 L BUN 16 Creatinine 0.68 Est GFR ( Amer) > 60 Est GFR (Non-Af Amer) > 60 Glucose 77 Calcium 8.5 12/14/17 12/14/17 12/15/17 22:00 22:00 03:48 Creatine Kinase 709 H 781 H CK-MB (CK-2) 48.40 H Troponin I 0.088 NT-Pro-B Natriuret Pep 12/15/17 12/15/17 12/15/17 03:48 10:11 10:11 Creatine Kinase 582 H CK-MB (CK-2) 53.10 H 52.20 H Troponin I 0.068 0.060 NT-Pro-B Natriuret Pep 12/15/17 12/15/17 12/18/17 15:35 15:35 13:46 Creatine Kinase 431 H 37 CK-MB (CK-2) 33.50 H Troponin I 0.046 NT-Pro-B Natriuret Pep 12/18/17 12/18/17 12/18/17 13:46 18:24 18:26 Creatine Kinase CK-MB (CK-2) 2.88 Troponin I < 0.012 0.015 NT-Pro-B Natriuret Pep 2370 H 12/25/17 04:46 Creatine Kinase CK-MB (CK-2) Troponin I NT-Pro-B Natriuret Pep 1570 H Impressions: Renal Ultrasound 12/14/17 00:00 IMPRESSION: Nondiagnostic exam. KUB X-Ray 12/14/17 15:36 IMPRESSION: Previously stool filled loops of colon appear gas-filled on today' s examination. Abdomen/Pelvis CT 12/14/17 16:27 IMPRESSION: Relative to CT imaging performed 12/29/2017 which demonstrated constipation, today's imaging demonstrates fluid throughout prominent loops of large and small bowel. Some subtle pericolic mesenteric fat stranding involving the proximal sigmoid colon may indicate an early uncomplicated diverticulitis. Additionally, there appears to be a small bowel to small bowel adhesion without evidence of obstruction. Given the rather featureless appearance of the colon, recommend correlation for chronic laxative use. Esophagus X-Ray 12/20/17 00:00 IMPRESSION: 1. SHORT SEGMENT DISTAL ESOPHAGEAL STRICTURE WITH IRREGULAR MUCOSA CAUSING SIGNIFICANT DELAY IN THE PASSAGE OF A BARIUM TABLET. NO SIGNIFICANT DELAY IN THE PASSAGE OF CONTRAST. MALIGNANCY CANNOT BE EXCLUDED FROM THE STUDY HOWEVER, RECENT UPPER ENDOSCOPY SUGGEST THIS IS ULCERATIVE IN NATURE. 2. SMALL SLIDING HIATAL HERNIA. Chest/Abdomen CTA 12/24/17 00:00 IMPRESSION: 1. NORMAL CTA OF THE CHEST. NO PULMONARY EMBOLI. 2. NO PNEUMOMEDIASTINUM OR PNEUMOTHORAX. 3. SMALL BILATERAL PLEURAL EFFUSIONS WITH BASILAR DENSITIES, PROBABLY ATELECTASIS. 4. SMALL AMOUNT OF FREE FLUID IN THE UPPER ABDOMEN. Chest X-Ray 01/01/18 06:00 IMPRESSION: Dense consolidation left lower lobe, worrisome for pneumonia. This is increased compared to previous studies Qualifiers - * PATEINT BEING DISCHARGED WITH ANY OF THE FOLLOWING DIAGNOSIS?: No Plan Time Spent: Greater than 30 Minutes
[2018-01-03 15:28] VITALS: BP 110/65
--- NOTE | 2018-01-05 17:18 | PDOC CONSULTATION ---
Consultation Consult Date: 12/31/17 Attending physician:: CAMILLA HERNDON Consult reason:: [id number] History of Present Illness Admission Date/PCP: 12/14/17 17:49 ILYA FULLER MD History of Present Illness: MICHAEL IVEY is a 72 year old female presented to hospital with complaint of vomiting and diarrhea. Past Medical History Cardiac Medical History: Reports: Hypertension Pulmonary Medical History: Reports: None EENT Medical History: Reports: None Neurological Medical History: Reports: None Denies: Seizures Endocrine Medical History: Reports: Obesity Malignancy Medical History: Reports: None GI Medical History: Reports: Other - Per HPI Musculoskeltal Medical History: Reports: Gout Skin Medical History: Reports: None Psychiatric Medical History: Reports: None Traumatic Medical History: Reports: None Hematology: Reports: None Infectious Medical History: Reports: None Past Surgical History Past Surgical History: Reports: Cholecystectomy, Hysterectomy, Other - Lysis of adhesions post hysterectomy Social History Lives with: Alone Smoking Status: Former Smoker Cigarettes Packs Per Day: 1 Number of Years Smokin Last Time Smoked: 1 year ago Frequency of Alcohol Use: None Hx Recreational Drug Use: No Drugs: None - Advance Directive Resuscitation Status: Full Code Family History Family History: Other - Mother had a stroke, she does not know her father's medical history, sister had cancer of unknown type, 1 of her daughters has hypothyroidism and one of her sons has gout Parental Family History Reviewed: No Children Family History Reviewed: No Sibling(s) Family History Reviewed.: No Medication/Allergy Home Medications: Allopurinol [Zyloprim 100 mg Tablet] 100 mg PO DAILY 12/15/17 Calcium Carbonate/Vitamin D3 [Calcium 600 + Vit D Tablet] 1 tab PO BID 12/15/17 Levothyroxine Sodium 150 mcg PO QAM 12/15/17 Multivitamin [Multiple Vitamins] 1 ea PO DAILY 12/15/17 [place]-3 Acid Ethyl Esters [Lovaza 1 gm Capsule] 4 gm PO DAILY 12/15/17 Umeclidinium Brm/Vilanterol Tr [Anoro Ellipta 62.5-25 Mcg INH] 1 puff IH DAILY 12/15/17 Amox Tr/Potassium Clavulanate [Augmentin "500" Tablet] 1 tab PO Q8 5 Days #15 tablet 01/03/18 Aspirin [Ecotrin 81 mg EC Tablet] 81 mg PO DAILY tabec 01/03/18 Bisacodyl [Dulcolax 10 mg Supp.rect] 10 mg [place] DAILYP PRN #1 supp.rect 01/03/18 Bisacodyl [Dulcolax 5 mg Tablet] 10 mg PO DAILYP PRN tabec 01/03/18 Ipratropium/Albuterol Sulfate [Duoneb 3 ml Ampul] 3 ml NEB RTQ4HP PRN vial.neb 01/03/18 Lansoprazole [Prevacid 30 mg Odt Tablet] 30 mg PO BID@0600,1700 tab.rap.dr Levothyroxine Sodium [Synthroid 0.15 mg Tablet] 0.15 mg PO Q6AM tablet Magnesium Oxide [Mag-Ox 400 mg Tablet] 400 mg PO BID tablet 01/03/18 Metoprolol Succinate [Toprol Xl 50 mg Tab.sr] 100 mg PO DAILY tab.sr.24h Promethazine HCl [Phenergan Inj 25 mg/1 ml Vial] 12.5 mg IV Q4HP PRN vial 01/03 Sucralfate [Carafate Susp 1 gm/10 ml Udcup] 1 gm PO Q6 udc 01/03/18 Allergies/Adverse Reactions: No Known Allergies Allergy (Verified 12/14/17 15:08) Review of Systems Constitutional: ABSENT: chills, headache(s), night sweats Eyes: ABSENT: visual disturbances Ears: ABSENT: hearing changes Nose, Mouth, and Throat: ABSENT: mouth pain, sore throat Cardiovascular: ABSENT: palpitations Respiratory: ABSENT: cough, hemoptysis Gastrointestinal: ABSENT: abdominal pain, bloating, coffee ground emesis, dysphagia, heartburn, hematemesis, hematochezia Genitourinary: ABSENT: dysuria, hematuria Musculoskeletal: ABSENT: deformity, joint swelling Integumentary: ABSENT: pruritus, rash Neurological: ABSENT: abnormal gait, abnormal movements, abnormal speech, confusion, focal weakness, frequent falls, lack of coordination, memory loss Endocrine: ABSENT: cold intolerance, heat intolerance, menstrual abnormalities Hematologic/Lymphatic: ABSENT: easy bruising Physical Exam Vital Signs: Temp Pulse Resp BP Pulse Ox 97.9 F 72 16 122/55 L 94 01/02/18 07:50 01/02/18 07:50 01/02/18 07:50 01/02/18 07:50 01/02/18 07:50 Pulse Oximeter Nocturnal Start: 12/31/17 17: 21 Freq: RTQ4 Status: Complete Document 01/01/18 06:09 [facility] (Rec: 01/01/18 06:09 EAL [email or web address]) Nocturnal Pulse Oximetry Equipment Usage Equipment Discontinued Oxygen Delivery Method (includes room Nasal Cannula air) O2 Sat by Pulse Oximetry (92-100) 96 Continuous Pulse Oximeter Set Up No Continuous SpO2 Discontinued Yes Continuous SpO2 Machine # 7 Intake & Output 01/01/18 01/02/18 01/03/18 06:59 06:59 06:59 Intake Total 196 632 Balance 196 632 Weight 120.8 kg 122.6 kg General appearance: PRESENT: no acute distress, cooperative, disheveled, morbidly obese, well-developed Head exam: PRESENT: atraumatic, normocephalic Eye exam: PRESENT: conjunctiva pale, EOMI. ABSENT: nystagmus, periorbital swelling, scleral icterus Mouth exam: PRESENT: moist, neck supple, tongue midline Neck exam: ABSENT: carotid bruit, JVD, lymphadenopathy, thyromegaly, tracheal deviation, tracheostomy Respiratory exam: PRESENT: decreased breath sounds, prolonged expiratory phas, rales, rhonchi, symmetrical, unlabored, wheezes. ABSENT: retraction, stridor, tachypnea Cardiovascular exam: PRESENT: RRR, +S1, +S2 Pulses: PRESENT: normal radial pulses GI/Abdominal exam: PRESENT: diminished bowel sounds, soft Extremities exam: ABSENT: clubbing, joint swelling Musculoskeletal exam: ABSENT: deformity, dislocation Neurological exam: PRESENT: alert, awake Psychiatric exam: PRESENT: normal mood Skin exam: PRESENT: dry, warm Results Laboratory Results: 01/02/18 04:46 01/02/18 04:46 01/02/18 01/02/18 01/02/18 04:46 04:46 04:46 WBC 7.9 RBC 3.86 Hgb 11.4 L Hct 34.5 L MCV 90 MCH 29.5 MCHC 33.0 RDW 15.6 H Plt Count 187 Seg Neutrophils % 71.0 Lymphocytes % 20.9 Monocytes % 6.9 Eosinophils % 0.8 Basophils % 0.4 Absolute Neutrophils 5.6 Absolute Lymphocytes 1.7 Absolute Monocytes 0.5 Absolute Eosinophils 0.1 Absolute Basophils 0.0 Sodium Cancelled 137.0 Potassium Cancelled 3.5 L Chloride Cancelled 100 Carbon Dioxide Cancelled 36 H Anion Gap Cancelled 1 L BUN Cancelled 18 Creatinine Cancelled 0.76 Est GFR ( Amer) Cancelled > 60 Est GFR (Non-Af Amer) Cancelled > 60 Glucose Cancelled 74 L Calcium Cancelled 8.3 L Magnesium 1.9 Total Bilirubin 0.2 AST 15 ALT 28 Alkaline Phosphatase 57 Total Protein 4.6 L Albumin 2.2 L 12/14/17 12/14/17 12/15/17 22:00 22:00 03:48 Creatine Kinase 709 H 781 H CK-MB (CK-2) 48.40 H Troponin I 0.088 NT-Pro-B Natriuret Pep 12/15/17 12/15/17 12/15/17 03:48 10:11 10:11 Creatine Kinase 582 H CK-MB (CK-2) 53.10 H 52.20 H Troponin I 0.068 0.060 NT-Pro-B Natriuret Pep 12/15/17 12/15/17 12/18/17 15:35 15:35 13:46 Creatine Kinase 431 H 37 CK-MB (CK-2) 33.50 H Troponin I 0.046 NT-Pro-B Natriuret Pep 12/18/17 12/18/17 12/18/17 13:46 18:24 18:26 Creatine Kinase CK-MB (CK-2) 2.88 Troponin I < 0.012 0.015 NT-Pro-B Natriuret Pep 2370 H 12/25/17 04:46 Creatine Kinase CK-MB (CK-2) Troponin I NT-Pro-B Natriuret Pep 1570 H Impressions: Renal Ultrasound 12/14/17 00:00 IMPRESSION: Nondiagnostic exam. KUB X-Ray 12/14/17 15:36 IMPRESSION: Previously stool filled loops of colon appear gas-filled on today' s examination. Abdomen/Pelvis CT 12/14/17 16:27 IMPRESSION: Relative to CT imaging performed 12/29/2017 which demonstrated constipation, today's imaging demonstrates fluid throughout prominent loops of large and small bowel. Some subtle pericolic mesenteric fat stranding involving the proximal sigmoid colon may indicate an early uncomplicated diverticulitis. Additionally, there appears to be a small bowel to small bowel adhesion without evidence of obstruction. Given the rather featureless appearance of the colon, recommend correlation for chronic laxative use. Esophagus X-Ray 12/20/17 00:00 IMPRESSION: 1. SHORT SEGMENT DISTAL ESOPHAGEAL STRICTURE WITH IRREGULAR MUCOSA CAUSING SIGNIFICANT DELAY IN THE PASSAGE OF A BARIUM TABLET. NO SIGNIFICANT DELAY IN THE PASSAGE OF CONTRAST. MALIGNANCY CANNOT BE EXCLUDED FROM THE STUDY HOWEVER, RECENT UPPER ENDOSCOPY SUGGEST THIS IS ULCERATIVE IN NATURE. 2. SMALL SLIDING HIATAL HERNIA. Chest/Abdomen CTA 12/24/17 00:00 IMPRESSION: 1. NORMAL CTA OF THE CHEST. NO PULMONARY EMBOLI. 2. NO PNEUMOMEDIASTINUM OR PNEUMOTHORAX. 3. SMALL BILATERAL PLEURAL EFFUSIONS WITH BASILAR DENSITIES, PROBABLY ATELECTASIS. 4. SMALL AMOUNT OF FREE FLUID IN THE UPPER ABDOMEN. Chest X-Ray 01/01/18 06:00 IMPRESSION: Dense consolidation left lower lobe, worrisome for pneumonia. This is increased compared to previous studies Assessment & Plan - Diagnosis (1) COPD (chronic obstructive pulmonary disease) Qualifiers: COPD type: unspecified COPD Qualified Code(s): J44.9 - Chronic obstructive pulmonary disease, unspecified Is this a current diagnosis for this admission?: Yes Plan: LABA/LAMA /ICCS (2) Esophageal stricture Is this a current diagnosis for this admission?: Yes Plan: MAY MOOKIE ADDITION DIALATION (3) Hypertension Qualifiers: Hypertension type: essential hypertension Qualified Code(s): I10 - Essential (primary) hypertension Is this a current diagnosis for this admission?: Yes (4) LARRY (obstructive sleep apnea) Is this a current diagnosis for this admission?: Yes Plan: MAY NEED RETITRATION STUDY
--- NOTE | 2018-01-05 17:21 | PDOC PROGRESS REPORT ---
Subjective Progress Note for:: 01/01/18 Subjective:: BETTER STILL SHORT WINDED Reason For Visit: ROSA,DEHYDRATION,INTRACTABLE NAUSEA,VOMITING Physical Exam Vital Signs: Temp Pulse Resp BP Pulse Ox 97.9 F 72 16 122/55 L 94 01/02/18 07:50 01/02/18 07:50 01/02/18 07:50 01/02/18 07:50 01/02/18 07:50 Pulse Oximeter Nocturnal Start: 12/31/17 17: 21 Freq: RTQ4 Status: Complete Document 01/01/18 06:09 EAL (Rec: 01/01/18 06:09 EAL [email or web address]) Nocturnal Pulse Oximetry Equipment Usage Equipment Discontinued Oxygen Delivery Method (includes room Nasal Cannula air) O2 Sat by Pulse Oximetry (92-100) 96 Continuous Pulse Oximeter Set Up No Continuous SpO2 Discontinued Yes Continuous SpO2 Machine # 7 Intake & Output 01/01/18 01/02/18 01/03/18 06:59 06:59 06:59 Intake Total 196 632 Balance 196 632 Weight 120.8 kg 122.6 kg General appearance: PRESENT: no acute distress, cooperative, disheveled, morbidly obese Head exam: PRESENT: atraumatic, normocephalic Eye exam: PRESENT: conjunctiva pale, EOMI. ABSENT: nystagmus, periorbital swelling, scleral icterus Mouth exam: PRESENT: dry mucosa, neck supple, tongue midline Neck exam: ABSENT: carotid bruit, JVD, lymphadenopathy, thyromegaly, tracheal deviation, tracheostomy Respiratory exam: PRESENT: decreased breath sounds, prolonged expiratory phas, rhonchi, symmetrical, unlabored. ABSENT: retraction, stridor, tachypnea Cardiovascular exam: PRESENT: RRR, +S1, +S2 Pulses: PRESENT: normal radial pulses GI/Abdominal exam: PRESENT: diminished bowel sounds, soft Extremities exam: ABSENT: clubbing, joint swelling Musculoskeletal exam: ABSENT: deformity, dislocation Neurological exam: PRESENT: alert, awake Psychiatric exam: PRESENT: normal mood Skin exam: PRESENT: dry, warm Results Laboratory Results: 01/02/18 04:46 01/02/18 04:46 01/02/18 01/02/18 01/02/18 04:46 04:46 04:46 WBC 7.9 RBC 3.86 Hgb 11.4 L Hct 34.5 L MCV 90 MCH 29.5 MCHC 33.0 RDW 15.6 H Plt Count 187 Seg Neutrophils % 71.0 Lymphocytes % 20.9 Monocytes % 6.9 Eosinophils % 0.8 Basophils % 0.4 Absolute Neutrophils 5.6 Absolute Lymphocytes 1.7 Absolute Monocytes 0.5 Absolute Eosinophils 0.1 Absolute Basophils 0.0 Sodium Cancelled 137.0 Potassium Cancelled 3.5 L Chloride Cancelled 100 Carbon Dioxide Cancelled 36 H Anion Gap Cancelled 1 L BUN Cancelled 18 Creatinine Cancelled 0.76 Est GFR ( Amer) Cancelled > 60 Est GFR (Non-Af Amer) Cancelled > 60 Glucose Cancelled 74 L Calcium Cancelled 8.3 L Magnesium 1.9 Total Bilirubin 0.2 AST 15 ALT 28 Alkaline Phosphatase 57 Total Protein 4.6 L Albumin 2.2 L 12/14/17 12/14/17 12/15/17 22:00 22:00 03:48 Creatine Kinase 709 H 781 H CK-MB (CK-2) 48.40 H Troponin I 0.088 NT-Pro-B Natriuret Pep 12/15/17 12/15/17 12/15/17 03:48 10:11 10:11 Creatine Kinase 582 H CK-MB (CK-2) 53.10 H 52.20 H Troponin I 0.068 0.060 NT-Pro-B Natriuret Pep 12/15/17 12/15/17 12/18/17 15:35 15:35 13:46 Creatine Kinase 431 H 37 CK-MB (CK-2) 33.50 H Troponin I 0.046 NT-Pro-B Natriuret Pep 12/18/17 12/18/17 12/18/17 13:46 18:24 18:26 Creatine Kinase CK-MB (CK-2) 2.88 Troponin I < 0.012 0.015 NT-Pro-B Natriuret Pep 2370 H 12/25/17 04:46 Creatine Kinase CK-MB (CK-2) Troponin I NT-Pro-B Natriuret Pep 1570 H Impressions: Renal Ultrasound 12/14/17 00:00 IMPRESSION: Nondiagnostic exam. KUB X-Ray 12/14/17 15:36 IMPRESSION: Previously stool filled loops of colon appear gas-filled on today' s examination. Abdomen/Pelvis CT 12/14/17 16:27 IMPRESSION: Relative to CT imaging performed 12/29/2017 which demonstrated constipation, today's imaging demonstrates fluid throughout prominent loops of large and small bowel. Some subtle pericolic mesenteric fat stranding involving the proximal sigmoid colon may indicate an early uncomplicated diverticulitis. Additionally, there appears to be a small bowel to small bowel adhesion without evidence of obstruction. Given the rather featureless appearance of the colon, recommend correlation for chronic laxative use. Esophagus X-Ray 12/20/17 00:00 IMPRESSION: 1. SHORT SEGMENT DISTAL ESOPHAGEAL STRICTURE WITH IRREGULAR MUCOSA CAUSING SIGNIFICANT DELAY IN THE PASSAGE OF A BARIUM TABLET. NO SIGNIFICANT DELAY IN THE PASSAGE OF CONTRAST. MALIGNANCY CANNOT BE EXCLUDED FROM THE STUDY HOWEVER, RECENT UPPER ENDOSCOPY SUGGEST THIS IS ULCERATIVE IN NATURE. 2. SMALL SLIDING HIATAL HERNIA. Chest/Abdomen CTA 12/24/17 00:00 IMPRESSION: 1. NORMAL CTA OF THE CHEST. NO PULMONARY EMBOLI. 2. NO PNEUMOMEDIASTINUM OR PNEUMOTHORAX. 3. SMALL BILATERAL PLEURAL EFFUSIONS WITH BASILAR DENSITIES, PROBABLY ATELECTASIS. 4. SMALL AMOUNT OF FREE FLUID IN THE UPPER ABDOMEN. Chest X-Ray 01/01/18 06:00 IMPRESSION: Dense consolidation left lower lobe, worrisome for pneumonia. This is increased compared to previous studies Assessment & Plan - Diagnosis (1) COPD (chronic obstructive pulmonary disease) Qualifiers: COPD type: unspecified COPD Qualified Code(s): J44.9 - Chronic obstructive pulmonary disease, unspecified Is this a current diagnosis for this admission?: Yes Plan: LABA/LAMA /ICCS (2) Esophageal stricture Is this a current diagnosis for this admission?: Yes Plan: [facility] ADDITION DIALATION (3) Hypertension Qualifiers: Hypertension type: essential hypertension Qualified Code(s): I10 - Essential (primary) hypertension Is this a current diagnosis for this admission?: Yes Plan: STABLE
--- NOTE | 2018-01-05 17:25 | PDOC PROGRESS REPORT ---
Subjective Progress Note for:: 01/03/18 Subjective:: BETTER STILL SHORT WINDED Reason For Visit: ROSA,DEHYDRATION,INTRACTABLE NAUSEA,VOMITING Physical Exam Vital Signs: Temp Pulse Resp BP Pulse Ox 97.7 F 64 16 110/65 96 01/03/18 15:25 01/03/18 15:25 01/03/18 15:25 01/03/18 15:25 01/03/18 15:25 Pulse Oximeter Nocturnal Start: 12/31/17 17: 21 Freq: RTQ4 Status: Complete Document 01/01/18 06:09 EAL (Rec: 01/01/18 06:09 EAL [email or web address]) Nocturnal Pulse Oximetry Equipment Usage Equipment Discontinued Oxygen Delivery Method (includes room Nasal Cannula air) O2 Sat by Pulse Oximetry (92-100) 96 Continuous Pulse Oximeter Set Up No Continuous SpO2 Discontinued Yes Continuous SpO2 Machine # 7 Intake & Output 01/04/18 01/05/18 01/06/18 06:59 06:59 06:59 Intake Total 555 Balance 555 General appearance: PRESENT: no acute distress, cooperative, disheveled, morbidly obese Head exam: PRESENT: atraumatic, normocephalic Eye exam: PRESENT: conjunctiva pale, EOMI. ABSENT: nystagmus, periorbital swelling, scleral icterus Mouth exam: PRESENT: dry mucosa, neck supple, tongue midline Neck exam: ABSENT: carotid bruit, JVD, lymphadenopathy, thyromegaly, tracheal deviation, tracheostomy Respiratory exam: PRESENT: decreased breath sounds, prolonged expiratory phas, rales, rhonchi, symmetrical, unlabored, wheezes. ABSENT: retraction, stridor, tachypnea Cardiovascular exam: PRESENT: RRR, +S1, +S2 Pulses: PRESENT: normal radial pulses GI/Abdominal exam: PRESENT: diminished bowel sounds, soft Extremities exam: ABSENT: clubbing, joint swelling Musculoskeletal exam: ABSENT: deformity, dislocation Neurological exam: PRESENT: alert, awake Psychiatric exam: PRESENT: normal mood Skin exam: PRESENT: dry, warm Results Laboratory Results: 01/03/18 05:18 01/03/18 05:18 12/14/17 12/14/17 12/15/17 22:00 22:00 03:48 Creatine Kinase 709 H 781 H CK-MB (CK-2) 48.40 H Troponin I 0.088 NT-Pro-B Natriuret Pep 12/15/17 12/15/17 12/15/17 03:48 10:11 10:11 Creatine Kinase 582 H CK-MB (CK-2) 53.10 H 52.20 H Troponin I 0.068 0.060 NT-Pro-B Natriuret Pep 12/15/17 12/15/17 12/18/17 15:35 15:35 13:46 Creatine Kinase 431 H 37 CK-MB (CK-2) 33.50 H Troponin I 0.046 NT-Pro-B Natriuret Pep 12/18/17 12/18/17 12/18/17 13:46 18:24 18:26 Creatine Kinase CK-MB (CK-2) 2.88 Troponin I < 0.012 0.015 NT-Pro-B Natriuret Pep 2370 H 12/25/17 04:46 Creatine Kinase CK-MB (CK-2) Troponin I NT-Pro-B Natriuret Pep 1570 H Impressions: Renal Ultrasound 12/14/17 00:00 IMPRESSION: Nondiagnostic exam. KUB X-Ray 12/14/17 15:36 IMPRESSION: Previously stool filled loops of colon appear gas-filled on today' s examination. Abdomen/Pelvis CT 12/14/17 16:27 IMPRESSION: Relative to CT imaging performed 12/29/2017 which demonstrated constipation, today's imaging demonstrates fluid throughout prominent loops of large and small bowel. Some subtle pericolic mesenteric fat stranding involving the proximal sigmoid colon may indicate an early uncomplicated diverticulitis. Additionally, there appears to be a small bowel to small bowel adhesion without evidence of obstruction. Given the rather featureless appearance of the colon, recommend correlation for chronic laxative use. Esophagus X-Ray 12/20/17 00:00 IMPRESSION: 1. SHORT SEGMENT DISTAL ESOPHAGEAL STRICTURE WITH IRREGULAR MUCOSA CAUSING SIGNIFICANT DELAY IN THE PASSAGE OF A BARIUM TABLET. NO SIGNIFICANT DELAY IN THE PASSAGE OF CONTRAST. MALIGNANCY CANNOT BE EXCLUDED FROM THE STUDY HOWEVER, RECENT UPPER ENDOSCOPY SUGGEST THIS IS ULCERATIVE IN NATURE. 2. SMALL SLIDING HIATAL HERNIA. Chest/Abdomen CTA 12/24/17 00:00 IMPRESSION: 1. NORMAL CTA OF THE CHEST. NO PULMONARY EMBOLI. 2. NO PNEUMOMEDIASTINUM OR PNEUMOTHORAX. 3. SMALL BILATERAL PLEURAL EFFUSIONS WITH BASILAR DENSITIES, PROBABLY ATELECTASIS. 4. SMALL AMOUNT OF FREE FLUID IN THE UPPER ABDOMEN. Chest X-Ray 01/01/18 06:00 IMPRESSION: Dense consolidation left lower lobe, worrisome for pneumonia. This is increased compared to previous studies Assessment & Plan - Diagnosis (1) COPD (chronic obstructive pulmonary disease) Qualifiers: COPD type: unspecified COPD Qualified Code(s): J44.9 - Chronic obstructive pulmonary disease, unspecified Is this a current diagnosis for this admission?: Yes Plan: LABA/LAMA /ICCS (2) Hypertension Qualifiers: Hypertension type: essential hypertension Qualified Code(s): I10 - Essential (primary) hypertension Is this a current diagnosis for this admission?: Yes Plan: STABLE
== END 2018-01-03 18:33 | DRG 682 ==
LOC: ER 15:04 → EH 17:49 → 3W 12-15 02:39
PROVIDERS: ADMIT Internal Medicine; ATTEND Internal Medicine
PROC: 5A09557 Assistance with Respiratory Ventilation, Greater than 96 Consecutive Hours, Continuous Positive Airway Pressure (ICD-10-PCS; 2017-12-14)
PROC: 0DB58ZX Excision of Esophagus, Via Natural or Artificial Opening Endoscopic, Diagnostic (ICD-10-PCS; 2017-12-18)
PROC: 0D758ZZ Dilation of Esophagus, Via Natural or Artificial Opening Endoscopic (ICD-10-PCS; principal; 2017-12-18 11:30)
PROC: 0DB58ZX Excision of Esophagus, Via Natural or Artificial Opening Endoscopic, Diagnostic (ICD-10-PCS; 2017-12-25)
DX: N17.9 Acute kidney failure, unspecified (principal); J18.9 Pneumonia, unspecified organism; E87.0 Hyperosmolality and hypernatremia; I11.0 Hypertensive heart disease with heart failure; E87.2 Acidosis; K22.10 Ulcer of esophagus without bleeding; I50.32 Chronic diastolic (congestive) heart failure; E83.42 Hypomagnesemia; I48.0 Paroxysmal atrial fibrillation; E66.01 Morbid (severe) obesity due to excess calories; K57.32 Diverticulitis of large intestine without perforation or abscess without bleeding; K22.2 Esophageal obstruction; E86.0 Dehydration; E87.6 Hypokalemia; K44.9 Diaphragmatic hernia without obstruction or gangrene; K29.70 Gastritis, unspecified, without bleeding; K21.9 Gastro-esophageal reflux disease without esophagitis; J44.9 Chronic obstructive pulmonary disease, unspecified; K59.00 Constipation, unspecified; M10.9 Gout, unspecified; G47.33 Obstructive sleep apnea (adult) (pediatric); R00.0 Tachycardia, unspecified; R13.10 Dysphagia, unspecified; R19.5 Other fecal abnormalities; Z90.710 Acquired absence of both cervix and uterus; Z90.49 Acquired absence of other specified parts of digestive tract; Z87.891 Personal history of nicotine dependence; Z82.3 Family history of stroke; Z80.9 Family history of malignant neoplasm, unspecified; Z79.899 Other long term (current) drug therapy; Z68.38 Body mass index [BMI] 38.0-38.9, adult; Z79.82 Long term (current) use of aspirin
CPT/HCPCS: 00731; 36415; 43239; 71045; 71275; 74018; 74176; 74220; 76775; 80048; 80053; 81001; 82272; 82550; 82553; 82803; 83605; 83690; 83735; 83880; 84100; 84439; 84443; 84481; 84484; 85025; 85027; 85610; 85730; 87040; 87045; 87086; 87205; 87493; 88305; 88312; 88342; 89055; 93005; 93010; 93306; 94060; 94660; 94762; 94799; 96361; 96365; 96368; 96375; 99291; J0171; J1200; J1610; J1630; J1644; J1650; J1940; J2060; J2250; J2310; J2405; J2543; J2550; J2704; J3010; J3370; J3475; J3480; J3490; J7030; J7060; J7120; J7620; S0164

== ENCOUNTER 2018-01-29 02:45 | Inpatient (IN) | payer MEDICARE, BC ==
[2018-01-29] MEDS ORDERED: ONDANSETRON HCL INJ/PF 4 MG/2 ML SDV IV ONE ×2 (03:18→06:28)
--- NOTE | 2018-01-29 03:18 | ER Document Report ---
ED General - General Chief Complaint: Abdominal Pain Stated Complaint: ABDOMINAL PAIN Time Seen by Provider: 01/29/18 02:56 Notes: Patient is a 72-year-old female presents emergency department from her rehab facility with a chief complaint of lower abdominal pain that started approximately 11 this after noon. She admits to nausea and vomiting. She also admits to abdominal distention. Patient states that she had a normal bowel movement about 3 days ago and has had very small bowel movement since. She admits to poor p.o. intake. Denies any hematemesis. She was recently admitted here in December with diverticulitis. As well as acute kidney injury. Past medical history significant for COPD, diverticulitis, GERD PSH: hysterectomy Primary care is [facility] TRAVEL OUTSIDE OF THE [place] IN LAST 30 DAYS: No - Related Data Allergies/Adverse Reactions: No Known Allergies Allergy (Verified 12/14/17 15:08) Past Medical History - Social History Smoking Status: Unknown if Ever Smoked Frequency of alcohol use: None Drug Abuse: None Family History: Other - Mother had a stroke, she does not know her father's medical history, sister had cancer of unknown type, 1 of her daughters has hypothyroidism and one of her sons has gout Patient has suicidal ideation: No Patient has homicidal ideation: No - Past Medical History Cardiac Medical History: Reports: Hx Hypertension Neurological Medical History: Denies: Hx Seizures Renal/ Medical History: Denies: Hx Peritoneal Dialysis Musculoskeltal Medical History: Reports Hx Gout Past Surgical History: Reports: Hx Cholecystectomy, Hx Hysterectomy, Other - Lysis of adhesions post hysterectomy - Immunizations Hx Pneumococcal Vaccination: 11/11/17 Review of Systems - Review of Systems Constitutional: No symptoms reported Cardiovascular: No symptoms reported Respiratory: No symptoms reported Gastrointestinal: See HPI Genitourinary: Other - decreased UOP Musculoskeletal: No symptoms reported Neurological/Psychological: No symptoms reported -: Yes All other systems reviewed and negative Physical Exam - Vital signs Vitals: Temp Pulse Resp BP Pulse Ox 98.0 F 76 18 121/75 94 01/29/18 02:55 01/29/18 02:55 01/29/18 02:55 01/29/18 02:55 01/29/18 02:55 - Notes Notes: PHYSICAL EXAM GENERAL: Alert, interacts well. HEAD: Normocephalic, atraumatic. EYES: Pupils equal, round, and reactive to light. Extraocular movements intact. ENT: Oral mucosa moist, tongue midline. NECK: Full range of motion. Supple. Trachea midline. LUNGS: Clear to auscultation bilaterally, no wheezes, rales, or rhonchi. No respiratory distress. HEART: Regular rate and rhythm. No murmurs, gallops, or rubs. ABDOMEN: Soft, distended with tympanic to percussion, moderate tenderness. No guarding, rebound, or rigidity.. Bowel sounds present in all 4 quadrants. EXTREMITIES: Moves all 4 extremities spontaneously. No edema, radial and dorsalis pedis pulses 2/4 bilaterally. No cyanosis. NEUROLOGICAL: Alert and oriented x4. Normal speech. PSYCH: Normal affect, normal mood. SKIN: Warm, dry, normal turgor. No rashes or lesions noted. Course - Re-evaluation Re-evalutation: 01/29/18 05:09 Patient is a 72-year-old female is hemodynamically stable, no acute distress and afebrile. Presentation is concerning for small bowel obstruction given physical exam. Acute abdomen shows dilated bowel loops with air-fluid levels. Called surgeon Dr. Herrera who is requesting CT of the abdomen and pelvis with p.o. and IV contrast. Patient having difficulty tolerating contrast despite multiple readministration of nausea medications but no active vomiting. Patient is not in acute abdomen at this time. No free air noted on acute abdomen series. 01/29/18 07:03 CT the abdomen pelvis pending. 01/29/18 07:44 CT shows evidence of bowel inflammation to diverticulitis versus other inflammatory process with dilated loops of large and small bowel with air-fluid levels. Surgeon at the bedside recommends NG tube placement in consult and admit to hospitalist. Patient has been accepted to hospital service under Dr. Stallings to medical floor. Patient agreeable to plan. - Vital Signs Vital signs: Temp Pulse Resp BP Pulse Ox 98.0 F 76 15 131/76 H 94 01/29/18 02:55 01/29/18 02:55 01/29/18 05:01 01/29/18 04:01 01/29/18 05:01 - Laboratory Result Diagrams: 01/29/18 03:36 01/29/18 03:36 Laboratory results interpreted by me: 01/29/18 01/29/18 03:36 03:36 RDW 16.2 H Sodium 136.5 L Chloride 96 L Carbon Dioxide 32 H BUN 32 H Est GFR (Non-Af Amer) 54 L Glucose 113 H AST 12 L Total Protein 5.2 L Albumin 2.7 L - Diagnostic Test Radiology reviewed: Image reviewed, Reports reviewed Discharge - Discharge Clinical Impression: Diverticulitis Bowel obstruction Qualifiers: Intestinal obstruction type: unspecified Intestinal obstruction extent: unspecified extent Qualified Code(s): K56.609 - Unspecified intestinal obstruction, unspecified as to partial versus complete obstruction Condition: Stable Disposition: ADMITTED INPATIENT Admitting Provider: Hospitalist - [facility] Admitted: Medical Floor Referrals: ILYA FULLER MD [Primary Care Provider] - Follow up as needed
[2018-01-29 03:47] LABS: ABSOLUTE LYMPHOCYTES (AUTO) 2.8 10^3/uL (0.5-4.7); ABSOLUTE MONOCYTES (AUTO) 0.8 10^3/uL (0.1-1.4); ABSOLUTE NEUT (AUTO) 6.2 10^3/uL (1.7-8.2); BASOPHILS % (AUTO) 0.5 % (0-2); EOSINOPHILS % (AUTO) 0.1 % (0-6); HEMATOCRIT 39.3 % (36.0-47.0); HEMOGLOBIN 12.8 g/dL (12.0-15.5); LYMPHOCYTES % (AUTO) 28.5 % (13-45); MEAN CORPUSCULAR HEMOGLOBIN 29.4 pg (27.0-33.4); MEAN CORPUSCULAR HGB CONC 32.7 g/dL (32.0-36.0); MEAN CORPUSCULAR VOLUME 90 fl (80-97); MONOCYTES % (AUTO) 8.6 % (3-13); PLATELET COUNT 396 10^3/uL (150-450); RED BLOOD COUNT 4.37 10^6/uL (3.72-5.28); RED CELL DISTRIBUTION WIDTH 16.2 % (11.5-14.0); SEGMENTED NEUTROPHILS % (AUTO) 62.3 % (42-78); TOTAL CELLS COUNTED % (AUTO) 100 %; WHITE BLOOD COUNT 9.9 10^3/uL (4.0-10.5)
[2018-01-29 04:00] LABS: ALANINE AMINOTRANSFERASE 23 U/L (9-52); ALBUMIN 2.7 g/dL (3.5-5.0); ALKALINE PHOSPHATASE 84 U/L (38-126); ANION GAP 9 (5-19); ASPARTATE AMINO TRANSFERASE 12 U/L (14-36); BILIRUBIN,DIRECT 0.3 mg/dL (0.0-0.4); BILIRUBIN,TOTAL 0.6 mg/dL (0.2-1.3); BLOOD UREA NITROGEN 32 mg/dL (7-20); CALCIUM 9.7 mg/dL (8.4-10.2); CARBON DIOXIDE 32 mmol/L (22-30); CHLORIDE 96 mmol/L (98-107); GLUCOSE 113 mg/dL (75-110); POTASSIUM 4.8 mmol/L (3.6-5.0); SODIUM 136.5 mmol/L (137-145); TOTAL PROTEIN 5.2 g/dL (6.3-8.2)
[2018-01-29] MEDS ORDERED: METOCLOPRAMIDE HCL INJ/PF 10 MG/2 ML SDV IV ONE (04:56)
--- NOTE | 2018-01-29 04:56 | RADIOLOGY REPORT (SQ) ---
EXAM DESCRIPTION: ACUTE ABDOMEN SERIES CLINICAL HISTORY: abdominal distension, n/v COMPARISON: 01/01/2018 FINDINGS: Single view of the chest with upright and spine views of the abdomen. Atherosclerotic calcification tortuosity of thoracic aorta. Low lung volumes. Linear opacities in the right midlung and left lung base likely represent atelectasis. No pneumothorax or pleural effusion. Upright spine views of the abdomen demonstrate dilated loops of small bowel with differential air-fluid levels. Air is identified in the colon. Postoperative change of the right hip. Phleboliths in the pelvis. No definite free intraperitoneal air. IMPRESSION: 1. Likely discoid atelectasis involving the right midlung and left lung base. 2. Dilated loops of small bowel with air identified in the colon. Findings suggestive of partial small bowel obstruction however ileus could produce a similar appearance.
[2018-01-29] MEDS ORDERED: KETOROLAC TROMETHAMINE INJ/PF 30 MG/1 ML SDV IV ONE (05:09)
[2018-01-29] MEDS ORDERED: PROCHLORPERAZINE EDISYLATE INJ 10 MG/2 ML VIAL IV ONE (05:35)
[2018-01-29] MEDS ORDERED: NORMAL SALINE 1000 ML 1,000 ML IV ONE (06:18)
--- NOTE | 2018-01-29 07:17 | RADIOLOGY REPORT (SQ) ---
EXAM DESCRIPTION: CT ABDOMEN AND PELVIS WITH CONTRAST CLINICAL HISTORY: abdominal distension, n/v COMPARISON: 12/14/2017 TECHNIQUE: CT of the abdomen and pelvis performed following IV administration of 66 mL of Isovue-370. DLP: 2223 mGycm FINDINGS: Lung Bases: The visualized lung bases demonstrate bibasilar dependent atelectasis. Bones: Degenerative change of the spine. Abdomen: Liver: The liver has normal size and density. No intrahepatic mass or biliary dilatation. Gallbladder: Prior cholecystectomy. Spleen, Pancreas, and Adrenal Glands: The spleen, pancreas, and adrenal glands are unremarkable. Kidneys: Bilateral renal atrophy. No obstructing 7 mm left renal calculus. Bosniak class I bilateral renal cysts. Vasculature: The iliac atherosclerosis. IVC is unremarkable. The portal vein is patent. The proximal visceral and renal arteries are patent. Stomach: Small hiatal hernia. Other: No free intraperitoneal air. Small amount of free fluid. Pelvis: Bladder: Urinary bladder is unremarkable. Bowel: Scattered diverticula of the colon. Mild inflammatory changes again identified of the proximal sigmoid colon. Fluid again identified throughout prominent loops of large and small bowel. No definite transition point of the small bowel identified. Appendix: No evidence of appendicitis. Pelvis: Prior hysterectomy. IMPRESSION: 1. Overall no significant interval change in appearance of prominent loops of fluid-filled large and small bowel. Redemonstrated subtle inflammatory change of the proximal sigmoid colon. This could represent sigmoid diverticulitis producing partial obstruction of the colon at this level. Other etiology of colonic wall thickening and inflammatory change such as inflammatory carcinoma must be considered given lack of change in configuration. Correlation for history appropriate colorectal cancer screening recommended. This exam was performed according to our departmental dose-optimization program, which includes automated exposure control, adjustment of the mA and/or kV according to patient size and/or use of iterative reconstruction technique.
--- NOTE | 2018-01-29 07:50 | PDOC CONSULTATION ---
Consultation Consult Date: 01/29/18 Consult reason:: abdominal distention History of Present Illness Admission Date/PCP: ILYA FULELR MD History of Present Illness: MICHAEL IVEY is a 72 year old female morbidly obese, hx of COPD, who presented to the ER last evening with a hx of abdominal distention, obstipation. A CT scan A/P was done with possible sigmoid obstructing process of cause unknown (Diverticulitis vs. cancer). This AM, the patioent presents with distended abdomen and has had a bowel movement. Past Medical History Cardiac Medical History: Reports: Hypertension Neurological Medical History: Denies: Seizures Musculoskeltal Medical History: Reports: Gout Past Surgical History Past Surgical History: Reports: Cholecystectomy, Hysterectomy, Other - Lysis of adhesions post hysterectomy Social History Smoking Status: Unknown if Ever Smoked Frequency of Alcohol Use: None Hx Recreational Drug Use: No Drugs: None Family History Family History: Other - Mother had a stroke, she does not know her father's medical history, sister had cancer of unknown type, 1 of her daughters has hypothyroidism and one of her sons has gout Parental Family History Reviewed: No Children Family History Reviewed: No Sibling(s) Family History Reviewed.: No Medication/Allergy Home Medications: Allopurinol [Zyloprim 100 mg Tablet] 100 mg PO DAILY 12/15/17 Calcium Carbonate/Vitamin D3 [Calcium 600 + Vit D Tablet] 1 tab PO BID 12/15/17 Levothyroxine Sodium 150 mcg PO QAM 12/15/17 Multivitamin [Multiple Vitamins] 1 ea PO DAILY 12/15/17 [place]-3 Acid Ethyl Esters [Lovaza 1 gm Capsule] 4 gm PO DAILY 12/15/17 Umeclidinium Brm/Vilanterol Tr [Anoro Ellipta 62.5-25 Mcg INH] 1 puff IH DAILY 12/15/17 Amox Tr/Potassium Clavulanate [Augmentin "500" Tablet] 1 tab PO Q8 5 Days #15 tablet 01/03/18 Aspirin [Ecotrin 81 mg EC Tablet] 81 mg PO DAILY tabec 01/03/18 Bisacodyl [Dulcolax 10 mg Supp.rect] [address] DAILYP PRN #1 supp.rect 01/03/18 Bisacodyl [Dulcolax 5 mg Tablet] 10 mg PO DAILYP PRN tabec 01/03/18 Ipratropium/Albuterol Sulfate [Duoneb 3 ml Ampul] 3 ml NEB RTQ4HP PRN vial.neb 01/03/18 Lansoprazole [Prevacid 30 mg Odt Tablet] 30 mg PO BID@0600,1700 tab.rap.dr Levothyroxine Sodium [Synthroid 0.15 mg Tablet] 0.15 mg PO Q6AM tablet Magnesium Oxide [Mag-Ox 400 mg Tablet] 400 mg PO BID tablet 01/03/18 Metoprolol Succinate [Toprol Xl 50 mg Tab.sr] 100 mg PO DAILY tab.sr.24h Promethazine HCl [Phenergan Inj 25 mg/1 ml Vial] 12.5 mg IV Q4HP PRN vial 01/03 Sucralfate [Carafate Susp 1 gm/10 ml Udcup] 1 gm PO Q6 udc 01/03/18 Allergies/Adverse Reactions: No Known Allergies Allergy (Verified 12/14/17 15:08) Physical Exam Vital Signs: Temp Pulse Resp BP Pulse Ox 98.0 F 76 15 131/76 H 94 01/29/18 02:55 01/29/18 02:55 01/29/18 05:01 01/29/18 04:01 01/29/18 05:01 General appearance: PRESENT: mild distress Eye exam: PRESENT: EOMI Mouth exam: PRESENT: dry mucosa Respiratory exam: PRESENT: clear to auscultation choco Cardiovascular exam: PRESENT: RRR GI/Abdominal exam: PRESENT: distended, other - no bowel sounds, no tenderness Extremities exam: PRESENT: full ROM Musculoskeletal exam: PRESENT: full ROM Neurological exam: PRESENT: alert, altered Results Laboratory Results: 01/29/18 03:36 01/29/18 03:36 01/29/18 01/29/18 01/29/18 03:36 03:36 03:36 WBC 9.9 RBC 4.37 Hgb 12.8 Hct 39.3 MCV 90 MCH 29.4 MCHC 32.7 RDW 16.2 H Plt Count 396 Seg Neutrophils % 62.3 Lymphocytes % 28.5 Monocytes % 8.6 Eosinophils % 0.1 Basophils % 0.5 Absolute Neutrophils 6.2 Absolute Lymphocytes 2.8 Absolute Monocytes 0.8 Absolute Eosinophils 0.0 Absolute Basophils 0.0 Sodium 136.5 L Potassium 4.8 Chloride 96 L Carbon Dioxide 32 H Anion Gap 9 BUN 32 H Creatinine 1.00 Est GFR ( Amer) > 60 Est GFR (Non-Af Amer) 54 L Glucose 113 H Lactic Acid 1.0 Calcium 9.7 Total Bilirubin 0.6 AST 12 L ALT 23 Alkaline Phosphatase 84 Total Protein 5.2 L Albumin 2.7 L Impressions: Abdomen/Pelvis CT 01/29/18 03:17 IMPRESSION: 1. Overall no significant interval change in appearance of prominent loops of fluid-filled large and small bowel. Redemonstrated subtle inflammatory change of the proximal sigmoid colon. This could represent sigmoid diverticulitis producing partial obstruction of the colon at this level. Other etiology of colonic wall thickening and inflammatory change such as inflammatory carcinoma must be considered given lack of change in configuration. Correlation for history appropriate colorectal cancer screening recommended. This exam was performed according to our departmental dose-optimization program, which includes automated exposure control, adjustment of the mA and/or kV according to patient size and/or use of iterative reconstruction technique. Acute Abdomen Series 01/29/18 03:17 IMPRESSION: 1. Likely discoid atelectasis involving the right midlung and left lung base. 2. Dilated loops of small bowel with air identified in the colon. Findings suggestive of partial small bowel obstruction however ileus could produce a similar appearance. Assessment & Plan - Diagnosis (1) Large bowel obstruction Is this a current diagnosis for this admission?: Yes - Plan Summary Plan Summary: A/ Large bowel obstruction of unknown cause CT scan A/P shows possible sigmoid diverticulitis vs. cancer Bowel movement this AM However, patient symptoms do not fit the diagnosis of diverticulitis (no leukocytosis, no pain, no fever) P/ Insert NGT Grier catheter IVF maintenance rate (15 mL hr) Gastrographin lower GI to identify cause of obstruction, if any
[2018-01-29] MEDS ORDERED: IPRATROPIUM/ALBUTEROL 0.5-2.5 MG/3 ML AMPUL NEB PRN (08:18)
[2018-01-29] MEDS ORDERED: ACETAMINOPHEN 325 MG TABLET PO PRN (08:25)
[2018-01-29] MEDS ORDERED: PROMETHAZINE HCL INJ 25 MG/1 ML VIAL IV PRN (08:25)
[2018-01-29] MEDS ORDERED: POTASSI CL 20 MEQ/D5-1/2NS 1L 1,000 ML IV PRN (08:25)
[2018-01-29] MEDS ORDERED: ONDANSETRON HCL INJ/PF 4 MG/2 ML SDV IV PRN (08:25)
[2018-01-29 08:56] LABS: APPEARANCE,URINE SLIGHTLY-CLOUDY; BILIRUBIN,URINE SMALL (NEGATIVE); COLOR,URINE AMBER; GLUCOSE, URINE NEGATIVE (NEGATIVE); KETONES,URINE NEGATIVE (NEGATIVE); LEUKOCYTE ESTERASE,URINE TRACE (NEGATIVE); NITRITE,URINE NEGATIVE (NEGATIVE); PROTEIN,URINE NEGATIVE (NEGATIVE); URINE SPECIFIC GRAVITY 1.039
--- NOTE | 2018-01-29 09:29 | RADIOLOGY REPORT (SQ) ---
EXAM DESCRIPTION: CHEST SINGLE VIEW COMPLETED DATE/TIME: 01/29/2018 9:06 am REASON FOR STUDY: confirm NG tube placement COMPARISON: CT angio chest 12/24/2017 Chest films 01/01/2018, 12/16/2017, 12/14/2017 EXAM PARAMETERS: NUMBER OF VIEWS: One view. TECHNIQUE: Single frontal radiographic view of the chest acquired. RADIATION DOSE: NA LIMITATIONS: None. FINDINGS: LUNGS AND PLEURA: Minimal blunting left lateral costophrenic sulcus likely due to minimal left basilar airspace disease/ trace pleural fluid. There is bandlike atelectasis at the right and left lower lobe No right pleural effusion No right or left pneumothorax MEDIASTINUM AND HILAR STRUCTURES: No masses. Contour normal. HEART AND VASCULAR STRUCTURES: Heart normal in size. Normal vasculature. BONES: No acute findings. HARDWARE: Nasogastric tube tip and side port in the stomach OTHER: No other significant finding. IMPRESSION: Bibasilar bandlike atelectasis Blunting in the left lateral costophrenic sulcus likely due to a combination of airspace disease and trace pleural fluid TECHNICAL DOCUMENTATION: JOB ID: [id number]- All Rights Reserved Reading location - IP/workstation name: [email or web address]
[2018-01-29] MEDS: ENOXAPARIN SODIUM INJ 40 MG/0.4 ML DISP.SYRIN SUBCUT SCH (10:38)
[2018-01-29] MEDS: DEXTROSE 5%-1/2 NORMAL SALINE 1,000 ML IV PRN (10:41)
--- NOTE | 2018-01-29 11:29 | RADIOLOGY REPORT (SQ) ---
EXAM DESCRIPTION: BARIUM ENEMA COMPLETED DATE/TIME: 01/29/2018 10:26 am REASON FOR STUDY: r/o sigmoid obstruction COMPARISON: CT ABDOMEN PELVIS 01/29/2018, 12/14/2017 FLUOROSCOPY TIME: 3.7 minutes 38 digital radiographic images saved to PACS. TECHNIQUE: Following retrograde filling of the colon with Gastrografin, fluoroscopic spot and overhe ad imaging of the colon was obtained and saved to PACS. LIMITATIONS: None. FINDINGS: Manufacturing Controller film demonstrates persistent dilated colon and small bowel loops in the mid abdomen. Residual contrast from prior CT abdomen pelvis in non distended urinary collecting systems. Clips right upper quadrant post cholecystectomy. Gentle gravity drip infusion of Gastrografin per rectum was performed. At the level of the left distal descending/proximal sigmoid colon, high-grade obstructive stricture i s present, with luminal irregularity and thickened folds. This could either be post diverticulitis s tricture or malignant stricture. We were unable to reflux contrast more proximally into the colon. IMPRESSION: Distal descending/ proximal sigmoid colon high-grade stricture with luminal irregularity , either due to chronic diverticular inflammation or colon cancer. We were unable to reflux contrast more proximally in the colon. COMMENT: Quality ID [id number]: Final reports for procedures using fluoroscopy that document radiation exp osure indices, or exposure time and number of fluorographic images (if radiation exposure indices are not available) TECHNICAL DOCUMENTATION: JOB ID: [id number] [employer]- All Rights Reserved Reading location - IP/workstation name: [email or web address]
[2018-01-29 14:22] LABS: ALBUMIN 2.4 g/dL (3.5-5.0); ANION GAP 8 (5-19); BLOOD UREA NITROGEN 35 mg/dL (7-20); CALCIUM 9.1 mg/dL (8.4-10.2); CARBON DIOXIDE 32 mmol/L (22-30); CHLORIDE 96 mmol/L (98-107); GLUCOSE 98 mg/dL (75-110); PHOSPHORUS 4.8 mg/dL (2.5-4.5); POTASSIUM 4.1 mmol/L (3.6-5.0); SODIUM 135.5 mmol/L (137-145)
[2018-01-29] MEDS ORDERED: METOPROLOL TARTRATE PF/INJ 5 MG/5 ML SDV IV SCH (18:00)
[2018-01-29] MEDS ORDERED: METOPROLOL TARTRATE PF/INJ 5 MG/5 ML SDV IV ONE (19:00)
[2018-01-30] MEDS: METOPROLOL TARTRATE PF/INJ 5 MG/5 ML SDV IV SCH ×2 (01:20→05:54)
[2018-01-30] MEDS: DEXTROSE 5%-1/2 NORMAL SALINE 1,000 ML IV PRN (03:05)
[2018-01-30] MEDS ORDERED: LANSOPRAZOLE 30 MG TAB.RAP.DR PO SCH (06:00)
[2018-01-30] MEDS ORDERED: PROMETHAZINE HCL INJ 25 MG/1 ML VIAL IV PRN (09:00)
[2018-01-30] MEDS ORDERED: ONDANSETRON HCL INJ/PF 4 MG/2 ML SDV IV PRN (09:00)
[2018-01-30] MEDS: ENOXAPARIN SODIUM INJ 40 MG/0.4 ML DISP.SYRIN SUBCUT SCH (09:11)
[2018-01-30] MEDS ORDERED: NALOXONE HCL INJ/PF 0.4 MG/1 ML SDV ONE (09:57)
[2018-01-30] MEDS ORDERED: ONDANSETRON HCL INJ/PF 4 MG/2 ML SDV ONE (09:57)
[2018-01-30] MEDS ORDERED: GLYCOPYRROLATE INJ 0.4 MG/2 ML VIAL ONE (09:57)
[2018-01-30] MEDS ORDERED: FENTANYL CITRATE INJ/PF 100 MCG/2 ML AMPUL ONE (09:57)
[2018-01-30] MEDS ORDERED: MIDAZOLAM 2 MG/2 ML INJ ONE (09:57)
[2018-01-30] MEDS ORDERED: FLUMAZENIL INJ 0.5 MG/5 ML VIAL ONE (09:57)
[2018-01-30] MEDS ORDERED: EPINEPHRINE INJ 1 MG/10 ML DISP.SYRIN ONE (09:57)
[2018-01-30] MEDS ORDERED: GLUCAGON,HUMAN RECOMB 1 MG INJ ONE (09:58)
[2018-01-30] MEDS ORDERED: FAMOTIDINE INJ/PF 20 MG/2 ML SDV IV SCH (10:00)
--- NOTE | 2018-01-30 11:16 | Operative Report ---
Operative Report DATE OF SURGERY: 01/30/18 PREOPERATIVE DIAGNOSIS: Left colonic obstruction POSTOPERATIVE DIAGNOSIS: Same with extensive diverticulosis of the sigmoid colon with presumed sigmoid stricture due to diverticular disease OPERATION: Colonoscopy to 45 cm SURGEON: TYRA LOPEZ ANESTHESIA: Moderate Sedation TISSUE REMOVED OR ALTERED: None COMPLICATIONS: None ESTIMATED BLOOD LOSS: Scant INTRAOPERATIVE FINDINGS: See below PROCEDURE: The patient was taken from the third floor to [facility] endoscopy suite on the fifth floor. Monitoring devices were attached. Patient had saturations in the mid 80s on room air, heart rate 88, blood pressure 71/ 40. We gave the patient a fluid bolus and her systolic pressure came up to 75. She was in no acute distress. Because of the presumed stricture of the left colon demonstrated by barium enema and CT scan of the abdomen and pelvis, we suggested a limited colonoscopy to better understand the etiology of the patient's stricture. However we also understood that the patient's overall clinical condition was very poor and that she would not tolerate either a bowel prep or significant sedation. Therefore the procedure was performed with essentially no sedation until approximately long term through the procedure at which time she received a milligram of Versed. There were no complications throughout the procedure. Again this was a limited study on a completely non-prepped bowel. The patient was placed in the left lateral decubitus position. She immediately had a massive brown stool. We cleaned all this up then performed a rectal exam which evacuated more stool, and revealed internal hemorrhoids only. There was no palpable or visible anorectal pathology The flexible pediatric colonoscope was advanced through the anal rectal canal to approximately 45 cm. There were moderate diverticulosis of the sigmoid colon. A significant amount of stool was evacuated through the colonoscope and more stool was coming from proximal to distal. We got to approximately 45 cm, and stop the procedure as I could not advance the scope any further without undue discomfort. Again no further sedation can be provided because the patient remained hypotensive. She was awake alert and reasonably comfortable with the procedure. I did not see a tumor or any other pathology other than tortuosity of the colon and sigmoid diverticulosis. The presumptive diagnosis is stricture due to sigmoid colonic diverticular disease however Malignancy cannot be definitively ruled out. Hope was withdrawn the patient's anus. She tolerated procedure well. Recommendations: 1. Continue nasogastric decompression, and clear liquids for now. The patient is clearly not completely obstructed as she is having a massive amount of stool through the strictured sigmoid colon. 2. We will discuss options with primary care team with regards to subsequent management including nonoperative management, use of colonic stent, definitive surgical resection or even diverting colostomy. Actually with the patient's multiple comorbidities, recent history of heart failure, risks of a perioperative myocardial infarction, congestive heart failure or other cardiovascular collapse are significant.
[2018-01-30] MEDS ORDERED: NORMAL SALINE 1000 ML 1,000 ML IV PRN (12:56)
--- NOTE | 2018-01-30 13:19 | RADIOLOGY REPORT (SQ) ---
EXAM DESCRIPTION: ACUTE ABDOMEN SERIES COMPLETED DATE/TIME: 01/30/2018 1:03 pm REASON FOR STUDY: F/U ileus K59.00 CONSTIPATION, UNSPECIFIED COMPARISON: 01/30/2012. NUMBER OF VIEWS: Three views. TECHNIQUE: Frontal chest, supine abdomen and upright/decubitus abdomen radiographic images acquired. LIMITATIONS: None. FINDINGS: CHEST: Residual left basilar discoid atelectasis with decrease in discoid atelectasis from prior study. NG tube noted passing to stomach. FREE AIR: None. No abnormal gas collections. BOWEL GAS PATTERN: Marked decrease in small bowel distention and differential air-fluid levels within small bowel. Gas within the colon is noted. These findings are consistent with interval improvemen t or resolving small bowel obstruction. CALCIFICATIONS: Calcified phleboliths in pelvis. HARDWARE: None in the abdomen. SOFT TISSUES: No gross mass or suggestion of organomegaly. BONES: No acute fracture. No worrisome bone lesions. OTHER: Total right hip prosthesis in place. Surgical clips right upper quadrant. IMPRESSION: 1. Decrease in left basilar discoid atelectasis. Resolving small bowel obstruction. N G tube in place. TECHNICAL DOCUMENTATION: JOB ID: [id number] [employer]- All Rights Reserved Reading location - IP/workstation name: [email or web address]
[2018-01-30] MEDS ORDERED: MAGNESIUM CITRATE 296 ML BOTTLE PO ONE (13:30)
--- NOTE | 2018-01-30 13:42 | PDOC PROGRESS REPORT ---
Subjective Progress Note for:: 01/30/18 Subjective:: No specific complaints. Feels weak. She has had 3 large bowel movements. Reason For Visit: OBSTIPATION Physical Exam Vital Signs: Temp Pulse Resp BP Pulse Ox 97.6 F 113 H 16 79/27 L 89 L 01/30/18 11:56 01/30/18 11:56 01/30/18 11:56 01/30/18 11:56 01/30/18 11:56 Intake & Output 01/29/18 01/30/18 01/31/18 06:59 06:59 06:59 Intake Total 360 800 Output Total 590 Balance -230 800 Weight 118.6 kg General appearance: PRESENT: no acute distress, obese Exam: Toxic appearing, pale, lethargic. Respiratory exam: PRESENT: clear to auscultation choco Cardiovascular exam: PRESENT: RRR GI/Abdominal exam: PRESENT: soft. ABSENT: tenderness Neurological exam: PRESENT: awake, oriented to person, oriented to place, oriented to time, oriented to situation Psychiatric exam: PRESENT: flat affect Skin exam: PRESENT: warm Results Laboratory Results: 01/29/18 13:15 01/29/18 01/29/18 13:15 13:15 Sodium 135.5 L Potassium 4.1 Chloride 96 L Carbon Dioxide 32 H Anion Gap 8 BUN 35 H Creatinine 1.17 Est GFR ( Amer) 55 L Est GFR (Non-Af Amer) 45 L Glucose 98 Calcium 9.1 Phosphorus 4.8 H Magnesium 1.8 Albumin 2.4 L TSH 4.97 H Impressions: Barium Enema 01/29/18 00:00 IMPRESSION: Distal descending/ proximal sigmoid colon high-grade stricture with luminal irregularity, either due to chronic diverticular inflammation or colon cancer. We were unable to reflux contrast more proximally in the colon. Chest X-Ray 01/29/18 00:00 IMPRESSION: Bibasilar bandlike atelectasis Blunting in the left lateral costophrenic sulcus likely due to a combination of airspace disease and trace pleural fluid Abdomen/Pelvis CT 01/29/18 03:17 IMPRESSION: 1. Overall no significant interval change in appearance of prominent loops of fluid-filled large and small bowel. Redemonstrated subtle inflammatory change of the proximal sigmoid colon. This could represent sigmoid diverticulitis producing partial obstruction of the colon at this level. Other etiology of colonic wall thickening and inflammatory change such as inflammatory carcinoma must be considered given lack of change in configuration. Correlation for history appropriate colorectal cancer screening recommended. This exam was performed according to our departmental dose-optimization program, which includes automated exposure control, adjustment of the mA and/or kV according to patient size and/or use of iterative reconstruction technique. Acute Abdomen Series 01/29/18 03:17 IMPRESSION: 1. Likely discoid atelectasis involving the right midlung and left lung base. 2. Dilated loops of small bowel with air identified in the colon. Findings suggestive of partial small bowel obstruction however ileus could produce a similar appearance. Assessment & Plan - Diagnosis (1) Hypotension Qualifiers: Hypotension type: unspecified hypotension type Qualified Code(s): I95.9 - Hypotension, unspecified Is this a current diagnosis for this admission?: Yes Plan: Normally hypertensive. Currently off of all home medications. Probably due to volume depletion. I will continue to hydrate her with IV fluids and recheck labs in the morning. (2) Large bowel obstruction Is this a current diagnosis for this admission?: Yes Plan: Case was discussed with the supervisor finishing department after he did a flex sig. She is noted to have a very tight stricture in her descending colon, though stool continues to pass. I will try giving her some mag citrate to see if we can move her stool past that, she is relatively clear past the stricture so I do not see any point in further enemas. We will try her on clear liquids. (3) Acute renal failure Qualifiers: Acute renal failure type: unspecified Qualified Code(s): N17.9 - Acute kidney failure, unspecified Is this a current diagnosis for this admission?: Yes Plan: IV fluids and recheck in the morning (4) Alkalosis, metabolic Is this a current diagnosis for this admission?: Yes Plan: Probably due to volume contraction. Continue IV fluids (5) COPD (chronic obstructive pulmonary disease) Qualifiers: COPD type: unspecified COPD Qualified Code(s): J44.9 - Chronic obstructive pulmonary disease, unspecified Is this a current diagnosis for this admission?: Yes Plan: Continue current medications (6) Morbid (severe) obesity due to excess calories Is this a current diagnosis for this admission?: Yes (7) LARRY (obstructive sleep apnea) Is this a current diagnosis for this admission?: Yes Plan: Resume CPAP as at home.
[2018-01-30 14:16] LABS: ABSOLUTE LYMPHOCYTES (AUTO) 1.2 10^3/uL (0.5-4.7); ABSOLUTE MONOCYTES (AUTO) 0.5 10^3/uL (0.1-1.4); ABSOLUTE NEUT (AUTO) 5.5 10^3/uL (1.7-8.2); BASOPHILS % (AUTO) 0.2 % (0-2); EOSINOPHILS % (AUTO) 0.7 % (0-6); HEMATOCRIT 30.6 % (36.0-47.0); LYMPHOCYTES % (AUTO) 16.6 % (13-45); MEAN CORPUSCULAR HEMOGLOBIN 29.8 pg (27.0-33.4); MEAN CORPUSCULAR HGB CONC 33.5 g/dL (32.0-36.0); MEAN CORPUSCULAR VOLUME 89 fl (80-97); MONOCYTES % (AUTO) 6.5 % (3-13); PLATELET COUNT 259 10^3/uL (150-450); RED BLOOD COUNT 3.44 10^6/uL (3.72-5.28); RED CELL DISTRIBUTION WIDTH 16.5 % (11.5-14.0); TOTAL CELLS COUNTED % (AUTO) 100 %; WHITE BLOOD COUNT 7.2 10^3/uL (4.0-10.5)
[2018-01-30 14:18] LABS: HEMOGLOBIN 10.2 g/dL (12.0-15.5)
[2018-01-30 14:33] LABS: ANION GAP 5 (5-19); BLOOD UREA NITROGEN 27 mg/dL (7-20); CALCIUM 8.3 mg/dL (8.4-10.2); CARBON DIOXIDE 36 mmol/L (22-30); CHLORIDE 96 mmol/L (98-107); GLUCOSE 77 mg/dL (75-110); PHOSPHORUS 3.3 mg/dL (2.5-4.5); POTASSIUM 3.1 mmol/L (3.6-5.0); SODIUM 137.4 mmol/L (137-145)
--- NOTE | 2018-01-30 16:35 | PDOC PROGRESS REPORT ---
Subjective Progress Note for:: 01/30/18 Subjective:: no pains Reason For Visit: OBSTIPATION Physical Exam Vital Signs: Temp Pulse Resp BP Pulse Ox 97.8 F 100 16 100/64 97 01/30/18 16:00 01/30/18 16:00 01/30/18 16:00 01/30/18 16:00 01/30/18 16:00 Intake & Output 01/29/18 01/30/18 01/31/18 06:59 06:59 06:59 Intake Total 360 1220 Output Total 590 800 Balance -230 420 Weight 118.6 kg Exam: abd slightly distended but non tender. + BS. For flexible sigmoidoscopy by Dr Davalos. Results Laboratory Results: 01/30/18 13:45 01/30/18 13:45 01/30/18 01/30/18 13:45 13:45 WBC 7.2 RBC 3.44 L Hgb 10.2 L D Hct 30.6 L MCV 89 MCH 29.8 MCHC 33.5 RDW 16.5 H Plt Count 259 Seg Neutrophils % 76.0 Lymphocytes % 16.6 Monocytes % 6.5 Eosinophils % 0.7 Basophils % 0.2 Absolute Neutrophils 5.5 Absolute Lymphocytes 1.2 Absolute Monocytes 0.5 Absolute Eosinophils 0.0 Absolute Basophils 0.0 Sodium 137.4 Potassium 3.1 L Chloride 96 L Carbon Dioxide 36 H Anion Gap 5 BUN 27 H Creatinine 0.98 Est GFR ( Amer) > 60 Est GFR (Non-Af Amer) 55 L Glucose 77 Calcium 8.3 L Phosphorus 3.3 Magnesium 1.9 Albumin 2.0 L 01/30/18 13:45 NT-Pro-B Natriuret Pep 4440 H Impressions: Barium Enema 01/29/18 00:00 IMPRESSION: Distal descending/ proximal sigmoid colon high-grade stricture with luminal irregularity, either due to chronic diverticular inflammation or colon cancer. We were unable to reflux contrast more proximally in the colon. Chest X-Ray 01/29/18 00:00 IMPRESSION: Bibasilar bandlike atelectasis Blunting in the left lateral costophrenic sulcus likely due to a combination of airspace disease and trace pleural fluid Abdomen/Pelvis CT 01/29/18 03:17 IMPRESSION: 1. Overall no significant interval change in appearance of prominent loops of fluid-filled large and small bowel. Redemonstrated subtle inflammatory change of the proximal sigmoid colon. This could represent sigmoid diverticulitis producing partial obstruction of the colon at this level. Other etiology of colonic wall thickening and inflammatory change such as inflammatory carcinoma must be considered given lack of change in configuration. Correlation for history appropriate colorectal cancer screening recommended. This exam was performed according to our departmental dose-optimization program, which includes automated exposure control, adjustment of the mA and/or kV according to patient size and/or use of iterative reconstruction technique. Acute Abdomen Series 01/30/18 00:00 IMPRESSION: 1. Decrease in left basilar discoid atelectasis. Resolving small bowel obstruction. NG tube in place. Assessment & Plan - Time Time Spent with patient: 15-24 minutes - Plan Summary Plan Summary: Arranged for flex sigmoidoscopy by Dr Davalos. Dr Davalos did flex sigmoid but was not able to have good visualization because of too much stool.Just can't get beyond 45 cm. Pt unstable and terminated procedure for risk of further decompensation especially with the use of more sedation. Dr Davalos talked to primary care physician. Pt extremely high risk for any invasive procedure. Patient had a lrge BM after the Sigmoidoscopy with decreased in pains and abdominal distention. Will check abdominal xrays in am .continue ice chips tonight. Will ask Cardiology to see her in case she needs surgery. Have talked to patient and daughter about possibilities including surgery. Will also ask GI if there is a need for stenting to avoid or as a prelude to colon surgry. May need re scoping to get biopsy. Hopefully will open up to avoid any immediate need for surgery.
[2018-01-30] MEDS ORDERED: DEXTROSE 5%-1/2 NORMAL SALINE 1,000 ML IV PRN (18:34)
[2018-01-30] MEDS: PANTOPRAZOLE SODIUM 40 MG VIAL IV SCH (21:02)
--- NOTE | 2018-01-31 08:39 | RADIOLOGY REPORT (SQ) ---
EXAM DESCRIPTION: ABDOMEN 2 VIEWS COMPLETED DATE/TIME: 01/31/2018 8:29 am REASON FOR STUDY: possible surgery and blockage K59.00 CONSTIPATION, UNSPECIFIED I50.32 CHRONIC DI ASTOLIC (CONGESTIVE) HEART FAILURE COMPARISON: 01/30/2018 and 01/29/2018. NUMBER OF VIEWS: Two views. TECHNIQUE: Supine and erect/decubitus radiographic images of the abdomen acquired. LIMITATIONS: None. FINDINGS: FREE AIR: None. No abnormal gas collections. LUNG BASES: Clear. BOWEL GAS PATTERN: Nonobstructive pattern. No dilated loops or air fluid levels. CALCIFICATIONS: No suspicious calcifications. SOFT TISSUES: No gross mass or suggestion of organomegaly. HARDWARE: Surgical clips. BONES: No acute fracture. No worrisome bone lesions. OTHER: No other significant finding. IMPRESSION: NO RADIOGRAPHIC EVIDENCE FOR ACUTE ABDOMINAL DISEASE. TECHNICAL DOCUMENTATION: JOB ID: [id number] [employer]- All Rights Reserved Reading location - IP/workstation name: [facility]
[2018-01-31] MEDS ORDERED: POTASSI CL 20 MEQ/50 ML RIDER 20 MEQ/50 ML RTUPB IV ONE (09:31)
[2018-01-31] MEDS ORDERED: POTASSI CL 40 MEQ/D5-1/2NS 1L 1000 ML IV PRN (10:26)
--- NOTE | 2018-01-31 10:27 | EKG REPORT ---
SEVERITY:- ABNORMAL ECG - SINUS TACHYCARDIA WITH FREQUENT APCs BORDERLINE R WAVE PROGRESSION, ANTERIOR LEADS NONSPECIFIC T ABNORMALITIES, LATERAL LEADS : Confirmed by: Juliano De Luna 31-Jan-2018 10:26:09
[2018-01-31] MEDS: PANTOPRAZOLE SODIUM 40 MG VIAL IV SCH ×2 (10:41→23:15)
[2018-01-31] MEDS: ENOXAPARIN SODIUM INJ 40 MG/0.4 ML DISP.SYRIN SUBCUT SCH (10:42)
--- NOTE | 2018-01-31 13:19 | Progress Note ---
Provider Note Provider Note: Patient seen in consultation for cardiac clearance. Patient was seen by me during her previous hospitalization. Patient has history of atrial tachyarrhythmia most likely multifocal tachycardia and paroxysmal atrial tachycardia. She also has history of congestive heart failure from diastolic dysfunction. Patient also is very debilitated and has been at the [facility]. I feel that patient would be an acceptable candidate for surgery. Perioperative complications expected includes cardiac dysrhythmia such as going into atrial fibrillation. Should that happen, would recommend amiodarone bolus and drip protocol. Could also use IV beta blockers, IV Cardizem etc. Patient will benefit from DVT prophylaxis, pain control. I will be happy to participate in postop care. Recommend twelve-lead EKGs postop and cardiac monitoring for 48 hours postop.
[2018-01-31] MEDS: POTASSIUM CHLORIDE 10 MEQ TABLET.SA PO SCH ×2 (14:01→18:39)
--- NOTE | 2018-01-31 14:22 | PDOC PROGRESS REPORT ---
Subjective Progress Note for:: 01/31/18 Subjective:: Patient without complaints today. Eating a few ice chips. Has had 3 bowel movements since yesterday. Denies nausea, but still has some abdominal discomfort. Reason For Visit: CONSTIPATION Physical Exam Vital Signs: Temp Pulse Resp BP Pulse Ox 98.2 F 92 16 115/73 96 01/31/18 11:42 01/31/18 12:35 01/31/18 12:35 01/31/18 11:42 01/31/18 11:42 Intake & Output 01/30/18 01/31/18 02/01/18 06:59 06:59 06:59 Intake Total 360 1420 Output Total 590 2800 Balance -230 -1380 Weight 118.6 kg 117.8 kg General appearance: PRESENT: no acute distress, cooperative, obese Respiratory exam: PRESENT: clear to auscultation choco Cardiovascular exam: PRESENT: RRR GI/Abdominal exam: PRESENT: soft, tenderness - Mild diffuse Extremities exam: PRESENT: +2 edema - Below the knees Musculoskeletal exam: PRESENT: normal inspection Neurological exam: PRESENT: alert Psychiatric exam: PRESENT: appropriate affect Skin exam: PRESENT: dry, pallor, warm Results Laboratory Results: 01/30/18 13:45 01/30/18 13:45 01/30/18 01/30/18 13:45 13:45 WBC 7.2 RBC 3.44 L Hgb 10.2 L D Hct 30.6 L MCV 89 MCH 29.8 MCHC 33.5 RDW 16.5 H Plt Count 259 Seg Neutrophils % 76.0 Lymphocytes % 16.6 Monocytes % 6.5 Eosinophils % 0.7 Basophils % 0.2 Absolute Neutrophils 5.5 Absolute Lymphocytes 1.2 Absolute Monocytes 0.5 Absolute Eosinophils 0.0 Absolute Basophils 0.0 Sodium 137.4 Potassium 3.1 L Chloride 96 L Carbon Dioxide 36 H Anion Gap 5 BUN 27 H Creatinine 0.98 Est GFR ( Amer) > 60 Est GFR (Non-Af Amer) 55 L Glucose 77 Calcium 8.3 L Phosphorus 3.3 Magnesium 1.9 Albumin 2.0 L 01/30/18 13:45 NT-Pro-B Natriuret Pep 4440 H Impressions: Barium Enema 01/29/18 00:00 IMPRESSION: Distal descending/ proximal sigmoid colon high-grade stricture with luminal irregularity, either due to chronic diverticular inflammation or colon cancer. We were unable to reflux contrast more proximally in the colon. Chest X-Ray 01/29/18 00:00 IMPRESSION: Bibasilar bandlike atelectasis Blunting in the left lateral costophrenic sulcus likely due to a combination of airspace disease and trace pleural fluid Abdomen/Pelvis CT 01/29/18 03:17 IMPRESSION: 1. Overall no significant interval change in appearance of prominent loops of fluid-filled large and small bowel. Redemonstrated subtle inflammatory change of the proximal sigmoid colon. This could represent sigmoid diverticulitis producing partial obstruction of the colon at this level. Other etiology of colonic wall thickening and inflammatory change such as inflammatory carcinoma must be considered given lack of change in configuration. Correlation for history appropriate colorectal cancer screening recommended. This exam was performed according to our departmental dose-optimization program, which includes automated exposure control, adjustment of the mA and/or kV according to patient size and/or use of iterative reconstruction technique. Acute Abdomen Series 01/30/18 00:00 IMPRESSION: 1. Decrease in left basilar discoid atelectasis. Resolving small bowel obstruction. NG tube in place. Abdomen X-Ray 01/31/18 06:00 IMPRESSION: NO RADIOGRAPHIC EVIDENCE FOR ACUTE ABDOMINAL DISEASE. Assessment & Plan - Diagnosis (1) Hypotension Qualifiers: Hypotension type: unspecified hypotension type Qualified Code(s): I95.9 - Hypotension, unspecified Is this a current diagnosis for this admission?: Yes Plan: Normally hypertensive. Currently off of all home medications. Currently low normotensive, though evidently fluid overloaded. Monitor (2) Large bowel obstruction Is this a current diagnosis for this admission?: Yes Plan: Case was discussed with the surgeon. She is noted to have a very tight stricture in her descending colon, though stool continues to pass. Treat with MiraLAX and continue clear liquids. (3) Acute renal failure Qualifiers: Acute renal failure type: unspecified Qualified Code(s): N17.9 - Acute kidney failure, unspecified Is this a current diagnosis for this admission?: Yes Plan: Fluid replacement had little effect and so I will stop. Continue to monitor closely (4) Alkalosis, metabolic Is this a current diagnosis for this admission?: Yes Plan: Probably due to intravascular volume contraction. I am uncomfortable giving more fluids unless I have to (5) COPD (chronic obstructive pulmonary disease) Qualifiers: COPD type: unspecified COPD Qualified Code(s): J44.9 - Chronic obstructive pulmonary disease, unspecified Is this a current diagnosis for this admission?: Yes Plan: Continue current medications (6) Morbid (severe) obesity due to excess calories Is this a current diagnosis for this admission?: Yes (7) LARRY (obstructive sleep apnea) Is this a current diagnosis for this admission?: Yes Plan: Resume CPAP as at home.
[2018-01-31 15:20] LABS: HEMATOCRIT 32.3 % (36.0-47.0); HEMOGLOBIN 10.6 g/dL (12.0-15.5); MEAN CORPUSCULAR HEMOGLOBIN 29.6 pg (27.0-33.4); MEAN CORPUSCULAR HGB CONC 32.9 g/dL (32.0-36.0); MEAN CORPUSCULAR VOLUME 90 fl (80-97); PLATELET COUNT 225 10^3/uL (150-450); RED BLOOD COUNT 3.59 10^6/uL (3.72-5.28); RED CELL DISTRIBUTION WIDTH 15.9 % (11.5-14.0); WHITE BLOOD COUNT 5.1 10^3/uL (4.0-10.5)
[2018-01-31 15:29] LABS: BLOOD UREA NITROGEN 17 mg/dL (7-20); CALCIUM 8.1 mg/dL (8.4-10.2); GLUCOSE 97 mg/dL (75-110); PHOSPHORUS 2.4 mg/dL (2.5-4.5); POTASSIUM 3.5 mmol/L (3.6-5.0)
[2018-01-31 15:34] LABS: CARBON DIOXIDE 37 mmol/L (22-30); CHLORIDE 98 mmol/L (98-107)
[2018-01-31 15:38] LABS: ANION GAP 5 (5-19)
[2018-01-31] MEDS: POLYETHYLENE GLYCOL 3350 POWDER 17 GM/1 PACKET PO SCH (18:40)
--- NOTE | 2018-01-31 20:36 | PDOC PROGRESS REPORT ---
Subjective Progress Note for:: 01/31/18 Subjective:: No pains and having loose BMs Abd xray today showed no obstruction. Continue laxatives and clear liquids po Reason For Visit: CONSTIPATION Physical Exam Vital Signs: Temp Pulse Resp BP Pulse Ox 98.5 F 105 H 17 115/58 L 97 01/31/18 19:57 01/31/18 19:57 01/31/18 19:57 01/31/18 19:57 01/31/18 19:57 Intake & Output 01/30/18 01/31/18 02/01/18 06:59 06:59 06:59 Intake Total 360 1420 1058 Output Total 590 2800 350 Balance -230 -1380 708 Weight 118.6 kg 117.8 kg Exam: abdomen much less distended with minimal tenderness lower abdomen. Results Laboratory Results: 01/31/18 14:42 01/31/18 14:42 01/31/18 01/31/18 14:42 14:42 WBC 5.1 RBC 3.59 L Hgb 10.6 L Hct 32.3 L MCV 90 MCH 29.6 MCHC 32.9 RDW 15.9 H Plt Count 225 Sodium 140.0 Potassium 3.5 L Chloride 98 Carbon Dioxide 37 H Anion Gap 5 BUN 17 Creatinine 0.84 Est GFR ( Amer) > 60 Est GFR (Non-Af Amer) > 60 Glucose 97 Calcium 8.1 L Phosphorus 2.4 L Magnesium 2.0 Albumin 2.0 L 01/30/18 13:45 NT-Pro-B Natriuret Pep 4440 H Impressions: Barium Enema 01/29/18 00:00 IMPRESSION: Distal descending/ proximal sigmoid colon high-grade stricture with luminal irregularity, either due to chronic diverticular inflammation or colon cancer. We were unable to reflux contrast more proximally in the colon. Chest X-Ray 01/29/18 00:00 IMPRESSION: Bibasilar bandlike atelectasis Blunting in the left lateral costophrenic sulcus likely due to a combination of airspace disease and trace pleural fluid Abdomen/Pelvis CT 01/29/18 03:17 IMPRESSION: 1. Overall no significant interval change in appearance of prominent loops of fluid-filled large and small bowel. Redemonstrated subtle inflammatory change of the proximal sigmoid colon. This could represent sigmoid diverticulitis producing partial obstruction of the colon at this level. Other etiology of colonic wall thickening and inflammatory change such as inflammatory carcinoma must be considered given lack of change in configuration. Correlation for history appropriate colorectal cancer screening recommended. This exam was performed according to our departmental dose-optimization program, which includes automated exposure control, adjustment of the mA and/or kV according to patient size and/or use of iterative reconstruction technique. Acute Abdomen Series 01/30/18 00:00 IMPRESSION: 1. Decrease in left basilar discoid atelectasis. Resolving small bowel obstruction. NG tube in place. Abdomen X-Ray 01/31/18 06:00 IMPRESSION: NO RADIOGRAPHIC EVIDENCE FOR ACUTE ABDOMINAL DISEASE. Assessment & Plan - Time Time Spent with patient: 15-24 minutes - Plan Summary Plan Summary: Continue clear liquids and laxatives Increase diet tomorrow if continues to have BM
[2018-01-31] MEDS: SUCRALFATE SUSP 1 GM/10 ML UDCUP PO SCH (23:15)
[2018-02-01] MEDS: LEVOTHYROXINE SODIUM 0.15 MG TABLET PO SCH (05:53)
[2018-02-01] MEDS: SUCRALFATE SUSP 1 GM/10 ML UDCUP PO SCH ×4 (05:54→23:03)
[2018-02-01] MEDS ORDERED: (PENDING PHARMACY ID) (Umeclidinium Brm/Vilanterol Tr [Anoro Ellipta 62.5-25 Mcg Inh] 1 PU IH SCH (10:00)
[2018-02-01] MEDS: ENOXAPARIN SODIUM INJ 40 MG/0.4 ML DISP.SYRIN SUBCUT SCH (10:13)
[2018-02-01] MEDS: ALLOPURINOL 100 MG TABLET PO SCH (10:14)
[2018-02-01] MEDS: PANTOPRAZOLE SODIUM 40 MG VIAL IV SCH ×2 (10:14→21:09)
[2018-02-01] MEDS: ASPIRIN 81 MG TABLET, ENT COATED PO SCH (10:14)
--- NOTE | 2018-02-01 10:37 | PDOC CONSULTATION ---
Consultation Consult Date: 01/31/18 Attending physician:: MARVEL DORMAN Consult reason:: Preop cardiovascular examination History of Present Illness Admission Date/PCP: 01/29/18 08:42 ILYA FULLER MD Patient complains of: Abdominal discomfort History of Present Illness: MICHAEL IVEY is a 72 year old female, admitted with nausea vomiting and abdominal discomfort. Patient being entertained for abdominal surgery. Patient has history of congestive heart failure and also cardiac dysrhythmia. I was therefore asked to evaluate patient and cleared her from cardiac standpoint. Patient on questioning denied any chest pain. She has some baseline shortness of breath but not any worse than before. Patient is just quite debilitated and has been recuperating at the [facility]. Patient's previous cardiac history reviewed. Past Medical History Cardiac Medical History: Reports: Congestive Heart Failure, Hypertension Pulmonary Medical History: Reports: Chronic Obstructive Pulmonary Disease (COPD) Neurological Medical History: Denies: Seizures GI Medical History: Reports: Gastroesophageal Reflux Disease Musculoskeltal Medical History: Reports: Gout Past Surgical History Past Surgical History: Reports: Cholecystectomy, Hysterectomy, Other - Lysis of adhesions post hysterectomy Social History Information Source: Relative Smoking Status: Unknown if Ever Smoked Frequency of Alcohol Use: None Hx Recreational Drug Use: No Drugs: None - Advance Directive Resuscitation Status: Full Code Surrogate healthcare decision maker:: Patient's daughter is the surrogate decision-maker Family History Family History: Other - Mother had a stroke, she does not know her father's medical history, sister had cancer of unknown type, 1 of her daughters has hypothyroidism and one of her sons has gout Parental Family History Reviewed: Yes Children Family History Reviewed: Yes Sibling(s) Family History Reviewed.: Yes Medication/Allergy Home Medications: Allopurinol [Zyloprim 100 mg Tablet] 100 mg PO DAILY 01/29/18 Aspirin [Aspirin EC] 81 mg PO DAILY 01/29/18 Bisacodyl [Dulcolax 10 mg Supp.rect] 10 mg UT DAILYP PRN 01/29/18 Calcium Carbonate/Vitamin D3 [Calcium 600 + Vit D 400 Tablet] 1 tab PO BID 01/29 Furosemide [Lasix 40 mg Tablet] 40 mg PO QAM 01/29/18 Ipratropium/Albuterol Sulfate [Duoneb 3 ml Ampul] 1 vial NEB Q4HP PRN 01/29/18 Levothyroxine Sodium [Synthroid] 150 mcg PO Q6AM 01/29/18 Magnesium Oxide [Mag-Ox 400 mg Tablet] 400 mg PO BID 01/29/18 Metoprolol Succinate [Toprol Xl 50 mg Tab.sr] 100 mg PO DAILY 01/29/18 Multivitamin [Multivitamins] 1 tab PO DAILY 01/29/18 Vernon-3 Acid Ethyl Esters [Lovaza 1 gm Capsule] 4 gm PO DAILY 01/29/18 Omeprazole 20 mg PO BID 01/29/18 Potassium Chloride [Klor-Con M20] 20 mg PO Q12 01/29/18 Promethazine HCl [Phenergan 25 mg Tablet] 12.5 mg PO Q4HP PRN 01/29/18 Sucralfate [Carafate Susp 1 gm/10 ml Udcup] 10 ml PO Q6 01/29/18 Umeclidinium Brm/Vilanterol Tr [Anoro Ellipta 62.5-25 Mcg INH] 1 puff IH DAILY 01/29/18 Allergies/Adverse Reactions: No Known Allergies Allergy (Verified 12/14/17 15:08) Review of Systems Review of Systems: Please see history of present illness and past medical history as wall. Constitutional: No fever or chills reported. Head : No recent chronic headaches, recent head injury. Eyes: No recent eye pain, diplopia, redness, discharge, acute visual changes. Ears: No recent chronic ear pain, acute hearing loss, ear discharge. Oral cavity: No recent ulcerations, bleeding, oral cavity discomfort. Neck: No recent acute neck pain reported. Hematologic: No recent easy bruising or bleeding or hematologic malignancy reported. Lymphatic: No recent lymphatic malignancy, chronic lymphadenopathy reported yet Cardiovascular system review: See history of present illness. Respiratory system review: No recent chronic cough, hemoptysis, blood clots in the lungs reported. Shortness of breath on exertion Gastrointestinal system review: Nausea and vomiting along with abdominal pain and distention noted. Denies hematemesis, melena. Genitourinary system review: No recent acute or chronic hematuria, flank pain, UTI etc. reported. Skin system review: Negative for any recent abnormal bruising, no rash, no pruritus reported. Neurologic: No prior history of strokes, mini strokes, seizure disorder. Psychologic: No history of major psychosis or major depression reported. Musculoskeletal: Minor aches and pains reported. No acute joint swelling reported. Endocrine: No recent polyuria, polydipsia, recent heat or cold intolerance. Physical Exam Vital Signs: Temp Pulse Resp BP Pulse Ox 98.2 F 88 16 115/73 96 01/31/18 11:42 01/31/18 11:42 01/31/18 11:42 01/31/18 11:42 01/31/18 11:42 Intake & Output 01/30/18 01/31/18 02/01/18 06:59 06:59 06:59 Intake Total 360 1420 Output Total 590 2800 Balance -230 -1380 Weight 118.6 kg 117.8 kg Exam: GENERAL: well-nourished and in no acute distress. Alert and oriented x2 HEAD: Atraumatic, normocephalic. EYES: Pupils equal round and reactive to light, extraocular movements intact, sclera anicteric, conjunctiva are normal. ENT: TMs normal, nares patent, oropharynx clear without exudates. Moist mucous membranes. No oral ulcerations or bleeding gums noted NECK: supple without lymphadenopathy. Trachea is central. No cervical or axillary lymphadenopathy noted. Carotids are 2+, JVD WNL LUNGS: Respiration seems nonlabored, no significant accessory muscle action noted. Breath sounds clear to auscultation bilaterally and equal noted. No wheezes rales or rhonchi noted. No significant dullness noted on percussion. CHEST: Palpation of the chest wall shows no significant chest wall tenderness. HEART: [place] [employer], No PSH, 1/6 HUONG aortic area, 1/6 morales systolic murmur mitral area, no rubs, no gallops. ABDOMEN: Mildly distended with hypoactive bowel sounds. No guarding, no rebound. No rigidity noted . No masses appreciated. EXTREMITIES: Pedal pulses are 1-2+, no calf tenderness noted. No clubbing or cyanosis. 1+ pedal edema noted NEUROLOGICAL: Focused neurological exam showed no significant neurologic deficit. Normal speech, no focal weakness appreciated. Generalized weakness noted. PSYCH: Normal mood, normal affect. Judgment and insight not checked. SKIN: No significant ecchymosis, skin is noted to be warm. MUSCULOSKELETAL EXAM: No significant acute joint swelling noted. Results Laboratory Results: 01/30/18 13:45 01/30/18 13:45 01/30/18 01/30/18 13:45 13:45 WBC 7.2 RBC 3.44 L Hgb 10.2 L D Hct 30.6 L MCV 89 MCH 29.8 MCHC 33.5 RDW 16.5 H Plt Count 259 Seg Neutrophils % 76.0 Lymphocytes % 16.6 Monocytes % 6.5 Eosinophils % 0.7 Basophils % 0.2 Absolute Neutrophils 5.5 Absolute Lymphocytes 1.2 Absolute Monocytes 0.5 Absolute Eosinophils 0.0 Absolute Basophils 0.0 Sodium 137.4 Potassium 3.1 L Chloride 96 L Carbon Dioxide 36 H Anion Gap 5 BUN 27 H Creatinine 0.98 Est GFR ( Amer) > 60 Est GFR (Non-Af Amer) 55 L Glucose 77 Calcium 8.3 L Phosphorus 3.3 Magnesium 1.9 Albumin 2.0 L 01/30/18 13:45 NT-Pro-B Natriuret Pep 4440 H EKG Comments: Sinus tachycardia with frequent APCs noted Impressions: Barium Enema 01/29/18 00:00 IMPRESSION: Distal descending/ proximal sigmoid colon high-grade stricture with luminal irregularity, either due to chronic diverticular inflammation or colon cancer. We were unable to reflux contrast more proximally in the colon. Chest X-Ray 01/29/18 00:00 IMPRESSION: Bibasilar bandlike atelectasis Blunting in the left lateral costophrenic sulcus likely due to a combination of airspace disease and trace pleural fluid Abdomen/Pelvis CT 01/29/18 03:17 IMPRESSION: 1. Overall no significant interval change in appearance of prominent loops of fluid-filled large and small bowel. Redemonstrated subtle inflammatory change of the proximal sigmoid colon. This could represent sigmoid diverticulitis producing partial obstruction of the colon at this level. Other etiology of colonic wall thickening and inflammatory change such as inflammatory carcinoma must be considered given lack of change in configuration. Correlation for history appropriate colorectal cancer screening recommended. This exam was performed according to our departmental dose-optimization program, which includes automated exposure control, adjustment of the mA and/or kV according to patient size and/or use of iterative reconstruction technique. Acute Abdomen Series 01/30/18 00:00 IMPRESSION: 1. Decrease in left basilar discoid atelectasis. Resolving small bowel obstruction. NG tube in place. Abdomen X-Ray 01/31/18 06:00 IMPRESSION: NO RADIOGRAPHIC EVIDENCE FOR ACUTE ABDOMINAL DISEASE. Assessment & Plan - Diagnosis (1) Bowel obstruction Qualifiers: Intestinal obstruction type: unspecified Is this a current diagnosis for this admission?: Yes (2) CHF (congestive heart failure) Qualifiers: Heart failure type: diastolic Heart failure chronicity: chronic Qualified Code(s): I50.32 - Chronic diastolic (congestive) heart failure Is this a current diagnosis for this admission?: No (3) COPD (chronic obstructive pulmonary disease) Qualifiers: COPD type: unspecified COPD Qualified Code(s): J44.9 - Chronic obstructive pulmonary disease, unspecified Is this a current diagnosis for this admission?: Yes (4) Cardiac dysrhythmia, unspecified Qualifiers: Arrhythmia type: unspecified cardiac arrhythmia Qualified Code(s): I49.9 - Cardiac arrhythmia, unspecified Is this a current diagnosis for this admission?: Yes (5) Hypertension Qualifiers: Hypertension type: essential hypertension Qualified Code(s): I10 - Essential (primary) hypertension Is this a current diagnosis for this admission?: Yes (6) LARRY (obstructive sleep apnea) Is this a current diagnosis for this admission?: Yes (7) Tachycardia Is this a current diagnosis for this admission?: Yes (8) Preoperative cardiovascular examination Is this a current diagnosis for this admission?: Yes - Notes Notes: Patient referred for preop cardiovascular examination, currently patient without any chest pain. She is a little tachycardic but could be related to a small bowel obstruction. EKG is not showing any significant ischemic changes. Patient has history of CHF but seems she is fairly comfortable and able to lay flat. Chest x-ray negative for CHF findings. At this point feel that patient would be a acceptable candidate although above average risk mainly due to mild general debility. Recommend DVT prophylaxis, pulmonary toilet etc. problem expected postop or perioperative is atrial flutter fibrillation, DVT, pulmonary embolism, atelectasis, aspiration's etc. precautions would need to be taken. Should patient get into atrial fibrillation, recommend either IV beta-alejandra or IV Cardizem for rate control. Patient has other comorbid diagnosis but currently those are relatively stable. These comorbidities are listed. CHF: Seems reasonably well compensated. Recommend as needed Lasix for evidence of fluid overload. COPD: Currently seems stable. Continue with oxygen supplementation and bronchodilator therapy as needed. Cardiac dysrhythmia: Currently without any sustained cardiac dysrhythmia. Continue monitoring. Maintain electrolytes within normal limit. Sleep apnea syndrome: Patient will benefit from nightly CPAP/BiPAP therapy. Will be happy to follow patient along with you. As usual I thank you very much for the kind referral. - Time Time Spent: 30 to 50 Minutes - CODE STATUS was discussed, patient remains full code. Surrogate decision-maker patient's daughter. Multiple medical problems were addressed. More than 50% of the time spent coordinating care, discussing management plans with involved caregivers. Management plans discussed with involved personnels. Medical decision making was of moderate to high complexity , patient's has multiple comorbidities. Medications reviewed and adjusted accordingly: Yes
--- NOTE | 2018-02-01 14:21 | PDOC PROGRESS REPORT ---
Subjective Progress Note for:: 02/01/18 Subjective:: Patient without complaints today. Tolerating a liquid diet. Would like her diet advanced. Continues to make stool. Abdominal pain improved. Reason For Visit: CONSTIPATION Physical Exam Vital Signs: Temp Pulse Resp BP Pulse Ox 98.2 F 81 16 131/73 H 99 02/01/18 12:59 02/01/18 12:59 02/01/18 12:59 02/01/18 12:59 02/01/18 12:59 Intake & Output 01/31/18 02/01/18 02/02/18 06:59 06:59 06:59 Intake Total 1420 1858 Output Total 2800 1300 Balance -1380 558 Weight 117.8 kg 117.5 kg General appearance: PRESENT: no acute distress Cardiovascular exam: PRESENT: RRR GI/Abdominal exam: PRESENT: soft. ABSENT: tenderness Extremities exam: PRESENT: +1 edema Musculoskeletal exam: PRESENT: normal inspection Neurological exam: PRESENT: alert Psychiatric exam: PRESENT: appropriate affect Skin exam: PRESENT: pallor, warm Results Laboratory Results: 01/31/18 14:42 01/31/18 14:42 01/31/18 01/31/18 01/31/18 14:42 14:42 14:42 WBC 5.1 RBC 3.59 L Hgb 10.6 L Hct 32.3 L MCV 90 MCH 29.6 MCHC 32.9 RDW 15.9 H Plt Count 225 Sodium 140.0 Potassium 3.5 L Chloride 98 Carbon Dioxide 37 H Anion Gap 5 BUN 17 Creatinine 0.84 Est GFR ( Amer) > 60 Est GFR (Non-Af Amer) > 60 Glucose 97 Calcium 8.1 L Phosphorus 2.4 L Magnesium 2.0 Iron < 10.1 L Albumin 2.0 L 01/30/18 13:45 NT-Pro-B Natriuret Pep 4440 H Impressions: Barium Enema 01/29/18 00:00 IMPRESSION: Distal descending/ proximal sigmoid colon high-grade stricture with luminal irregularity, either due to chronic diverticular inflammation or colon cancer. We were unable to reflux contrast more proximally in the colon. Chest X-Ray 01/29/18 00:00 IMPRESSION: Bibasilar bandlike atelectasis Blunting in the left lateral costophrenic sulcus likely due to a combination of airspace disease and trace pleural fluid Abdomen/Pelvis CT 01/29/18 03:17 IMPRESSION: 1. Overall no significant interval change in appearance of prominent loops of fluid-filled large and small bowel. Redemonstrated subtle inflammatory change of the proximal sigmoid colon. This could represent sigmoid diverticulitis producing partial obstruction of the colon at this level. Other etiology of colonic wall thickening and inflammatory change such as inflammatory carcinoma must be considered given lack of change in configuration. Correlation for history appropriate colorectal cancer screening recommended. This exam was performed according to our departmental dose-optimization program, which includes automated exposure control, adjustment of the mA and/or kV according to patient size and/or use of iterative reconstruction technique. Acute Abdomen Series 01/30/18 00:00 IMPRESSION: 1. Decrease in left basilar discoid atelectasis. Resolving small bowel obstruction. NG tube in place. Abdomen X-Ray 01/31/18 06:00 IMPRESSION: NO RADIOGRAPHIC EVIDENCE FOR ACUTE ABDOMINAL DISEASE. Assessment & Plan - Diagnosis (1) Hypotension Qualifiers: Hypotension type: unspecified hypotension type Qualified Code(s): I95.9 - Hypotension, unspecified Is this a current diagnosis for this admission?: Yes Plan: Normally hypertensive. Currently off of all home medications. Currently low normotensive, though evidently fluid overloaded. Monitor. Cardiology consulted (2) Large bowel obstruction Is this a current diagnosis for this admission?: Yes Plan: She was noted to have a very tight stricture in her descending colon on flex sig , though stool continued to pass. Continue MiraLAX and advance to full liquids. Further management of her stricture per surgery (3) Acute renal failure Qualifiers: Acute renal failure type: unspecified Qualified Code(s): N17.9 - Acute kidney failure, unspecified Is this a current diagnosis for this admission?: Yes Plan: Resolved with fluids. Continue to monitor closely (4) Alkalosis, metabolic Is this a current diagnosis for this admission?: Yes Plan: Probably due to intravascular volume contraction. I am uncomfortable giving more fluids unless I have to (5) COPD (chronic obstructive pulmonary disease) Qualifiers: COPD type: unspecified COPD Qualified Code(s): J44.9 - Chronic obstructive pulmonary disease, unspecified Is this a current diagnosis for this admission?: Yes Plan: Continue current medications (6) Morbid (severe) obesity due to excess calories Is this a current diagnosis for this admission?: Yes (7) LARRY (obstructive sleep apnea) Is this a current diagnosis for this admission?: Yes Plan: CPAP as at home.
--- NOTE | 2018-02-01 16:08 | PDOC PROGRESS REPORT ---
Subjective Progress Note for:: 02/01/18 Subjective:: No pains. Continues to have loose stools on laxatives. Reason For Visit: CONSTIPATION Physical Exam Vital Signs: Temp Pulse Resp BP Pulse Ox 98.2 F 81 16 131/73 H 99 02/01/18 12:59 02/01/18 12:59 02/01/18 12:59 02/01/18 12:59 02/01/18 12:59 Intake & Output 01/31/18 02/01/18 02/02/18 06:59 06:59 06:59 Intake Total 1420 1858 Output Total 2800 1300 Balance -1380 558 Weight 117.8 kg 117.5 kg Exam: Abd is soft and non tender and non distended. Results Laboratory Results: 01/31/18 14:42 01/31/18 14:42 01/31/18 14:42 Iron < 10.1 L 01/30/18 13:45 NT-Pro-B Natriuret Pep 4440 H Impressions: Barium Enema 01/29/18 00:00 IMPRESSION: Distal descending/ proximal sigmoid colon high-grade stricture with luminal irregularity, either due to chronic diverticular inflammation or colon cancer. We were unable to reflux contrast more proximally in the colon. Chest X-Ray 01/29/18 00:00 IMPRESSION: Bibasilar bandlike atelectasis Blunting in the left lateral costophrenic sulcus likely due to a combination of airspace disease and trace pleural fluid Abdomen/Pelvis CT 01/29/18 03:17 IMPRESSION: 1. Overall no significant interval change in appearance of prominent loops of fluid-filled large and small bowel. Redemonstrated subtle inflammatory change of the proximal sigmoid colon. This could represent sigmoid diverticulitis producing partial obstruction of the colon at this level. Other etiology of colonic wall thickening and inflammatory change such as inflammatory carcinoma must be considered given lack of change in configuration. Correlation for history appropriate colorectal cancer screening recommended. This exam was performed according to our departmental dose-optimization program, which includes automated exposure control, adjustment of the mA and/or kV according to patient size and/or use of iterative reconstruction technique. Acute Abdomen Series 01/30/18 00:00 IMPRESSION: 1. Decrease in left basilar discoid atelectasis. Resolving small bowel obstruction. NG tube in place. Abdomen X-Ray 01/31/18 06:00 IMPRESSION: NO RADIOGRAPHIC EVIDENCE FOR ACUTE ABDOMINAL DISEASE. Assessment & Plan - Time Time Spent with patient: 15-24 minutes - Plan Summary Plan Summary: Continue laxatives to clean bowel for possible re-colonoscopy to evaluate/ biopsy stricture site. Increase to full lquid diet.
[2018-02-01 16:45] LABS: AMORPHOUS SEDIMENT,URINE TRACE /HPF; APPEARANCE,URINE CLOUDY; BILIRUBIN,URINE NEGATIVE (NEGATIVE); COLOR,URINE YELLOW; GLUCOSE, URINE NEGATIVE (NEGATIVE); KETONES,URINE NEGATIVE (NEGATIVE); LEUKOCYTE ESTERASE,URINE LARGE (NEGATIVE); NITRITE,URINE POSITIVE (NEGATIVE); PROTEIN,URINE 30 mg/dL (NEGATIVE); URINE SPECIFIC GRAVITY 1.011; UROBILINOGEN,URINE NEGATIVE mg/dL (<2.0)
[2018-02-01] MEDS: POLYETHYLENE GLYCOL 3350 POWDER 17 GM/1 PACKET PO SCH (17:30)
[2018-02-02] MEDS: SUCRALFATE SUSP 1 GM/10 ML UDCUP PO SCH ×4 (05:58→23:09)
[2018-02-02] MEDS: LEVOTHYROXINE SODIUM 0.15 MG TABLET PO SCH (05:58)
[2018-02-02 07:21] LABS: HEMATOCRIT 34.3 % (36.0-47.0); HEMOGLOBIN 11.4 g/dL (12.0-15.5); MEAN CORPUSCULAR HEMOGLOBIN 29.8 pg (27.0-33.4); MEAN CORPUSCULAR HGB CONC 33.2 g/dL (32.0-36.0); MEAN CORPUSCULAR VOLUME 90 fl (80-97); PLATELET COUNT 210 10^3/uL (150-450); RED BLOOD COUNT 3.82 10^6/uL (3.72-5.28); RED CELL DISTRIBUTION WIDTH 15.7 % (11.5-14.0)
[2018-02-02 07:46] LABS: BLOOD UREA NITROGEN 12 mg/dL (7-20); CALCIUM 8.4 mg/dL (8.4-10.2); GLUCOSE 81 mg/dL (75-110); PHOSPHORUS 2.6 mg/dL (2.5-4.5); POTASSIUM 3.5 mmol/L (3.6-5.0)
[2018-02-02 07:51] LABS: CARBON DIOXIDE 38 mmol/L (22-30); CHLORIDE 99 mmol/L (98-107); SODIUM 139.7 mmol/L (137-145)
[2018-02-02 07:52] LABS: ANION GAP 3 (5-19)
[2018-02-02] MEDS: ASPIRIN 81 MG TABLET, ENT COATED PO SCH (09:42)
[2018-02-02] MEDS: PANTOPRAZOLE SODIUM 40 MG VIAL IV SCH (09:42)
[2018-02-02] MEDS: ENOXAPARIN SODIUM INJ 40 MG/0.4 ML DISP.SYRIN SUBCUT SCH (09:42)
[2018-02-02] MEDS: ALLOPURINOL 100 MG TABLET PO SCH (09:42)
--- NOTE | 2018-02-02 10:44 | PDOC PROGRESS REPORT ---
Subjective Progress Note for:: 02/02/18 Reason For Visit: CONSTIPATION Patient clinically feeling better, having multiple bowel movements. Physical Exam Vital Signs: Temp Pulse Resp BP Pulse Ox 97.5 F 87 18 131/72 H 94 02/02/18 07:09 02/02/18 07:09 02/02/18 07:09 02/02/18 07:09 02/02/18 07:09 Intake & Output 02/01/18 02/02/18 02/03/18 06:59 06:59 06:59 Intake Total 1858 2268 Output Total 1300 325 Balance 558 1943 Weight 117.5 kg 117 kg General appearance: PRESENT: no acute distress, other - Clinically her color has improved. GI/Abdominal exam: PRESENT: other - Abdomen is benign; she is actively stooling Results Laboratory Results: 02/02/18 06:56 02/02/18 06:56 02/01/18 02/02/18 02/02/18 16:08 06:56 06:56 WBC 5.0 RBC 3.82 Hgb 11.4 L Hct 34.3 L MCV 90 MCH 29.8 MCHC 33.2 RDW 15.7 H Plt Count 210 Sodium 139.7 Potassium 3.5 L Chloride 99 Carbon Dioxide 38 H Anion Gap 3 L BUN 12 Creatinine 0.77 Est GFR ( Amer) > 60 Est GFR (Non-Af Amer) > 60 Glucose 81 Calcium 8.4 Phosphorus 2.6 Magnesium 1.9 Albumin 2.0 L Urine Color YELLOW Urine Appearance CLOUDY Urine pH 9.0 Ur Specific [place] 1.011 Urine Protein 30 H Urine Glucose (UA) NEGATIVE Urine Ketones NEGATIVE Urine Blood SMALL H Urine Nitrite POSITIVE H Ur Leukocyte Esterase LARGE H Urine WBC (Auto) >182 Urine RBC (Auto) 19 01/30/18 13:45 NT-Pro-B Natriuret Pep 4440 H Impressions: Barium Enema 01/29/18 00:00 IMPRESSION: Distal descending/ proximal sigmoid colon high-grade stricture with luminal irregularity, either due to chronic diverticular inflammation or colon cancer. We were unable to reflux contrast more proximally in the colon. Chest X-Ray 01/29/18 00:00 IMPRESSION: Bibasilar bandlike atelectasis Blunting in the left lateral costophrenic sulcus likely due to a combination of airspace disease and trace pleural fluid Abdomen/Pelvis CT 01/29/18 03:17 IMPRESSION: 1. Overall no significant interval change in appearance of prominent loops of fluid-filled large and small bowel. Redemonstrated subtle inflammatory change of the proximal sigmoid colon. This could represent sigmoid diverticulitis producing partial obstruction of the colon at this level. Other etiology of colonic wall thickening and inflammatory change such as inflammatory carcinoma must be considered given lack of change in configuration. Correlation for history appropriate colorectal cancer screening recommended. This exam was performed according to our departmental dose-optimization program, which includes automated exposure control, adjustment of the mA and/or kV according to patient size and/or use of iterative reconstruction technique. Acute Abdomen Series 01/30/18 00:00 IMPRESSION: 1. Decrease in left basilar discoid atelectasis. Resolving small bowel obstruction. NG tube in place. Abdomen X-Ray 01/31/18 06:00 IMPRESSION: NO RADIOGRAPHIC EVIDENCE FOR ACUTE ABDOMINAL DISEASE. Assessment & Plan - Diagnosis (1) Bowel obstruction Qualifiers: Intestinal obstruction type: unspecified Intestinal obstruction extent: partial Qualified Code(s): K56.600 - Partial intestinal obstruction, unspecified as to cause Is this a current diagnosis for this admission?: Yes Plan: Patient has a large bowel obstruction, incomplete, at the level of the sigmoid colon due either to stricture from inflammatory disease or neoplasm. Colonoscopy last week was incomplete due to some amounts of stool with essentially no bowel prep, low blood pressure, and inability to tolerate the procedure with minimal sedation. Clinically the patient is improving with regular bowel movements, all loose Discussion: 1. With patient and family in the room, I suggested we keep the patient on clear or full liquids, and allow her to continue to evacuate stool. I discussed this with primary care team. 2. Overall the patient is clinically improved; the may be able to tolerate a formal bowel prep only next week with an attempt at repeat colonoscopy in the operating room under LMAC to determine the nature of the stricture, performed biopsy, etc. 3. Naturally with the patient's chronically decompensated cardiac status , her risk of cardiovascular and respiratory applications of any sort of operative intervention is significant. - Time Time Spent with patient: 15-24 minutes
--- NOTE | 2018-02-02 13:29 | PDOC PROGRESS REPORT ---
Subjective Progress Note for:: 02/01/18 Subjective:: Patient seems to be doing better with gradual improvement. Pt is denying any chest arm or neck discomfort. Patient denying any PND, orthopnea. Patient denied any sustained palpitations, dizziness, syncope, near syncope. Patient denying any fever chills. Patient denying any other significant discomfort. Patient is maintaining sinus rhythm. Review of systems: Rest review of systems negative. Medications: Medications have been reviewed. Reason For Visit: CONSTIPATION Physical Exam Vital Signs: Temp Pulse Resp BP Pulse Ox 99.5 F 81 12 118/80 94 02/01/18 16:00 02/01/18 16:00 02/01/18 16:00 02/01/18 16:00 02/01/18 16:00 Intake & Output 01/31/18 02/01/18 02/02/18 06:59 06:59 06:59 Intake Total 1420 1858 1608 Output Total 2800 1300 325 Balance -2049 222 5215 Weight 117.8 kg 117.5 kg Exam: GENERAL: well-nourished and in no acute distress. Alert and oriented x3 HEAD: Atraumatic, normocephalic. EYES: Pupils equal round and reactive to light, extraocular movements intact, sclera anicteric, conjunctiva are normal. ENT: TMs normal, nares patent, oropharynx clear without exudates. Moist mucous membranes. No oral ulcerations or bleeding gums noted NECK: supple without lymphadenopathy. Trachea is central. No cervical or axillary lymphadenopathy noted. Carotids are 2+, JVD WNL LUNGS: Respiration seems nonlabored, no significant accessory muscle action noted. Breath sounds clear to auscultation bilaterally and equal noted. No wheezes rales or rhonchi noted. No significant dullness noted on percussion. CHEST: Palpation of the chest wall shows no significant chest wall tenderness. 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 ABDOMEN: Soft, no significant tenderness appreciated, normoactive bowel sounds. No guarding, no rebound. No rigidity noted . No masses appreciated. EXTREMITIES: Pedal pulses are 1-2+, no calf tenderness noted. No clubbing or cyanosis. negative pedal edema noted NEUROLOGICAL: Focused neurological exam showed no significant neurologic deficit. Normal speech, no focal weakness appreciated. PSYCH: Normal mood, normal affect. Judgment and insight within normal limits. SKIN: No significant ecchymosis, skin is noted to be warm. MUSCULOSKELETAL EXAM: No significant acute joint swelling noted. Results Laboratory Results: 01/31/18 14:42 01/31/18 14:42 01/31/18 02/01/18 14:42 16:08 Iron < 10.1 L Urine Color YELLOW Urine Appearance CLOUDY Urine pH 9.0 Ur Specific [place] 1.011 Urine Protein 30 H Urine Glucose (UA) NEGATIVE Urine Ketones NEGATIVE Urine Blood SMALL H Urine Nitrite POSITIVE H Ur Leukocyte Esterase LARGE H Urine WBC (Auto) >182 Urine RBC (Auto) 19 01/30/18 13:45 NT-Pro-B Natriuret Pep 4440 H EKG Comments: No significant cardiac dysrhythmia noted. Impressions: Barium Enema 01/29/18 00:00 IMPRESSION: Distal descending/ proximal sigmoid colon high-grade stricture with luminal irregularity, either due to chronic diverticular inflammation or colon cancer. We were unable to reflux contrast more proximally in the colon. Chest X-Ray 01/29/18 00:00 IMPRESSION: Bibasilar bandlike atelectasis Blunting in the left lateral costophrenic sulcus likely due to a combination of airspace disease and trace pleural fluid Abdomen/Pelvis CT 01/29/18 03:17 IMPRESSION: 1. Overall no significant interval change in appearance of prominent loops of fluid-filled large and small bowel. Redemonstrated subtle inflammatory change of the proximal sigmoid colon. This could represent sigmoid diverticulitis producing partial obstruction of the colon at this level. Other etiology of colonic wall thickening and inflammatory change such as inflammatory carcinoma must be considered given lack of change in configuration. Correlation for history appropriate colorectal cancer screening recommended. This exam was performed according to our departmental dose-optimization program, which includes automated exposure control, adjustment of the mA and/or kV according to patient size and/or use of iterative reconstruction technique. Acute Abdomen Series 01/30/18 00:00 IMPRESSION: 1. Decrease in left basilar discoid atelectasis. Resolving small bowel obstruction. NG tube in place. Abdomen X-Ray 01/31/18 06:00 IMPRESSION: NO RADIOGRAPHIC EVIDENCE FOR ACUTE ABDOMINAL DISEASE. Assessment & Plan - Diagnosis (1) Bowel obstruction Qualifiers: Intestinal obstruction type: unspecified Intestinal obstruction extent: partial Qualified Code(s): K56.600 - Partial intestinal obstruction, unspecified as to cause Is this a current diagnosis for this admission?: Yes (2) CHF (congestive heart failure) Qualifiers: Heart failure type: diastolic Heart failure chronicity: chronic Qualified Code(s): I50.32 - Chronic diastolic (congestive) heart failure Is this a current diagnosis for this admission?: No (3) COPD (chronic obstructive pulmonary disease) Qualifiers: COPD type: unspecified COPD Qualified Code(s): J44.9 - Chronic obstructive pulmonary disease, unspecified Is this a current diagnosis for this admission?: Yes (4) Cardiac dysrhythmia, unspecified Qualifiers: Arrhythmia type: unspecified cardiac arrhythmia Qualified Code(s): I49.9 - Cardiac arrhythmia, unspecified Is this a current diagnosis for this admission?: Yes (5) Hypertension Qualifiers: Hypertension type: essential hypertension Qualified Code(s): I10 - Essential (primary) hypertension Is this a current diagnosis for this admission?: Yes (6) LARRY (obstructive sleep apnea) Is this a current diagnosis for this admission?: Yes (7) Tachycardia Is this a current diagnosis for this admission?: Yes (8) Preoperative cardiovascular examination Is this a current diagnosis for this admission?: Yes - Notes Notes: Patient has shown significant improvement in her general condition. I am told by the surgeon that they may not do surgery as she has improved significantly. Will follow patient on as needed basis. Bowel obstruction seems to be resolving. CHF: Seems reasonably well compensated. Recommend as needed Lasix for evidence of fluid overload. COPD: Currently seems stable. Continue with oxygen supplementation and bronchodilator therapy as needed. Cardiac dysrhythmia: Currently without any sustained cardiac dysrhythmia. Continue monitoring. Maintain electrolytes within normal limit. Sleep apnea syndrome: Patient will benefit from nightly CPAP/BiPAP therapy. - Time Time with patient: 15-25 minutes - CODE STATUS was discussed, patient remains full code. Surrogate decision-maker unchanged. Multiple medical problems were addressed. More than 50% of the time spent coordinating care, discussing management plans with involved caregivers. Management plans discussed with involved personnels. Medical decision making was of moderate to high complexity , patient's has multiple comorbidities. Medications reviewed and adjusted accordingly: Yes
--- NOTE | 2018-02-02 13:31 | PDOC PROGRESS REPORT ---
Subjective Progress Note for:: 02/02/18 Subjective:: Patient seems to be doing better. Patient is noted to be ambulating in the hallway without any complaints. It seems surgery is postponed. Colonoscopy is being planned. Pt is denying any chest arm or neck discomfort. Patient denying any PND, orthopnea. Patient denied any sustained palpitations, dizziness, syncope, near syncope. Patient denying any fever chills. Patient denying any other significant discomfort. No significant cardiac dysrhythmia noted. Review of systems: Rest review of systems negative. Medications: Medications have been reviewed. Reason For Visit: CONSTIPATION Physical Exam Vital Signs: Temp Pulse Resp BP Pulse Ox 97.9 F 92 18 129/89 H 96 02/02/18 10:53 02/02/18 10:53 02/02/18 10:53 02/02/18 10:53 02/02/18 10:53 Intake & Output 02/01/18 02/02/18 02/03/18 06:59 06:59 06:59 Intake Total 1858 2268 Output Total 1300 325 Balance 558 1943 Weight 117.5 kg 117 kg Exam: GENERAL: well-nourished and in no acute distress. Alert and oriented x3 HEAD: Atraumatic, normocephalic. EYES: Pupils equal round and reactive to light, extraocular movements intact, sclera anicteric, conjunctiva are normal. ENT: TMs normal, nares patent, oropharynx clear without exudates. Moist mucous membranes. No oral ulcerations or bleeding gums noted NECK: supple without lymphadenopathy. Trachea is central. No cervical or axillary lymphadenopathy noted. Carotids are 2+, JVD WNL LUNGS: Respiration seems nonlabored, no significant accessory muscle action noted. Breath sounds clear to auscultation bilaterally and equal noted. No wheezes rales or rhonchi noted. No significant dullness noted on percussion. CHEST: Palpation of the chest wall shows no significant chest wall tenderness. 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 ABDOMEN: Soft, no significant tenderness appreciated, normoactive bowel sounds. No guarding, no rebound. No rigidity noted . No masses appreciated. EXTREMITIES: Pedal pulses are 1-2+, no calf tenderness noted. No clubbing or cyanosis. negative pedal edema noted NEUROLOGICAL: Focused neurological exam showed no significant neurologic deficit. Normal speech, no focal weakness appreciated. PSYCH: Normal mood, normal affect. Judgment and insight within normal limits. SKIN: No significant ecchymosis, skin is noted to be warm. MUSCULOSKELETAL EXAM: No significant acute joint swelling noted. Results Laboratory Results: 02/02/18 06:56 02/02/18 06:56 02/01/18 02/02/18 02/02/18 16:08 06:56 06:56 WBC 5.0 RBC 3.82 Hgb 11.4 L Hct 34.3 L MCV 90 MCH 29.8 MCHC 33.2 RDW 15.7 H Plt Count 210 Sodium 139.7 Potassium 3.5 L Chloride 99 Carbon Dioxide 38 H Anion Gap 3 L BUN 12 Creatinine 0.77 Est GFR ( Amer) > 60 Est GFR (Non-Af Amer) > 60 Glucose 81 Calcium 8.4 Phosphorus 2.6 Magnesium 1.9 Albumin 2.0 L Urine Color YELLOW Urine Appearance CLOUDY Urine pH 9.0 Ur Specific [place] 1.011 Urine Protein 30 H Urine Glucose (UA) NEGATIVE Urine Ketones NEGATIVE Urine Blood SMALL H Urine Nitrite POSITIVE H Ur Leukocyte Esterase LARGE H Urine WBC (Auto) >182 Urine RBC (Auto) 19 01/30/18 13:45 NT-Pro-B Natriuret Pep 4440 H Impressions: Barium Enema 01/29/18 00:00 IMPRESSION: Distal descending/ proximal sigmoid colon high-grade stricture with luminal irregularity, either due to chronic diverticular inflammation or colon cancer. We were unable to reflux contrast more proximally in the colon. Chest X-Ray 01/29/18 00:00 IMPRESSION: Bibasilar bandlike atelectasis Blunting in the left lateral costophrenic sulcus likely due to a combination of airspace disease and trace pleural fluid Abdomen/Pelvis CT 01/29/18 03:17 IMPRESSION: 1. Overall no significant interval change in appearance of prominent loops of fluid-filled large and small bowel. Redemonstrated subtle inflammatory change of the proximal sigmoid colon. This could represent sigmoid diverticulitis producing partial obstruction of the colon at this level. Other etiology of colonic wall thickening and inflammatory change such as inflammatory carcinoma must be considered given lack of change in configuration. Correlation for history appropriate colorectal cancer screening recommended. This exam was performed according to our departmental dose-optimization program, which includes automated exposure control, adjustment of the mA and/or kV according to patient size and/or use of iterative reconstruction technique. Acute Abdomen Series 01/30/18 00:00 IMPRESSION: 1. Decrease in left basilar discoid atelectasis. Resolving small bowel obstruction. NG tube in place. Abdomen X-Ray 01/31/18 06:00 IMPRESSION: NO RADIOGRAPHIC EVIDENCE FOR ACUTE ABDOMINAL DISEASE. Assessment & Plan - Diagnosis (1) Bowel obstruction Qualifiers: Intestinal obstruction type: unspecified Intestinal obstruction extent: partial Qualified Code(s): K56.600 - Partial intestinal obstruction, unspecified as to cause Is this a current diagnosis for this admission?: Yes (2) CHF (congestive heart failure) Qualifiers: Heart failure type: diastolic Heart failure chronicity: chronic Qualified Code(s): I50.32 - Chronic diastolic (congestive) heart failure Is this a current diagnosis for this admission?: No (3) COPD (chronic obstructive pulmonary disease) Qualifiers: COPD type: unspecified COPD Qualified Code(s): J44.9 - Chronic obstructive pulmonary disease, unspecified Is this a current diagnosis for this admission?: Yes (4) Cardiac dysrhythmia, unspecified Qualifiers: Arrhythmia type: unspecified cardiac arrhythmia Qualified Code(s): I49.9 - Cardiac arrhythmia, unspecified Is this a current diagnosis for this admission?: Yes (5) Hypertension Qualifiers: Hypertension type: essential hypertension Qualified Code(s): I10 - Essential (primary) hypertension Is this a current diagnosis for this admission?: Yes (6) LARRY (obstructive sleep apnea) Is this a current diagnosis for this admission?: Yes (7) Tachycardia Is this a current diagnosis for this admission?: Yes (8) Preoperative cardiovascular examination Is this a current diagnosis for this admission?: Yes - Notes Notes: CHF: Seems reasonably well compensated. Recommend as needed Lasix for evidence of fluid overload. COPD: Currently seems stable. Continue with oxygen supplementation and bronchodilator therapy as needed. Cardiac dysrhythmia: Currently stable and without any sustained cardiac dysrhythmia. Continue monitoring. Maintain electrolytes within normal limit. Sleep apnea syndrome: Patient will benefit from nightly CPAP/BiPAP therapy. Patient was previously cleared for surgery. Please see my previous notes. At this point will sign off. Please reconsult if needed. - Time Time with patient: 15-25 minutes - CODE STATUS was discussed, patient remains full code. Surrogate decision-maker unchanged. Multiple medical problems were addressed. More than 50% of the time spent coordinating care, discussing management plans with involved caregivers. Management plans discussed with involved personnels. Medical decision making was of moderate to high complexity , patient's has multiple comorbidities. Medications reviewed and adjusted accordingly: Yes
--- NOTE | 2018-02-02 16:41 | PDOC PROGRESS REPORT ---
Subjective Progress Note for:: 02/02/18 Subjective:: 72 yr old female with history of Diastolic CHF HTN LARRY COPD Obesity Presented to the ER on 01/29/18 with abdominal distention and constipation. CT of the abdomen and pelvis showed possible sigmoid obstruction with an area of inflammation. Flexible sigmoidoscopy was performed on January 30 and it showed sigmoid diverticulosis with no evidence of tumor or other pathology. Currently on a full liquid diet with plans for a repeat colonoscopy for further evaluation. Reason For Visit: CONSTIPATION Physical Exam Vital Signs: Temp Pulse Resp BP Pulse Ox 97.9 F 92 18 129/89 H 96 02/02/18 10:53 02/02/18 10:53 02/02/18 10:53 02/02/18 10:53 02/02/18 10:53 Intake & Output 02/01/18 02/02/18 02/03/18 06:59 06:59 06:59 Intake Total 1858 2268 Output Total 1300 325 Balance 558 1943 Weight 117.5 kg 117 kg General appearance: PRESENT: no acute distress, obese Head exam: PRESENT: normocephalic Eye exam: ABSENT: scleral icterus Ear exam: PRESENT: normal external ear exam Mouth exam: PRESENT: moist Neck exam: ABSENT: tenderness Respiratory exam: PRESENT: clear to auscultation choco, symmetrical, unlabored Cardiovascular exam: PRESENT: RRR GI/Abdominal exam: PRESENT: normal bowel sounds, soft Rectal exam: PRESENT: deferred Extremities exam: ABSENT: calf tenderness, pedal edema Neurological exam: PRESENT: alert, awake, oriented to person, oriented to place , oriented to time Psychiatric exam: PRESENT: appropriate affect Skin exam: ABSENT: mottled Results Laboratory Results: 02/02/18 06:56 02/02/18 06:56 02/01/18 02/02/18 02/02/18 16:08 06:56 06:56 WBC 5.0 RBC 3.82 Hgb 11.4 L Hct 34.3 L MCV 90 MCH 29.8 MCHC 33.2 RDW 15.7 H Plt Count 210 Sodium 139.7 Potassium 3.5 L Chloride 99 Carbon Dioxide 38 H Anion Gap 3 L BUN 12 Creatinine 0.77 Est GFR ( Amer) > 60 Est GFR (Non-Af Amer) > 60 Glucose 81 Calcium 8.4 Phosphorus 2.6 Magnesium 1.9 Albumin 2.0 L Urine Color YELLOW Urine Appearance CLOUDY Urine pH 9.0 Ur Specific [place] 1.011 Urine Protein 30 H Urine Glucose (UA) NEGATIVE Urine Ketones NEGATIVE Urine Blood SMALL H Urine Nitrite POSITIVE H Ur Leukocyte Esterase LARGE H Urine WBC (Auto) >182 Urine RBC (Auto) 19 01/30/18 13:45 NT-Pro-B Natriuret Pep 4440 H Impressions: Barium Enema 01/29/18 00:00 IMPRESSION: Distal descending/ proximal sigmoid colon high-grade stricture with luminal irregularity, either due to chronic diverticular inflammation or colon cancer. We were unable to reflux contrast more proximally in the colon. Chest X-Ray 01/29/18 00:00 IMPRESSION: Bibasilar bandlike atelectasis Blunting in the left lateral costophrenic sulcus likely due to a combination of airspace disease and trace pleural fluid Abdomen/Pelvis CT 01/29/18 03:17 IMPRESSION: 1. Overall no significant interval change in appearance of prominent loops of fluid-filled large and small bowel. Redemonstrated subtle inflammatory change of the proximal sigmoid colon. This could represent sigmoid diverticulitis producing partial obstruction of the colon at this level. Other etiology of colonic wall thickening and inflammatory change such as inflammatory carcinoma must be considered given lack of change in configuration. Correlation for history appropriate colorectal cancer screening recommended. This exam was performed according to our departmental dose-optimization program, which includes automated exposure control, adjustment of the mA and/or kV according to patient size and/or use of iterative reconstruction technique. Acute Abdomen Series 01/30/18 00:00 IMPRESSION: 1. Decrease in left basilar discoid atelectasis. Resolving small bowel obstruction. NG tube in place. Abdomen X-Ray 01/31/18 06:00 IMPRESSION: NO RADIOGRAPHIC EVIDENCE FOR ACUTE ABDOMINAL DISEASE. Assessment & Plan - Diagnosis (1) Hypotension Qualifiers: Hypotension type: unspecified hypotension type Qualified Code(s): I95.9 - Hypotension, unspecified Is this a current diagnosis for this admission?: Yes Plan: Continue to monitor. (2) Large bowel obstruction Is this a current diagnosis for this admission?: Yes Plan: Management per surgical service. (3) Acute renal failure Qualifiers: Acute renal failure type: unspecified Qualified Code(s): N17.9 - Acute kidney failure, unspecified Is this a current diagnosis for this admission?: Yes Plan: Resolved. (4) Alkalosis, metabolic Is this a current diagnosis for this admission?: Yes Plan: Due to intravascular volume contraction. Continue to monitor. (5) COPD (chronic obstructive pulmonary disease) Qualifiers: COPD type: unspecified COPD Qualified Code(s): J44.9 - Chronic obstructive pulmonary disease, unspecified Is this a current diagnosis for this admission?: Yes Plan: Continue outpatient inhalers. Nebs as needed. (6) DVT prophylaxis Is this a current diagnosis for this admission?: Yes Plan: Subcutaneous Lovenox (7) Hypothyroidism Is this a current diagnosis for this admission?: Yes Plan: Continue Synthroid (8) Morbid (severe) obesity due to excess calories Is this a current diagnosis for this admission?: Yes Plan: Calorie control. (9) LARRY (obstructive sleep apnea) Is this a current diagnosis for this admission?: Yes Plan: CPAP at night (10) Chronic diastolic (congestive) heart failure Is this a current diagnosis for this admission?: Yes Plan: Stable - Time Time Spent with patient: 35 or more minutes
[2018-02-02] MEDS: POLYETHYLENE GLYCOL 3350 POWDER 17 GM/1 PACKET PO SCH (17:10)
[2018-02-03] MEDS: SUCRALFATE SUSP 1 GM/10 ML UDCUP PO SCH ×3 (05:05→17:42)
[2018-02-03] MEDS: LEVOTHYROXINE SODIUM 0.15 MG TABLET PO SCH (05:05)
[2018-02-03 05:44] LABS: HEMATOCRIT 34.5 % (36.0-47.0); HEMOGLOBIN 11.6 g/dL (12.0-15.5); MEAN CORPUSCULAR HGB CONC 33.6 g/dL (32.0-36.0); MEAN CORPUSCULAR VOLUME 90 fl (80-97); PLATELET COUNT 205 10^3/uL (150-450); RED BLOOD COUNT 3.86 10^6/uL (3.72-5.28); WHITE BLOOD COUNT 6.1 10^3/uL (4.0-10.5)
[2018-02-03 06:07] LABS: ALANINE AMINOTRANSFERASE 19 U/L (9-52); ALBUMIN 2.1 g/dL (3.5-5.0); ALKALINE PHOSPHATASE 79 U/L (38-126); ASPARTATE AMINO TRANSFERASE 22 U/L (14-36); BILIRUBIN,DIRECT 0.2 mg/dL (0.0-0.4); BILIRUBIN,TOTAL 0.2 mg/dL (0.2-1.3); BLOOD UREA NITROGEN 10 mg/dL (7-20); CALCIUM 8.3 mg/dL (8.4-10.2); GLUCOSE 79 mg/dL (75-110); PHOSPHORUS 2.5 mg/dL (2.5-4.5); POTASSIUM 3.1 mmol/L (3.6-5.0); TOTAL PROTEIN 4.6 g/dL (6.3-8.2)
[2018-02-03 06:12] LABS: ANION GAP 2 (5-19); CARBON DIOXIDE 36 mmol/L (22-30); CHLORIDE 101 mmol/L (98-107); SODIUM 139.3 mmol/L (137-145)
[2018-02-03] MEDS: ENOXAPARIN SODIUM INJ 40 MG/0.4 ML DISP.SYRIN SUBCUT SCH (09:56)
[2018-02-03] MEDS: ALLOPURINOL 100 MG TABLET PO SCH (09:59)
[2018-02-03] MEDS: ASPIRIN 81 MG TABLET, ENT COATED PO SCH (09:59)
--- NOTE | 2018-02-03 10:14 | PDOC PROGRESS REPORT ---
Subjective Progress Note for:: 02/03/18 Subjective:: Feels better. Abdomen almost back to normal. Having soft bowel movements. Reason For Visit: CONSTIPATION Physical Exam Vital Signs: Temp Pulse Resp BP Pulse Ox 98.3 F 98 18 123/65 95 02/03/18 07:06 02/03/18 07:06 02/03/18 07:06 02/03/18 07:06 02/03/18 07:49 Intake & Output 02/02/18 02/03/18 02/04/18 06:59 06:59 06:59 Intake Total 2268 1628 Output Total 325 Balance 1943 1628 Weight 117 kg 117.5 kg General appearance: PRESENT: no acute distress, cooperative Respiratory exam: PRESENT: clear to auscultation choco Cardiovascular exam: PRESENT: RRR GI/Abdominal exam: PRESENT: other - Soft, nondistended, very mild lower abdominal tenderness without peritoneal signs. Extremities exam: PRESENT: other - Nontender. Results Laboratory Results: 02/03/18 04:39 02/03/18 04:39 02/03/18 02/03/18 04:39 04:39 WBC 6.1 RBC 3.86 Hgb 11.6 L Hct 34.5 L MCV 90 MCH 30.0 MCHC 33.6 RDW 16.0 H Plt Count 205 Sodium 139.3 Potassium 3.1 L Chloride 101 Carbon Dioxide 36 H Anion Gap 2 L BUN 10 Creatinine 0.75 Est GFR ( Amer) > 60 Est GFR (Non-Af Amer) > 60 Glucose 79 Calcium 8.3 L Phosphorus 2.5 Magnesium 1.7 Total Bilirubin 0.2 AST 22 ALT 19 Alkaline Phosphatase 79 Total Protein 4.6 L Albumin 2.1 L 01/30/18 13:45 NT-Pro-B Natriuret Pep 4440 H Impressions: Barium Enema 01/29/18 00:00 IMPRESSION: Distal descending/ proximal sigmoid colon high-grade stricture with luminal irregularity, either due to chronic diverticular inflammation or colon cancer. We were unable to reflux contrast more proximally in the colon. Chest X-Ray 01/29/18 00:00 IMPRESSION: Bibasilar bandlike atelectasis Blunting in the left lateral costophrenic sulcus likely due to a combination of airspace disease and trace pleural fluid Abdomen/Pelvis CT 01/29/18 03:17 IMPRESSION: 1. Overall no significant interval change in appearance of prominent loops of fluid-filled large and small bowel. Redemonstrated subtle inflammatory change of the proximal sigmoid colon. This could represent sigmoid diverticulitis producing partial obstruction of the colon at this level. Other etiology of colonic wall thickening and inflammatory change such as inflammatory carcinoma must be considered given lack of change in configuration. Correlation for history appropriate colorectal cancer screening recommended. This exam was performed according to our departmental dose-optimization program, which includes automated exposure control, adjustment of the mA and/or kV according to patient size and/or use of iterative reconstruction technique. Acute Abdomen Series 01/30/18 00:00 IMPRESSION: 1. Decrease in left basilar discoid atelectasis. Resolving small bowel obstruction. NG tube in place. Abdomen X-Ray 01/31/18 06:00 IMPRESSION: NO RADIOGRAPHIC EVIDENCE FOR ACUTE ABDOMINAL DISEASE. Assessment & Plan - Diagnosis (1) Colonic stricture Is this a current diagnosis for this admission?: Yes Plan: Seen on barium enema. Patient notes several month history of bowel movement irregularity along with abdominal pain. She has had a colonoscopy done last fall and was noted with no evidence of cancer nor stricture at that time however at that time she was completely asymptomatic. She develops symptoms in the last several months. She had an attempted colonoscopy several days ago that was nondiagnostic. She has evidence of a sigmoid colon stricture on radiologic studies. With this history patient would strongly benefit from a complete colonoscopy. I will have her undergo a bowel prep. If we can get her adequately prepped we will plan colonoscopy tomorrow. However she may require 2 day prep.
[2018-02-03] MEDS ORDERED: PEG 3350/NA SULF,BICARB,CL/KCL 4000 ML PO ONE (10:30)
--- NOTE | 2018-02-03 16:23 | PDOC PROGRESS REPORT ---
Subjective Progress Note for:: 02/03/18 Subjective:: 72 yr old female with history of Diastolic CHF HTN LARRY COPD Obesity Presented to the ER on 01/29/18 with abdominal distention and constipation. CT of the abdomen and pelvis showed possible sigmoid obstruction with an area of inflammation. Flexible sigmoidoscopy was performed on January 30 and it showed sigmoid diverticulosis with no evidence of tumor or other pathology. Plan for colonoscopy today. No complaints. Reason For Visit: CONSTIPATION Physical Exam Vital Signs: Temp Pulse Resp BP Pulse Ox 98.4 F 82 18 124/74 97 02/03/18 10:52 02/03/18 10:52 02/03/18 10:52 02/03/18 10:52 02/03/18 10:52 Intake & Output 02/02/18 02/03/18 02/04/18 06:59 06:59 06:59 Intake Total 2268 1628 Output Total 325 Balance 1943 1628 Weight 117 kg 117.5 kg General appearance: PRESENT: no acute distress Head exam: PRESENT: normocephalic Eye exam: ABSENT: scleral icterus Ear exam: PRESENT: normal external ear exam Mouth exam: PRESENT: moist Neck exam: ABSENT: tracheal deviation Respiratory exam: PRESENT: clear to auscultation choco, symmetrical, unlabored Cardiovascular exam: PRESENT: RRR GI/Abdominal exam: PRESENT: normal bowel sounds, soft Rectal exam: PRESENT: deferred Extremities exam: ABSENT: pedal edema Neurological exam: PRESENT: alert, awake, oriented to person, oriented to place Psychiatric exam: PRESENT: appropriate affect Results Laboratory Results: 02/03/18 04:39 02/03/18 04:39 02/03/18 02/03/18 04:39 04:39 WBC 6.1 RBC 3.86 Hgb 11.6 L Hct 34.5 L MCV 90 MCH 30.0 MCHC 33.6 RDW 16.0 H Plt Count 205 Sodium 139.3 Potassium 3.1 L Chloride 101 Carbon Dioxide 36 H Anion Gap 2 L BUN 10 Creatinine 0.75 Est GFR ( Amer) > 60 Est GFR (Non-Af Amer) > 60 Glucose 79 Calcium 8.3 L Phosphorus 2.5 Magnesium 1.7 Total Bilirubin 0.2 AST 22 ALT 19 Alkaline Phosphatase 79 Total Protein 4.6 L Albumin 2.1 L 01/30/18 13:45 NT-Pro-B Natriuret Pep 4440 H Impressions: Barium Enema 01/29/18 00:00 IMPRESSION: Distal descending/ proximal sigmoid colon high-grade stricture with luminal irregularity, either due to chronic diverticular inflammation or colon cancer. We were unable to reflux contrast more proximally in the colon. Chest X-Ray 01/29/18 00:00 IMPRESSION: Bibasilar bandlike atelectasis Blunting in the left lateral costophrenic sulcus likely due to a combination of airspace disease and trace pleural fluid Abdomen/Pelvis CT 01/29/18 03:17 IMPRESSION: 1. Overall no significant interval change in appearance of prominent loops of fluid-filled large and small bowel. Redemonstrated subtle inflammatory change of the proximal sigmoid colon. This could represent sigmoid diverticulitis producing partial obstruction of the colon at this level. Other etiology of colonic wall thickening and inflammatory change such as inflammatory carcinoma must be considered given lack of change in configuration. Correlation for history appropriate colorectal cancer screening recommended. This exam was performed according to our departmental dose-optimization program, which includes automated exposure control, adjustment of the mA and/or kV according to patient size and/or use of iterative reconstruction technique. Acute Abdomen Series 01/30/18 00:00 IMPRESSION: 1. Decrease in left basilar discoid atelectasis. Resolving small bowel obstruction. NG tube in place. Abdomen X-Ray 01/31/18 06:00 IMPRESSION: NO RADIOGRAPHIC EVIDENCE FOR ACUTE ABDOMINAL DISEASE. Assessment & Plan - Diagnosis (1) Hypotension Qualifiers: Hypotension type: unspecified hypotension type Qualified Code(s): I95.9 - Hypotension, unspecified Is this a current diagnosis for this admission?: Yes Plan: Continue to monitor. (2) Large bowel obstruction Is this a current diagnosis for this admission?: Yes Plan: Management per surgical service. (3) Acute renal failure Qualifiers: Acute renal failure type: unspecified Qualified Code(s): N17.9 - Acute kidney failure, unspecified Is this a current diagnosis for this admission?: Yes Plan: Resolved. (4) Alkalosis, metabolic Is this a current diagnosis for this admission?: Yes Plan: Due to intravascular volume contraction. Continue to monitor. (5) COPD (chronic obstructive pulmonary disease) Qualifiers: COPD type: unspecified COPD Qualified Code(s): J44.9 - Chronic obstructive pulmonary disease, unspecified Is this a current diagnosis for this admission?: Yes Plan: Continue outpatient inhalers. Nebs as needed. (6) DVT prophylaxis Is this a current diagnosis for this admission?: Yes Plan: Subcutaneous Lovenox (7) Hypothyroidism Is this a current diagnosis for this admission?: Yes Plan: Continue Synthroid (8) Morbid (severe) obesity due to excess calories Is this a current diagnosis for this admission?: Yes Plan: Calorie control. (9) LARRY (obstructive sleep apnea) Is this a current diagnosis for this admission?: Yes Plan: CPAP at night (10) Chronic diastolic (congestive) heart failure Is this a current diagnosis for this admission?: Yes Plan: Stable - Time Time Spent with patient: 35 or more minutes
[2018-02-03] MEDS: POLYETHYLENE GLYCOL 3350 POWDER 17 GM/1 PACKET PO SCH (17:43)
[2018-02-03] MEDS ORDERED: POTASSIUM CHLORIDE 20 MEQ/15 ML UDCUP PO ONE (18:45)
[2018-02-03] MEDS ORDERED: MAGNESIUM SULFATE/D5W 1 GM/100 ML RTUPB IV ONE (18:45)
[2018-02-03] MEDS ORDERED: POTASSIUM CHLORIDE 10 MEQ TABLET.SA PO ONE (21:00)
[2018-02-04] MEDS: SUCRALFATE SUSP 1 GM/10 ML UDCUP PO SCH ×5 (01:19→23:28)
[2018-02-04] MEDS: LEVOTHYROXINE SODIUM 0.15 MG TABLET PO SCH (06:06)
--- NOTE | 2018-02-04 09:38 | PDOC PROGRESS REPORT ---
Subjective Progress Note for:: 02/04/18 Subjective:: Feels well. Tolerated bowel prep well. No blood per rectum. Bowel movements clear. No abdominal pain. Reason For Visit: CONSTIPATION Physical Exam Vital Signs: Temp Pulse Resp BP Pulse Ox 97.3 F 83 18 141/77 H 93 02/04/18 07:14 02/04/18 07:14 02/04/18 07:14 02/04/18 07:14 02/04/18 07:14 Intake & Output 02/03/18 02/04/18 02/05/18 06:59 06:59 06:59 Intake Total 1628 1166 Balance 1628 1166 Weight 117.5 kg 118.1 kg General appearance: PRESENT: no acute distress, cooperative Respiratory exam: PRESENT: clear to auscultation choco Cardiovascular exam: PRESENT: RRR GI/Abdominal exam: PRESENT: other - Soft, nondistended, nontender to palpation. Results Laboratory Results: 02/03/18 04:39 01/30/18 13:45 NT-Pro-B Natriuret Pep 4440 H Impressions: Barium Enema 01/29/18 00:00 IMPRESSION: Distal descending/ proximal sigmoid colon high-grade stricture with luminal irregularity, either due to chronic diverticular inflammation or colon cancer. We were unable to reflux contrast more proximally in the colon. Chest X-Ray 01/29/18 00:00 IMPRESSION: Bibasilar bandlike atelectasis Blunting in the left lateral costophrenic sulcus likely due to a combination of airspace disease and trace pleural fluid Abdomen/Pelvis CT 01/29/18 03:17 IMPRESSION: 1. Overall no significant interval change in appearance of prominent loops of fluid-filled large and small bowel. Redemonstrated subtle inflammatory change of the proximal sigmoid colon. This could represent sigmoid diverticulitis producing partial obstruction of the colon at this level. Other etiology of colonic wall thickening and inflammatory change such as inflammatory carcinoma must be considered given lack of change in configuration. Correlation for history appropriate colorectal cancer screening recommended. This exam was performed according to our departmental dose-optimization program, which includes automated exposure control, adjustment of the mA and/or kV according to patient size and/or use of iterative reconstruction technique. Acute Abdomen Series 01/30/18 00:00 IMPRESSION: 1. Decrease in left basilar discoid atelectasis. Resolving small bowel obstruction. NG tube in place. Abdomen X-Ray 01/31/18 06:00 IMPRESSION: NO RADIOGRAPHIC EVIDENCE FOR ACUTE ABDOMINAL DISEASE. Assessment & Plan - Diagnosis (1) Colonic stricture Is this a current diagnosis for this admission?: Yes Plan: Tolerated bowel prep well. Will proceed with colonoscopy today. I have discussed with the patient the risk and benefits of the procedure including risk of colon injury and bleeding. Will check her chemistries prior to the C scope make sure potassium is reasonable before proceeding.
[2018-02-04 09:53] LABS: ANION GAP 6 (5-19); BLOOD UREA NITROGEN 7 mg/dL (7-20); CALCIUM 8.4 mg/dL (8.4-10.2); CARBON DIOXIDE 36 mmol/L (22-30); CHLORIDE 101 mmol/L (98-107); GLUCOSE 77 mg/dL (75-110); POTASSIUM 3.4 mmol/L (3.6-5.0); SODIUM 142.8 mmol/L (137-145)
[2018-02-04] MEDS: ASPIRIN 81 MG TABLET, ENT COATED PO SCH (10:00)
[2018-02-04] MEDS: ALLOPURINOL 100 MG TABLET PO SCH (10:00)
[2018-02-04] MEDS: ENOXAPARIN SODIUM INJ 40 MG/0.4 ML DISP.SYRIN SUBCUT SCH (10:00)
[2018-02-04] MEDS ORDERED: LIDOCAINE 2% INJ-PF (20 MG/ML) 10 ML AMPUL ONE (11:50)
[2018-02-04] MEDS ORDERED: PROPOFOL INJ 200 MG/20 ML VIAL IV ONE (11:51)
[2018-02-04] MEDS ORDERED: PROMETHAZINE HCL INJ 25 MG/1 ML VIAL IV PRN ×2 (12:15)
[2018-02-04] MEDS ORDERED: MEPERIDINE HCL/PF INJ 25 MG/1 ML DISP.SYRIN IV PRN (12:15)
[2018-02-04] MEDS ORDERED: ONDANSETRON HCL INJ/PF 4 MG/2 ML SDV IV PRN ×3 (12:15→14:52)
[2018-02-04] MEDS ORDERED: DIPHENHYDRAMINE HCL 50 MG/ML VIAL IV PRN (12:15)
--- NOTE | 2018-02-04 13:19 | Operative Report ---
Operative Report DATE OF SURGERY: 02/04/18 PREOPERATIVE DIAGNOSIS: Left colonic obstruction POSTOPERATIVE DIAGNOSIS: Sigmoid colon diverticular disease. OPERATION: Colonoscopy with biopsy SURGEON: ISRRAEL GUTIERREZ ANESTHESIA: LMAC TISSUE REMOVED OR ALTERED: Descending colon and sigmoid colon biopsies COMPLICATIONS: None ESTIMATED BLOOD LOSS: Minimal INTRAOPERATIVE FINDINGS: Sigmoid diverticulosis with sigmoid colon mucosal edema with spasm and marked redundancy. Impossible to visualize sigmoid colon clearly due to the redundancy and spasm and edema but no obvious masses nor stricture seen. PROCEDURE: Informed consent was obtained. Patient was brought to the operating room. Procedure was done under LMAC. Patient was placed on her left side. Digital rectal exam revealed no palpable perianal masses. Endoscope was passed via the patient's anus I encountered some liquid stool that was aspirated. Bowel prep was adequate but not perfect. Rectum appeared unremarkable. Sigmoid colon mucosa appeared to have some edema. There were scattered diverticuli. The sigmoid colon was markedly redundant with a lot of spasm and evidence of mucosal edema that made passage of the scope very difficult. Multiple technical measures had to be taken and finally the scope was able to be passed into the descending colon. Descending colon had some edema as well. The scope was able to be passed to the cecum. There was minimal debris in the proximal colon. The cecum, right colon, and the transverse colon appeared normal. Descending colon and the sigmoid colon had some mucosal edema and biopsies were taken. No suspicious masses were seen. There were diverticuli of the colon. The proximal sigmoid colon was extremely difficult to visualize due to the spasm and mucosal edema. I was unable to repassed the scope after withdrawl of the scope below this point. Patient tolerated procedure well with no apparent complications and was taken to the recovery area in stable condition. Assessment: Patient likely had an inflammatory process in this area with the resultant edema and mimicking a partial large bowel obstruction on barium enema. With the resolution of her abdominal pain I believe the inflammatory process has resolved although there is evidence of residual mucosal edema. This colonoscopy in no way completely rules out a malignancy because visualization was so difficult at this time. Will allow the patient to eat since she is obviously not obstructed. Let her recover from her current illness and allow the edema to completely resolve. Highly recommend a repeat colonoscopy in about a month to absolutely exclude malignancy in this area.
[2018-02-04] MEDS ORDERED: IPRATROPIUM/ALBUTEROL 0.5-2.5 MG/3 ML AMPUL NEB PRN (14:51)
--- NOTE | 2018-02-04 15:25 | PDOC PROGRESS REPORT ---
Subjective Progress Note for:: 02/04/18 Subjective:: 72 yr old female with history of Diastolic CHF HTN LARRY COPD Obesity Presented to the ER on 01/29/18 with abdominal distention and constipation. CT of the abdomen and pelvis showed possible sigmoid obstruction with an area of inflammation. Flexible sigmoidoscopy was performed on January 30 and it showed sigmoid diverticulosis with no evidence of tumor or other pathology. Plan for colonoscopy today. No complaints at present. denies vomiting or abdominal pain. Reason For Visit: CONSTIPATION Physical Exam Vital Signs: Temp Pulse Resp BP Pulse Ox 97.6 F 72 12 116/64 93 02/04/18 13:52 02/04/18 13:52 02/04/18 13:52 02/04/18 13:52 02/04/18 13:52 Intake & Output 02/03/18 02/04/18 02/05/18 06:59 06:59 06:59 Intake Total 1628 1166 600 Balance 1628 1166 600 Weight 117.5 kg 118.1 kg General appearance: PRESENT: no acute distress, well-nourished Head exam: PRESENT: normocephalic Eye exam: ABSENT: scleral icterus Ear exam: PRESENT: normal external ear exam Mouth exam: PRESENT: moist Neck exam: ABSENT: tenderness Respiratory exam: PRESENT: symmetrical, unlabored Cardiovascular exam: PRESENT: RRR GI/Abdominal exam: PRESENT: normal bowel sounds, soft Rectal exam: PRESENT: deferred Extremities exam: ABSENT: pedal edema Neurological exam: PRESENT: alert, awake, oriented to person, oriented to place Psychiatric exam: PRESENT: appropriate affect Results Laboratory Results: 02/03/18 04:39 02/04/18 09:04 02/04/18 09:04 Sodium 142.8 Potassium 3.4 L Chloride 101 Carbon Dioxide 36 H Anion Gap 6 BUN 7 Creatinine 0.77 Est GFR ( Amer) > 60 Est GFR (Non-Af Amer) > 60 Glucose 77 Calcium 8.4 01/30/18 13:45 NT-Pro-B Natriuret Pep 4440 H Impressions: Barium Enema 01/29/18 00:00 IMPRESSION: Distal descending/ proximal sigmoid colon high-grade stricture with luminal irregularity, either due to chronic diverticular inflammation or colon cancer. We were unable to reflux contrast more proximally in the colon. Chest X-Ray 01/29/18 00:00 IMPRESSION: Bibasilar bandlike atelectasis Blunting in the left lateral costophrenic sulcus likely due to a combination of airspace disease and trace pleural fluid Abdomen/Pelvis CT 01/29/18 03:17 IMPRESSION: 1. Overall no significant interval change in appearance of prominent loops of fluid-filled large and small bowel. Redemonstrated subtle inflammatory change of the proximal sigmoid colon. This could represent sigmoid diverticulitis producing partial obstruction of the colon at this level. Other etiology of colonic wall thickening and inflammatory change such as inflammatory carcinoma must be considered given lack of change in configuration. Correlation for history appropriate colorectal cancer screening recommended. This exam was performed according to our departmental dose-optimization program, which includes automated exposure control, adjustment of the mA and/or kV according to patient size and/or use of iterative reconstruction technique. Acute Abdomen Series 01/30/18 00:00 IMPRESSION: 1. Decrease in left basilar discoid atelectasis. Resolving small bowel obstruction. NG tube in place. Abdomen X-Ray 01/31/18 06:00 IMPRESSION: NO RADIOGRAPHIC EVIDENCE FOR ACUTE ABDOMINAL DISEASE. Assessment & Plan - Diagnosis (1) Hypotension Qualifiers: Hypotension type: unspecified hypotension type Qualified Code(s): I95.9 - Hypotension, unspecified Is this a current diagnosis for this admission?: Yes Plan: Continue to monitor. (2) Large bowel obstruction Is this a current diagnosis for this admission?: Yes Plan: Management per surgical service. Colonoscopy today (3) Acute renal failure Qualifiers: Acute renal failure type: unspecified Qualified Code(s): N17.9 - Acute kidney failure, unspecified Is this a current diagnosis for this admission?: Yes Plan: Resolved. (4) Alkalosis, metabolic Is this a current diagnosis for this admission?: Yes Plan: Due to intravascular volume contraction. Continue to monitor. (5) COPD (chronic obstructive pulmonary disease) Qualifiers: COPD type: unspecified COPD Qualified Code(s): J44.9 - Chronic obstructive pulmonary disease, unspecified Is this a current diagnosis for this admission?: Yes Plan: Continue outpatient inhalers. Nebs as needed. (6) DVT prophylaxis Is this a current diagnosis for this admission?: Yes Plan: Subcutaneous Lovenox. (7) Hypothyroidism Is this a current diagnosis for this admission?: Yes Plan: Continue Synthroid (8) Morbid (severe) obesity due to excess calories Is this a current diagnosis for this admission?: Yes Plan: Calorie control. (9) LARRY (obstructive sleep apnea) Is this a current diagnosis for this admission?: Yes Plan: CPAP at night (10) Chronic diastolic (congestive) heart failure Is this a current diagnosis for this admission?: Yes Plan: Stable - Time Time Spent with patient: 25-34 minutes
[2018-02-04] MEDS ORDERED: POLYETHYLENE GLYCOL 3350 POWDER 17 GM/1 PACKET PO SCH (18:00)
[2018-02-05] MEDS: SUCRALFATE SUSP 1 GM/10 ML UDCUP PO SCH (05:30)
[2018-02-05] MEDS ORDERED: LEVOTHYROXINE SODIUM 0.15 MG TABLET PO SCH (06:00)
[2018-02-05 07:25] LABS: HEMATOCRIT 34.8 % (36.0-47.0); HEMOGLOBIN 11.6 g/dL (12.0-15.5); MEAN CORPUSCULAR HEMOGLOBIN 29.6 pg (27.0-33.4); MEAN CORPUSCULAR HGB CONC 33.3 g/dL (32.0-36.0); MEAN CORPUSCULAR VOLUME 89 fl (80-97); PLATELET COUNT 198 10^3/uL (150-450); RED BLOOD COUNT 3.91 10^6/uL (3.72-5.28); RED CELL DISTRIBUTION WIDTH 15.7 % (11.5-14.0); WHITE BLOOD COUNT 4.3 10^3/uL (4.0-10.5)
[2018-02-05 07:26] LABS: ALANINE AMINOTRANSFERASE 24 U/L (9-52); ALKALINE PHOSPHATASE 73 U/L (38-126); ANION GAP 7 (5-19); ASPARTATE AMINO TRANSFERASE 11 U/L (14-36); BILIRUBIN,DIRECT 0.1 mg/dL (0.0-0.4); BILIRUBIN,TOTAL 0.1 mg/dL (0.2-1.3); BLOOD UREA NITROGEN 6 mg/dL (7-20); CALCIUM 8.2 mg/dL (8.4-10.2); CARBON DIOXIDE 34 mmol/L (22-30); CHLORIDE 101 mmol/L (98-107); GLUCOSE 81 mg/dL (75-110); PHOSPHORUS 3.4 mg/dL (2.5-4.5); POTASSIUM 3.1 mmol/L (3.6-5.0); SODIUM 141.6 mmol/L (137-145); TOTAL PROTEIN 4.4 g/dL (6.3-8.2)
[2018-02-05 08:13] LABS: ABSOLUTE MONOCYTES # (MANUAL) 0.2 10^3/uL (0.1-1.4); ABSOLUTE NEUTROPHILS# (MANUAL) 2.1 10^3/uL (1.7-8.2); BASOPHILS % (MANUAL) 1 % (0-2); EOSINOPHILS % (MANUAL) 1 % (0-6); LYMPHOCYTES % (MANUAL) 45 % (13-45); MONOCYTES % (MANUAL) 4 % (3-13); SEGMENTED NEUTROPHILS % (MAN) 48 % (42-78); TOTAL CELLS COUNTED 100
[2018-02-05 08:14] LABS: ANISOCYTOSIS SLIGHT; OVALOCYTES 1+; PLATELET COMMENT ADEQUATE; POIKILOCYTOSIS 1+
[2018-02-05] MEDS ORDERED: POTASSIUM CHLORIDE 10 MEQ TABLET.SA PO ONE (08:15)
[2018-02-05] MEDS ORDERED: ASPIRIN 81 MG TABLET, ENT COATED PO SCH (10:00)
[2018-02-05] MEDS ORDERED: ENOXAPARIN SODIUM INJ 40 MG/0.4 ML DISP.SYRIN SUBCUT SCH (10:00)
[2018-02-05] MEDS ORDERED: ALLOPURINOL 100 MG TABLET PO SCH (10:00)
--- NOTE | 2018-02-05 10:01 | PDOC DISCHARGE SUMMARY ---
General - Admit/Disc Date/PCP Admission Date/Primary Care Provider: 01/29/18 08:42 ILYA FULLER MD Loop Cutter: Dr Stevens Discharge Date: 02/05/18 - Discharge Diagnosis (1) Hypotension Is this a current diagnosis for this admission?: Yes Summary: Likely due to overmedication. Her metoprolol has been stopped. Her Lasix has been cut back to 20 mg daily. (2) Colonic stricture Is this a current diagnosis for this admission?: Yes Summary: No mechanical stricture was seen. The patient did undergo colonoscopy performed by general surgery. She was noted to have quite a bit of edema and inflammation in the sigmoid colon. The recommendation is for a repeat colonoscopy in 4-6 weeks. An appointment with GI as being made at the time of discharge (3) Acute renal failure Is this a current diagnosis for this admission?: Yes Summary: Likely due to dehydration and medications. Resolved (4) Alkalosis, metabolic Is this a current diagnosis for this admission?: Yes Summary: Stable. She does have underlying COPD. I would suspect she is mildly retaining CO2. (5) COPD (chronic obstructive pulmonary disease) Is this a current diagnosis for this admission?: Yes Summary: No evidence of exacerbation (6) Chronic diastolic (congestive) heart failure Is this a current diagnosis for this admission?: Yes Summary: Euvolemic at the time of discharge. She was on 40 mg of Lasix twice daily. I have cut this back to 20 mg of Lasix daily at the time of discharge. No evidence of exacerbation during this hospitalization (7) Obesity (BMI 30-39.9) Is this a current diagnosis for this admission?: Yes Summary: BMI is 37.3. This was previously diagnosed as morbid obesity. Dietary discretion is advised (8) LARRY (obstructive sleep apnea) Is this a current diagnosis for this admission?: Yes Summary: Continue CPAP (9) Hypothyroidism Is this a current diagnosis for this admission?: Yes Summary: Continue Synthroid (10) Hypokalemia Is this a current diagnosis for this admission?: Yes Summary: This was repleted at the time of discharge. She will continue supplementation at discharge due to ongoing use of Lasix - Additional Information Resuscitation Status: Full Code Discharge Diet: Other (Comments) - high fiber Discharge Activity: Activity As Tolerated, Balance Activity w/Rest, Slowly Increase Activity, Supervised Activity Prescriptions: Furosemide [Lasix 20 mg Tablet] 20 mg PO QAM #30 tablet Polyethylene Glycol 3350 [Miralax Powder 17 gm/Packet] 17 gm PO QPM #30 powd.pack Potassium Chloride [Klor-Con M20] 20 mg PO DAILY #30 tab.er.prt Home Medications: Allopurinol [Zyloprim 100 mg Tablet] 100 mg PO DAILY 01/29/18 Aspirin [Aspirin EC] 81 mg PO DAILY 01/29/18 Bisacodyl [Dulcolax 10 mg Supp.rect] 10 mg AL DAILYP PRN 01/29/18 Calcium Carbonate/Vitamin D3 [Calcium 600 + Vit D 400 Tablet] 1 tab PO BID 01/29 Ipratropium/Albuterol Sulfate [Duoneb 3 ml Ampul] 1 vial NEB Q4HP PRN 01/29/18 Levothyroxine Sodium [Synthroid] 150 mcg PO Q6AM 01/29/18 Magnesium Oxide [Mag-Ox 400 mg Tablet] 400 mg PO BID 01/29/18 Multivitamin [Multivitamins] 1 tab PO DAILY 01/29/18 [place]-3 Acid Ethyl Esters [Lovaza 1 gm Capsule] 4 gm PO DAILY 01/29/18 Omeprazole 20 mg PO BID 01/29/18 Promethazine HCl [Phenergan 25 mg Tablet] 12.5 mg PO Q4HP PRN 01/29/18 Sucralfate [Carafate Susp 1 gm/10 ml Udcup] 10 ml PO Q6 01/29/18 Umeclidinium Brm/Vilanterol Tr [Anoro Ellipta 62.5-25 Mcg INH] 1 puff IH DAILY 01/29/18 Furosemide [Lasix 20 mg Tablet] 20 mg PO QAM #30 tablet 02/05/18 Polyethylene Glycol 3350 [Miralax Powder 17 gm/Packet] 17 gm PO QPM #30 powd.pack 02/05/18 Potassium Chloride [Klor-Con M20] 20 mg PO DAILY #30 tab.er.prt 02/05/18 History of Present Illness Patient complains of: Abdominal pain History of Present Illness: Is the patient is an extremely pleasant 72-year-old female who was just released from subacute rehabilitation. Her past medical history is significant for obesity, COPD and hypertension. She presented to the emergency room with hypotension and abdominal pain and obstipation. A CT scan was performed which revealed a possible obstructing process in the sigmoid colon. The patient was admitted to the hospital. Due to gastroenterology not being available general surgery was consulted. The patient had a sigmoidoscopy performed and the scope was unable to be advanced. She was found to have extensive diverticulosis but no mass was seen. Initially the general surgeons were considering surgery. The patient was treated for her obstipation/ constipation with good results. Ultimately a decision was made to pursue a colonoscopy prior to making a decision as to whether she would require surgery. On 02/04/2018 the patient did undergo colonoscopy. No obstructing mass was noted. It was felt that she had an inflammatory process with resultant edema mimicking a partial large bowel obstruction on her CT imaging and barium enema. The patient's abdominal pain at this point had totally resolved. The recommendation from general surgery is for her to follow-up with her computer systems engineer and have a repeat colonoscopy performed in 4-6 weeks. A high -fiber diet has been recommended and she will need to have had a prescription on the her visit to light of soft bowel movements going forward. The recommendation is for Metamucil along with a stool softener and MiraLAX. At this point it is felt that she can safely be discharged home with close outpatient follow-up. She will be discharged today in stable condition with appointments being made with her computer systems engineer and primary care provider. Physical Exam Vital Signs: Temp Pulse Resp BP Pulse Ox 96.8 F L 71 16 129/74 H 95 02/05/18 07:37 02/05/18 07:37 02/05/18 07:37 02/05/18 07:37 02/05/18 07:37 Intake & Output 02/04/18 02/05/18 02/06/18 06:59 06:59 06:59 Intake Total 1166 950 Balance 1166 950 Weight 118.1 kg 118 kg General appearance: PRESENT: no acute distress, well-developed, well-nourished Head exam: PRESENT: atraumatic, normocephalic Mouth exam: PRESENT: moist, tongue midline Neck exam: ABSENT: carotid bruit, JVD, lymphadenopathy, thyromegaly Respiratory exam: PRESENT: clear to auscultation choco. ABSENT: rales, rhonchi, wheezes Cardiovascular exam: PRESENT: RRR. ABSENT: diastolic murmur, rubs, systolic murmur Pulses: PRESENT: normal dorsalis pedis pul GI/Abdominal exam: PRESENT: normal bowel sounds, soft, other - Her abdomen is obese. ABSENT: distended, guarding, mass, organolmegaly, rebound, tenderness Rectal exam: PRESENT: deferred Extremities exam: PRESENT: full ROM. ABSENT: calf tenderness, clubbing, pedal edema Musculoskeletal exam: PRESENT: ambulatory Neurological exam: PRESENT: alert, awake, oriented to person, oriented to place , oriented to time, oriented to situation, CN II-XII grossly intact. ABSENT: motor sensory deficit Psychiatric exam: PRESENT: appropriate affect, normal mood. ABSENT: homicidal ideation, suicidal ideation Skin exam: PRESENT: dry, intact, warm. ABSENT: cyanosis, rash Results Laboratory Results: 02/05/18 06:25 02/05/18 06:25 02/04/18 02/05/18 02/05/18 09:04 06:25 06:25 WBC 4.3 RBC 3.91 Hgb 11.6 L Hct 34.8 L MCV 89 MCH 29.6 MCHC 33.3 RDW 15.7 H Plt Count 198 Seg Neutrophils % Not Reportable Lymphocytes % Not Reportable Monocytes % Not Reportable Eosinophils % Not Reportable Basophils % Not Reportable Absolute Neutrophils Not Reportable Absolute Lymphocytes Not Reportable Absolute Monocytes Not Reportable Absolute Eosinophils Not Reportable Absolute Basophils Not Reportable Sodium 142.8 141.6 Potassium 3.4 L 3.1 L Chloride 101 101 Carbon Dioxide 36 H 34 H Anion Gap 6 7 BUN 7 6 L Creatinine 0.77 0.78 Est GFR ( Amer) > 60 > 60 Est GFR (Non-Af Amer) > 60 > 60 Glucose 77 81 Calcium 8.4 8.2 L Phosphorus 3.4 Magnesium 1.7 Total Bilirubin 0.1 L AST 11 L ALT 24 Alkaline Phosphatase 73 Total Protein 4.4 L Albumin 2.0 L 01/30/18 13:45 NT-Pro-B Natriuret Pep 4440 H Impressions: Barium Enema 01/29/18 00:00 IMPRESSION: Distal descending/ proximal sigmoid colon high-grade stricture with luminal irregularity, either due to chronic diverticular inflammation or colon cancer. We were unable to reflux contrast more proximally in the colon. Chest X-Ray 01/29/18 00:00 IMPRESSION: Bibasilar bandlike atelectasis Blunting in the left lateral costophrenic sulcus likely due to a combination of airspace disease and trace pleural fluid Abdomen/Pelvis CT 01/29/18 03:17 IMPRESSION: 1. Overall no significant interval change in appearance of prominent loops of fluid-filled large and small bowel. Redemonstrated subtle inflammatory change of the proximal sigmoid colon. This could represent sigmoid diverticulitis producing partial obstruction of the colon at this level. Other etiology of colonic wall thickening and inflammatory change such as inflammatory carcinoma must be considered given lack of change in configuration. Correlation for history appropriate colorectal cancer screening recommended. This exam was performed according to our departmental dose-optimization program, which includes automated exposure control, adjustment of the mA and/or kV according to patient size and/or use of iterative reconstruction technique. Acute Abdomen Series 01/30/18 00:00 IMPRESSION: 1. Decrease in left basilar discoid atelectasis. Resolving small bowel obstruction. NG tube in place. Abdomen X-Ray 01/31/18 06:00 IMPRESSION: NO RADIOGRAPHIC EVIDENCE FOR ACUTE ABDOMINAL DISEASE. Qualifiers - * PATEINT BEING DISCHARGED WITH ANY OF THE FOLLOWING DIAGNOSIS?: No Plan Time Spent: Greater than 30 Minutes
[2018-02-05 10:18] VITALS: BP 141/77
--- NOTE | 2018-02-05 15:02 | PDOC PROGRESS REPORT ---
Subjective Progress Note for:: 02/05/18 Subjective:: This is a 72-year-old female with inflammation of the sigmoid colon and severe constipation. She underwent repeat colonoscopy yesterday. There is no sign of intraluminal mass. Per report, she did have inflammation and tortuosity in the sigmoid colon. The patient feels much better today. She denies any chest pain , shortness of breath, dizziness, orthostasis, abdominal pain, abdominal distention, fevers, chills, nausea, vomiting, anxiety. She does report weakness and malaise. Reason For Visit: CONSTIPATION Physical Exam Vital Signs: Temp Pulse Resp BP Pulse Ox 96.8 F L 71 16 141/77 H 95 02/05/18 10:16 02/05/18 10:16 02/05/18 10:16 02/05/18 10:16 02/05/18 10:16 Intake & Output 02/04/18 02/05/18 02/06/18 06:59 06:59 06:59 Intake Total 1166 950 Balance 1166 950 Weight 118.1 kg 118 kg General appearance: PRESENT: no acute distress Head exam: PRESENT: atraumatic, normocephalic Eye exam: PRESENT: EOMI, PERRLA. ABSENT: scleral icterus Mouth exam: PRESENT: moist, neck supple Teeth exam: ABSENT: dental caries, poor dentation Neck exam: ABSENT: thyromegaly, tracheal deviation Respiratory exam: PRESENT: clear to auscultation choco. ABSENT: accessory muscle use, chest wall tenderness Cardiovascular exam: PRESENT: RRR Vascular exam: PRESENT: normal capillary refill GI/Abdominal exam: PRESENT: normal bowel sounds, soft. ABSENT: ascites, distended, guarding, tenderness Extremities exam: PRESENT: +2 edema - Bilateral lower extremities Musculoskeletal exam: ABSENT: deformity, tenderness Neurological exam: PRESENT: alert, awake, oriented to person, oriented to place , oriented to time, oriented to situation, CN II-XII grossly intact Psychiatric exam: PRESENT: appropriate affect, normal mood. ABSENT: agitated, anxious, depressed Skin exam: ABSENT: erythema, jaundice Results Laboratory Results: 02/05/18 06:25 02/05/18 06:25 02/05/18 02/05/18 06:25 06:25 WBC 4.3 RBC 3.91 Hgb 11.6 L Hct 34.8 L MCV 89 MCH 29.6 MCHC 33.3 RDW 15.7 H Plt Count 198 Seg Neutrophils % Not Reportable Lymphocytes % Not Reportable Monocytes % Not Reportable Eosinophils % Not Reportable Basophils % Not Reportable Absolute Neutrophils Not Reportable Absolute Lymphocytes Not Reportable Absolute Monocytes Not Reportable Absolute Eosinophils Not Reportable Absolute Basophils Not Reportable Sodium 141.6 Potassium 3.1 L Chloride 101 Carbon Dioxide 34 H Anion Gap 7 BUN 6 L Creatinine 0.78 Est GFR ( Amer) > 60 Est GFR (Non-Af Amer) > 60 Glucose 81 Calcium 8.2 L Phosphorus 3.4 Magnesium 1.7 Total Bilirubin 0.1 L AST 11 L ALT 24 Alkaline Phosphatase 73 Total Protein 4.4 L Albumin 2.0 L 01/30/18 13:45 NT-Pro-B Natriuret Pep 4440 H Impressions: Barium Enema 01/29/18 00:00 IMPRESSION: Distal descending/ proximal sigmoid colon high-grade stricture with luminal irregularity, either due to chronic diverticular inflammation or colon cancer. We were unable to reflux contrast more proximally in the colon. Chest X-Ray 01/29/18 00:00 IMPRESSION: Bibasilar bandlike atelectasis Blunting in the left lateral costophrenic sulcus likely due to a combination of airspace disease and trace pleural fluid Abdomen/Pelvis CT 01/29/18 03:17 IMPRESSION: 1. Overall no significant interval change in appearance of prominent loops of fluid-filled large and small bowel. Redemonstrated subtle inflammatory change of the proximal sigmoid colon. This could represent sigmoid diverticulitis producing partial obstruction of the colon at this level. Other etiology of colonic wall thickening and inflammatory change such as inflammatory carcinoma must be considered given lack of change in configuration. Correlation for history appropriate colorectal cancer screening recommended. This exam was performed according to our departmental dose-optimization program, which includes automated exposure control, adjustment of the mA and/or kV according to patient size and/or use of iterative reconstruction technique. Acute Abdomen Series 01/30/18 00:00 IMPRESSION: 1. Decrease in left basilar discoid atelectasis. Resolving small bowel obstruction. NG tube in place. Abdomen X-Ray 01/31/18 06:00 IMPRESSION: NO RADIOGRAPHIC EVIDENCE FOR ACUTE ABDOMINAL DISEASE. Assessment & Plan - Diagnosis (1) Colonic stricture Is this a current diagnosis for this admission?: Yes Plan: The narrowed area in the sigmoid colon may be related to an inflammatory process like diverticulitis, coupled with tortuosity of the sigmoid colon. Recommend maintaining fiber and stool softeners. Will need repeat colonoscopy in 6-8 weeks to ensure resolution. Continue regular diet.
--- NOTE | 2018-02-06 14:31 | HISTORY AND PHYSICAL E ---
History and Physical NAME: MICHAEL IVEY : 1945 AGE: 72Y ADMITTED: 01/29/2018 ROOM: 220 PRIMARY CARE PHYSICIAN: Dr. Miguelangel Villalta PRESENTING COMPLAINT: Nausea, vomiting, abdominal pain. HISTORY OF PRESENT ILLNESS: A 72-year-old woman recently discharged from this institution with a rather luis manuel course following a similar presentation included a stay in the ICU. Initially, she felt well after discharge, but her abdominal pain, nausea, and vomiting has slowly returned. She has had no hematemesis or hematochezia. No fevers or chills. No weight loss. MEDICAL ALLERGIES: None. CURRENT MEDICATIONS: 1. Allopurinol 100 mg daily. 2. Calcium 600 mg b.i.d. 3. Hydrochlorothiazide 12.5 mg daily. 4. Synthroid 150 mcg daily. 5. Lisinopril 40 mg daily. 6. Multivitamin daily. 7. MiraLax daily. 8. Anoro *------* daily. 9. Zofran 8 mg every 4 hours p.r.n. PAST MEDICAL HISTORY: 1. Cholecystectomy. 2. Hysterectomy. 3. Lysis of adhesions. 4. Gout. 5. Hypertension. 6. COPD. 7. Obesity. SOCIAL HISTORY: She smoked for 40 years but no longer does. 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 FAMILY HISTORY: Mother had a stroke. Father's medical history is unknown. REVIEW OF SYSTEMS: Complete review was negative except as noted above. PHYSICAL EXAMINATION: VITAL SIGNS: Temperature 97.6, pulse 78, respiratory rate 18, blood pressure 108/70. Sats 95% on room air. She weighs 118 kilograms. GENERAL: Obese white woman lying on the gurney. No acute distress. Lethargic. Toxic appearing but pleasant and cooperative, accompanied by her daughter. SKIN: Somewhat pale but warm and dry. HEENT: Head is normocephalic, atraumatic. Pupils are equal, round, and reactive to light. Vision is grossly acute to finger counting, hearing grossly acute to softly spoken voice. NECK: Supple. Full range of motion. No apparent thyromegaly. LYMPH NODES: None were palpable in the submental, cervical, supraclavicular regions bilaterally. CARDIOVASCULAR: Heart is regular. No adventitious sounds are noted. Carotid pulses were palpable bilaterally and without bruit. No JVD or peripheral edema. Pulses at the radial and dorsalis pedis arteries are palpable. CHEST/LUNGS: Chest expands symmetrically. Lungs were distant but clear to auscultation bilaterally. ABDOMEN: Soft, diffusely mildly tender. Decreased bowel sounds. I was unable to palpate liver or spleen. EXTREMITIES: Warm, dry without cyanosis. NEUROLOGIC: Cranial nerves 2-12 are grossly intact. Sensation is intact in her hands and feet to light touch. Strength is sufficient to lift her arms and legs off of the bed. PSYCHIATRIC: Affect appears to be appropriate to situation. No apparent delusions or hallucinations. DIAGNOSTIC STUDIES: CT abdomen and pelvis shows prominent loops of fluid filled large and small bowel, some subtle inflammatory changes at the proximal sigmoid possibly representing partial obstruction at that level. LABORATORY DATA: White count 9.9, hemoglobin 12.8, platelet count 396. Sodium 135, potassium 4.1, CO2 of 32. BUN of 35 and creatinine 1.17. Transaminases are not elevated. Mag 1.8. TSH is 4.97. IMPRESSION: 1. A large bowel obstruction partial versus complete. 2. Volume depletion. 3. Acute renal failure due to volume depletion. 4. Underlying COPD, stable. 5. Morbid obesity. 6. Obstructive sleep apnea on CPAP at home. PLAN: We will consult Surgery for evaluation of the possible bowel obstruction. Hydrate her up. Continue her COPD medications and adjust the plan as needed from there. DICTATING PHYSICIAN: SHIV ANGULO M.D. [id number] PHY#: [id number] ID: [id number] JOB#: [id number] ACCT: [id number] cc:JERSON ISIDRO M.D. >
== END 2018-02-05 11:04 | disposition home or self-care (01) | DRG 391 ==
LOC: ER 02:45 → EH 08:42 → INTOOBSV 08:42 → OBSVTOIN 08:42 → 5 11:53 → 2S 02-04 12:25
PROVIDERS: ADMIT Internal Medicine; ATTEND Internal Medicine
PROC: 0D9670Z Drainage of Stomach with Drainage Device, Via Natural or Artificial Opening (ICD-10-PCS; 2018-01-29)
PROC: 0DJD8ZZ Inspection of Lower Intestinal Tract, Via Natural or Artificial Opening Endoscopic (ICD-10-PCS; principal; 2018-01-30 10:00)
PROC: 0DBM8ZX Excision of Descending Colon, Via Natural or Artificial Opening Endoscopic, Diagnostic (ICD-10-PCS; 2018-02-04)
PROC: 0DBN8ZX Excision of Sigmoid Colon, Via Natural or Artificial Opening Endoscopic, Diagnostic (ICD-10-PCS; 2018-02-04)
DX: K52.89 Other specified noninfective gastroenteritis and colitis (principal); K56.2 Volvulus; I50.32 Chronic diastolic (congestive) heart failure; N17.9 Acute kidney failure, unspecified; E87.3 Alkalosis; K57.30 Diverticulosis of large intestine without perforation or abscess without bleeding; E03.9 Hypothyroidism, unspecified; E86.9 Volume depletion, unspecified; E86.0 Dehydration; K59.00 Constipation, unspecified; M10.9 Gout, unspecified; K64.8 Other hemorrhoids; K21.9 Gastro-esophageal reflux disease without esophagitis; I11.0 Hypertensive heart disease with heart failure; J44.9 Chronic obstructive pulmonary disease, unspecified; I49.9 Cardiac arrhythmia, unspecified; G47.33 Obstructive sleep apnea (adult) (pediatric); R00.0 Tachycardia, unspecified; E66.01 Morbid (severe) obesity due to excess calories; I95.2 Hypotension due to drugs; Z68.37 Body mass index [BMI] 37.0-37.9, adult; Z90.710 Acquired absence of both cervix and uterus; Z90.49 Acquired absence of other specified parts of digestive tract; Z82.3 Family history of stroke; Z80.9 Family history of malignant neoplasm, unspecified; Z79.899 Other long term (current) drug therapy; Z79.82 Long term (current) use of aspirin; Z82.49 Family history of ischemic heart disease and other diseases of the circulatory system
CPT/HCPCS: 00811; 36415; 45330; 45380; 51702; 71045; 74019; 74022; 74177; 74270; 80048; 80053; 80069; 81001; 83540; 83605; 83735; 83880; 84100; 84443; 85025; 85027; 88305; 93005; 93010; 94660; 96361; 96374; 96375; 96376; 99285; G0378; G8978-GP; G8979-GP; J0171; J0780; J1610; J1650; J1885; J2250; J2310; J2405; J2704; J2765; J3010; J3475; J3480; J3490; J7030; S0028; S0164

== ENCOUNTER → 2018-02-19 | Outpatient (CLI) | payer MEDICARE, BC ==
--- NOTE | 2018-02-19 17:19 | RADIOLOGY REPORT (SQ) ---
EXAM DESCRIPTION: ACUTE ABDOMEN SERIES COMPLETED DATE/TIME: 02/19/2018 5:07 pm REASON FOR STUDY: CONSTIPATION-SLOW TRANSIT,ABNORMAL FINDINGS ON DIAGNOSTIC IMAGING OF OTHER COMPARISON: 01/31/2018 NUMBER OF VIEWS: Three views. TECHNIQUE: Frontal chest, supine abdomen and upright/decubitus abdomen radiographic images acquired. LIMITATIONS: None. FINDINGS: CHEST: Lungs clear of infiltrates. FREE AIR: None. No abnormal gas collections. BOWEL GAS PATTERN: Multiple air-fluid levels are identified in the erect film which appear to be with in the colon. The appearance is most consistent with an ileus pattern although the possibility of an underlying obstruction cannot be completely excluded CALCIFICATIONS: No suspicious calcifications. HARDWARE: Surgical clips are identified in the right upper quadrant. SOFT TISSUES: No gross mass or suggestion of organomegaly. BONES: No acute fracture. No worrisome bone lesions. OTHER: Right hip prosthesis is identified. IMPRESSION: Multiple air-fluid levels are identified on the erect film which appear to be within the colon. The appearance is most consistent with an ileus pattern although the possibility of an under lying obstruction cannot be completely excluded. Clinical correlation and followup is recommended. Other findings as noted above TECHNICAL DOCUMENTATION: JOB ID: [id number] [employer]- All Rights Reserved Reading location - IP/workstation name: [email or web address]
== END ==
LOC: RAD 16:43
PROVIDERS: ATTEND Internal Medicine Gastroenterology
DX: K59.01 Slow transit constipation (principal); R93.9 Diagnostic imaging inconclusive due to excess body fat of patient
CPT/HCPCS: 74022

== ENCOUNTER 2018-02-22 14:16 | Emergency (ER) | payer MEDICARE, BC ==
[2018-02-22] MEDS ORDERED: NORMAL SALINE 1000 ML 1,000 ML IV ONE (15:17)
--- NOTE | 2018-02-22 15:44 | ER Document Report ---
ED General - General Chief Complaint: Abdominal Pain Stated Complaint: ABDOMINAL PAIN Time Seen by Provider: 02/22/18 15:05 Mode of Arrival: Medic Information source: Patient TRAVEL OUTSIDE OF THE [place] IN LAST 30 DAYS: No - HPI Patient complains to provider of: abdominal pain Onset: Other - last few days Quality of pain: Dull, Fullness, Pressure Severity: Severe Associated symptoms: Diarrhea, Nausea, Vomiting Exacerbated by: Denies, Movement Similar symptoms previously: Yes Recently seen / treated by doctor: Yes - had xray 02/19/18 - Related Data Allergies/Adverse Reactions: No Known Allergies Allergy (Verified 12/14/17 15:08) Past Medical History - General Information source: Patient, [facility] Records - Social History Smoking Status: Former Smoker Cigarette use (# per day): No Chew tobacco use (# tins/day): No Smoking Education Provided: No Frequency of alcohol use: None Drug Abuse: None Lives with: Family Family History: Reviewed & Not Pertinent Patient has suicidal ideation: No Patient has homicidal ideation: No - Past Medical History Cardiac Medical History: Reports: Hx Congestive Heart Failure, Hx Hypertension Pulmonary Medical History: Reports: Hx COPD Neurological Medical History: Denies: Hx Seizures Renal/ Medical History: Denies: Hx Peritoneal Dialysis GI Medical History: Reports: Hx Gastroesophageal Reflux Disease, Other - ileus/ SBO Musculoskeltal Medical History: Reports Hx Gout Skin Medical History: Reports None Past Surgical History: Reports: Hx Cholecystectomy, Hx Hysterectomy, Other - Lysis of adhesions post hysterectomy - Immunizations Hx Pneumococcal Vaccination: 11/11/17 Review of Systems - Review of Systems Constitutional: Weakness EENT: No symptoms reported Cardiovascular: No symptoms reported Respiratory: No symptoms reported Gastrointestinal: Abdomen distended, Abdominal pain, Diarrhea, Nausea, Vomiting , Poor appetite Skin: No symptoms reported Hematologic/Lymphatic: No symptoms reported Neurological/Psychological: No symptoms reported Physical Exam - Vital signs Vitals: Temp Resp BP Pulse Ox 97.9 F 17 90/59 L 96 02/22/18 14:33 02/22/18 14:33 02/22/18 14:33 02/22/18 14:33 - Notes Notes: PHYSICAL EXAMINATION: GENERAL: Ill-appearing in moderate distress HEAD: Atraumatic, normocephalic. EYES: Pupils equal round and reactive to light, extraocular movements intact, conjunctiva are normal. ENT: Dry mucous membranes. NECK: Normal range of motion, supple without lymphadenopathy LUNGS: Breath sounds clear to auscultation bilaterally and equal. No wheezes rales or rhonchi. HEART: Regular rate and rhythm without murmurs ABDOMEN: Distended tender with hypoactive bowel sounds. Female : deferred Musculoskeletal: Normal range of motion, no pitting or edema. No cyanosis. NEUROLOGICAL: Cranial nerves grossly intact. Normal speech. PSYCH: Normal mood, normal affect. SKIN: Warm, Dry, Decreased skin turgor, no rashes or lesions noted. Course - Re-evaluation Re-evalutation: 02/22/18 15:[address] Anguiano at 1515 and at 1543. await call back. Order Ct scan now. 02/22/18 15:[address] Stevens who stated He did do a colonoscopy within the past year he states her colon did not have any abnormalities noted. He states that he will be available for consult on Saturday he is not available this weekend. I did state to him that she was admitted to surgery in the past I will be calling them after the CAT scan results. 02/22/18 17:33 Spoke with radiologist-SBO with fuid throughout bowel and up into epigastric area. 02/22/18 18:04 NGT placed. Son-in-law awre of plan. Abdomen/Pelvis CT 02/22/18 15:43 IMPRESSION: 1. Findings consistent with changes of a adhesions between small bowel and colon within the left lower quadrant. Associated partial small bowel and colonic obstruction seen. 2.Fluid-filled stomach and hiatal hernia containing fluid. Considering NG tube. 3. Status post cholecystectomy and hysterectomy. 4. Multiple rounded areas of decreased attenuation within both kidneys most consistent with cortical cyst. Prominent calculus left renal pelvis. 5. Diffuse atherosclerotic change of the thoracic aorta and abdominal aorta with atherosclerotic change and stenosis proximal celiac artery . 02/22/18 18:10 Dr. Larsen Seeing patient - Vital Signs Vital signs: Temp Pulse Resp BP Pulse Ox 97.9 F 17 102/77 95 02/22/18 14:33 02/22/18 17:15 02/22/18 17:31 02/22/18 17:31 - Laboratory Result Diagrams: 02/22/18 14:26 02/22/18 14:26 Laboratory results interpreted by me: 02/22/18 02/22/18 14:26 14:26 RDW 16.2 H Seg Neutrophils % 79.3 H Lymphocytes % 11.5 L BUN 34 H Creatinine 1.30 H Est GFR ( Amer) 48 L Est GFR (Non-Af Amer) 40 L Glucose 120 H Calcium 10.3 H Direct Bilirubin 0.5 H Total Protein 6.0 L Albumin 2.9 L - Diagnostic Test Radiology reviewed: Image reviewed, Reports reviewed Discharge - Discharge Clinical Impression: Bowel obstruction Condition: Serious Disposition: ADMITTED INPATIENT Admitting Provider: Surgicalist - Dr. Larsen Unit Admitted: Surgical Floor Referrals: ILYA FULLER MD [Primary Care Provider] - Follow up as needed
[2018-02-22 15:58] LABS: ABSOLUTE LYMPHOCYTES (AUTO) 0.8 10^3/uL (0.5-4.7); ABSOLUTE MONOCYTES (AUTO) 0.6 10^3/uL (0.1-1.4); ABSOLUTE NEUT (AUTO) 5.2 10^3/uL (1.7-8.2); BASOPHILS % (AUTO) 0.3 % (0-2); EOSINOPHILS % (AUTO) 0.2 % (0-6); HEMATOCRIT 43.3 % (36.0-47.0); HEMOGLOBIN 14.3 g/dL (12.0-15.5); LYMPHOCYTES % (AUTO) 11.5 % (13-45); MEAN CORPUSCULAR HEMOGLOBIN 29.9 pg (27.0-33.4); MEAN CORPUSCULAR HGB CONC 33.1 g/dL (32.0-36.0); MEAN CORPUSCULAR VOLUME 90 fl (80-97); MONOCYTES % (AUTO) 8.7 % (3-13); PLATELET COUNT 368 10^3/uL (150-450); RED CELL DISTRIBUTION WIDTH 16.2 % (11.5-14.0); SEGMENTED NEUTROPHILS % (AUTO) 79.3 % (42-78); TOTAL CELLS COUNTED % (AUTO) 100 %; WHITE BLOOD COUNT 6.5 10^3/uL (4.0-10.5)
[2018-02-22] MEDS ORDERED: FENTANYL CITRATE INJ/PF 100 MCG/2 ML AMPUL IV ONE (15:58)
[2018-02-22] MEDS ORDERED: PROMETHAZINE HCL INJ 25 MG/1 ML VIAL IM ONE (16:02)
[2018-02-22 16:07] LABS: ALANINE AMINOTRANSFERASE 21 U/L (9-52); ALBUMIN 2.9 g/dL (3.5-5.0); ALKALINE PHOSPHATASE 120 U/L (38-126); ANION GAP 13 (5-19); ASPARTATE AMINO TRANSFERASE 15 U/L (14-36); BILIRUBIN,DIRECT 0.5 mg/dL (0.0-0.4); BILIRUBIN,TOTAL 0.7 mg/dL (0.2-1.3); BLOOD UREA NITROGEN 34 mg/dL (7-20); CALCIUM 10.3 mg/dL (8.4-10.2); CARBON DIOXIDE 25 mmol/L (22-30); CHLORIDE 104 mmol/L (98-107); GLUCOSE 120 mg/dL (75-110); LIPASE 33.4 U/L (23-300); POTASSIUM 4.9 mmol/L (3.6-5.0); SODIUM 141.6 mmol/L (137-145)
--- NOTE | 2018-02-22 17:53 | RADIOLOGY REPORT (SQ) ---
EXAM DESCRIPTION: CT ABD/PELVIS WITH IV ONLY COMPLETED DATE/TIME: 02/22/2018 5:08 pm REASON FOR STUDY: ileus vs Obstruction on xrays 02/19/18. Abd pain/rosalina . Epigastric pain. COMPARISON: None. TECHNIQUE: CT scan of the abdomen and pelvis performed using helical scanning technique with dynamic intravenous contrast injection. No oral contrast. Images reviewed with lung, soft tissue, and bone windows. Reconstructed coronal and sagittal MPR images reviewed. Delayed images for evaluation of the urinary system also acquired. All images stored on PACS. All CT scanners at this facility use dose modulation, iterative reconstruction, and/or weight based d osing when appropriate to reduce radiation dose to as low as reasonably achievable (ALARA). [facility]: Dose Right [facility]: CareDose [facility]: Dose Right [facility]: Teradose 4D [facility]: [employer] Digital CONTRAST TYPE AND DOSE: Isovue 370. 100 mL. RENAL FUNCTION: Creatinine: 1.3 RADIATION DOSE: 2269.9 LIMITATIONS: None. FINDINGS: LOWER CHEST: Lingular atelectasis. Chronic subpleural interstitial scarring. LIVER: No abnormality seen. SPLEEN: No abnormality seen. PANCREAS: No abnormality seen. GALLBLADDER: Status post cholecystectomy. ADRENAL GLANDS: Bilateral nodular adrenals appear hyperplasia not excluded. RIGHT KIDNEY AND URETER: There are multiple rounded areas of decreased attenuation noted within the r ight kidney consistent cortical cysts. LEFT KIDNEY AND URETER: Rounded areas of decreased attenuation within the left kidney consistent cor tical cysts. Prominent calculus left mid renal pelvis measuring 0.8 cm. AORTA AND VESSELS: Diffuse atherosclerotic change of the abdominal aorta with patency of the celiac a nd superior mesenteric arteries. Atherosclerotic change origin of the DORY. Atherosclerotic change a nd stenosis of proximal celiac artery. RETROPERITONEUM: No retroperitoneal adenopathy, hemorrhage or masses. BOWEL AND PERITONEAL CAVITY: There is evidence of a fluid-filled esophagus and stomach. Consider NG tube . There is fluid filled large and small bowel noted. Marked distention of the cecum measuring 10 cm and marked distention of the descending colon measuring 8-0.5 cm noted. In the left lower quad rant there is evidence of tethered loops of large and small bowel (image number [id number] sequence 3 ). The findings are consistent with adhesions resulting in partial obstruction of small bowel and at the level of the rectosigmoid colon. APPENDIX: Normal. PELVIS: Status post hysterectomy. Urinary bladder: Decompressed. Uterus: Absent. ABDOMINAL WALL: No masses. No hernias. BONES: Lumbar spondylosis with scoliosis convex left. Degenerative disc disease at L5-S1. Status po st total right hip prosthesis. OTHER: No other significant finding. IMPRESSION: 1. Findings consistent with changes of a adhesions between small bowel and colon within the left lower quadrant. Associated partial small bowel and colonic obstruction seen. 2.Fluid-fill ed stomach and hiatal hernia containing fluid. Considering NG tube. 3. Status post cholecystectomy and hysterectomy. 4. Multiple rounded areas of decreased attenuation within both kidneys most cons istent with cortical cyst. Prominent calculus left renal pelvis. 5. Diffuse atherosclerotic change of the thoracic aorta and abdominal aorta with atherosclerotic change and stenosis proximal celiac a rtery . COMMENT: The findings were discussed with by phone. TECHNICAL DOCUMENTATION: JOB ID: [id number] Quality ID # [id number]: Final reports with documentation of one or more dose reduction techniques (e.g., Au tomated exposure control, adjustment of the mA and/or kV according to patient size, use of iterative reconstruction technique) 2010 [employer]- All Rights Reserved Reading location - IP/workstation name: [email or web address]
--- NOTE | 2018-02-22 20:20 | RADIOLOGY REPORT (SQ) ---
EXAM DESCRIPTION: CHEST SINGLE VIEW COMPLETED DATE/TIME: 02/22/2018 7:51 pm REASON FOR STUDY: ng placement COMPARISON: CT abdomen and pelvis 02/22/2018. Chest x-ray 01/29/2018. EXAM PARAMETERS: NUMBER OF VIEWS: One view. TECHNIQUE: Single frontal radiographic view of the lower chest/ upper abdomen acquired. RADIATION DOSE: NA LIMITATIONS: None. FINDINGS: An enteric tube has the tip in the left upper quadrant, in the expected location of the ga stric body. There is paucity of the bowel gas in the visualized upper abdomen. There is intravenous contrast excretion at the kidneys. Mild atelectasis at the left lung base. No sizable pleural effusion. IMPRESSION: 1. Enteric tube with the tip in the expected location of the gastric body. Paucity of the bowel gas in the visualized abdomen. 2. Mild left basilar atelectasis. TECHNICAL DOCUMENTATION: JOB ID: [id number] 2010 [employer]- All Rights Reserved Reading location - IP/workstation name: [email or web address]
[2018-02-22] MEDS ORDERED: NORMAL SALINE 1000 ML 2,000 ML IV ONE (21:15)
[2018-02-22 21:33] VITALS: BP 101/54
--- NOTE | 2018-02-22 22:34 | ER Document Report ---
Doctor's Note Notes: 02/22/18 22:34 Pt. just picked up for transfer. VSS.
== END 2018-02-22 22:42 | disposition short-term general hospital (02) ==
LOC: ER 14:16 → EH 18:12 → UNDOADMIN 18:12 → UNDODISIN 22:35 → EH 22:41
DX: K56.51 Intestinal adhesions [bands], with partial obstruction (principal); K56.699 Other intestinal obstruction unspecified as to partial versus complete obstruction; R10.9 Unspecified abdominal pain; R53.1 Weakness; R19.7 Diarrhea, unspecified; K44.9 Diaphragmatic hernia without obstruction or gangrene; J44.9 Chronic obstructive pulmonary disease, unspecified; R11.2 Nausea with vomiting, unspecified; I11.0 Hypertensive heart disease with heart failure; I50.9 Heart failure, unspecified; Z90.710 Acquired absence of both cervix and uterus; Z90.49 Acquired absence of other specified parts of digestive tract
CPT/HCPCS: 99285; 96372; 96361; 96374; 36415; 83690; 85025; 80053; 71045; 74177; J3010; J2550; J7030